=== PATIENT | female | born 1930 | race Caucasian/White ===

== ENCOUNTER 2017-08-05 19:51 | Inpatient (IN) | payer MEDICARE ==
[~2017-08-05] VITALS: Ht 157.5 cm; Wt 49.1 kg
[~2017-08-05 19:51] MED LIST: CEFD300C PO
--- NOTE | 2017-08-05 20:08 | ED.ADGEN ---
Past History Past Medical History: Dementia, Hypertension Adult General Chief Complaint Chief Complaint " They sent me to get checked out.... My only problem is that I kick up a fit now and again..." " I do need to call my mother so she knows where I am at... especially since my father recently ... You know he was a precision instrument and tool maker..." HPI HPI Patient is a 87 year old female resident of [facility], who presents with above hx and complaints by [facility] staff of mental status change. Pt. has been resident of [facility] since 07/31/16. Patient reportedly has been banging doors, staff unable to re-direct, angry with staff and visiting children. Seen crawling on floor several times for no apparent reason. Pt. has hx dementia, hypertension, osteoporosis, Alzheimer's, chronic pain, diverticulosis, and GI bleeding. Pt. currently is without complaints arrival to emergency department. Pt. reportedly has had no recent med changes. Pt. sent to admit to Dr. Perez [facility]. Review of Systems Review of Systems Patient has no complaints Constitutional: Denies fever or chills [] Eyes: Denies change in visual acuity, redness, or eye pain [] HENT: Denies nasal congestion or sore throat [] Respiratory: Denies cough or shortness of breath [] Cardiovascular: No additional information not addressed in HPI [] GI: Denies abdominal pain, nausea, vomiting, bloody stools or diarrhea [] : Denies dysuria or hematuria [] Musculoskeletal: Denies back pain or joint pain [] Integument: Denies rash or skin lesions [] Neurologic: Denies headache, focal weakness or sensory changes [] Endocrine: Denies polyuria or polydipsia [] All other systems were reviewed and found to be within normal limits, except as documented in this note. Family History Family History Not currently available Current Medications Current Medications Current Medications Medications (Trade) Dose Ordered Sig/Delores Start Time Stop Time Status Last Admin Dose Admin Cephalexin HCl (Keflex) 500 mg 1X ONCE 08/05/17 21:45 08/05/17 21:46 DC 08/05/17 21:57 500 MG Dextrose 500 ml @ 500 mls/hr 1X ONCE 08/05/17 23:00 08/05/17 23:59 DC 08/05/17 22:40 500 MLS/HR See Nursing for NH meds Allergies Allergies Allergies Coded Allergies Type Severity Reaction Last Updated Verified codeine Allergy Unknown Unknown 08/05/17 Yes lorazepam Allergy Unknown Unknown 08/05/17 Yes Physical Exam Physical Exam Constitutional: no acute distress, non-toxic appearance. [] HENT: Normocephalic, atraumatic, bilateral external ears normal, oropharynx moist, no oral exudates, nose normal. [] Eyes: PERRLA, EOMI, conjunctiva normal, no discharge. [] Neck: Normal range of motion, no tenderness, supple, no stridor. [] Cardiovascular:Bradycardia Heart rate regular rhythm, no murmur [] Lungs & Thorax: Bilateral breath sounds clear to auscultation at apex. Abdomen: Bowel sounds normal, soft, no tenderness, no masses, no pulsatile masses. [] Skin: Warm, dry, no erythema, no rash. Poor turgor. Back: No tenderness, no CVA tenderness. [] Extremities: No tenderness, no cyanosis, no clubbing, ROM intact, no edema. Arthritis. Neurologic: Alert , no gross motor or sensory function deficits[] Psychologic: Affect anxious, judgement obvious impairment, memory past events, could not recall events of even a few minutes, and insight limited.] Pt wandering out of room every time with no nursing staff to constantly re-direct her to stay in room. Current Patient Data Vital Signs Vital Signs Date Time Temp Pulse Resp B/P (MAP) Pulse Ox O2 Delivery O2 Flow Rate FiO2 08/05/17 23:00 97.4 62 18 134/58 (83) 98 08/05/17 20:04 Room Air Lab Results Laboratory Tests Test 08/05/17 20:22 08/05/17 20:54 08/05/17 21:00 08/05/17 22:18 White Blood Count 6.8 x10^3/uL (4.0-11.0) Red Blood Count 3.43 x10^6/uL (3.50-5.40) L Hemoglobin 10.7 g/dL (12.0-15.5) L Hematocrit 32.4 % (36.0-47.0) L Mean Corpuscular Volume 95 fL (79-100) Mean Corpuscular Hemoglobin 31 pg (25-35) Mean Corpuscular Hemoglobin Concent 33 g/dL (31-37) Red Cell Distribution Width 16.0 % (11.5-14.5) H Platelet Count 182 x10^3/uL (140-400) Neutrophils (%) (Auto) 60 % (31-73) Lymphocytes (%) (Auto) 24 % (24-48) Monocytes (%) (Auto) 11 % (0-9) H Eosinophils (%) (Auto) 4 % (0-3) H Basophils (%) (Auto) 1 % (0-3) Neutrophils # (Auto) 4.1 x10^3uL (1.8-7.7) Lymphocytes # (Auto) 1.7 x10^3/uL (1.0-4.8) Monocytes # (Auto) 0.8 x10^3/uL (0.0-1.1) Eosinophils # (Auto) 0.3 x10^3/uL (0.0-0.7) Basophils # (Auto) 0.1 x10^3/uL (0.0-0.2) Erythrocyte Sedimentation Rate 8 (0-25) Prothrombin Time 10.6 SEC (9.4-11.4) Prothrombin Time INR 1.0 (0.9-1.1) PTT 22 SEC (23-33) L Sodium Level 146 mmol/L (136-145) H Potassium Level 3.6 mmol/L (3.5-5.1) Chloride Level 108 mmol/L (98-107) H Carbon Dioxide Level 28 mmol/L (21-32) Anion Gap 10 (6-14) Blood Urea Nitrogen 23 mg/dL (7-20) H Creatinine 1.0 mg/dL (0.6-1.0) Estimated GFR (Cockcroft-Gault) 52.3 Glucose Level 110 mg/dL (70-99) H Calcium Level 8.7 mg/dL (8.5-10.1) Magnesium Level 2.2 mg/dL (1.8-2.4) Ammonia < 10 mcmol/L (11-34) L Creatine Kinase 198 U/L (26-192) H Creatine Kinase MB (Mass) 1.6 ng/mL (0.0-3.6) Creatine Kinase MB Relative Index 0.8 % (0-4) Troponin I Quantitative 0.023 ng/mL (0-0.055) BJ-Lgq-X-Type Natriuretic Peptide 480 pg/mL (0-449) H Urine Collection Type Unknown Urine Color Yellow Urine Clarity Clear Urine pH 6.0 Urine Specific [place] 1.015 Urine Protein Neg (NEG-TRACE) Urine Glucose (UA) Neg mg/dL (NEG) Urine Ketones (Stick) Neg mg/dL (NEG) Urine Blood Neg (NEG) Urine Nitrite Neg (NEG) Urine Bilirubin Neg (NEG) Urine Urobilinogen Dipstick 0.2 mg/dL (0.2 mg/dL) Urine Leukocyte Esterase Small (NEG) Urine RBC 0 /HPF (0-2) Urine WBC 1-4 /HPF (0-4) Urine Squamous Epithelial Cells Few /LPF Urine Bacteria 0 /HPF (0-FEW) Urine Opiates Screen Neg (NEG) Urine Methadone Screen Neg (NEG) Urine Barbiturates Neg (NEG) Urine Phencyclidine Screen Neg (NEG) Urine Amphetamine/Methamphetamine Neg (NEG) Urine Benzodiazepines Screen Neg (NEG) Urine Cocaine Screen Neg (NEG) Urine Cannabinoids Screen Neg (NEG) Urine Ethyl Alcohol Neg (NEG) Influenza Type A (Rapid) Negative (NEGATIVE) Influenza Type B (Rapid) Negative (NEGATIVE) EKG EKG Interpretation EKG shows a sinus rhythm at 59 bpm. No acute findings of STEMI with contralateral changes[] Radiology/Procedures Radiology/Procedures My interpretation of CT head shows no shift, mass, edema, bleed, or fracture. Does have findings of atrophy and white matter disease changes. My interpretation of chest x-ray shows no large cardio pulmonary changes, some degenerative joint changes.[] Course & Med Decision Making Course & Med Decision Making Pertinent Labs and Imaging studies reviewed. (See chart for details). Discussed presentation, testing and treatment plan with Dr. Raphael. Requested patient received D5 W. Patient to be admitted to Dr. Perez [facility]. [] Final Impression Final Impression 1. Mental status change 2. History of dementia 3. History of depression 4. History of arthritis 5. History of osteoporosis[] 6. Hx of HTN 7. Hx. of Chronic Pain 8. Anemia 9. Hypernatremia 10.Spenoid Sinusitis 11. Possible UTI 12. Elev. CK and BNP Problems: Dragon Disclaimer Dragon Disclaimer This electronic medical record was generated, in whole or in part, using a voice recognition dictation system. ELSA PACHECO MD Aug 05, 2017 20:08
--- NOTE | 2017-08-05 20:49 | RAD ---
EXAM: Head CT without contrast. HISTORY: Fall. Confusion. Weakness. TECHNIQUE: Computed tomographic images of the head were obtained without contrast. *One or more of the following individualized dose reduction techniques were utilized for this examination: 1. Automated exposure control. 2. Adjustment of the mA and/or kV according to patient size. 3. Use of iterative reconstruction technique. COMPARISON: None. FINDINGS: There is no acute or subacute extra-axial or intraparenchymal hemorrhage. There is no mass effect or midline shift. There is no hydrocephalus. There are areas of decreased attenuation within the cerebral white matter, nonspecific and likely related to chronic small vessel disease. There is cerebral atrophy. There is near complete opacification of the right aspect of the sphenoid sinus with sinus wall thickening likely due to chronic sinusitis. There may be a superimposed mucous retention cyst. There is no sinus wall expansion to suggest a mucocele. The orbits and mastoid air cells are unremarkable. IMPRESSION: 1. Scattered areas of hypodensity within the cerebral white matter, a nonspecific finding likely due to chronic small vessel disease. 2. Cerebral atrophy. 3. Right sphenoid sinus disease. Electronically signed by: Aisha Medrano MD (08/05/2017 8:46 PM) [facility]
[2017-08-05 21:07] LABS: BASO # 0.1 x10^3/uL (0.0-0.2); BASO % 1 % (0-3); EOS # 0.3 x10^3/uL (0.0-0.7); EOS % 4 % (0-3); HEMATOCRIT 32.4 % (36.0-47.0); HEMOGLOBIN 10.7 g/dL (12.0-15.5); LYMPH # 1.7 x10^3/uL (1.0-4.8); LYMPH % 24 % (24-48); MEAN CORPUSCULAR HEMOGLOBIN 31 pg (25-35); MEAN CORPUSCULAR HGB CONC 33 g/dL (31-37); MEAN CORPUSCULAR VOLUME 95 fL (79-100); MONO # 0.8 x10^3/uL (0.0-1.1); MONO % 11 % (0-9); NEUT # 4.1 x10^3uL (1.8-7.7); NEUT % 60 % (31-73); PLATELET COUNT 182 x10^3/uL (140-400); RED BLOOD COUNT 3.43 x10^6/uL (3.50-5.40); WHITE BLOOD COUNT 6.8 x10^3/uL (4.0-11.0)
[2017-08-05 21:27] LABS: CALCIUM 8.7 mg/dL (8.5-10.1); GFR 52.3; MAGNESIUM 2.2 mg/dL (1.8-2.4); POTASSIUM 3.6 mmol/L (3.5-5.1)
[2017-08-05] MEDS ORDERED: CEPHALEXIN 250 MG CAPSULE PO ONE (21:45)
[2017-08-05] MEDS: CEPHALEXIN 250 MG CAPSULE PO SCH (21:59)
[2017-08-05 22:41] LABS: AMPHETAMINE/METHAMPHETAMINE NEG (NEG); BARBITURATES NEG (NEG); BENZODIAZEPINES NEG (NEG); CANNABINOIDS NEG (NEG); COCAINE NEG (NEG); METHADONE NEG (NEG); OPIATES NEG (NEG); PHENCYCLIDINE NEG (NEG)
[2017-08-05 22:57] LABS: SEDIMENTATION RATE 8 (0-25)
[2017-08-05] MEDS ORDERED: IV DEXTROSE 5% 500 ML IV ONE (23:00)
[2017-08-05 23:06] LABS: INFLUENZA A PATIENT NEGATIVE (NEGATIVE); INFLUENZA B PATIENT NEGATIVE (NEGATIVE)
[2017-08-05 23:09] LABS: BILIRUBIN,URINE NEG (NEG); CLARITY,URINE CLEAR; COLOR,URINE YELLOW; GLUCOSE,URINE NEG (NEG)
[2017-08-05 23:10] LABS: BACTERIA,URINE 0 /HPF (0-FEW); NITRITE,URINE NEG (NEG); RBC,URINE 0 /HPF (0-2); SQUAMOUS EPITHELIAL CELL,UR FEW /LPF; UROBILINOGEN,URINE 0.2 mg/dL (0.2 mg/dL)
[2017-08-05] MEDS ORDERED: OLAN5TAB5 PO (23:20)
[2017-08-05] MEDS ORDERED: PHEN26CR RC (23:20)
[2017-08-05] MEDS ORDERED: ACET325T9 PO ×2 (23:20)
[2017-08-05] MEDS ORDERED: LISI1TAB3 PO (23:20)
[2017-08-05] MEDS ORDERED: CHOL400T14 PO (23:20)
[2017-08-05] MEDS ORDERED: OLAN2.5T3 PO (23:20)
[2017-08-05] MEDS ORDERED: KETO5DRO72 LEFTEYE (23:20)
[2017-08-05] MEDS ORDERED: FERR325T14 PO (23:20)
[2017-08-05] MEDS ORDERED: RIVA1PAT22 TD (23:20)
[2017-08-05] MEDS ORDERED: DOCU-109 PO (23:20)
[2017-08-05] MEDS ORDERED: CA C1TAB45 PO (23:20)
[2017-08-05] MEDS ORDERED: BUSP5TAB PO (23:20)
[2017-08-05] MEDS ORDERED: ONDA4TAB7 PO (23:20)
[2017-08-05] MEDS ORDERED: ALPR0.254 PO (23:20)
[2017-08-05] MEDS ORDERED: CITA20TA9 PO (23:20)
[2017-08-05] MEDS ORDERED: DONE10TA61 PO (23:20)
[2017-08-05] MEDS ORDERED: MEMA5TAB PO (23:20)
[2017-08-06 00:10] VITALS: BP 186/84
[2017-08-06 06:18] VITALS: BP 178/61
[2017-08-06 07:03] LABS: BASO # 0.1 x10^3/uL (0.0-0.2); BASO % 1 % (0-3); EOS # 0.3 x10^3/uL (0.0-0.7); EOS % 4 % (0-3); HEMATOCRIT 33.5 % (36.0-47.0); LYMPH # 1.5 x10^3/uL (1.0-4.8); LYMPH % 20 % (24-48); MEAN CORPUSCULAR HEMOGLOBIN 31 pg (25-35); MEAN CORPUSCULAR HGB CONC 33 g/dL (31-37); MEAN CORPUSCULAR VOLUME 94 fL (79-100); MONO # 0.7 x10^3/uL (0.0-1.1); MONO % 10 % (0-9); NEUT % 66 % (31-73); PLATELET COUNT 181 x10^3/uL (140-400); RED BLOOD COUNT 3.55 x10^6/uL (3.50-5.40); RED CELL DISTRIBUTION WIDTH 16.2 % (11.5-14.5); WHITE BLOOD COUNT 7.6 x10^3/uL (4.0-11.0)
[2017-08-06 07:08] LABS: CALCIUM 8.6 mg/dL (8.5-10.1); CREATININE 0.9 mg/dL (0.6-1.0); GFR 59.1; POTASSIUM 3.7 mmol/L (3.5-5.1)
--- NOTE | 2017-08-06 08:30 | EKG ---
[address] [address] Test Date: 2017-08-05 Test Time: 20:12:18 Pat Name: FANTA SIN Department: Room: [facility] 1 Gender: F Playroom Attendant: : [id number] Requested By: ELSA PACHECO Order Number: [id number] Reading MD: Tonny Bazan Measurements Intervals [place] Rate: 59 P: 180 CA: 130 QRS: -24 QRSD: 70 T: 139 QT: 442 QTc: 438 Interpretive Statements SINUS RHYTHM LEFTWARD AXIS T ABNORMALITY IN HIGH LATERAL LEADS ABNORMAL ECG RI6.01 No previous ECG available for comparison Electronically Signed On 08-07-2017 11:51:14 [employer] by Tonny Bazan
--- NOTE | 2017-08-06 08:56 | RAD ---
Portable AP view CXR: Clinical indications: Weakness. Confusion today. Falls. Comparison: None available. Findings: Focal peribronchial thickening is seen within the right upper lobe. No lung consolidation or pleural effusion or Steffany B lines or lung mass or pneumothorax is seen. The heart size, pulmonary vasculature, mediastinum and both sundar are unremarkable. An old healed fracture of the lateral aspect of the left second rib is seen. Impression: Focal peribronchial thickening within the right upper lobe consistent with bronchitis which may be acute or chronic. No consolidative pneumonia is seen otherwise.
[2017-08-06] MEDS: MEMANTINE 5 MG TABLET. PO SCH ×3 (10:22→21:00)
[2017-08-06] MEDS: CEPHALEXIN 250 MG CAPSULE PO SCH ×4 (10:23→21:00)
[2017-08-06] MEDS: DONEPEZIL HCL 10 MG TABLET PO SCH (10:23)
[2017-08-06] MEDS: busPIRone 5 MG TABLET. PO SCH ×3 (10:23→21:00)
[2017-08-06] MEDS: OLANZapine 2.5 MG TABLET PO SCH (10:23)
[2017-08-06] MEDS: FLUTICASONE 50MCG/NASAL SPRAY 16GM BOTTLE. NS SCH (10:23)
[2017-08-06] MEDS: CITALOPRAM 20 MG TABLET. PO SCH (10:23)
[2017-08-06] MEDS: LACTOBACILLUS RHAMNOSUS GG 1 CAPSULE. PO SCH ×3 (10:23→21:00)
[2017-08-06] MEDS: RIVASTIGMINE 4.6MG PATCH. TD SCH (10:23)
[2017-08-06 14:15] LABS: THYROID STIM HORMONE (TSH) 3.523 uIU/mL (0.358-3.740)
--- NOTE | 2017-08-06 15:34 | HP ---
ADMIT DATE: 08/05/2017 REASON FOR ADMISSION TO SENIOR BEHAVIORAL UNIT: This is an 87-year-old female who came from [facility] in [place] where she has been exit seeking, throwing herself on the floor, banging on the doors, not being able to be redirected, angry at her children, crawling on the floors, onset of symptoms 1 month, facility attempted to call her daughter, walk her around outside, son came and took her for a ride and she had p.r.n., Xanax and Zydis and Exelon patch was started . The date of admission to [facility] was a year ago, 07/31/2016. PAST MEDICAL HISTORY: Hypertension, osteoporosis, major depressive disorder, Alzheimer disease, chronic back pain, history of diverticulosis. She has been on antibiotics since Saturday. History of GI bleed 2 weeks ago with hospitalization. Functionality, she is continent, she walks, she feeds herself, eats a regular diet. REVIEW OF SYSTEMS: The patient unable to answer those questions. OBJECTIVE: VITAL SIGNS: Blood pressure is 178/61, pulse 71, respirations 20, pulse ox 100% on room air, temperature 99.2. Height 62 inches, weight 110 pounds. GENERAL: Pleasant elderly female, in no acute distress. At the present time, she is sitting in the day room, very quietly, cooperating, drinking water and not having any issues. HEENT: Hearing is normal. Eyes were clear. Nose patent. Throat clear. NECK: Supple, without adenopathy. Thyroid was not enlarged. There were no carotid bruits. LUNGS: Clear to auscultation. CARDIOVASCULAR: Regular rhythm and rate with a 3/6 systolic murmur. ABDOMEN: Soft, nontender. EXTREMITIES: Without edema. NEUROLOGIC: Cranial nerves appear to be intact. There are no gross tremors. LABORATORY DATA: Hemoglobin 11.0, hematocrit 33.5. Chemistry: Sodium is 147, chloride 110. BNP 480. Drug screen negative. Urinalysis negative. Influenza negative. Chest x-ray, possibly acute or chronic bronchitis and where she has been started on antibiotic I believe. ASSESSMENT: 1. Acute bronchitis. 2. Dementia with behavior disturbance. 3. Anxiety. 4. Fall risk. PLAN: Follow along with Dr. Perez and treat her medical conditions. CROW ELLINGTON DO DR: Loretta JOB#: [id number] / [id number]
[2017-08-06 16:42] VITALS: BP 138/50
[2017-08-06] MEDS: MIRTAZAPINE 7.5 MG TABLET. PO SCH ×2 (19:38→21:00)
--- NOTE | 2017-08-06 20:05 | PDOC ---
Exam Note: Allen Note: Please also refer to the separate dictated note~for this date of service dictated separately.~Patient seen individually. Discussed the patient with Nursing staff reviewed the chart.~Reviewed interim history and current functioning. Reviewed vital signs,~Labs/ Radiology~and current medications noted below. Continue current treatment with the changes noted in the dictated addendum note Assessment: Vital Signs: Vital Signs Date Time Temp Pulse Resp B/P (MAP) Pulse Ox O2 Delivery O2 Flow Rate FiO2 08/06/17 16:42 98.4 70 18 138/50 (79) 100 08/06/17 00:10 Room Air I&O Intake and Output 08/06/17 07:00 Intake Total 620 ml Balance 620 ml Intake Oral 120 ml IV Total 500 ml Labs: Laboratory Tests Test 08/05/17 20:22 08/05/17 20:54 08/05/17 21:00 08/05/17 22:18 White Blood Count 6.8 x10^3/uL (4.0-11.0) Red Blood Count 3.43 x10^6/uL (3.50-5.40) L Hemoglobin 10.7 g/dL (12.0-15.5) L Hematocrit 32.4 % (36.0-47.0) L Mean Corpuscular Volume 95 fL (79-100) Mean Corpuscular Hemoglobin 31 pg (25-35) Mean Corpuscular Hemoglobin Concent 33 g/dL (31-37) Red Cell Distribution Width 16.0 % (11.5-14.5) H Platelet Count 182 x10^3/uL (140-400) Neutrophils (%) (Auto) 60 % (31-73) Lymphocytes (%) (Auto) 24 % (24-48) Monocytes (%) (Auto) 11 % (0-9) H Eosinophils (%) (Auto) 4 % (0-3) H Basophils (%) (Auto) 1 % (0-3) Neutrophils # (Auto) 4.1 x10^3uL (1.8-7.7) Lymphocytes # (Auto) 1.7 x10^3/uL (1.0-4.8) Monocytes # (Auto) 0.8 x10^3/uL (0.0-1.1) Eosinophils # (Auto) 0.3 x10^3/uL (0.0-0.7) Basophils # (Auto) 0.1 x10^3/uL (0.0-0.2) Erythrocyte Sedimentation Rate 8 (0-25) Reticulocyte Count (auto) 1.7 % (0.5-2.5) Prothrombin Time 10.6 SEC (9.4-11.4) Prothrombin Time INR 1.0 (0.9-1.1) PTT 22 SEC (23-33) L Sodium Level 146 mmol/L (136-145) H Potassium Level 3.6 mmol/L (3.5-5.1) Chloride Level 108 mmol/L (98-107) H Carbon Dioxide Level 28 mmol/L (21-32) Anion Gap 10 (6-14) Blood Urea Nitrogen 23 mg/dL (7-20) H Creatinine 1.0 mg/dL (0.6-1.0) Estimated GFR (Cockcroft-Gault) 52.3 Glucose Level 110 mg/dL (70-99) H Calcium Level 8.7 mg/dL (8.5-10.1) Magnesium Level 2.2 mg/dL (1.8-2.4) Iron Level 53 ug/dL (50-170) Total Iron Binding Capacity 280 ug/dL (250-450) Iron Saturation 19 % (15-34) Ammonia < 10 mcmol/L (11-34) L Creatine Kinase 198 U/L (26-192) H Creatine Kinase MB (Mass) 1.6 ng/mL (0.0-3.6) Creatine Kinase MB Relative Index 0.8 % (0-4) Troponin I Quantitative 0.023 ng/mL (0-0.055) PB-Mhi-U-Type Natriuretic Peptide 480 pg/mL (0-449) H Triglycerides Level 212 mg/dL (0-150) H Cholesterol Level 218 mg/dL (0-200) H LDL Cholesterol, Calculated 116 mg/dL (0-100) H VLDL Cholesterol, Calculated 42 mg/dL (0-40) H Non-HDL Cholesterol Calculated 158 mg/dL (0-129) H HDL Cholesterol 60 mg/dL (40-60) Cholesterol/HDL Ratio 3.0 Vitamin B12 Level 605 pg/mL (247-911) 25-Hydroxy Vitamin D Total 30.7 ng/mL (30-100) Thyroid Stimulating Hormone (TSH) 3.523 uIU/mL (0.358-3.740) Urine Collection Type Unknown Urine Color Yellow Urine Clarity Clear Urine pH 6.0 Urine Specific [place] 1.015 Urine Protein Neg (NEG-TRACE) Urine Glucose (UA) Neg mg/dL (NEG) Urine Ketones (Stick) Neg mg/dL (NEG) Urine Blood Neg (NEG) Urine Nitrite Neg (NEG) Urine Bilirubin Neg (NEG) Urine Urobilinogen Dipstick 0.2 mg/dL (0.2 mg/dL) Urine Leukocyte Esterase Small (NEG) Urine RBC 0 /HPF (0-2) Urine WBC 1-4 /HPF (0-4) Urine Squamous Epithelial Cells Few /LPF Urine Bacteria 0 /HPF (0-FEW) Urine Opiates Screen Neg (NEG) Urine Methadone Screen Neg (NEG) Urine Barbiturates Neg (NEG) Urine Phencyclidine Screen Neg (NEG) Urine Amphetamine/Methamphetamine Neg (NEG) Urine Benzodiazepines Screen Neg (NEG) Urine Cocaine Screen Neg (NEG) Urine Cannabinoids Screen Neg (NEG) Urine Ethyl Alcohol Neg (NEG) Influenza Type A (Rapid) Negative (NEGATIVE) Influenza Type B (Rapid) Negative (NEGATIVE) Test 08/06/17 06:45 White Blood Count 7.6 x10^3/uL (4.0-11.0) Red Blood Count 3.55 x10^6/uL (3.50-5.40) Hemoglobin 11.0 g/dL (12.0-15.5) L Hematocrit 33.5 % (36.0-47.0) L Mean Corpuscular Volume 94 fL (79-100) Mean Corpuscular Hemoglobin 31 pg (25-35) Mean Corpuscular Hemoglobin Concent 33 g/dL (31-37) Red Cell Distribution Width 16.2 % (11.5-14.5) H Platelet Count 181 x10^3/uL (140-400) Neutrophils (%) (Auto) 66 % (31-73) Lymphocytes (%) (Auto) 20 % (24-48) L Monocytes (%) (Auto) 10 % (0-9) H Eosinophils (%) (Auto) 4 % (0-3) H Basophils (%) (Auto) 1 % (0-3) Neutrophils # (Auto) 5.0 x10^3uL (1.8-7.7) Lymphocytes # (Auto) 1.5 x10^3/uL (1.0-4.8) Monocytes # (Auto) 0.7 x10^3/uL (0.0-1.1) Eosinophils # (Auto) 0.3 x10^3/uL (0.0-0.7) Basophils # (Auto) 0.1 x10^3/uL (0.0-0.2) Sodium Level 147 mmol/L (136-145) H Potassium Level 3.7 mmol/L (3.5-5.1) Chloride Level 110 mmol/L (98-107) H Carbon Dioxide Level 27 mmol/L (21-32) Anion Gap 10 (6-14) Blood Urea Nitrogen 23 mg/dL (7-20) H Creatinine 0.9 mg/dL (0.6-1.0) Estimated GFR (Cockcroft-Gault) 59.1 Glucose Level 110 mg/dL (70-99) H Calcium Level 8.6 mg/dL (8.5-10.1) Current Medications: Meds: Current Medications Cephalexin HCl (Keflex) 500 mg 1X ONCE PO Last administered on 08/05/17at 21:57 ; Start 08/05/17 at 21:45; Stop 08/05/17 at 21:46; Status DC Fluticasone Propionate (Flonase) 2 spray DAILY NS Last administered on at 10:23; Start 08/06/17 at 09:00 Cephalexin HCl (Keflex) 500 mg TID PO Last administered on 08/06/17at 19:37; Start 08/06/17 at 09:00 Dextrose 500 ml @ 500 mls/hr 1X ONCE IV Last administered on 08/05/17at 22:40 ; Start 08/05/17 at 23:00; Stop 08/05/17 at 23:59; Status DC Lactobacillus Rhamnosus (Culturelle) 1 cap BID PO Last administered on at 19:37; Start 08/06/17 at 09:00 Alprazolam (Xanax) 0.25 mg PRN Q30MIN PRN PO ANXIETY / AGITATION; Start at 00:00 Buspirone HCl (Buspar) 7.5 mg BID PO Last administered on 08/06/17at 19:37; Start 08/06/17 at 09:00 Citalopram Hydrobromide (CeleXA) 20 mg DAILY PO Last administered on 08/06/17at 10:23; Start 08/06/17 at 09:00 Donepezil HCl (Aricept) 10 mg DAILY PO Last administered on 08/06/17at 10:23; Start 08/06/17 at 09:00 Memantine (Namenda) 5 mg BID PO Last administered on 08/06/17at 19:35; Start at 09:00 Olanzapine (ZyPREXA ZYDIS) 2.5 mg PRN Q12HR PRN PO PSYCHOSIS; Start 08/06/17 at 00:00 Olanzapine (ZyPREXA) 2.5 mg DAILY PO Last administered on 08/06/17 10:23; Start 08/06/17 at 09:00 Rivastigmine (Exelon) 1 patch DAILY TD Last administered on 08/06/17 10:23; Start 08/06/17 at 09:00 Mirtazapine (Remeron) 7.5 mg QHS PO Last administered on 08/06/17at 19:38; Start 08/06/17 at 21:00 Trazodone HCl (Desyrel) 25 mg PRN QHS PRN PO INSOMNIA, MAY REPEAT X1; Start at 18:45 Active Scripts Active Reported Zyprexa Zydis (Olanzapine) 5 Mg Tab.rapdis 2.5 Mg PO PRN Q12HR PRN Zyprexa (Olanzapine) 2.5 Mg Tablet 2.5 Mg PO DAILY Zofran (Ondansetron Hcl) 4 Mg Tablet 4 Mg PO PRN Q4HRS PRN Vitamin D-400 (Cholecalciferol (Vitamin D3)) 400 Unit Tablet 400 Unit PO DAILY Tylenol (Acetaminophen) 325 Mg Tablet 650 Mg PO BID Preparation H Cream (Phenyleph/Pramoxin/Glycr/W.pet) 26 Gm Cream..g. 1 Vicky RC PRN PRN Namenda (Memantine Hcl) 5 Mg Tablet 5 Mg PO BID Tylenol (Acetaminophen) 325 Mg Tablet 650 Mg PO PRN Q6HRS PRN Lisinopril-Hctz 10-12.5 Mg Tab (Lisinopril/Hydrochlorothiazide) 1 Each Tablet 1 Tab PO DAILY Ketorolac Tromethamine 5 Ml Drops 1 Drop LEFTEYE QID Ferrous Sulfate 325 Mg Tablet 325 Mg PO DAILY EXELON 4.6mg/24hr (Rivastigmine) 1 Each Patch.td24 1 Patch TD DAILY Aricept (Donepezil Hcl) 10 Mg Tablet 10 Mg PO DAILY Colace (Docusate Sodium) 100 Mg Capsule 100 Mg PO BID Celexa (Citalopram Hydrobromide) 20 Mg Tablet 20 Mg PO DAILY Cefdinir 300 Mg Capsule 300 Mg PO BID 7 Days Nadeem Mag Zinc + D3 Tablet (Ca Carb/Vit D3/Mag Ox/Zn Oxide) 1 Each Tablet 1 Tab PO BID Buspirone Hcl 5 Mg Tablet 7.5 Mg PO BID Alprazolam 0.25 Mg Tablet 0.25 Mg PO PRN Q30MIN PRN MDD 1mg I have reviewed the current psychotropics carefully including drug interactions. Risk benefit ratio favors no change other than as noted in my dictated progress note. 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
[2017-08-06 20:09] LABS: HEMOGLOBIN A1C 4.8 % (4.8-5.6); THYROXINE 5.6 ug/dL (4.5-12.0)
[2017-08-07 05:57] VITALS: BP 168/60
[2017-08-07] MEDS: DONEPEZIL HCL 10 MG TABLET PO SCH (09:20)
[2017-08-07] MEDS: RIVASTIGMINE 4.6MG PATCH. TD SCH (09:20)
[2017-08-07] MEDS: OLANZapine 2.5 MG TABLET PO SCH (09:20)
[2017-08-07] MEDS: LACTOBACILLUS RHAMNOSUS GG 1 CAPSULE. PO SCH ×2 (09:20→19:04)
[2017-08-07] MEDS: CEPHALEXIN 250 MG CAPSULE PO SCH ×3 (09:20→19:04)
[2017-08-07] MEDS: FLUTICASONE 50MCG/NASAL SPRAY 16GM BOTTLE. NS SCH (09:21)
[2017-08-07] MEDS: CITALOPRAM 20 MG TABLET. PO SCH (09:21)
[2017-08-07] MEDS: MEMANTINE 5 MG TABLET. PO SCH ×2 (09:21→19:05)
[2017-08-07] MEDS: busPIRone 5 MG TABLET. PO SCH ×2 (09:21→19:05)
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
[2017-08-07 16:49] VITALS: BP 129/54
[2017-08-07] MEDS: MIRTAZAPINE 7.5 MG TABLET. PO SCH (19:04)
--- NOTE | 2017-08-07 20:07 | PDOC ---
Exam Note: Allen Note: Please also refer to the separate dictated note~for this date of service dictated separately.~Patient seen individually. Discussed the patient with Nursing staff reviewed the chart.~Reviewed interim history and current functioning. Reviewed vital signs,~Labs/ Radiology~and current medications noted below. Continue current treatment with the changes noted in the dictated addendum note Assessment: Vital Signs: Vital Signs Date Time Temp Pulse Resp B/P (MAP) Pulse Ox O2 Delivery O2 Flow Rate FiO2 08/07/17 16:49 97.7 56 16 129/54 (79) 100 08/07/17 05:57 Room Air I&O Intake and Output 08/07/17 07:00 Intake Total 720 ml Balance 720 ml Intake Oral 720 ml # Bowel Movements 2 Current Medications: Meds: Current Medications Cephalexin HCl (Keflex) 500 mg 1X ONCE PO Last administered on 08/05/17at 21:57 ; Start 08/05/17 at 21:45; Stop 08/05/17 at 21:46; Status DC Fluticasone Propionate (Flonase) 2 spray DAILY NS Last administered on at 09:21; Start 08/06/17 at 09:00 Cephalexin HCl (Keflex) 500 mg TID PO Last administered on 08/07/17 19:04; Start 08/06/17 at 09:00 Dextrose 500 ml @ 500 mls/hr 1X ONCE IV Last administered on 08/05/17at 22:40 ; Start 08/05/17 at 23:00; Stop 08/05/17 at 23:59; Status DC Lactobacillus Rhamnosus (Culturelle) 1 cap BID PO Last administered on at 19:04; Start 08/06/17 at 09:00 Alprazolam (Xanax) 0.25 mg PRN Q30MIN PRN PO ANXIETY / AGITATION; Start at 00:00 Buspirone HCl (Buspar) 7.5 mg BID PO Last administered on 08/07/17at 19:05; Start 08/06/17 at 09:00 Citalopram Hydrobromide (CeleXA) 20 mg DAILY PO Last administered on 08/07/17at 09:21; Start 08/06/17 at 09:00 Donepezil HCl (Aricept) 10 mg DAILY PO Last administered on 08/07/17at 09:20; Start 08/06/17 at 09:00 Memantine (Namenda) 5 mg BID PO Last administered on 08/07/17at 19:05; Start at 09:00 Olanzapine (ZyPREXA ZYDIS) 2.5 mg PRN Q12HR PRN PO PSYCHOSIS; Start 08/06/17 at 00:00 Olanzapine (ZyPREXA) 2.5 mg DAILY PO Last administered on 08/07/17at 09:20; Start 08/06/17 at 09:00 Rivastigmine (Exelon) 1 patch DAILY TD Last administered on 08/07/17at 09:20; Start 08/06/17 at 09:00 Mirtazapine (Remeron) 7.5 mg QHS PO Last administered on 08/07/17at 19:04; Start 08/06/17 at 21:00 Trazodone HCl (Desyrel) 25 mg PRN QHS PRN PO INSOMNIA, MAY REPEAT X1; Start at 18:45 Active Scripts Active Reported Zyprexa Zydis (Olanzapine) 5 Mg Tab.rapdis 2.5 Mg PO PRN Q12HR PRN Zyprexa (Olanzapine) 2.5 Mg Tablet 2.5 Mg PO DAILY Zofran (Ondansetron Hcl) 4 Mg Tablet 4 Mg PO PRN Q4HRS PRN Vitamin D-400 (Cholecalciferol (Vitamin D3)) 400 Unit Tablet 400 Unit PO DAILY Tylenol (Acetaminophen) 325 Mg Tablet 650 Mg PO BID Preparation H Cream (Phenyleph/Pramoxin/Glycr/W.pet) 26 Gm Cream..g. 1 Vicky RC PRN PRN Namenda (Memantine Hcl) 5 Mg Tablet 5 Mg PO BID Tylenol (Acetaminophen) 325 Mg Tablet 650 Mg PO PRN Q6HRS PRN Lisinopril-Hctz 10-12.5 Mg Tab (Lisinopril/Hydrochlorothiazide) 1 Each Tablet 1 Tab PO DAILY Ketorolac Tromethamine 5 Ml Drops 1 Drop LEFTEYE QID Ferrous Sulfate 325 Mg Tablet 325 Mg PO DAILY EXELON 4.6mg/24hr (Rivastigmine) 1 Each Patch.td24 1 Patch TD DAILY Aricept (Donepezil Hcl) 10 Mg Tablet 10 Mg PO DAILY Colace (Docusate Sodium) 100 Mg Capsule 100 Mg PO BID Celexa (Citalopram Hydrobromide) 20 Mg Tablet 20 Mg PO DAILY Cefdinir 300 Mg Capsule 300 Mg PO BID 7 Days Nadeem Mag Zinc + D3 Tablet (Ca Carb/Vit D3/Mag Ox/Zn Oxide) 1 Each Tablet 1 Tab PO BID Buspirone Hcl 5 Mg Tablet 7.5 Mg PO BID Alprazolam 0.25 Mg Tablet 0.25 Mg PO PRN Q30MIN PRN MDD 1mg I have reviewed the current psychotropics carefully including drug interactions. Risk benefit ratio favors no change other than as noted in my dictated progress note. Diagnosis: Problems: (1) Dementia with behavioral disturbance (2) Anxiety disorder (3) Dementia in Alzheimer's disease with delusions (4) Dementia in Alzheimer's disease with depression (5) Dementia, vascular, with delusions (6) Dementia, vascular, with depression (7) Impulse control disorder LAUREN CASILLAS MD Aug 07, 2017 20:07
[2017-08-08 06:34] VITALS: BP 133/43
[2017-08-08] MEDS: DONEPEZIL HCL 10 MG TABLET PO SCH (08:46)
[2017-08-08] MEDS: MEMANTINE 5 MG TABLET. PO SCH (08:46)
[2017-08-08] MEDS: CITALOPRAM 20 MG TABLET. PO SCH (08:46)
[2017-08-08] MEDS: CEPHALEXIN 250 MG CAPSULE PO SCH ×2 (08:46→13:47)
[2017-08-08] MEDS: RIVASTIGMINE 4.6MG PATCH. TD SCH (08:46)
[2017-08-08] MEDS: OLANZapine 2.5 MG TABLET PO SCH (08:46)
[2017-08-08] MEDS: busPIRone 5 MG TABLET. PO SCH ×2 (08:46→20:41)
[2017-08-08] MEDS: LACTOBACILLUS RHAMNOSUS GG 1 CAPSULE. PO SCH ×2 (08:46→20:40)
[2017-08-08] MEDS: FLUTICASONE 50MCG/NASAL SPRAY 16GM BOTTLE. NS SCH (08:48)
[2017-08-08 16:32] VITALS: BP 170/67
[2017-08-08] MEDS ORDERED: FOSFOMYCIN TROMETHAMINE 3 GM PACKET PO ONE (17:00)
--- NOTE | 2017-08-08 20:00 | PDOC ---
Exam Note: Allen Note: Please also refer to the separate dictated note~for this date of service dictated separately.~Patient seen individually. Discussed the patient with Nursing staff reviewed the chart.~Reviewed interim history and current functioning. Reviewed vital signs,~Labs/ Radiology~and current medications noted below. Continue current treatment with the changes noted in the dictated addendum note Assessment: Vital Signs: Vital Signs Date Time Temp Pulse Resp B/P (MAP) Pulse Ox O2 Delivery O2 Flow Rate FiO2 08/08/17 16:32 98.1 78 18 170/67 (101) 99 Room Air I&O Intake and Output 08/08/17 07:00 Intake Total 240 ml Balance 240 ml Intake Oral 240 ml Current Medications: Meds: Current Medications Cephalexin HCl (Keflex) 500 mg 1X ONCE PO Last administered on 08/05/17at 21:57 ; Start 08/05/17 at 21:45; Stop 08/05/17 at 21:46; Status DC Fluticasone Propionate (Flonase) 2 spray DAILY NS Last administered on at 08:48; Start 08/06/17 at 09:00 Cephalexin HCl (Keflex) 500 mg TID PO Last administered on 08/08/17at 13:47; Start 08/06/17 at 09:00; Stop 08/08/17 at 16:11; Status DC Dextrose 500 ml @ 500 mls/hr 1X ONCE IV Last administered on 08/05/17at 22:40 ; Start 08/05/17 at 23:00; Stop 08/05/17 at 23:59; Status DC Lactobacillus Rhamnosus (Culturelle) 1 cap BID PO Last administered on at 08:46; Start 08/06/17 at 09:00 Alprazolam (Xanax) 0.25 mg PRN Q30MIN PRN PO ANXIETY / AGITATION; Start at 00:00 Buspirone HCl (Buspar) 7.5 mg BID PO Last administered on 08/08/17at 08:46; Start 08/06/17 at 09:00 Citalopram Hydrobromide (CeleXA) 20 mg DAILY PO Last administered on 08/08/17at 08:46; Start 08/06/17 at 09:00 Donepezil HCl (Aricept) 10 mg DAILY PO Last administered on 08/08/17at 08:46; Start 08/06/17 at 09:00; Stop 08/08/17 at 15:57; Status DC Memantine (Namenda) 5 mg BID PO Last administered on 08/08/17at 08:46; Start at 09:00; Stop 08/08/17 at 15:57; Status DC Olanzapine (ZyPREXA ZYDIS) 2.5 mg PRN Q12HR PRN PO PSYCHOSIS; Start 08/06/17 at 00:00 Olanzapine (ZyPREXA) 2.5 mg DAILY PO Last administered on 08/08/17at 08:46; Start 08/06/17 at 09:00 Rivastigmine (Exelon) 1 patch DAILY TD Last administered on 08/08/17at 08:46; Start 08/06/17 at 09:00 Mirtazapine (Remeron) 7.5 mg QHS PO Last administered on 08/07/17at 19:04; Start 08/06/17 at 21:00 Trazodone HCl (Desyrel) 25 mg PRN QHS PRN PO INSOMNIA, MAY REPEAT X1; Start at 18:45 Linezolid (Zyvox) 600 mg BID PO ; Start 08/08/17 at 21:00; Stop 08/08/17 at 21: 00; Status DC Fosfomycin Tromethamine (Monurol) 3 gm 1X ONCE PO Last administered on at 17:04; Start 08/08/17 at 17:00; Stop 08/08/17 at 17:01; Status DC Active Scripts Active Reported Zyprexa Zydis (Olanzapine) 5 Mg Tab.rapdis 2.5 Mg PO PRN Q12HR PRN Zyprexa (Olanzapine) 2.5 Mg Tablet 2.5 Mg PO DAILY Zofran (Ondansetron Hcl) 4 Mg Tablet 4 Mg PO PRN Q4HRS PRN Vitamin D-400 (Cholecalciferol (Vitamin D3)) 400 Unit Tablet 400 Unit PO DAILY Tylenol (Acetaminophen) 325 Mg Tablet 650 Mg PO BID Preparation H Cream (Phenyleph/Pramoxin/Glycr/W.pet) 26 Gm Cream..g. 1 Vicky RC PRN PRN Namenda (Memantine Hcl) 5 Mg Tablet 5 Mg PO BID Tylenol (Acetaminophen) 325 Mg Tablet 650 Mg PO PRN Q6HRS PRN Lisinopril-Hctz 10-12.5 Mg Tab (Lisinopril/Hydrochlorothiazide) 1 Each Tablet 1 Tab PO DAILY Ketorolac Tromethamine 5 Ml Drops 1 Drop LEFTEYE QID Ferrous Sulfate 325 Mg Tablet 325 Mg PO DAILY EXELON 4.6mg/24hr (Rivastigmine) 1 Each Patch.td24 1 Patch TD DAILY Aricept (Donepezil Hcl) 10 Mg Tablet 10 Mg PO DAILY Colace (Docusate Sodium) 100 Mg Capsule 100 Mg PO BID Celexa (Citalopram Hydrobromide) 20 Mg Tablet 20 Mg PO DAILY Cefdinir 300 Mg Capsule 300 Mg PO BID 7 Days Nadeem Mag Zinc + D3 Tablet (Ca Carb/Vit D3/Mag Ox/Zn Oxide) 1 Each Tablet 1 Tab PO BID Buspirone Hcl 5 Mg Tablet 7.5 Mg PO BID Alprazolam 0.25 Mg Tablet 0.25 Mg PO PRN Q30MIN PRN MDD 1mg I have reviewed the current psychotropics carefully including drug interactions. Risk benefit ratio favors no change other than as noted in my dictated progress note. Diagnosis: Problems: (1) Dementia with behavioral disturbance (2) Anxiety disorder (3) Dementia in Alzheimer's disease with delusions (4) Dementia in Alzheimer's disease with depression (5) Dementia, vascular, with delusions (6) Dementia, vascular, with depression (7) Impulse control disorder LAUREN CASILLAS MD Aug 08, 2017 20:00
[2017-08-08] MEDS: MIRTAZAPINE 7.5 MG TABLET. PO SCH (20:40)
[2017-08-08] MEDS ORDERED: LINEZOLID 600 MG TABLET PO SCH (21:00)
[2017-08-08] MEDS: traZODone 50 MG TABLET. PO PRN (22:39)
[2017-08-09 06:27] VITALS: BP 157/80
[2017-08-09] MEDS: LACTOBACILLUS RHAMNOSUS GG 1 CAPSULE. PO SCH ×2 (11:03→19:14)
[2017-08-09] MEDS: FLUTICASONE 50MCG/NASAL SPRAY 16GM BOTTLE. NS SCH (11:03)
[2017-08-09] MEDS: CITALOPRAM 20 MG TABLET. PO SCH (11:04)
[2017-08-09] MEDS: OLANZapine 2.5 MG TABLET PO SCH (11:04)
[2017-08-09] MEDS: RIVASTIGMINE 4.6MG PATCH. TD SCH (11:04)
[2017-08-09] MEDS: busPIRone 5 MG TABLET. PO SCH ×2 (11:04→19:14)
[2017-08-09] MEDS ORDERED: ACETAMINOPHEN 325 MG TABLET PO PRN (12:00)
[2017-08-09] MEDS ORDERED: ONDANSETRON ODT 4 MG TAB.RAPDIS PO PRN (12:15)
[2017-08-09] MEDS: FERROUS SULFATE 325 MG TABLET. PO SCH (12:29)
[2017-08-09] MEDS: LISINOPRIL 10 MG TABLET PO SCH (12:29)
[2017-08-09] MEDS: hydroCHLOROthiazide 12.5 MG CAPSULE PO SCH (12:30)
[2017-08-09] MEDS: CHOLECALCIFEROL (VITAMIN D3) 1,000 UNIT TABLET PO SCH (12:30)
[2017-08-09] MEDS: KETOROLAC TROMETHAMINE 0.5% OPHTH SOLUTION 3ML BOTTLE. OS SCH ×3 (13:48→21:00)
[2017-08-09 16:08] VITALS: BP 136/57
[2017-08-09] MEDS: CALCIUM CARB/VIT D3 500/200 TABLET PO SCH (17:27)
[2017-08-09] MEDS: MIRTAZAPINE 7.5 MG TABLET. PO SCH (19:13)
[2017-08-09] MEDS: traZODone 50 MG TABLET. PO PRN (19:14)
[2017-08-09] MEDS: ACETAMINOPHEN 325 MG TABLET PO SCH (19:16)
[2017-08-09] MEDS: DOCUSATE SODIUM 100 MG CAPSULE PO SCH (19:18)
--- NOTE | 2017-08-09 20:02 | PDOC ---
Exam Note: Allen Note: Please also refer to the separate dictated note~for this date of service dictated separately.~Patient seen individually. Discussed the patient with Nursing staff reviewed the chart.~Reviewed interim history and current functioning. Reviewed vital signs,~Labs/ Radiology~and current medications noted below. Continue current treatment with the changes noted in the dictated addendum note Assessment: Vital Signs: Vital Signs Date Time Temp Pulse Resp B/P (MAP) Pulse Ox O2 Delivery O2 Flow Rate FiO2 08/09/17 16:08 98.4 58 18 136/57 (83) 98 08/08/17 16:32 Room Air I&O Intake and Output 08/09/17 07:00 Intake Total 740 ml Balance 740 ml Intake Oral 740 ml # Bowel Movements 2 Current Medications: Meds: Current Medications Cephalexin HCl (Keflex) 500 mg 1X ONCE PO Last administered on 08/05/17at 21:57 ; Start 08/05/17 at 21:45; Stop 08/05/17 at 21:46; Status DC Fluticasone Propionate (Flonase) 2 spray DAILY NS Last administered on at 11:03; Start 08/06/17 at 09:00 Cephalexin HCl (Keflex) 500 mg TID PO Last administered on 08/08/17at 13:47; Start 08/06/17 at 09:00; Stop 08/08/17 at 16:11; Status DC Dextrose 500 ml @ 500 mls/hr 1X ONCE IV Last administered on 08/05/17at 22:40 ; Start 08/05/17 at 23:00; Stop 08/05/17 at 23:59; Status DC Lactobacillus Rhamnosus (Culturelle) 1 cap BID PO Last administered on at 19:14; Start 08/06/17 at 09:00 Alprazolam (Xanax) 0.25 mg PRN Q30MIN PRN PO ANXIETY / AGITATION; Start at 00:00 Buspirone HCl (Buspar) 7.5 mg BID PO Last administered on 08/09/17at 19:14; Start 08/06/17 at 09:00 Citalopram Hydrobromide (CeleXA) 20 mg DAILY PO Last administered on 08/09/17at 11:04; Start 08/06/17 at 09:00 Donepezil HCl (Aricept) 10 mg DAILY PO Last administered on 08/08/17at 08:46; Start 08/06/17 at 09:00; Stop 08/08/17 at 15:57; Status DC Memantine (Namenda) 5 mg BID PO Last administered on 08/08/17at 08:46; Start at 09:00; Stop 08/08/17 at 15:57; Status DC Olanzapine (ZyPREXA ZYDIS) 2.5 mg PRN Q12HR PRN PO PSYCHOSIS; Start 08/06/17 at 00:00 Olanzapine (ZyPREXA) 2.5 mg DAILY PO Last administered on 08/09/17at 11:04; Start 08/06/17 at 09:00 Rivastigmine (Exelon) 1 patch DAILY TD Last administered on 08/09/17 11:04; Start 08/06/17 at 09:00 Mirtazapine (Remeron) 7.5 mg QHS PO Last administered on 08/09/17at 19:13; Start 08/06/17 at 21:00 Trazodone HCl (Desyrel) 25 mg PRN QHS PRN PO INSOMNIA, MAY REPEAT X1 Last administered on 08/09/17at 19:14; Start 08/06/17 at 18:45 Linezolid (Zyvox) 600 mg BID PO ; Start 08/08/17 at 21:00; Stop 08/08/17 at 21: 00; Status DC Fosfomycin Tromethamine (Monurol) 3 gm 1X ONCE PO Last administered on at 17:04; Start 08/08/17 at 17:00; Stop 08/08/17 at 17:01; Status DC Acetaminophen (Tylenol) 650 mg BID PO Last administered on 08/09/17at 19:16; Start 08/09/17 at 21:00 Acetaminophen (Tylenol) 650 mg PRN Q6HRS PRN PO PAIN / TEMP; Start 08/09/17 at 12:00 Docusate Sodium (Colace) 100 mg BID PO Last administered on 08/09/17at 19:18; Start 08/09/17 at 21:00 Ferrous Sulfate (Feosol) 325 mg DAILY PO Last administered on 08/09/17at 12:29; Start 08/09/17 at 12:00 Non-Formulary Medication 1 tab BID PO ; Start 08/09/17 at 21:00; Stop 08/09/17 at 21:00; Status DC Vitamin D (Vitamin D3) 500 unit DAILY PO Last administered on 08/09/17at 12:30; Start 08/09/17 at 12:00 Ketorolac Tromethamine (Acular) 1 drop QID OS Last administered on 08/09/17at 17 :27; Start 08/09/17 at 13:00 Non-Formulary Medication 1 tab DAILY PO ; Start 08/10/17 at 09:00; Stop at 09:00; Status DC Ondansetron HCl (Zofran Odt) 4 mg PRN Q4HRS PRN PO NAUSEA/VOMITING; Start 08/09 at 12:15 Lisinopril (Prinivil) 10 mg DAILY PO Last administered on 08/09/17at 12:29; Start 08/09/17 at 12:00 Hydrochlorothiazide (Microzide) 12.5 mg DAILY PO Last administered on at 12:30; Start 08/09/17 at 12:00 Calcium/Vitamin D (Oscal D 500mg/ 200uts) 1 tab BIDWMEALS PO Last administered on 08/09/17at 17:27; Start 08/09/17 at 17:00 Multivitamins/ Calcium (Thera-M Plus) 1 tab DAILY PO ; Start 08/10/17 at 09:00 Active Scripts Active Reported Zyprexa Zydis (Olanzapine) 5 Mg Tab.rapdis 2.5 Mg PO PRN Q12HR PRN Zyprexa (Olanzapine) 2.5 Mg Tablet 2.5 Mg PO DAILY Zofran (Ondansetron Hcl) 4 Mg Tablet 4 Mg PO PRN Q4HRS PRN Vitamin D-400 (Cholecalciferol (Vitamin D3)) 400 Unit Tablet 400 Unit PO DAILY Tylenol (Acetaminophen) 325 Mg Tablet 650 Mg PO BID Preparation H Cream (Phenyleph/Pramoxin/Glycr/W.pet) 26 Gm Cream..g. 1 Vicky RC PRN PRN Namenda (Memantine Hcl) 5 Mg Tablet 5 Mg PO BID Tylenol (Acetaminophen) 325 Mg Tablet 650 Mg PO PRN Q6HRS PRN Lisinopril-Hctz 10-12.5 Mg Tab (Lisinopril/Hydrochlorothiazide) 1 Each Tablet 1 Tab PO DAILY Ketorolac Tromethamine 5 Ml Drops 1 Drop LEFTEYE QID Ferrous Sulfate 325 Mg Tablet 325 Mg PO DAILY EXELON 4.6mg/24hr (Rivastigmine) 1 Each Patch.td24 1 Patch TD DAILY Aricept (Donepezil Hcl) 10 Mg Tablet 10 Mg PO DAILY Colace (Docusate Sodium) 100 Mg Capsule 100 Mg PO BID Celexa (Citalopram Hydrobromide) 20 Mg Tablet 20 Mg PO DAILY Nadeem Mag Zinc + D3 Tablet (Ca Carb/Vit D3/Mag Ox/Zn Oxide) 1 Each Tablet 1 Tab PO BID Buspirone Hcl 5 Mg Tablet 7.5 Mg PO BID Alprazolam 0.25 Mg Tablet 0.25 Mg PO PRN Q30MIN PRN MDD 1mg I have reviewed the current psychotropics carefully including drug interactions. Risk benefit ratio favors no change other than as noted in my dictated progress note. Diagnosis: Problems: (1) Dementia with behavioral disturbance (2) Anxiety disorder (3) Dementia in Alzheimer's disease with delusions (4) Dementia in Alzheimer's disease with depression (5) Dementia, vascular, with delusions (6) Dementia, vascular, with depression (7) Impulse control disorder LAUREN CASILLAS MD Aug 09, 2017 20:02
[2017-08-09] MEDS ORDERED: MAG OX PO SCH (21:00)
[2017-08-09] MEDS ORDERED: ZN OXIDE PO SCH (21:00)
[2017-08-09] MEDS ORDERED: CA CARB PO SCH (21:00)
[2017-08-09] MEDS ORDERED: VIT D3 PO SCH (21:00)
--- NOTE | 2017-08-09 21:49 | PN ---
DATE: 08/07/2017 PSYCHIATRIC PROGRESS NOTE This is late entry of 08/07/2017 covers elements not covered in my initial note of 08/07/2017. HISTORY OF PRESENT ILLNESS: I met with the patient in the evening of 08/07/2017. The patient slept 9 hours previous evening, she had not slept at all the previous 2 nights. Often refuses medications, confused, but on 08/07/2017, she took her meds. REVIEW OF SYSTEMS: No CV, , pulmonary, eye, ENT system symptoms on review. Reliability poor. MENTAL STATUS EXAM: Oriented to herself. Insight, judgment, recent and remote memory, attention, concentration, fund of knowledge poor, consistent with her diagnosis mentioned in my initial note. IMPRESSION: Major neurocognitive disorder, Alzheimer, vascular with depression, delusion, behavioral disturbance. Rest unchanged. PLAN: Continue psychotropics mentioned in my initial note. Consider stopping Aricept and Exelon, probably has little benefit at this stage of her dementia. LAUREN CASILLAS MD DR: MIGUEL A/nahed JOB#: [id number] / [id number]
--- NOTE | 2017-08-10 01:45 | PN ---
DATE: 08/08/2017 This is a late entry, 08/08/2017, covers the elements not covered in my initial note, 08/08/2017. SUBJECTIVE: The patient was seen individually and staffed at treatment team meeting with the entire team morning of 08/08/2017, and her daughter, Lachelle attended the conference. The patient slept 6 hours previous evening. Reviewed her history. The patient remains confused. REVIEW OF SYSTEMS: No CV, , eye, ENT or pulmonary system symptoms on review. Reliability poor. MENTAL STATUS EXAM: Oriented to herself. Insight, judgment, recent and remote memory, attention, concentration, fund of knowledge poor, consistent with her diagnosis. IMPRESSION: Major neurocognitive disorder, Alzheimer, vascular with delusion, depression, behavioral disturbance. PLAN: Stop the Aricept and Namenda as it probably has little benefit at this stage of her dementia. Maintain rest of the psychotropics. Adjust as clinically indicated. LAUREN CASILLAS MD DR: MIGUEL A/nahed JOB#: [id number] / [id number]
[2017-08-10 06:47] VITALS: BP 126/51
[2017-08-10] MEDS: DOCUSATE SODIUM 100 MG CAPSULE PO SCH ×2 (08:11→20:58)
[2017-08-10] MEDS: CHOLECALCIFEROL (VITAMIN D3) 1,000 UNIT TABLET PO SCH (08:12)
[2017-08-10] MEDS: busPIRone 5 MG TABLET. PO SCH ×2 (08:12→20:58)
[2017-08-10] MEDS: ACETAMINOPHEN 325 MG TABLET PO SCH ×2 (08:12→20:58)
[2017-08-10] MEDS: hydroCHLOROthiazide 12.5 MG CAPSULE PO SCH (08:13)
[2017-08-10] MEDS: FERROUS SULFATE 325 MG TABLET. PO SCH (08:13)
[2017-08-10] MEDS: OLANZapine 2.5 MG TABLET PO SCH (08:13)
[2017-08-10] MEDS: LISINOPRIL 10 MG TABLET PO SCH (08:13)
[2017-08-10] MEDS: CITALOPRAM 20 MG TABLET. PO SCH (08:13)
[2017-08-10] MEDS: CALCIUM CARB/VIT D3 500/200 TABLET PO SCH ×2 (08:13→17:43)
[2017-08-10] MEDS: RIVASTIGMINE 4.6MG PATCH. TD SCH (08:13)
[2017-08-10] MEDS: LACTOBACILLUS RHAMNOSUS GG 1 CAPSULE. PO SCH ×2 (08:13→20:58)
[2017-08-10] MEDS: KETOROLAC TROMETHAMINE 0.5% OPHTH SOLUTION 3ML BOTTLE. OS SCH ×4 (08:16→21:00)
[2017-08-10] MEDS: MULTIVITAMIN with MINERAL TABLET. PO SCH (08:16)
[2017-08-10] MEDS: FLUTICASONE 50MCG/NASAL SPRAY 16GM BOTTLE. NS SCH (08:17)
[2017-08-10] MEDS ORDERED: NON FORMULARY ITEM (Lisinopril/Hydrochlorothiazide (Lisinopril-Hctz 10-12.5 Mg Tab) 1 TAB) PO SCH (09:00)
[2017-08-10 16:16] VITALS: BP 156/52
[2017-08-10] MEDS: MIRTAZAPINE 7.5 MG TABLET. PO SCH (20:57)
--- NOTE | 2017-08-10 22:05 | PDOC ---
Exam Note: Allen Note: Please also refer to the separate dictated note~for this date of service dictated separately.~Patient seen individually. Discussed the patient with Nursing staff reviewed the chart.~Reviewed interim history and current functioning. Reviewed vital signs,~Labs/ Radiology~and current medications noted below. Continue current treatment with the changes noted in the dictated addendum note Assessment: Vital Signs: Vital Signs Date Time Temp Pulse Resp B/P (MAP) Pulse Ox O2 Delivery O2 Flow Rate FiO2 08/10/17 16:16 97.6 54 16 156/52 (86) 98 08/08/17 16:32 Room Air I&O Intake and Output 08/10/17 07:00 Intake Total 600 ml Balance 600 ml Intake Oral 600 ml Current Medications: Meds: Current Medications Cephalexin HCl (Keflex) 500 mg 1X ONCE PO Last administered on 08/05/17 21:57 ; Start 08/05/17 at 21:45; Stop 08/05/17 at 21:46; Status DC Fluticasone Propionate (Flonase) 2 spray DAILY NS Last administered on at 08:17; Start 08/06/17 at 09:00 Cephalexin HCl (Keflex) 500 mg TID PO Last administered on 08/08/17at 13:47; Start 08/06/17 at 09:00; Stop 08/08/17 at 16:11; Status DC Dextrose 500 ml @ 500 mls/hr 1X ONCE IV Last administered on 08/05/17at 22:40 ; Start 08/05/17 at 23:00; Stop 08/05/17 at 23:59; Status DC Lactobacillus Rhamnosus (Culturelle) 1 cap BID PO Last administered on at 20:58; Start 08/06/17 at 09:00 Alprazolam (Xanax) 0.25 mg PRN Q30MIN PRN PO ANXIETY / AGITATION; Start at 00:00 Buspirone HCl (Buspar) 7.5 mg BID PO Last administered on 08/10/17at 20:58; Start 08/06/17 at 09:00 Citalopram Hydrobromide (CeleXA) 20 mg DAILY PO Last administered on 08/10/17 08:13; Start 08/06/17 at 09:00; Stop 08/10/17 at 19:33; Status DC Donepezil HCl (Aricept) 10 mg DAILY PO Last administered on 08/08/17at 08:46; Start 08/06/17 at 09:00; Stop 08/08/17 at 15:57; Status DC Memantine (Namenda) 5 mg BID PO Last administered on 08/08/17at 08:46; Start at 09:00; Stop 08/08/17 at 15:57; Status DC Olanzapine (ZyPREXA ZYDIS) 2.5 mg PRN Q12HR PRN PO PSYCHOSIS; Start 08/06/17 at 00:00 Olanzapine (ZyPREXA) 2.5 mg DAILY PO Last administered on 08/10/17at 08:13; Start 08/06/17 at 09:00 Rivastigmine (Exelon) 1 patch DAILY TD Last administered on 08/10/17at 08:13; Start 08/06/17 at 09:00 Mirtazapine (Remeron) 7.5 mg QHS PO Last administered on 08/10/17at 20:57; Start 08/06/17 at 21:00 Trazodone HCl (Desyrel) 25 mg PRN QHS PRN PO INSOMNIA, MAY REPEAT X1 Last administered on 08/09/17at 19:14; Start 08/06/17 at 18:45 Linezolid (Zyvox) 600 mg BID PO ; Start 08/08/17 at 21:00; Stop 08/08/17 at 21: 00; Status DC Fosfomycin Tromethamine (Monurol) 3 gm 1X ONCE PO Last administered on at 17:04; Start 08/08/17 at 17:00; Stop 08/08/17 at 17:01; Status DC Acetaminophen (Tylenol) 650 mg BID PO Last administered on 08/10/17at 20:58; Start 08/09/17 at 21:00 Acetaminophen (Tylenol) 650 mg PRN Q6HRS PRN PO PAIN / TEMP; Start 08/09/17 at 12:00 Docusate Sodium (Colace) 100 mg BID PO Last administered on 08/10/17at 20:58; Start 08/09/17 at 21:00 Ferrous Sulfate (Feosol) 325 mg DAILY PO Last administered on 08/10/17at 08:13; Start 08/09/17 at 12:00 Non-Formulary Medication 1 tab BID PO ; Start 08/09/17 at 21:00; Stop 08/09/17 at 21:00; Status DC Vitamin D (Vitamin D3) 500 unit DAILY PO Last administered on 08/10/17at 08:12; Start 08/09/17 at 12:00 Ketorolac Tromethamine (Acular) 1 drop QID OS Last administered on 08/10/17at 21 :00; Start 08/09/17 at 13:00 Non-Formulary Medication 1 tab DAILY PO ; Start 08/10/17 at 09:00; Stop at 09:00; Status DC Ondansetron HCl (Zofran Odt) 4 mg PRN Q4HRS PRN PO NAUSEA/VOMITING; Start 08/09 at 12:15 Lisinopril (Prinivil) 10 mg DAILY PO Last administered on 08/10/17at 08:13; Start 08/09/17 at 12:00 Hydrochlorothiazide (Microzide) 12.5 mg DAILY PO Last administered on at 08:13; Start 08/09/17 at 12:00 Calcium/Vitamin D (Oscal D 500mg/ 200uts) 1 tab BIDWMEALS PO Last administered on 08/10/17at 17:43; Start 08/09/17 at 17:00 Multivitamins/ Calcium (Thera-M Plus) 1 tab DAILY PO Last administered on at 08:16; Start 08/10/17 at 09:00 Sertraline HCl (Zoloft) 50 mg DAILY PO ; Start 08/11/17 at 09:00 Active Scripts Active Reported Zyprexa Zydis (Olanzapine) 5 Mg Tab.rapdis 2.5 Mg PO PRN Q12HR PRN Zyprexa (Olanzapine) 2.5 Mg Tablet 2.5 Mg PO DAILY Zofran (Ondansetron Hcl) 4 Mg Tablet 4 Mg PO PRN Q4HRS PRN Vitamin D-400 (Cholecalciferol (Vitamin D3)) 400 Unit Tablet 400 Unit PO DAILY Tylenol (Acetaminophen) 325 Mg Tablet 650 Mg PO BID Preparation H Cream (Phenyleph/Pramoxin/Glycr/W.pet) 26 Gm Cream..g. 1 Vicky RC PRN PRN Namenda (Memantine Hcl) 5 Mg Tablet 5 Mg PO BID Tylenol (Acetaminophen) 325 Mg Tablet 650 Mg PO PRN Q6HRS PRN Lisinopril-Hctz 10-12.5 Mg Tab (Lisinopril/Hydrochlorothiazide) 1 Each Tablet 1 Tab PO DAILY Ketorolac Tromethamine 5 Ml Drops 1 Drop LEFTEYE QID Ferrous Sulfate 325 Mg Tablet 325 Mg PO DAILY EXELON 4.6mg/24hr (Rivastigmine) 1 Each Patch.td24 1 Patch TD DAILY Aricept (Donepezil Hcl) 10 Mg Tablet 10 Mg PO DAILY Colace (Docusate Sodium) 100 Mg Capsule 100 Mg PO BID Celexa (Citalopram Hydrobromide) 20 Mg Tablet 20 Mg PO DAILY Nadeem Mag Zinc + D3 Tablet (Ca Carb/Vit D3/Mag Ox/Zn Oxide) 1 Each Tablet 1 Tab PO BID Buspirone Hcl 5 Mg Tablet 7.5 Mg PO BID Alprazolam 0.25 Mg Tablet 0.25 Mg PO PRN Q30MIN PRN MDD 1mg I have reviewed the current psychotropics carefully including drug interactions. Risk benefit ratio favors no change other than as noted in my dictated progress note. Diagnosis: Problems: (1) Dementia with behavioral disturbance (2) Anxiety disorder (3) Dementia in Alzheimer's disease with delusions (4) Dementia in Alzheimer's disease with depression (5) Dementia, vascular, with delusions (6) Dementia, vascular, with depression (7) Impulse control disorder LAUREN CASILLAS MD Aug 10, 2017 22:05
[2017-08-11 06:19] VITALS: BP 129/86
[2017-08-11] MEDS: RIVASTIGMINE 4.6MG PATCH. TD SCH (07:21)
[2017-08-11] MEDS: MULTIVITAMIN with MINERAL TABLET. PO SCH (07:21)
[2017-08-11] MEDS: CHOLECALCIFEROL (VITAMIN D3) 1,000 UNIT TABLET PO SCH (07:22)
[2017-08-11] MEDS: CALCIUM CARB/VIT D3 500/200 TABLET PO SCH ×2 (07:22→16:20)
[2017-08-11] MEDS: FERROUS SULFATE 325 MG TABLET. PO SCH (07:22)
[2017-08-11] MEDS: hydroCHLOROthiazide 12.5 MG CAPSULE PO SCH (07:22)
[2017-08-11] MEDS: LACTOBACILLUS RHAMNOSUS GG 1 CAPSULE. PO SCH ×2 (07:22→21:13)
[2017-08-11] MEDS: busPIRone 5 MG TABLET. PO SCH ×2 (07:23→21:13)
[2017-08-11] MEDS: LISINOPRIL 10 MG TABLET PO SCH (07:24)
[2017-08-11] MEDS: OLANZapine 2.5 MG TABLET PO SCH (07:24)
[2017-08-11] MEDS: ACETAMINOPHEN 325 MG TABLET PO SCH ×2 (07:24→21:12)
[2017-08-11] MEDS: DOCUSATE SODIUM 100 MG CAPSULE PO SCH ×2 (07:24→21:13)
[2017-08-11] MEDS: KETOROLAC TROMETHAMINE 0.5% OPHTH SOLUTION 3ML BOTTLE. OS SCH ×4 (07:26→21:13)
[2017-08-11] MEDS: FLUTICASONE 50MCG/NASAL SPRAY 16GM BOTTLE. NS SCH (07:27)
[2017-08-11] MEDS: SERTRALINE 50 MG TABLET. PO SCH (09:47)
--- NOTE | 2017-08-11 10:12 | PN ---
DATE: 08/09/2017 PSYCHIATRIC PROGRESS NOTE This late entry 08/09/2017 covers the elements not covered in my initial note 08/09/2017. SUBJECTIVE: The patient was somewhat delusional previous evening, was packing her belongings believing she was going home. Trazodone had to be repeated, then slept until noon, remains confused, not exit seeking on 08/09/2017. REVIEW OF SYSTEMS: No CV, , pulmonary, eye, ENT system symptoms on review. Reliability poor. MENTAL STATUS EXAM: Oriented to herself. Insight, judgment, recent and remote memory, attention, concentration, fund of knowledge poor, consistent with her diagnosis mentioned in my initial note. IMPRESSION: Major neurocognitive disorder, Alzheimer, vascular with depression, delusion, behavioral disturbance. Rest unchanged. PLAN: Continue psychotropics mentioned in my initial note. Adjust further as clinically indicated. MAN Jc CASILLAS MD DR: MIGUEL A/nahed JOB#: [id number] / [id number]
--- NOTE | 2017-08-11 10:12 | PN ---
DATE: 08/10/2017 This late entry 08/10/2017 covers elements not covered in my initial note 08/10/2017. Met with the patient evening of 08/10/2017. Overall, the patient has been pleasant, withdrawn, confused, spending much time in bed, slept 5 hours previous evening. REVIEW OF SYSTEMS: No CV, , pulmonary, eye, ENT system symptoms on review. Reliability poor. MENTAL STATUS EXAM: Oriented to herself. Insight, judgment, recent and remote memory, attention, concentration, fund of knowledge poor, consistent with her diagnosis mentioned in my initial note. IMPRESSION: Major neurocognitive disorder, Alzheimer, vascular with depression, delusion, behavioral disturbance. Rest unchanged. PLAN: Change Celexa to Zoloft 50 mg a day, should help better with her anxiety, irritability and tolerated better than Celexa. Continue rest unchanged. May need to increase BuSpar and increase Zoloft in due course. LAUREN CASILLAS MD DR: MIGUEL A/nahed JOB#: [id number] / [id number]
[2017-08-11] MEDS: ALPRAZolam 0.25 MG TABLET PO PRN (15:20)
[2017-08-11 16:33] VITALS: BP 117/58
--- NOTE | 2017-08-11 19:42 | PDOC ---
Exam Note: Allen Note: Please also refer to the separate dictated note~for this date of service dictated separately.~Patient seen individually. Discussed the patient with Nursing staff reviewed the chart.~Reviewed interim history and current functioning. Reviewed vital signs,~Labs/ Radiology~and current medications noted below. Continue current treatment with the changes noted in the dictated addendum note Assessment: Vital Signs: Vital Signs Date Time Temp Pulse Resp B/P (MAP) Pulse Ox O2 Delivery O2 Flow Rate FiO2 08/11/17 16:33 98.1 78 18 117/58 (77) 96 08/08/17 16:32 Room Air I&O Intake and Output 08/11/17 07:00 Intake Total 840 ml Balance 840 ml Intake Oral 840 ml # Voids 1 Current Medications: Meds: Current Medications Cephalexin HCl (Keflex) 500 mg 1X ONCE PO Last administered on 08/05/17 21:57 ; Start 08/05/17 at 21:45; Stop 08/05/17 at 21:46; Status DC Fluticasone Propionate (Flonase) 2 spray DAILY NS Last administered on at 07:27; Start 08/06/17 at 09:00 Cephalexin HCl (Keflex) 500 mg TID PO Last administered on 08/08/17 13:47; Start 08/06/17 at 09:00; Stop 08/08/17 at 16:11; Status DC Dextrose 500 ml @ 500 mls/hr 1X ONCE IV Last administered on 08/05/17at 22:40 ; Start 08/05/17 at 23:00; Stop 08/05/17 at 23:59; Status DC Lactobacillus Rhamnosus (Culturelle) 1 cap BID PO Last administered on 07:22; Start 08/06/17 at 09:00 Alprazolam (Xanax) 0.25 mg PRN Q30MIN PRN PO ANXIETY / AGITATION Last administered on 08/11/17 15:20; Start 08/06/17 at 00:00 Buspirone HCl (Buspar) 7.5 mg BID PO Last administered on 08/11/17 07:23; Start 08/06/17 at 09:00 Citalopram Hydrobromide (CeleXA) 20 mg DAILY PO Last administered on 08/10/17at 08:13; Start 08/06/17 at 09:00; Stop 08/10/17 at 19:33; Status DC Donepezil HCl (Aricept) 10 mg DAILY PO Last administered on 08/08/17at 08:46; Start 08/06/17 at 09:00; Stop 08/08/17 at 15:57; Status DC Memantine (Namenda) 5 mg BID PO Last administered on 08/08/17 08:46; Start at 09:00; Stop 08/08/17 at 15:57; Status DC Olanzapine (ZyPREXA ZYDIS) 2.5 mg PRN Q12HR PRN PO PSYCHOSIS; Start 08/06/17 at 00:00 Olanzapine (ZyPREXA) 2.5 mg DAILY PO Last administered on 08/11/17at 07:24; Start 08/06/17 at 09:00 Rivastigmine (Exelon) 1 patch DAILY TD Last administered on 08/11/17at 07:21; Start 08/06/17 at 09:00 Mirtazapine (Remeron) 7.5 mg QHS PO Last administered on 08/10/17at 20:57; Start 08/06/17 at 21:00 Trazodone HCl (Desyrel) 25 mg PRN QHS PRN PO INSOMNIA, MAY REPEAT X1 Last administered on 08/09/17at 19:14; Start 08/06/17 at 18:45 Linezolid (Zyvox) 600 mg BID PO ; Start 08/08/17 at 21:00; Stop 08/08/17 at 21: 00; Status DC Fosfomycin Tromethamine (Monurol) 3 gm 1X ONCE PO Last administered on at 17:04; Start 08/08/17 at 17:00; Stop 08/08/17 at 17:01; Status DC Acetaminophen (Tylenol) 650 mg BID PO Last administered on 08/11/17at 07:24; Start 08/09/17 at 21:00 Acetaminophen (Tylenol) 650 mg PRN Q6HRS PRN PO PAIN / TEMP; Start 08/09/17 at 12:00 Docusate Sodium (Colace) 100 mg BID PO Last administered on 08/11/17at 07:24; Start 08/09/17 at 21:00 Ferrous Sulfate (Feosol) 325 mg DAILY PO Last administered on 08/11/17at 07:22; Start 08/09/17 at 12:00 Non-Formulary Medication 1 tab BID PO ; Start 08/09/17 at 21:00; Stop 08/09/17 at 21:00; Status DC Vitamin D (Vitamin D3) 500 unit DAILY PO Last administered on 08/11/17at 07:22; Start 08/09/17 at 12:00 Ketorolac Tromethamine (Acular) 1 drop QID OS Last administered on 08/11/17at 16 :20; Start 08/09/17 at 13:00 Non-Formulary Medication 1 tab DAILY PO ; Start 08/10/17 at 09:00; Stop at 09:00; Status DC Ondansetron HCl (Zofran Odt) 4 mg PRN Q4HRS PRN PO NAUSEA/VOMITING; Start 08/09 at 12:15 Lisinopril (Prinivil) 10 mg DAILY PO Last administered on 08/11/17at 07:24; Start 08/09/17 at 12:00 Hydrochlorothiazide (Microzide) 12.5 mg DAILY PO Last administered on 07:22; Start 08/09/17 at 12:00 Calcium/Vitamin D (Oscal D 500mg/ 200uts) 1 tab BIDWMEALS PO Last administered on 08/11/17 16:20; Start 08/09/17 at 17:00 Multivitamins/ Calcium (Thera-M Plus) 1 tab DAILY PO Last administered on at 07:21; Start 08/10/17 at 09:00 Sertraline HCl (Zoloft) 50 mg DAILY PO Last administered on 08/11/17at 09:47; Start 08/11/17 at 09:00 Active Scripts Active Reported Zyprexa Zydis (Olanzapine) 5 Mg Tab.rapdis 2.5 Mg PO PRN Q12HR PRN Zyprexa (Olanzapine) 2.5 Mg Tablet 2.5 Mg PO DAILY Zofran (Ondansetron Hcl) 4 Mg Tablet 4 Mg PO PRN Q4HRS PRN Vitamin D-400 (Cholecalciferol (Vitamin D3)) 400 Unit Tablet 400 Unit PO DAILY Tylenol (Acetaminophen) 325 Mg Tablet 650 Mg PO BID Preparation H Cream (Phenyleph/Pramoxin/Glycr/W.pet) 26 Gm Cream..g. 1 Vicky RC PRN PRN Namenda (Memantine Hcl) 5 Mg Tablet 5 Mg PO BID Tylenol (Acetaminophen) 325 Mg Tablet 650 Mg PO PRN Q6HRS PRN Lisinopril-Hctz 10-12.5 Mg Tab (Lisinopril/Hydrochlorothiazide) 1 Each Tablet 1 Tab PO DAILY Ketorolac Tromethamine 5 Ml Drops 1 Drop LEFTEYE QID Ferrous Sulfate 325 Mg Tablet 325 Mg PO DAILY EXELON 4.6mg/24hr (Rivastigmine) 1 Each Patch.td24 1 Patch TD DAILY Aricept (Donepezil Hcl) 10 Mg Tablet 10 Mg PO DAILY Colace (Docusate Sodium) 100 Mg Capsule 100 Mg PO BID Celexa (Citalopram Hydrobromide) 20 Mg Tablet 20 Mg PO DAILY Nadeem Mag Zinc + D3 Tablet (Ca Carb/Vit D3/Mag Ox/Zn Oxide) 1 Each Tablet 1 Tab PO BID Buspirone Hcl 5 Mg Tablet 7.5 Mg PO BID Alprazolam 0.25 Mg Tablet 0.25 Mg PO PRN Q30MIN PRN MDD 1mg I have reviewed the current psychotropics carefully including drug interactions. Risk benefit ratio favors no change other than as noted in my dictated progress note. Diagnosis: Problems: (1) Dementia with behavioral disturbance (2) Anxiety disorder (3) Dementia in Alzheimer's disease with delusions (4) Dementia in Alzheimer's disease with depression (5) Dementia, vascular, with delusions (6) Dementia, vascular, with depression (7) Impulse control disorder LAUREN CASILLAS MD Aug 11, 2017 19:42
[2017-08-11] MEDS: MIRTAZAPINE 7.5 MG TABLET. PO SCH (21:12)
[2017-08-11] MEDS: traZODone 50 MG TABLET. PO PRN (21:15)
[2017-08-12 07:00] VITALS: BP 150/64
[2017-08-12 08:24] LABS: BASO # 0.1 x10^3/uL (0.0-0.2); BASO % 1 % (0-3); EOS # 0.2 x10^3/uL (0.0-0.7); EOS % 3 % (0-3); HEMATOCRIT 34.7 % (36.0-47.0); HEMOGLOBIN 11.5 g/dL (12.0-15.5); LYMPH # 1.5 x10^3/uL (1.0-4.8); LYMPH % 22 % (24-48); MEAN CORPUSCULAR HEMOGLOBIN 31 pg (25-35); MEAN CORPUSCULAR HGB CONC 33 g/dL (31-37); MEAN CORPUSCULAR VOLUME 94 fL (79-100); MONO # 0.7 x10^3/uL (0.0-1.1); MONO % 10 % (0-9); NEUT # 4.5 x10^3uL (1.8-7.7); NEUT % 64 % (31-73); PLATELET COUNT 212 x10^3/uL (140-400); RED CELL DISTRIBUTION WIDTH 15.3 % (11.5-14.5)
[2017-08-12 08:34] LABS: ALBUMIN 3.5 g/dL (3.4-5.0); CALCIUM 9.5 mg/dL (8.5-10.1); GFR 52.3; POTASSIUM 3.9 mmol/L (3.5-5.1); TOTAL BILIRUBIN 0.2 mg/dL (0.2-1.0); TOTAL PROTEIN 7.1 g/dL (6.4-8.2)
[2017-08-12] MEDS: LACTOBACILLUS RHAMNOSUS GG 1 CAPSULE. PO SCH ×2 (09:08→19:42)
[2017-08-12] MEDS: LISINOPRIL 10 MG TABLET PO SCH (09:08)
[2017-08-12] MEDS: ACETAMINOPHEN 325 MG TABLET PO SCH ×2 (09:09→19:42)
[2017-08-12] MEDS: hydroCHLOROthiazide 12.5 MG CAPSULE PO SCH (09:09)
[2017-08-12] MEDS: CALCIUM CARB/VIT D3 500/200 TABLET PO SCH ×2 (09:10→17:00)
[2017-08-12] MEDS: busPIRone 5 MG TABLET. PO SCH ×2 (09:10→19:41)
[2017-08-12] MEDS: FERROUS SULFATE 325 MG TABLET. PO SCH (09:10)
[2017-08-12] MEDS: DOCUSATE SODIUM 100 MG CAPSULE PO SCH ×2 (09:10→19:42)
[2017-08-12] MEDS: SERTRALINE 50 MG TABLET. PO SCH (09:10)
[2017-08-12] MEDS: MULTIVITAMIN with MINERAL TABLET. PO SCH (09:10)
[2017-08-12] MEDS: RIVASTIGMINE 4.6MG PATCH. TD SCH (09:11)
[2017-08-12] MEDS: CHOLECALCIFEROL (VITAMIN D3) 1,000 UNIT TABLET PO SCH (09:11)
[2017-08-12] MEDS: OLANZapine 2.5 MG TABLET PO SCH (09:11)
[2017-08-12] MEDS: FLUTICASONE 50MCG/NASAL SPRAY 16GM BOTTLE. NS SCH (09:13)
[2017-08-12] MEDS: KETOROLAC TROMETHAMINE 0.5% OPHTH SOLUTION 3ML BOTTLE. OS SCH ×4 (09:13→19:48)
[2017-08-12] MEDS: ALPRAZolam 0.25 MG TABLET PO PRN (13:42)
[2017-08-12 15:53] VITALS: BP 164/84
--- NOTE | 2017-08-12 19:02 | PDOC ---
Exam Note: Allen Note: Please also refer to the separate dictated note~for this date of service dictated separately.~Patient seen individually. Discussed the patient with Nursing staff reviewed the chart.~Reviewed interim history and current functioning. Reviewed vital signs,~Labs/ Radiology~and current medications noted below. Continue current treatment with the changes noted in the dictated addendum note Assessment: Vital Signs: Vital Signs Date Time Temp Pulse Resp B/P (MAP) Pulse Ox O2 Delivery O2 Flow Rate FiO2 08/12/17 15:53 98.9 70 16 164/84 (110) 97 08/08/17 16:32 Room Air I&O Intake and Output 08/12/17 07:00 Intake Total 480 ml Balance 480 ml Intake Oral 480 ml # Voids 1 Labs: Laboratory Tests Test 08/12/17 07:53 White Blood Count 7.0 x10^3/uL (4.0-11.0) Red Blood Count 3.70 x10^6/uL (3.50-5.40) Hemoglobin 11.5 g/dL (12.0-15.5) L Hematocrit 34.7 % (36.0-47.0) L Mean Corpuscular Volume 94 fL (79-100) Mean Corpuscular Hemoglobin 31 pg (25-35) Mean Corpuscular Hemoglobin Concent 33 g/dL (31-37) Red Cell Distribution Width 15.3 % (11.5-14.5) H Platelet Count 212 x10^3/uL (140-400) Neutrophils (%) (Auto) 64 % (31-73) Lymphocytes (%) (Auto) 22 % (24-48) L Monocytes (%) (Auto) 10 % (0-9) H Eosinophils (%) (Auto) 3 % (0-3) Basophils (%) (Auto) 1 % (0-3) Neutrophils # (Auto) 4.5 x10^3uL (1.8-7.7) Lymphocytes # (Auto) 1.5 x10^3/uL (1.0-4.8) Monocytes # (Auto) 0.7 x10^3/uL (0.0-1.1) Eosinophils # (Auto) 0.2 x10^3/uL (0.0-0.7) Basophils # (Auto) 0.1 x10^3/uL (0.0-0.2) Sodium Level 142 mmol/L (136-145) Potassium Level 3.9 mmol/L (3.5-5.1) Chloride Level 104 mmol/L (98-107) Carbon Dioxide Level 29 mmol/L (21-32) Anion Gap 9 (6-14) Blood Urea Nitrogen 20 mg/dL (7-20) Creatinine 1.0 mg/dL (0.6-1.0) Estimated GFR (Cockcroft-Gault) 52.3 BUN/Creatinine Ratio 20 (6-20) Glucose Level 111 mg/dL (70-99) H Calcium Level 9.5 mg/dL (8.5-10.1) Total Bilirubin 0.2 mg/dL (0.2-1.0) Aspartate Amino Transferase (AST) 22 U/L (15-37) Alanine Aminotransferase (ALT) 21 U/L (14-59) Alkaline Phosphatase 61 U/L (46-116) Total Protein 7.1 g/dL (6.4-8.2) Albumin 3.5 g/dL (3.4-5.0) Albumin/Globulin Ratio 1.0 (1.0-1.7) Current Medications: Meds: Current Medications Cephalexin HCl (Keflex) 500 mg 1X ONCE PO Last administered on 08/05/17at 21:57 ; Start 08/05/17 at 21:45; Stop 08/05/17 at 21:46; Status DC Fluticasone Propionate (Flonase) 2 spray DAILY NS Last administered on at 09:13; Start 08/06/17 at 09:00 Cephalexin HCl (Keflex) 500 mg TID PO Last administered on 08/08/17at 13:47; Start 08/06/17 at 09:00; Stop 08/08/17 at 16:11; Status DC Dextrose 500 ml @ 500 mls/hr 1X ONCE IV Last administered on 08/05/17at 22:40 ; Start 08/05/17 at 23:00; Stop 08/05/17 at 23:59; Status DC Lactobacillus Rhamnosus (Culturelle) 1 cap BID PO Last administered on at 09:08; Start 08/06/17 at 09:00 Alprazolam (Xanax) 0.25 mg PRN Q30MIN PRN PO ANXIETY / AGITATION Last administered on 08/12/17 13:42; Start 08/06/17 at 00:00 Buspirone HCl (Buspar) 7.5 mg BID PO Last administered on 08/12/17at 09:10; Start 08/06/17 at 09:00 Citalopram Hydrobromide (CeleXA) 20 mg DAILY PO Last administered on 08/10/17 08:13; Start 08/06/17 at 09:00; Stop 08/10/17 at 19:33; Status DC Donepezil HCl (Aricept) 10 mg DAILY PO Last administered on 08/08/17 08:46; Start 08/06/17 at 09:00; Stop 08/08/17 at 15:57; Status DC Memantine (Namenda) 5 mg BID PO Last administered on 08/08/17 08:46; Start at 09:00; Stop 08/08/17 at 15:57; Status DC Olanzapine (ZyPREXA ZYDIS) 2.5 mg PRN Q12HR PRN PO PSYCHOSIS Last administered on 08/11/17 21:16; Start 08/06/17 at 00:00 Olanzapine (ZyPREXA) 2.5 mg DAILY PO Last administered on 08/12/17 09:11; Start 08/06/17 at 09:00 Rivastigmine (Exelon) 1 patch DAILY TD Last administered on 08/12/17 09:11; Start 08/06/17 at 09:00 Mirtazapine (Remeron) 7.5 mg QHS PO Last administered on 08/11/17at 21:12; Start 08/06/17 at 21:00 Trazodone HCl (Desyrel) 25 mg PRN QHS PRN PO INSOMNIA, MAY REPEAT X1 Last administered on 08/11/17 21:15; Start 08/06/17 at 18:45 Linezolid (Zyvox) 600 mg BID PO ; Start 08/08/17 at 21:00; Stop 08/08/17 at 21: 00; Status DC Fosfomycin Tromethamine (Monurol) 3 gm 1X ONCE PO Last administered on at 17:04; Start 08/08/17 at 17:00; Stop 08/08/17 at 17:01; Status DC Acetaminophen (Tylenol) 650 mg BID PO Last administered on 08/12/17 09:09; Start 08/09/17 at 21:00 Acetaminophen (Tylenol) 650 mg PRN Q6HRS PRN PO PAIN / TEMP Last administered on 08/12/17 02:03; Start 08/09/17 at 12:00 Docusate Sodium (Colace) 100 mg BID PO Last administered on 08/12/17 09:10; Start 08/09/17 at 21:00 Ferrous Sulfate (Feosol) 325 mg DAILY PO Last administered on 08/12/17 09:10; Start 08/09/17 at 12:00 Non-Formulary Medication 1 tab BID PO ; Start 08/09/17 at 21:00; Stop 08/09/17 at 21:00; Status DC Vitamin D (Vitamin D3) 500 unit DAILY PO Last administered on 08/12/17 09:11; Start 08/09/17 at 12:00 Ketorolac Tromethamine (Acular) 1 drop QID OS Last administered on 08/12/17 12 :56; Start 08/09/17 at 13:00 Non-Formulary Medication 1 tab DAILY PO ; Start 08/10/17 at 09:00; Stop at 09:00; Status DC Ondansetron HCl (Zofran Odt) 4 mg PRN Q4HRS PRN PO NAUSEA/VOMITING Last administered on 08/12/17 17:25; Start 08/09/17 at 12:15 Lisinopril (Prinivil) 10 mg DAILY PO Last administered on 08/12/17 09:08; Start 08/09/17 at 12:00 Hydrochlorothiazide (Microzide) 12.5 mg DAILY PO Last administered on 09:09; Start 08/09/17 at 12:00 Calcium/Vitamin D (Oscal D 500mg/ 200uts) 1 tab BIDWMEALS PO Last administered on 08/12/17 09:10; Start 08/09/17 at 17:00 Multivitamins/ Calcium (Thera-M Plus) 1 tab DAILY PO Last administered on 09:10; Start 08/10/17 at 09:00 Sertraline HCl (Zoloft) 50 mg DAILY PO Last administered on 08/12/17at 09:10; Start 08/11/17 at 09:00 Active Scripts Active Reported Zyprexa Zydis (Olanzapine) 5 Mg Tab.rapdis 2.5 Mg PO PRN Q12HR PRN Zyprexa (Olanzapine) 2.5 Mg Tablet 2.5 Mg PO DAILY Zofran (Ondansetron Hcl) 4 Mg Tablet 4 Mg PO PRN Q4HRS PRN Vitamin D-400 (Cholecalciferol (Vitamin D3)) 400 Unit Tablet 400 Unit PO DAILY Tylenol (Acetaminophen) 325 Mg Tablet 650 Mg PO BID Preparation H Cream (Phenyleph/Pramoxin/Glycr/W.pet) 26 Gm Cream..g. 1 Vicky RC PRN PRN Namenda (Memantine Hcl) 5 Mg Tablet 5 Mg PO BID Tylenol (Acetaminophen) 325 Mg Tablet 650 Mg PO PRN Q6HRS PRN Lisinopril-Hctz 10-12.5 Mg Tab (Lisinopril/Hydrochlorothiazide) 1 Each Tablet 1 Tab PO DAILY Ketorolac Tromethamine 5 Ml Drops 1 Drop LEFTEYE QID Ferrous Sulfate 325 Mg Tablet 325 Mg PO DAILY EXELON 4.6mg/24hr (Rivastigmine) 1 Each Patch.td24 1 Patch TD DAILY Aricept (Donepezil Hcl) 10 Mg Tablet 10 Mg PO DAILY Colace (Docusate Sodium) 100 Mg Capsule 100 Mg PO BID Celexa (Citalopram Hydrobromide) 20 Mg Tablet 20 Mg PO DAILY Nadeem Mag Zinc + D3 Tablet (Ca Carb/Vit D3/Mag Ox/Zn Oxide) 1 Each Tablet 1 Tab PO BID Buspirone Hcl 5 Mg Tablet 7.5 Mg PO BID Alprazolam 0.25 Mg Tablet 0.25 Mg PO PRN Q30MIN PRN MDD 1mg I have reviewed the current psychotropics carefully including drug interactions. Risk benefit ratio favors no change other than as noted in my dictated progress note. Diagnosis: Problems: (1) Dementia with behavioral disturbance (2) Anxiety disorder (3) Dementia in Alzheimer's disease with delusions (4) Dementia in Alzheimer's disease with depression (5) Dementia, vascular, with delusions (6) Dementia, vascular, with depression (7) Impulse control disorder LAUREN CASILLAS MD Aug 12, 2017 19:02
[2017-08-12] MEDS: MIRTAZAPINE 15 MG TABLET PO SCH (19:48)
[2017-08-13 06:41] VITALS: BP 162/51
[2017-08-13] MEDS: CALCIUM CARB/VIT D3 500/200 TABLET PO SCH ×2 (08:00→17:00)
[2017-08-13] MEDS: CHOLECALCIFEROL (VITAMIN D3) 1,000 UNIT TABLET PO SCH (09:00)
[2017-08-13] MEDS: busPIRone 5 MG TABLET. PO SCH ×4 (09:00→20:55)
[2017-08-13] MEDS: DOCUSATE SODIUM 100 MG CAPSULE PO SCH ×2 (09:00→20:56)
[2017-08-13] MEDS: MULTIVITAMIN with MINERAL TABLET. PO SCH (09:00)
[2017-08-13] MEDS: ACETAMINOPHEN 325 MG TABLET PO SCH ×2 (09:00→20:56)
[2017-08-13] MEDS: FERROUS SULFATE 325 MG TABLET. PO SCH (09:00)
[2017-08-13] MEDS: LACTOBACILLUS RHAMNOSUS GG 1 CAPSULE. PO SCH ×2 (09:00→20:55)
[2017-08-13] MEDS: KETOROLAC TROMETHAMINE 0.5% OPHTH SOLUTION 3ML BOTTLE. OS SCH ×4 (09:00→21:00)
[2017-08-13] MEDS: hydroCHLOROthiazide 12.5 MG CAPSULE PO SCH (09:00)
[2017-08-13] MEDS: FLUTICASONE 50MCG/NASAL SPRAY 16GM BOTTLE. NS SCH (09:00)
[2017-08-13] MEDS: OLANZapine 2.5 MG TABLET PO SCH (09:00)
[2017-08-13] MEDS: LISINOPRIL 10 MG TABLET PO SCH (09:00)
[2017-08-13 10:54] LABS: BASO # 0.1 x10^3/uL (0.0-0.2); BASO % 1 % (0-3); EOS # 0.2 x10^3/uL (0.0-0.7); EOS % 3 % (0-3); HEMATOCRIT 37.5 % (36.0-47.0); HEMOGLOBIN 12.3 g/dL (12.0-15.5); LYMPH # 2.8 x10^3/uL (1.0-4.8); LYMPH % 29 % (24-48); MEAN CORPUSCULAR HEMOGLOBIN 31 pg (25-35); MEAN CORPUSCULAR HGB CONC 33 g/dL (31-37); MEAN CORPUSCULAR VOLUME 95 fL (79-100); MONO # 0.8 x10^3/uL (0.0-1.1); MONO % 8 % (0-9); NEUT % 60 % (31-73); PLATELET COUNT 205 x10^3/uL (140-400); RED BLOOD COUNT 3.94 x10^6/uL (3.50-5.40); RED CELL DISTRIBUTION WIDTH 15.1 % (11.5-14.5); WHITE BLOOD COUNT 9.9 x10^3/uL (4.0-11.0)
[2017-08-13 11:10] LABS: ALBUMIN 3.5 g/dL (3.4-5.0); ALBUMIN/GLOBULIN RATIO 0.9 (1.0-1.7); CALCIUM 9.3 mg/dL (8.5-10.1); GFR 52.3; POTASSIUM 5.1 mmol/L (3.5-5.1); TOTAL BILIRUBIN 0.3 mg/dL (0.2-1.0); TOTAL PROTEIN 7.2 g/dL (6.4-8.2)
--- NOTE | 2017-08-13 11:40 | PN ---
DATE: 08/11/2017 PSYCHIATRIC PROGRESS NOTE This late entry for 08/11/2017 covers elements not covered in my initial note of 08/11/2017. SUBJECTIVE: Met with the patient evening of 08/11/2017. The patient remains confused, has been pacing, exit-seeking, sat herself on the floor and threatening others that she would "knock her head off," per nursing report. She remains quite intermittently agitated, very confused. REVIEW OF SYSTEMS: No CV, , pulmonary, eye, ENT system symptoms on review. Reliability is poor. MENTAL STATUS EXAM: Oriented to herself. Insight, judgment, recent and remote memory, attention, concentration, fund of knowledge poor, consistent with her diagnoses. As I met with her, she was trying to walk to her room, unable to find her room, and I walked with her down to her room. She was able to recognize her name written on the wall outside the room and read it off as "Annetta." IMPRESSION: Major neurocognitive disorder, Alzheimer, vascular with depression, delusion, behavioral disturbance. Rest is unchanged. PLAN: Continue psychotropics mentioned in my initial note. Check labs on 08/12/2017. Celexa was changed to Zoloft. Adjust further as clinically indicated. LAUREN CASILLAS MD DR: MIGUEL A/nahed JOB#: [id number] / [id number]
[2017-08-13] MEDS: SERTRALINE 50 MG TABLET. PO SCH (12:08)
[2017-08-13 12:20] VITALS: BP 93/59
[2017-08-13] MEDS ORDERED: MAGNESIUM HYDROXIDE 2,400 MG/30 ML ORAL.SUSP. PO PRN (14:00)
[2017-08-13 16:43] VITALS: BP 128/74
--- NOTE | 2017-08-13 19:55 | PDOC ---
Exam Note: Allen Note: Please also refer to the separate dictated note~for this date of service dictated separately.~Patient seen individually. Discussed the patient with Nursing staff reviewed the chart.~Reviewed interim history and current functioning. Reviewed vital signs,~Labs/ Radiology~and current medications noted below. Continue current treatment with the changes noted in the dictated addendum note Assessment: Vital Signs: Vital Signs Date Time Temp Pulse Resp B/P (MAP) Pulse Ox O2 Delivery O2 Flow Rate FiO2 08/13/17 16:43 97.5 62 16 128/74 (92) 95 08/13/17 12:20 Room Air I&O Intake and Output 08/13/17 07:00 Intake Total 720 ml Balance 720 ml Intake Oral 720 ml # Voids 2 Labs: Laboratory Tests Test 08/13/17 10:47 White Blood Count 9.9 x10^3/uL (4.0-11.0) Red Blood Count 3.94 x10^6/uL (3.50-5.40) Hemoglobin 12.3 g/dL (12.0-15.5) Hematocrit 37.5 % (36.0-47.0) Mean Corpuscular Volume 95 fL (79-100) Mean Corpuscular Hemoglobin 31 pg (25-35) Mean Corpuscular Hemoglobin Concent 33 g/dL (31-37) Red Cell Distribution Width 15.1 % (11.5-14.5) H Platelet Count 205 x10^3/uL (140-400) Neutrophils (%) (Auto) 60 % (31-73) Lymphocytes (%) (Auto) 29 % (24-48) Monocytes (%) (Auto) 8 % (0-9) Eosinophils (%) (Auto) 3 % (0-3) Basophils (%) (Auto) 1 % (0-3) Neutrophils # (Auto) 6.0 x10^3uL (1.8-7.7) Lymphocytes # (Auto) 2.8 x10^3/uL (1.0-4.8) Monocytes # (Auto) 0.8 x10^3/uL (0.0-1.1) Eosinophils # (Auto) 0.2 x10^3/uL (0.0-0.7) Basophils # (Auto) 0.1 x10^3/uL (0.0-0.2) Sodium Level 148 mmol/L (136-145) H Potassium Level 5.1 mmol/L (3.5-5.1) Chloride Level 110 mmol/L (98-107) H Carbon Dioxide Level 31 mmol/L (21-32) Anion Gap 7 (6-14) Blood Urea Nitrogen 20 mg/dL (7-20) Creatinine 1.0 mg/dL (0.6-1.0) Estimated GFR (Cockcroft-Gault) 52.3 BUN/Creatinine Ratio 20 (6-20) Glucose Level 109 mg/dL (70-99) H Calcium Level 9.3 mg/dL (8.5-10.1) Total Bilirubin 0.3 mg/dL (0.2-1.0) Aspartate Amino Transferase (AST) 22 U/L (15-37) Alanine Aminotransferase (ALT) 20 U/L (14-59) Alkaline Phosphatase 62 U/L (46-116) Total Protein 7.2 g/dL (6.4-8.2) Albumin 3.5 g/dL (3.4-5.0) Albumin/Globulin Ratio 0.9 (1.0-1.7) L Current Medications: Meds: Current Medications Cephalexin HCl (Keflex) 500 mg 1X ONCE PO Last administered on 08/05/17at 21:57 ; Start 08/05/17 at 21:45; Stop 08/05/17 at 21:46; Status DC Fluticasone Propionate (Flonase) 2 spray DAILY NS Last administered on at 09:13; Start 08/06/17 at 09:00 Cephalexin HCl (Keflex) 500 mg TID PO Last administered on 08/08/17at 13:47; Start 08/06/17 at 09:00; Stop 08/08/17 at 16:11; Status DC Dextrose 500 ml @ 500 mls/hr 1X ONCE IV Last administered on 08/05/17at 22:40 ; Start 08/05/17 at 23:00; Stop 08/05/17 at 23:59; Status DC Lactobacillus Rhamnosus (Culturelle) 1 cap BID PO Last administered on at 19:42; Start 08/06/17 at 09:00 Alprazolam (Xanax) 0.25 mg PRN Q30MIN PRN PO ANXIETY / AGITATION Last administered on 08/12/17at 13:42; Start 08/06/17 at 00:00 Buspirone HCl (Buspar) 7.5 mg BID PO Last administered on 08/12/17at 09:10; Start 08/06/17 at 09:00; Stop 08/12/17 at 19:03; Status DC Citalopram Hydrobromide (CeleXA) 20 mg DAILY PO Last administered on 08/10/17at 08:13; Start 08/06/17 at 09:00; Stop 08/10/17 at 19:33; Status DC Donepezil HCl (Aricept) 10 mg DAILY PO Last administered on 08/08/17at 08:46; Start 08/06/17 at 09:00; Stop 08/08/17 at 15:57; Status DC Memantine (Namenda) 5 mg BID PO Last administered on 08/08/17at 08:46; Start at 09:00; Stop 08/08/17 at 15:57; Status DC Olanzapine (ZyPREXA ZYDIS) 2.5 mg PRN Q12HR PRN PO PSYCHOSIS Last administered on 08/13/17at 11:05; Start 08/06/17 at 00:00 Olanzapine (ZyPREXA) 2.5 mg DAILY PO Last administered on 08/12/17at 09:11; Start 08/06/17 at 09:00 Rivastigmine (Exelon) 1 patch DAILY TD Last administered on 08/12/17at 09:11; Start 08/06/17 at 09:00; Stop 08/12/17 at 19:05; Status DC Mirtazapine (Remeron) 7.5 mg QHS PO Last administered on 08/11/17at 21:12; Start 08/06/17 at 21:00; Stop 08/12/17 at 19:05; Status DC Trazodone HCl (Desyrel) 25 mg PRN QHS PRN PO INSOMNIA, MAY REPEAT X1 Last administered on 08/11/17at 21:15; Start 08/06/17 at 18:45 Linezolid (Zyvox) 600 mg BID PO ; Start 08/08/17 at 21:00; Stop 08/08/17 at 21: 00; Status DC Fosfomycin Tromethamine (Monurol) 3 gm 1X ONCE PO Last administered on 17:04; Start 08/08/17 at 17:00; Stop 08/08/17 at 17:01; Status DC Acetaminophen (Tylenol) 650 mg BID PO Last administered on 08/12/17 19:42; Start 08/09/17 at 21:00 Acetaminophen (Tylenol) 650 mg PRN Q6HRS PRN PO PAIN / TEMP Last administered on 08/12/17 02:03; Start 08/09/17 at 12:00 Docusate Sodium (Colace) 100 mg BID PO Last administered on 08/12/17 19:42; Start 08/09/17 at 21:00 Ferrous Sulfate (Feosol) 325 mg DAILY PO Last administered on 08/12/17 09:10; Start 08/09/17 at 12:00 Non-Formulary Medication 1 tab BID PO ; Start 08/09/17 at 21:00; Stop 08/09/17 at 21:00; Status DC Vitamin D (Vitamin D3) 500 unit DAILY PO Last administered on 08/12/17 09:11; Start 08/09/17 at 12:00 Ketorolac Tromethamine (Acular) 1 drop QID OS Last administered on 08/12/17 19 :48; Start 08/09/17 at 13:00 Non-Formulary Medication 1 tab DAILY PO ; Start 08/10/17 at 09:00; Stop at 09:00; Status DC Ondansetron HCl (Zofran Odt) 4 mg PRN Q4HRS PRN PO NAUSEA/VOMITING Last administered on 08/12/17 17:25; Start 08/09/17 at 12:15 Lisinopril (Prinivil) 10 mg DAILY PO Last administered on 08/12/17 09:08; Start 08/09/17 at 12:00 Hydrochlorothiazide (Microzide) 12.5 mg DAILY PO Last administered on 09:09; Start 08/09/17 at 12:00 Calcium/Vitamin D (Oscal D 500mg/ 200uts) 1 tab BIDWMEALS PO Last administered on 08/12/17 09:10; Start 08/09/17 at 17:00 Multivitamins/ Calcium (Thera-M Plus) 1 tab DAILY PO Last administered on at 09:10; Start 08/10/17 at 09:00 Sertraline HCl (Zoloft) 50 mg DAILY PO Last administered on 08/13/17at 12:08; Start 08/11/17 at 09:00 Buspirone HCl (Buspar) 5 mg QID PO Last administered on 08/13/17at 17:00; Start 08/12/17 at 21:00 Mirtazapine (Remeron) 15 mg QHS PO Last administered on 08/12/17at 19:48; Start 08/12/17 at 21:00 Magnesium Hydroxide (Milk Of Magnesia) 2,400 mg PRN DAILY PRN PO CONSTIPATION Last administered on 08/13/17at 17:00; Start 08/13/17 at 14:00 Active Scripts Active Reported Zyprexa Zydis (Olanzapine) 5 Mg Tab.rapdis 2.5 Mg PO PRN Q12HR PRN Zyprexa (Olanzapine) 2.5 Mg Tablet 2.5 Mg PO DAILY Zofran (Ondansetron Hcl) 4 Mg Tablet 4 Mg PO PRN Q4HRS PRN Vitamin D-400 (Cholecalciferol (Vitamin D3)) 400 Unit Tablet 400 Unit PO DAILY Tylenol (Acetaminophen) 325 Mg Tablet 650 Mg PO BID Preparation H Cream (Phenyleph/Pramoxin/Glycr/W.pet) 26 Gm Cream..g. 1 Vicky RC PRN PRN Namenda (Memantine Hcl) 5 Mg Tablet 5 Mg PO BID Tylenol (Acetaminophen) 325 Mg Tablet 650 Mg PO PRN Q6HRS PRN Lisinopril-Hctz 10-12.5 Mg Tab (Lisinopril/Hydrochlorothiazide) 1 Each Tablet 1 Tab PO DAILY Ketorolac Tromethamine 5 Ml Drops 1 Drop LEFTEYE QID Ferrous Sulfate 325 Mg Tablet 325 Mg PO DAILY EXELON 4.6mg/24hr (Rivastigmine) 1 Each Patch.td24 1 Patch TD DAILY Aricept (Donepezil Hcl) 10 Mg Tablet 10 Mg PO DAILY Colace (Docusate Sodium) 100 Mg Capsule 100 Mg PO BID Celexa (Citalopram Hydrobromide) 20 Mg Tablet 20 Mg PO DAILY Nadeem Mag Zinc + D3 Tablet (Ca Carb/Vit D3/Mag Ox/Zn Oxide) 1 Each Tablet 1 Tab PO BID Buspirone Hcl 5 Mg Tablet 7.5 Mg PO BID Alprazolam 0.25 Mg Tablet 0.25 Mg PO PRN Q30MIN PRN MDD 1mg I have reviewed the current psychotropics carefully including drug interactions. Risk benefit ratio favors no change other than as noted in my dictated progress note. Diagnosis: Problems: (1) Dementia with behavioral disturbance (2) Anxiety disorder (3) Dementia in Alzheimer's disease with delusions (4) Dementia in Alzheimer's disease with depression (5) Dementia, vascular, with delusions (6) Dementia, vascular, with depression (7) Impulse control disorder LAUREN CASILLAS MD Aug 13, 2017 19:55
[2017-08-13] MEDS: MIRTAZAPINE 15 MG TABLET PO SCH (20:56)
[2017-08-13] MEDS: traZODone 50 MG TABLET. PO PRN (21:11)
[2017-08-14 06:14] VITALS: BP 153/78
[2017-08-14] MEDS: ACETAMINOPHEN 325 MG TABLET PO SCH (08:32)
[2017-08-14] MEDS: hydroCHLOROthiazide 12.5 MG CAPSULE PO SCH (08:32)
[2017-08-14] MEDS: SERTRALINE 50 MG TABLET. PO SCH (08:33)
[2017-08-14] MEDS: LISINOPRIL 10 MG TABLET PO SCH (08:33)
[2017-08-14] MEDS: busPIRone 5 MG TABLET. PO SCH ×3 (08:33→16:52)
[2017-08-14] MEDS: CALCIUM CARB/VIT D3 500/200 TABLET PO SCH ×2 (08:34→16:52)
[2017-08-14] MEDS: OLANZapine 2.5 MG TABLET PO SCH (08:34)
[2017-08-14] MEDS: DOCUSATE SODIUM 100 MG CAPSULE PO SCH (08:34)
[2017-08-14] MEDS: MULTIVITAMIN with MINERAL TABLET. PO SCH (08:34)
[2017-08-14] MEDS: FERROUS SULFATE 325 MG TABLET. PO SCH (08:35)
[2017-08-14] MEDS: LACTOBACILLUS RHAMNOSUS GG 1 CAPSULE. PO SCH (08:35)
[2017-08-14] MEDS: CHOLECALCIFEROL (VITAMIN D3) 1,000 UNIT TABLET PO SCH (08:35)
[2017-08-14] MEDS: FLUTICASONE 50MCG/NASAL SPRAY 16GM BOTTLE. NS SCH ×2 (08:36→09:00)
[2017-08-14] MEDS: KETOROLAC TROMETHAMINE 0.5% OPHTH SOLUTION 3ML BOTTLE. OS SCH ×4 (08:36→16:52)
--- NOTE | 2017-08-14 11:25 | PN ---
DATE: 08/12/2017 This late entry 08/12/2017 covers elements not covered in my initial note 08/12/2017. Met with the patient in the evening of 08/12/2017. Reviewed information from the patient's daughter, Lachelle who shared that the patient seems to sundown around 2:30 p.m. and we have seen this. She is exit seeking and sets off the alarms at the nursing facility till about 11:30. Daughter would like medications adjusted to help with this. REVIEW OF SYSTEMS: No CV, , pulmonary, eye, ENT system symptoms on review. Reliability poor. She is walking bent forward. MENTAL STATUS EXAM: Oriented to herself. Insight, judgment, recent and remote memory, attention, concentration, fund of knowledge poor, consistent with her diagnosis. She is wandering restless, but compliant with her medications, somewhat delusional. IMPRESSION: Major neurocognitive disorder, Alzheimer, vascular with depression, delusion, behavioral disturbance. Rest unchanged. PLAN: Stop the Exelon patch. It probably has little benefit at this stage of her dementia. Continue Xanax p.r.n. Change BuSpar to 5 mg 4 times a day from current doses 7.5 b.i.d. Maintain Zoloft 50 mg a day. Increase Remeron to 15 mg at bedtime since she only slept 3 hours previous evening. Continue trazodone p.r.n., Zyprexa p.r.n. Consider increasing the Zoloft gradually or adding Depakote as a mood stabilizer. LAUREN CASILLAS MD DR: MIGUEL A/nahed JOB#: [id number] / [id number]
[2017-08-14 15:58] VITALS: BP 104/65
[2017-08-14] MEDS ORDERED: FLUT16SP21 NS (19:56)
[2017-08-14] MEDS ORDERED: LACT1CAP21 PO (19:57)
[2017-08-14] MEDS ORDERED: MAGN400O7 PO (19:58)
[2017-08-14] MEDS ORDERED: ONDANSETRON ODT 4 MG TAB.RAPDIS PO PRN (20:00)
[2017-08-14] MEDS ORDERED: MULT-503 PO (20:00)
--- NOTE | 2017-08-14 20:01 | PDOC ---
Exam Note: Allen Note: Please also refer to the separate dictated note~for this date of service dictated separately.~Patient seen individually. Discussed the patient with Nursing staff reviewed the chart.~Reviewed interim history and current functioning. Reviewed vital signs,~Labs/ Radiology~and current medications noted below. Continue current treatment with the changes noted in the dictated addendum note Assessment: Vital Signs: Vital Signs Date Time Temp Pulse Resp B/P (MAP) Pulse Ox O2 Delivery O2 Flow Rate FiO2 08/14/17 15:58 98.6 74 18 104/65 (78) 96 08/13/17 12:20 Room Air I&O Intake and Output 08/14/17 07:00 Intake Total 480 ml Balance 480 ml Intake Oral 480 ml # Voids 2 Current Medications: Meds: Current Medications Cephalexin HCl (Keflex) 500 mg 1X ONCE PO Last administered on 08/05/17at 21:57 ; Start 08/05/17 at 21:45; Stop 08/05/17 at 21:46; Status DC Fluticasone Propionate (Flonase) 2 spray DAILY NS Last administered on at 09:13; Start 08/06/17 at 09:00 Cephalexin HCl (Keflex) 500 mg TID PO Last administered on 08/08/17at 13:47; Start 08/06/17 at 09:00; Stop 08/08/17 at 16:11; Status DC Dextrose 500 ml @ 500 mls/hr 1X ONCE IV Last administered on 08/05/17at 22:40 ; Start 08/05/17 at 23:00; Stop 08/05/17 at 23:59; Status DC Lactobacillus Rhamnosus (Culturelle) 1 cap BID PO Last administered on at 08:35; Start 08/06/17 at 09:00 Alprazolam (Xanax) 0.25 mg PRN Q30MIN PRN PO ANXIETY / AGITATION Last administered on 08/12/17at 13:42; Start 08/06/17 at 00:00 Buspirone HCl (Buspar) 7.5 mg BID PO Last administered on 08/12/17at 09:10; Start 08/06/17 at 09:00; Stop 08/12/17 at 19:03; Status DC Citalopram Hydrobromide (CeleXA) 20 mg DAILY PO Last administered on 08/10/17 08:13; Start 08/06/17 at 09:00; Stop 08/10/17 at 19:33; Status DC Donepezil HCl (Aricept) 10 mg DAILY PO Last administered on 08/08/17at 08:46; Start 08/06/17 at 09:00; Stop 08/08/17 at 15:57; Status DC Memantine (Namenda) 5 mg BID PO Last administered on 08/08/17 08:46; Start at 09:00; Stop 08/08/17 at 15:57; Status DC Olanzapine (ZyPREXA ZYDIS) 2.5 mg PRN Q12HR PRN PO PSYCHOSIS Last administered on 08/13/17 11:05; Start 08/06/17 at 00:00 Olanzapine (ZyPREXA) 2.5 mg DAILY PO Last administered on 08/14/17at 08:34; Start 08/06/17 at 09:00 Rivastigmine (Exelon) 1 patch DAILY TD Last administered on 08/12/17 09:11; Start 08/06/17 at 09:00; Stop 08/12/17 at 19:05; Status DC Mirtazapine (Remeron) 7.5 mg QHS PO Last administered on 08/11/17 21:12; Start 08/06/17 at 21:00; Stop 08/12/17 at 19:05; Status DC Trazodone HCl (Desyrel) 25 mg PRN QHS PRN PO INSOMNIA, MAY REPEAT X1 Last administered on 08/13/17at 21:11; Start 08/06/17 at 18:45 Linezolid (Zyvox) 600 mg BID PO ; Start 08/08/17 at 21:00; Stop 08/08/17 at 21: 00; Status DC Fosfomycin Tromethamine (Monurol) 3 gm 1X ONCE PO Last administered on 17:04; Start 08/08/17 at 17:00; Stop 08/08/17 at 17:01; Status DC Acetaminophen (Tylenol) 650 mg BID PO Last administered on 08/14/17at 08:32; Start 08/09/17 at 21:00 Acetaminophen (Tylenol) 650 mg PRN Q6HRS PRN PO PAIN / TEMP Last administered on 08/12/17 02:03; Start 08/09/17 at 12:00 Docusate Sodium (Colace) 100 mg BID PO Last administered on 08/14/17 08:34; Start 08/09/17 at 21:00 Ferrous Sulfate (Feosol) 325 mg DAILY PO Last administered on 08/14/17 08:35; Start 08/09/17 at 12:00 Non-Formulary Medication 1 tab BID PO ; Start 08/09/17 at 21:00; Stop 08/09/17 at 21:00; Status DC Vitamin D (Vitamin D3) 500 unit DAILY PO Last administered on 08/14/17 08:35; Start 08/09/17 at 12:00 Ketorolac Tromethamine (Acular) 1 drop QID OS Last administered on 08/12/17 19 :48; Start 08/09/17 at 13:00 Non-Formulary Medication 1 tab DAILY PO ; Start 08/10/17 at 09:00; Stop at 09:00; Status DC Ondansetron HCl (Zofran Odt) 4 mg PRN Q4HRS PRN PO NAUSEA/VOMITING Last administered on 08/12/17 17:25; Start 08/09/17 at 12:15; Stop 08/14/17 at 19:57 ; Status DC Lisinopril (Prinivil) 10 mg DAILY PO Last administered on 08/14/17 08:33; Start 08/09/17 at 12:00 Hydrochlorothiazide (Microzide) 12.5 mg DAILY PO Last administered on 08:32; Start 08/09/17 at 12:00 Calcium/Vitamin D (Oscal D 500mg/ 200uts) 1 tab BIDWMEALS PO Last administered on 08/14/17 16:52; Start 08/09/17 at 17:00 Multivitamins/ Calcium (Thera-M Plus) 1 tab DAILY PO Last administered on 08:34; Start 08/10/17 at 09:00 Sertraline HCl (Zoloft) 50 mg DAILY PO Last administered on 08/14/17 08:33; Start 08/11/17 at 09:00; Stop 08/14/17 at 18:39; Status DC Buspirone HCl (Buspar) 5 mg QID PO Last administered on 08/14/17at 16:52; Start 08/12/17 at 21:00 Mirtazapine (Remeron) 15 mg QHS PO Last administered on 08/13/17at 20:56; Start 08/12/17 at 21:00 Magnesium Hydroxide (Milk Of Magnesia) 2,400 mg PRN DAILY PRN PO CONSTIPATION Last administered on 08/13/17at 17:00; Start 08/13/17 at 14:00 Sertraline HCl (Zoloft) 75 mg DAILY PO ; Start 08/15/17 at 09:00 Ondansetron HCl (Zofran Odt) 8 mg PRN Q8HRS PRN PO NAUSEA/VOMITING; Start 08/14 at 20:00 Active Scripts Active Reported Milk Of Magnesia (Magnesium Hydroxide) 400 Mg/5 Ml Oral.susp 2,400 Mg PO PRN DAILY PRN Culturelle (Lactobacillus Rhamnosus Gg) 1 Each Capsule 1 Cap PO BID Fluticasone Propionate Nasal [place] (Fluticasone Propionate) 16 Gm [place].susp 2 [place] NS DAILY Zyprexa Zydis (Olanzapine) 5 Mg Tab.rapdis 2.5 Mg PO PRN Q12HR PRN Zyprexa (Olanzapine) 2.5 Mg Tablet 2.5 Mg PO DAILY Zofran (Ondansetron Hcl) 4 Mg Tablet 4 Mg PO PRN Q4HRS PRN Vitamin D-400 (Cholecalciferol (Vitamin D3)) 400 Unit Tablet 400 Unit PO DAILY Tylenol (Acetaminophen) 325 Mg Tablet 650 Mg PO BID Preparation H Cream (Phenyleph/Pramoxin/Glycr/W.pet) 26 Gm Cream..g. 1 Vicky RC PRN PRN Namenda (Memantine Hcl) 5 Mg Tablet 5 Mg PO BID Tylenol (Acetaminophen) 325 Mg Tablet 650 Mg PO PRN Q6HRS PRN Lisinopril-Hctz 10-12.5 Mg Tab (Lisinopril/Hydrochlorothiazide) 1 Each Tablet 1 Tab PO DAILY Ketorolac Tromethamine 5 Ml Drops 1 Drop LEFTEYE QID Ferrous Sulfate 325 Mg Tablet 325 Mg PO DAILY EXELON 4.6mg/24hr (Rivastigmine) 1 Each Patch.td24 1 Patch TD DAILY Aricept (Donepezil Hcl) 10 Mg Tablet 10 Mg PO DAILY Colace (Docusate Sodium) 100 Mg Capsule 100 Mg PO BID Celexa (Citalopram Hydrobromide) 20 Mg Tablet 20 Mg PO DAILY Nadeem Mag Zinc + D3 Tablet (Ca Carb/Vit D3/Mag Ox/Zn Oxide) 1 Each Tablet 1 Tab PO BID Buspirone Hcl 5 Mg Tablet 7.5 Mg PO BID Alprazolam 0.25 Mg Tablet 0.25 Mg PO PRN Q30MIN PRN MDD 1mg I have reviewed the current psychotropics carefully including drug interactions. Risk benefit ratio favors no change other than as noted in my dictated progress note. Diagnosis: Problems: (1) Dementia with behavioral disturbance (2) Anxiety disorder (3) Dementia in Alzheimer's disease with delusions (4) Dementia in Alzheimer's disease with depression (5) Dementia, vascular, with delusions (6) Dementia, vascular, with depression (7) Impulse control disorder LAUREN CASILLAS MD Aug 14, 2017 20:01
[2017-08-14] MEDS ORDERED: HYDR12.553 PO (20:05)
[2017-08-14] MEDS ORDERED: LISI10TA2 PO (20:06)
[2017-08-14] MEDS ORDERED: IV NORMAL SALINE 500ML 500 ML IV ONE (20:30)
[2017-08-14 20:31] LABS: BASO # 0.1 x10^3/uL (0.0-0.2); BASO % 1 % (0-3); EOS # 0.1 x10^3/uL (0.0-0.7); EOS % 1 % (0-3); HEMATOCRIT 35.2 % (36.0-47.0); HEMOGLOBIN 11.5 g/dL (12.0-15.5); LYMPH % 10 % (24-48); MEAN CORPUSCULAR HEMOGLOBIN 31 pg (25-35); MEAN CORPUSCULAR HGB CONC 33 g/dL (31-37); MEAN CORPUSCULAR VOLUME 95 fL (79-100); MONO # 0.6 x10^3/uL (0.0-1.1); MONO % 6 % (0-9); NEUT # 8.1 x10^3uL (1.8-7.7); NEUT % 81 % (31-73); PLATELET COUNT 187 x10^3/uL (140-400); RED BLOOD COUNT 3.72 x10^6/uL (3.50-5.40); RED CELL DISTRIBUTION WIDTH 15.2 % (11.5-14.5); WHITE BLOOD COUNT 9.9 x10^3/uL (4.0-11.0)
[2017-08-14 20:45] LABS: ALBUMIN 3.5 g/dL (3.4-5.0); CALCIUM 9.2 mg/dL (8.5-10.1); CREATININE 1.4 mg/dL (0.6-1.0); GFR 35.5; TOTAL BILIRUBIN 0.2 mg/dL (0.2-1.0)
[2017-08-14] MEDS ORDERED: IV DEXTROSE 5% 1,000 ML IV SCH (20:45)
--- NOTE | 2017-08-15 07:48 | PN ---
DATE: 08/13/2017 PSYCHIATRIC PROGRESS NOTE This late entry 08/13/2017 covers elements not covered in my initial note 08/13/2017. SUBJECTIVE: I met with the patient evening of 08/13/2017. The patient was extremely aggressive morning of 08/13/2017, physically hitting staff, agitated. She slept in this morning, then was agitated, combative, running out of her room at times. Nursing staff wonder whether she has a URI coming up that could be worsening her irritability. REVIEW OF SYSTEMS: No CV, , pulmonary, eye, ENT system symptoms on review. Reliability poor. MENTAL STATUS EXAM: Oriented to herself. Insight, judgment, recent and remote memory, attention, concentration, fund of knowledge poor, consistent with her diagnosis mentioned in my initial note. IMPRESSION: Major neurocognitive disorder, Alzheimer, vascular with depression, delusion, behavioral disturbance. PLAN: Change BuSpar from 7.5 mg b.i.d. to 5 mg 4 times a day. Continue rest unchanged. MAN Jc CASILLAS MD DR: MIGUEL A/nahed JOB#: [id number] / [id number]
[2017-08-15] MEDS ORDERED: SERTRALINE 50 MG TABLET. PO SCH (09:00)
[2017-08-15] MEDS ORDERED: LINE600T PO (18:15)
[2017-08-15] MEDS ORDERED: RIVA1PAT22 TD (18:15)
[2017-08-15] MEDS ORDERED: ENOX30DI SQ (18:15)
--- NOTE | 2017-08-16 10:14 | PDOC ---
Exam Note: Allen Note: Please also refer to the separate dictated note~for this date of service dictated separately.~Patient seen individually. Discussed the patient with Nursing staff reviewed the chart.~Reviewed interim history and current functioning. Reviewed vital signs,~Labs/ Radiology~and current medications noted below. Continue current treatment with the changes noted in the dictated addendum note.This is a late entry for date of service Aug 14, 2017 Assessment: Vital Signs: Vital Signs Date Time Temp Pulse Resp B/P (MAP) Pulse Ox O2 Delivery O2 Flow Rate FiO2 08/14/17 15:58 98.6 74 18 104/65 (78) 96 08/13/17 12:20 Room Air Current Medications: Meds: Current Medications Cephalexin HCl (Keflex) 500 mg 1X ONCE PO Last administered on 08/05/17 21:57 ; Start 08/05/17 at 21:45; Stop 08/05/17 at 21:46; Status DC Fluticasone Propionate (Flonase) 2 spray DAILY NS Last administered on 09:13; Start 08/06/17 at 09:00; Stop 08/14/17 at 21:49; Status DC Cephalexin HCl (Keflex) 500 mg TID PO Last administered on 08/08/17at 13:47; Start 08/06/17 at 09:00; Stop 08/08/17 at 16:11; Status DC Dextrose 500 ml @ 500 mls/hr 1X ONCE IV Last administered on 08/05/17 22:40 ; Start 08/05/17 at 23:00; Stop 08/05/17 at 23:59; Status DC Lactobacillus Rhamnosus (Culturelle) 1 cap BID PO Last administered on at 08:35; Start 08/06/17 at 09:00; Stop 08/14/17 at 21:49; Status DC Alprazolam (Xanax) 0.25 mg PRN Q30MIN PRN PO ANXIETY / AGITATION Last administered on 08/12/17at 13:42; Start 08/06/17 at 00:00; Stop 08/14/17 at 21:49 ; Status DC Buspirone HCl (Buspar) 7.5 mg BID PO Last administered on 08/12/17at 09:10; Start 08/06/17 at 09:00; Stop 08/12/17 at 19:03; Status DC Citalopram Hydrobromide (CeleXA) 20 mg DAILY PO Last administered on 08/10/17at 08:13; Start 08/06/17 at 09:00; Stop 08/10/17 at 19:33; Status DC Donepezil HCl (Aricept) 10 mg DAILY PO Last administered on 08/08/17at 08:46; Start 08/06/17 at 09:00; Stop 08/08/17 at 15:57; Status DC Memantine (Namenda) 5 mg BID PO Last administered on 08/08/17at 08:46; Start at 09:00; Stop 08/08/17 at 15:57; Status DC Olanzapine (ZyPREXA ZYDIS) 2.5 mg PRN Q12HR PRN PO PSYCHOSIS Last administered on 08/13/17at 11:05; Start 08/06/17 at 00:00; Stop 08/14/17 at 21:49; Status DC Olanzapine (ZyPREXA) 2.5 mg DAILY PO Last administered on 08/14/17at 08:34; Start 08/06/17 at 09:00; Stop 08/14/17 at 21:49; Status DC Rivastigmine (Exelon) 1 patch DAILY TD Last administered on 08/12/17at 09:11; Start 08/06/17 at 09:00; Stop 08/12/17 at 19:05; Status DC Mirtazapine (Remeron) 7.5 mg QHS PO Last administered on 08/11/17at 21:12; Start 08/06/17 at 21:00; Stop 08/12/17 at 19:05; Status DC Trazodone HCl (Desyrel) 25 mg PRN QHS PRN PO INSOMNIA, MAY REPEAT X1 Last administered on 08/13/17at 21:11; Start 08/06/17 at 18:45; Stop 08/14/17 at 21:49 ; Status DC Linezolid (Zyvox) 600 mg BID PO ; Start 08/08/17 at 21:00; Stop 08/08/17 at 21: 00; Status DC Fosfomycin Tromethamine (Monurol) 3 gm 1X ONCE PO Last administered on at 17:04; Start 08/08/17 at 17:00; Stop 08/08/17 at 17:01; Status DC Acetaminophen (Tylenol) 650 mg BID PO Last administered on 08/14/17at 08:32; Start 08/09/17 at 21:00; Stop 08/14/17 at 21:49; Status DC Acetaminophen (Tylenol) 650 mg PRN Q6HRS PRN PO PAIN / TEMP Last administered on 08/12/17at 02:03; Start 08/09/17 at 12:00; Stop 08/14/17 at 21:49; Status DC Docusate Sodium (Colace) 100 mg BID PO Last administered on 08/14/17at 08:34; Start 08/09/17 at 21:00; Stop 08/14/17 at 21:49; Status DC Ferrous Sulfate (Feosol) 325 mg DAILY PO Last administered on 08/14/17at 08:35; Start 08/09/17 at 12:00; Stop 08/14/17 at 21:49; Status DC Non-Formulary Medication 1 tab BID PO ; Start 08/09/17 at 21:00; Stop 08/09/17 at 21:00; Status DC Vitamin D (Vitamin D3) 500 unit DAILY PO Last administered on 08/14/17at 08:35; Start 08/09/17 at 12:00; Stop 08/14/17 at 21:49; Status DC Ketorolac Tromethamine (Acular) 1 drop QID OS Last administered on 08/12/17at 19 :48; Start 08/09/17 at 13:00; Stop 08/14/17 at 21:49; Status DC Non-Formulary Medication 1 tab DAILY PO ; Start 08/10/17 at 09:00; Stop at 09:00; Status DC Ondansetron HCl (Zofran Odt) 4 mg PRN Q4HRS PRN PO NAUSEA/VOMITING Last administered on 08/12/17at 17:25; Start 08/09/17 at 12:15; Stop 08/14/17 at 19:57 ; Status DC Lisinopril (Prinivil) 10 mg DAILY PO Last administered on 08/14/17at 08:33; Start 08/09/17 at 12:00; Stop 08/14/17 at 21:49; Status DC Hydrochlorothiazide (Microzide) 12.5 mg DAILY PO Last administered on at 08:32; Start 08/09/17 at 12:00; Stop 08/14/17 at 21:49; Status DC Calcium/Vitamin D (Oscal D 500mg/ 200uts) 1 tab BIDWMEALS PO Last administered on 08/14/17at 16:52; Start 08/09/17 at 17:00; Stop 08/14/17 at 21:49; Status DC Multivitamins/ Calcium (Thera-M Plus) 1 tab DAILY PO Last administered on at 08:34; Start 08/10/17 at 09:00; Stop 08/14/17 at 21:49; Status DC Sertraline HCl (Zoloft) 50 mg DAILY PO Last administered on 08/14/17at 08:33; Start 08/11/17 at 09:00; Stop 08/14/17 at 18:39; Status DC Buspirone HCl (Buspar) 5 mg QID PO Last administered on 08/14/17at 16:52; Start 08/12/17 at 21:00; Stop 08/14/17 at 21:49; Status DC Mirtazapine (Remeron) 15 mg QHS PO Last administered on 08/13/17at 20:56; Start 08/12/17 at 21:00; Stop 08/14/17 at 21:49; Status DC Magnesium Hydroxide (Milk Of Magnesia) 2,400 mg PRN DAILY PRN PO CONSTIPATION Last administered on 08/13/17at 17:00; Start 08/13/17 at 14:00; Stop 08/14/17 at 21:49; Status DC Sertraline HCl (Zoloft) 75 mg DAILY PO ; Start 08/15/17 at 09:00; Stop 08/15/17 at 09:00; Status DC Ondansetron HCl (Zofran Odt) 8 mg PRN Q8HRS PRN PO NAUSEA/VOMITING; Start 08/14 at 20:00; Stop 08/14/17 at 21:49; Status DC Sodium Chloride 500 ml @ 0 mls/hr 1X ONCE IV ; Start 08/14/17 at 20:30; Stop at 20:35; Status DC Dextrose 1,000 ml @ 100 mls/hr Q10H IV ; Start 08/14/17 at 20:45; Stop at 21:49; Status DC Active Scripts Active Reported EXELON 4.6mg/24hr (Rivastigmine) 1 Each Patch.td24 1 Patch TD DAILY Zyvox (Linezolid) 600 Mg Tablet 600 Mg PO BID Lovenox (Enoxaparin Sodium) 30 Mg/0.3 Ml Disp.syrin 30 Mg SQ Q24H Thera-M (Multivits,Th W-Fe,Other Min) 1 Each Tablet 1 Tab PO DAILY Milk Of Magnesia (Magnesium Hydroxide) 400 Mg/5 Ml Oral.susp 2,400 Mg PO PRN DAILY PRN Culturelle (Lactobacillus Rhamnosus Gg) 1 Each Capsule 1 Cap PO BID Fluticasone Propionate Nasal [place] (Fluticasone Propionate) 16 Gm [place].susp 2 [place] NS DAILY Zofran (Ondansetron Hcl) 4 Mg Tablet 4 Mg PO PRN Q4HRS PRN Vitamin D-400 (Cholecalciferol (Vitamin D3)) 400 Unit Tablet 500 Unit PO DAILY Tylenol (Acetaminophen) 325 Mg Tablet 650 Mg PO BID Tylenol (Acetaminophen) 325 Mg Tablet 650 Mg PO PRN Q6HRS PRN Ketorolac Tromethamine 5 Ml Drops 1 Drop LEFTEYE QID Ferrous Sulfate 325 Mg Tablet 325 Mg PO DAILY Colace (Docusate Sodium) 100 Mg Capsule 100 Mg PO BID Nadeem Mag Zinc + D3 Tablet (Ca Carb/Vit D3/Mag Ox/Zn Oxide) 1 Each Tablet 1 Tab PO BID I have reviewed the current psychotropics carefully including drug interactions. Risk benefit ratio favors no change other than as noted in my dictated progress note. Diagnosis: Problems: (1) Impulse control disorder (2) Dementia, vascular, with depression (3) Dementia, vascular, with delusions (4) Dementia in Alzheimer's disease with depression (5) Dementia in Alzheimer's disease with delusions (6) Anxiety disorder (7) Dementia with behavioral disturbance LAUREN CASILLAS MD Aug 16, 2017 10:14
--- NOTE | 2017-08-16 12:34 | DS ---
DATE OF DISCHARGE: 08/14/2017 DISCHARGE SUMMARY/PSYCHIATRIC PROGRESS NOTE This late entry, date of service, 08/14/2017, covers elements not covered in my initial note of 08/14/2017. REASON FOR ADMISSION: Please refer to the admission history for details. Briefly, the patient is an 87-year-old female referred to us from [facility] in [place] by her primary care physician on account of worsening confusion, exit seeking behaviors, throwing herself on the floor, banging on the doors, difficult to redirect, angry at her children, crawling on the floor, psychotic. She had failed outpatient psychiatric interventions resulting in this referral. SIGNIFICANT FINDINGS AND CLINICAL COURSE: Following admission, the patient was seen daily individually by myself, followed medically per Dr. Raphael/Dr. Ramirez. She is quite paranoid, psychotic, very confused. Adjustments were made in her psychotropics. She seemed to be doing better on a combination of BuSpar 5 mg 4 times a day, Zoloft 50 mg a day, Zyprexa was adjusted to 2.5 mg daily and she was on Xanax and trazodone p.r.n., together with Remeron 15 mg at bedtime. However, around this stage of her hospitalization, she developed significant hypotension, sedation and was transferred to [address] [place] [address] Ramirez for medical stabilization. Her psychotropics were discontinued prior to her transfer to [address] [place] [address] with the option to restart them as needed when she is medically stable. Prior to discharge, I had met with her earlier in the evening. REVIEW OF SYSTEMS: No CV, , pulmonary, eye, ENT system symptoms on review. She walks with a hunch bent forward around 30 degrees at her waist. Reliability poor. MENTAL STATUS EXAM: Oriented to herself. Insight, judgment, recent and remote memory, attention, concentration, fund of knowledge poor, consistent with her diagnosis mentioned in my initial note. FINAL DIAGNOSES: Major neurocognitive disorder, Alzheimer's, vascular with depression, delusion, behavioral disturbance; anxiety disorder, unspecified; impulse control disorder, unspecified; hypotension Rest unchanged from admission. DISCHARGE MEDICATIONS: Please refer to the EMRAD. We would be happy to reconsider the patient to return to our unit if clinically indicated when she is medically stable on [address] [place] [address]. MAN Jc CASILLAS MD DR: MIGUEL A/nahed JOB#: [id number] / [id number]
--- NOTE | 2017-08-19 09:48 | EKG ---
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
== END 2017-08-14 20:30 | disposition short-term general hospital (02) | DRG 884 ==
LOC: ER 19:51 → GEROPSY 23:40 → 1 SOUTH 08-14 20:28
PROVIDERS: ADMIT Psychiatry & Neurology Psychiatry; ATTEND Family Medicine
DX: F01.51 Vascular dementia, unspecified severity, with behavioral disturbance (principal); E87.0 Hyperosmolality and hypernatremia; G30.9 Alzheimer's disease, unspecified; D64.9 Anemia, unspecified; F02.81 Dementia in other diseases classified elsewhere, unspecified severity, with behavioral disturbance; F41.9 Anxiety disorder, unspecified; F22 Delusional disorders; F63.9 Impulse disorder, unspecified; G89.29 Other chronic pain; K57.90 Diverticulosis of intestine, part unspecified, without perforation or abscess without bleeding; J20.9 Acute bronchitis, unspecified; F32.9 Major depressive disorder, single episode, unspecified; I10 Essential (primary) hypertension; M81.0 Age-related osteoporosis without current pathological fracture; Z66 Do not resuscitate; Z79.899 Other long term (current) drug therapy; Z88.5 Allergy status to narcotic agent; Z88.8 Allergy status to other drugs, medicaments and biological substances; M54.9 Dorsalgia, unspecified
CPT/HCPCS: 36415; 70450; 71045; 80048; 80053; 80061; 80307; 81001; 82140; 82306; 82553; 82607; 83036; 83540; 83550; 83605; 83735; 83880; 84436; 84443; 84480; 84484; 85025; 85045; 85610; 85651; 85730; 86593; 87086; 87186; 87804; 93005; G0238; Q0162; 99285-25; G0479

== ENCOUNTER 2017-08-14 20:45 | Inpatient (IN) | payer MEDICARE ==
[~2017-08-14] VITALS: Ht 154.9 cm; Wt 49.7 kg
[2017-08-14 20:30] VITALS: BP 150/62
--- NOTE | 2017-08-14 20:40 | NUR ---
Pt was admitted from [facility] to [facility] room 111 via wheelchair, accompanied by nursing staff. Pt transferred from wheelchair to bed x1 assist. Pt is A&O to self. Pt is pleasantly confused, forgetful & impulsive. Pt had episode on [facility] of N/V with orthostatic hypotension, r/o sepsis. Pt placed on Telemetry, SR to [place] noted on monitor. D5W IVF started per order. Health history & home medications per fpc paperwork & [facility] chart. Lovenox for VTE. PT/OT & CM consulted. Pt UTD on flu vaccine & refused pneumonia vaccine. PT DNR. Pt with frequent urge to urinate, will obtain new UA. +VRE of the urine recently, on PO Zyvox. Pt was given written information regarding hospital policies, unit procedures and contact persons. Valuables were checked and left at bedside. Dr. Perez consulted. Bed alarm placed on pt, along with personal alarm.
[~2017-08-14 20:45] MED LIST changes: +ACET325T9 PO; +ALPR0.254 PO; +BUSP5TAB PO; +CA C1TAB45 PO; +CHOL400T14 PO; +CITA20TA9 PO; +DOCU-109 PO; +DONE10TA61 PO; +FERR325T14 PO; +FLUT16SP21 NS; +HYDR12.553 PO; +KETO5DRO72 LEFTEYE; +LACT1CAP21 PO; +LISI10TA2 PO; +LISI1TAB3 PO; +MAGN400O7 PO; +MEMA5TAB PO; +MULT-503 PO; +OLAN2.5T3 PO; +OLAN5TAB5 PO; +ONDA4TAB7 PO; +PHEN26CR RC; +RIVA1PAT22 TD
[2017-08-14] MEDS ORDERED: ONDANSETRON ODT 4 MG TAB.RAPDIS PO PRN (22:15)
[2017-08-14] MEDS ORDERED: ACETAMINOPHEN 500 MG TABLET PO PRN (22:15)
[2017-08-14] MEDS ORDERED: ONDANSETRON PF 4 MG/2 ML VIAL. IV PRN (22:15)
[2017-08-14] MEDS ORDERED: MAGNESIUM HYDROXIDE 2,400 MG/30 ML ORAL.SUSP. PO PRN (22:30)
[2017-08-14] MEDS ORDERED: PHENYLEPHRINE SUPP.RECT. PR PRN (22:45)
[2017-08-14] MEDS: IV DEXTROSE 5% 1,000 ML IV SCH (22:46)
[2017-08-15 00:43] LABS: BACTERIA,URINE FEW /HPF (0-FEW); BILIRUBIN,URINE NEG (NEG); CLARITY,URINE CLEAR; COLOR,URINE YELLOW; GLUCOSE,URINE NEG (NEG); NITRITE,URINE NEG (NEG); RBC,URINE OCC /HPF (0-2); UROBILINOGEN,URINE 0.2 mg/dL (0.2 mg/dL)
[2017-08-15 00:44] LABS: SQUAMOUS EPITHELIAL CELL,UR FEW /LPF
[2017-08-15] MEDS: IV DEXTROSE 5% 1,000 ML IV SCH (04:57)
[2017-08-15 06:05] VITALS: BP 162/77
[2017-08-15 06:53] LABS: BASO # 0.1 x10^3/uL (0.0-0.2); BASO % 1 % (0-3); EOS # 0.2 x10^3/uL (0.0-0.7); EOS % 2 % (0-3); HEMATOCRIT 33.4 % (36.0-47.0); HEMOGLOBIN 11.2 g/dL (12.0-15.5); LYMPH # 1.9 x10^3/uL (1.0-4.8); LYMPH % 20 % (24-48); MEAN CORPUSCULAR HEMOGLOBIN 32 pg (25-35); MEAN CORPUSCULAR HGB CONC 34 g/dL (31-37); MEAN CORPUSCULAR VOLUME 94 fL (79-100); MONO # 0.7 x10^3/uL (0.0-1.1); MONO % 7 % (0-9); NEUT # 6.8 x10^3uL (1.8-7.7); NEUT % 70 % (31-73); PLATELET COUNT 179 x10^3/uL (140-400); RED BLOOD COUNT 3.57 x10^6/uL (3.50-5.40); RED CELL DISTRIBUTION WIDTH 14.9 % (11.5-14.5); WHITE BLOOD COUNT 9.8 x10^3/uL (4.0-11.0)
[2017-08-15 07:09] LABS: ALBUMIN 3.2 g/dL (3.4-5.0); ALBUMIN/GLOBULIN RATIO 0.9 (1.0-1.7); CALCIUM 8.4 mg/dL (8.5-10.1); CREATININE 1.1 mg/dL (0.6-1.0); GFR 46.9; POTASSIUM 3.1 mmol/L (3.5-5.1); TOTAL BILIRUBIN 0.4 mg/dL (0.2-1.0); TOTAL PROTEIN 6.6 g/dL (6.4-8.2)
[2017-08-15] MEDS ORDERED: CALCIUM CARB/VIT D3 500/200 TABLET PO SCH (08:00)
[2017-08-15] MEDS ORDERED: CHOLECALCIFEROL (VITAMIN D3) 1,000 UNIT TABLET PO SCH (09:00)
[2017-08-15] MEDS ORDERED: LINEZOLID 600 MG TABLET PO SCH (09:00)
[2017-08-15] MEDS ORDERED: FLUTICASONE 50MCG/NASAL SPRAY 16GM BOTTLE. NS SCH (09:00)
[2017-08-15] MEDS ORDERED: DOCUSATE SODIUM 100 MG CAPSULE PO SCH (09:00)
[2017-08-15] MEDS ORDERED: ACETAMINOPHEN 325 MG TABLET PO SCH (09:00)
[2017-08-15] MEDS ORDERED: FERROUS SULFATE 325 MG TABLET. PO SCH (09:00)
[2017-08-15] MEDS ORDERED: ENOXAPARIN 40 MG/0.4 ML DISP.SYRIN. SQ SCH (09:00)
[2017-08-15] MEDS ORDERED: MULTIVITAMIN with MINERAL TABLET. PO SCH (09:00)
[2017-08-15] MEDS ORDERED: RIVASTIGMINE 4.6MG PATCH. TD SCH (09:00)
--- NOTE | 2017-08-15 09:22 | NUR ---
IP: patient has dx of VRE in the urine, unable to effectively educate patient regarding this issue due to mental status.
[2017-08-15 10:01] VITALS: BP 143/56
[2017-08-15] MEDS ORDERED: POTASSIUM CHLORIDE 20 MEQ TABLET.ER. PO ONE (10:30)
[2017-08-15] MEDS: KETOROLAC TROMETHAMINE 0.5% OPHTH SOLUTION 3ML BOTTLE. OS SCH ×2 (10:52→12:59)
[2017-08-15] MEDS ORDERED: ENOXAPARIN 30 MG/0.3 ML DISP.SYRIN. SQ SCH (11:00)
[2017-08-15 14:57] LABS: CALCIUM 8.5 mg/dL (8.5-10.1); CREATININE 1.3 mg/dL (0.6-1.0); GFR 38.7; POTASSIUM 3.8 mmol/L (3.5-5.1)
[2017-08-15 15:07] VITALS: BP 111/54
--- NOTE | 2017-08-15 16:19 | NUR ---
Pt discharged to [facility]. Report called to [facility]. Copies of chart sent up with pt.
--- NOTE | 2017-08-15 17:20 | SSS ---
ADMIT DATE: 08/15/2017 HISTORY OF PRESENT ILLNESS: The patient was transferred from [facility] on the account of recurrent bouts of nausea, vomiting and hypotension. She was apparently on multiple antipsychotic medications as well as lisinopril and hydrochlorothiazide were discontinued and was started on IV fluid and was transferred to [address] [place] [address] for further evaluation and treatment. Her lab work showed that she is hypokalemic, mildly dehydrated. Therefore, they stated her hydrochlorothiazide and lisinopril were discontinued and was started on IV fluid in the form of D5 half normal intravenously and will obviously monitor her lab work as well as orthostatics and decide and the patient remained hemodynamically stable. Her lab work has improved. She apparently has had no further episode of nausea or vomiting and no postural hypotension and therefore, a decision was made to transfer her back to [facility] to continue for inpatient psychiatric stabilization. PAST MEDICAL HISTORY: Significant for hypertension, osteoporosis, chronic back pain, history of diverticulosis. She has a history of GI bleed for which she was admitted to the hospital. PSYCHIATRIC HISTORY: Psychiatric history is significant for Alzheimer's disease. She was at [facility] in [place], where she has been exit seeking, throwing herself on the floor, banging on the doors, not being able to be directed, angry at her children, crawling on the floors. The onset of symptoms about one month ago. Facility attempted to call her daughter, walk her around outside without much improvement and Xanax and Zydis were tried without much improvement and therefore she was admitted to [facility] for inpatient psychiatric stabilization. PAST SURGICAL HISTORY: Unremarkable. SOCIAL HISTORY: She is a resident at [facility] in [place]. She does not smoke, drink alcohol or use any recreational drugs. ALLERGIES: SHE IS ALLERGIC TO CODEINE AND ATIVAN. MEDICATIONS: She was transferred to [address] [place] [address] to continue on the following medications: Acetaminophen 650 mg once a day, to continue on her Tylenol 650 mg as needed, calcium with vitamin twice a day, cholecalciferol 500 units daily, Colace 100 mg twice a day, ferrous sulfate 325 mg once a day, Flonase 1 spray to each nostril twice a day, lactobacillus rhamnosus 1 twice a day. We will hold her hydrochlorothiazide and lisinopril. Continue with magnesium hydroxide, multivitamin and ondansetron. LABORATORY DATA: Her lab work on discharging her from [address] [place] [address] this afternoon showed a white cell count of 9800, hemoglobin 11, hematocrit 33, MCV 94 and platelet count of [id number]. Serum sodium was 137, potassium 3.8, chloride 101, bicarbonate 27, anion gap of 9, BUN 23, creatinine 1.3, estimated GFR was 38 mL per minute, glucose 112, and calcium was 8.5. FINAL DISCHARGE DIAGNOSES: Nausea and vomiting, orthostatic hypotension, hypokalemia, dehydration, and hypertension. DONNIE DE LA CRUZ MD DR: DERRICK/nahed JOB#: [id number] / [id number]
[2017-08-15] MEDS ORDERED: LINE600T PO (18:15)
[2017-08-15] MEDS ORDERED: ENOX30DI SQ (18:15)
[2017-08-15] MEDS ORDERED: RIVA1PAT22 TD (18:15)
[2017-08-15] MEDS ORDERED: LACTOBACILLUS RHAMNOSUS GG 1 CAPSULE. PO SCH (21:00)
== END 2017-08-15 16:24 | DRG 312 ==
LOC: 1 SOUTH 20:45
PROVIDERS: ADMIT Family Medicine; ATTEND Family Medicine
DX: I95.1 Orthostatic hypotension (principal); E86.0 Dehydration; G30.9 Alzheimer's disease, unspecified; F02.80 Dementia in other diseases classified elsewhere, unspecified severity, without behavioral disturbance, psychotic disturbance, mood disturbance, and anxiety; I10 Essential (primary) hypertension; E87.6 Hypokalemia; M81.0 Age-related osteoporosis without current pathological fracture; G89.29 Other chronic pain; M54.9 Dorsalgia, unspecified; K57.90 Diverticulosis of intestine, part unspecified, without perforation or abscess without bleeding; Z88.5 Allergy status to narcotic agent; Z88.8 Allergy status to other drugs, medicaments and biological substances; Z79.899 Other long term (current) drug therapy
CPT/HCPCS: 36415; 80048; 80053; 81001; 83735; 85025; 87086; 87641

== ENCOUNTER 2017-08-15 16:22 | Inpatient (IN) | payer MEDICARE ==
[~2017-08-15] VITALS: Ht 149.9 cm; Wt 48.3 kg
--- NOTE | 2017-08-15 16:20 | NUR ---
Admission Note with Justification for Admission to [facility] Patient admitted to [facility] for protective oversight for emergency stabilization of acute psychiatric crisis. Pt admitted from: [facility], where she was being treated for hypotension. Mode of arrival: ad audra accompanied by two staff members from [address] [place] [address]. Accompanied By: [facility] Staff Precipitating behaviors that initiated intake and admission: patient is from [facility] where she was exit seeking and throwing herself on the floor. She was also banging on the doors, looking for children and crawling on the floor. She had been sent to [address] [place] [address] for medical reasons last night. Her behaviors while there included confusion, yelling at the nurse and scratching the nurse. She was resistive but compliant with medications. Description of failure of out patient attempts at stabilization in previous setting list behavior and medication trials: Distraction, redirection and PRN medications were tried at [place]. Behaviors and assessment findings upon admission: Patient oriented to self only. Up ad audra without assistive devices. A brief head to toe physical was done, no areas of impaired skin noted. Patient was photographed and vital signs were obtained. Belongings inventoried and dinner tray was ordered. Patient was assigned same room as previously to avoid additional confusion. Patient escorted to day room. Plan: Admit for protective oversight for adjustment and stabilization of medications, behaviors and mood. Intense treatment regimen including groups, medication adjustments, therapy, consistent regimen for ADL's, self care, and sleep hygiene. Daily monitoring by Inpatient staff, Psychiatry, and Medical Physician.
[2017-08-15 17:08] VITALS: BP 116/50
[2017-08-15] MEDS ORDERED: METHYL SALICYLATE/MENTHOL TOPICAL OINTMENT 29GM TUBE. TP PRN (17:15)
[2017-08-15] MEDS ORDERED: MAG HYDROX/AL HYDROX/SIMETH 30 ML ORAL.SUSP PO PRN (17:15)
[2017-08-15] MEDS ORDERED: ACETAMINOPHEN 325 MG TABLET PO PRN ×2 (17:15→18:15)
[2017-08-15] MEDS ORDERED: MAGNESIUM HYDROXIDE 2,400 MG/30 ML ORAL.SUSP. PO PRN (17:15)
[2017-08-15] MEDS ORDERED: LINE600T PO (18:15)
[2017-08-15] MEDS ORDERED: RIVA1PAT22 TD (18:15)
[2017-08-15] MEDS ORDERED: ENOX30DI SQ (18:15)
[2017-08-15] MEDS: DOCUSATE SODIUM 100 MG CAPSULE PO SCH (19:33)
[2017-08-15] MEDS: LACTOBACILLUS RHAMNOSUS GG 1 CAPSULE. PO SCH (19:33)
[2017-08-15] MEDS: ACETAMINOPHEN 325 MG TABLET PO SCH (19:33)
[2017-08-15] MEDS ORDERED: ZN OXIDE PO SCH (21:00)
[2017-08-15] MEDS ORDERED: CA CARB PO SCH (21:00)
[2017-08-15] MEDS: KETOROLAC TROMETHAMINE 0.5% OPHTH SOLUTION 3ML BOTTLE. OS SCH (21:00)
[2017-08-15] MEDS ORDERED: VIT D3 PO SCH (21:00)
[2017-08-15] MEDS ORDERED: MAG OX PO SCH (21:00)
--- NOTE | 2017-08-16 02:28 | NUR ---
Behavior Intervention Response and Plan: BIRP Note: Behavior: Assumed Care of patient, patient located in Day Room at shift change. Patient exhibited the following behavior Disorganized, Wandering, Exit Seeking. Brief assessment on rounds of vital signs, medication needs, lab studies, and pain. Treatment plan problems Dementia W/ BD and Delusions and Fall Risk. Intervention: Patient assessed and the following interventions initiated safety checks 15 Minute Checks Cognitive Assessment , Medications , Oral Hydration. Response: After interactions and interventions patient responded in the following manner, Restless , Wandering ,Disorganized. Continue to assess behaviors and condition will continue to monitor throughout the shift as needed. Patient educated on ADL's, and hand hygiene. Plan: Continue to monitor Master Treatment Plan for patient's progress toward short term goals of Decreased Agitation, Decreased Anxiety, correction goals to return to previous living setting vs placement. Continue to assess patient for changes in above assessment. Monitor for medication needs, pain, and safety concerns. Hourly rounding performed to ensure safe environment.
[2017-08-16 06:43] VITALS: BP 148/90
[2017-08-16] MEDS: FLUTICASONE 50MCG/NASAL SPRAY 16GM BOTTLE. NS SCH (09:00)
--- NOTE | 2017-08-16 11:10 | HP ---
ADMIT DATE: 08/15/2017 This is a late entry for 08/15/2017 and covers elements not covered in my initial note of 08/15/2017. IDENTIFYING DATA: The patient is an 87-year-old female who was transferred from my unit to [address] [place] [address] Medical/Surgical floor evening of 08/14/[address] Ramirez on account of vomiting, hypotension, hypokalemia. She has been medically stabilized overnight. Continues to be confused, intermittently agitated, paranoid, disruptive and we were reconsulted to have her return back to our unit to stabilize her, which is what was being done prior to her transfer to [address] [place] [address] yesterday, i.e., on 08/14/2017. She was initially referred to us from [facility] on account of worsening confusion, agitation; prior to her transfer to [address] [place] [address], she was doing better behaviorally. CHIEF COMPLAINT: "I don't know." The patient responded after I asked her when she returned back to us. She is quite oblivious of this. HISTORY OF PRESENT ILLNESS: The patient has a history of dementia, Alzheimer's vascular type. She had been residing at [facility], admitted to us initially on 08/05/2017 on account of being exit seeking, throwing herself on the floor, banging on the doors, difficult to redirect, angry at the children, crawling on the floors. While on [address] [place] [address], post medical stabilization, she continues to be confused, agitated, psychotic, resulting in referral back to us. No symptoms of bipolar disorder. PAST PSYCHIATRIC HISTORY: As above. MEDICAL HISTORY: Vomiting stabilized, hypokalemia and hypotension stabilized, history of hypertension, osteoporosis, chronic back pain, diverticulosis, GI bleed. Accu-Cheks: None. DIET: Regular. CODE STATUS: DNR. ALLERGIES: CODEINE, ATIVAN. CURRENT PSYCHOTROPICS: EMRAD was reviewed. FAMILY HISTORY: Noncontributory. SOCIAL HISTORY: No alcohol, drug abuse, physical, sexual or elder abuse history is noted. Not known to be a perpetrator. MENTAL STATUS EXAMINATION: Oriented to herself. Insight, judgment, recent and remote memory, attention, concentration, fund of knowledge poor, consistent with her diagnoses. LABORATORY DATA: Major neurocognitive disorder, Alzheimer, vascular with delusion, depression, behavioral disturbance; anxiety disorder, unspecified; impulse control disorder, unspecified. Rest unchanged as noted above. PLAN: Readmit to geropsychiatry unit at [facility]. I will see the patient daily individually from a psychiatric standpoint, medical followup per Dr. Raphael/Dr. Ramirez. Observe the patient's baseline, then gradually restart her psychotropics as clinically indicated. LAUREN CASLILAS MD DR: MIGUEL A/nts JOB#: [id number] / [id number]
[2017-08-16] MEDS: DOCUSATE SODIUM 100 MG CAPSULE PO SCH ×2 (13:08→20:16)
[2017-08-16] MEDS: FERROUS SULFATE 325 MG TABLET. PO SCH (13:08)
[2017-08-16] MEDS: MULTIVITAMIN with MINERAL TABLET. PO SCH (13:08)
[2017-08-16] MEDS: LACTOBACILLUS RHAMNOSUS GG 1 CAPSULE. PO SCH ×2 (13:08→20:16)
[2017-08-16] MEDS: KETOROLAC TROMETHAMINE 0.5% OPHTH SOLUTION 3ML BOTTLE. OS SCH ×4 (13:08→20:17)
[2017-08-16] MEDS: ACETAMINOPHEN 325 MG TABLET PO SCH ×2 (13:09→20:17)
[2017-08-16] MEDS: CHOLECALCIFEROL (VITAMIN D3) 1,000 UNIT TABLET PO SCH (13:09)
--- NOTE | 2017-08-16 13:10 | NUR ---
Nursing Note: Pt was not awake for morning medications to be administered by nurse that was working the first portion of shift this day. Pt reluctantly got up to eat very little of her lunch and then returned to the wrong bed. Pt was led to the correct bed and is still sleeping at this time. Unable to administer pt's medications.
[2017-08-16 13:44] LABS: CALCIUM 8.5 mg/dL (8.5-10.1); CREATININE 0.9 mg/dL (0.6-1.0); GFR 59.1; POTASSIUM 4.4 mmol/L (3.5-5.1)
[2017-08-16 16:28] VITALS: BP 105/66
--- NOTE | 2017-08-16 22:28 | PDOC ---
Exam Note: Allen Note: Please also refer to the separate dictated note~for this date of service dictated separately.~Patient seen individually. Discussed the patient with Nursing staff reviewed the chart.~Reviewed interim history and current functioning. Reviewed vital signs,~Labs/ Radiology~and current medications noted below. Continue current treatment with the changes noted in the dictated addendum note Assessment: Vital Signs: Vital Signs Date Time Temp Pulse Resp B/P (MAP) Pulse Ox O2 Delivery O2 Flow Rate FiO2 08/16/17 16:28 98.4 105/66 (79) 98 Room Air 08/16/17 06:43 59 18 I&O Intake and Output 08/16/17 07:00 Intake Total 240 ml Balance 240 ml Intake Oral 240 ml Labs: Laboratory Tests Test 08/16/17 09:06 Sodium Level 141 mmol/L (136-145) Potassium Level 4.4 mmol/L (3.5-5.1) Chloride Level 108 mmol/L (98-107) H Carbon Dioxide Level 25 mmol/L (21-32) Anion Gap 8 (6-14) Blood Urea Nitrogen 19 mg/dL (7-20) Creatinine 0.9 mg/dL (0.6-1.0) Estimated GFR (Cockcroft-Gault) 59.1 Glucose Level 89 mg/dL (70-99) Calcium Level 8.5 mg/dL (8.5-10.1) Current Medications: Meds: Current Medications Acetaminophen (Tylenol) 650 mg PRN Q6HRS PRN PO PAIN / TEMP; Start 08/15/17 at 17:15; Status Cancel Multi-Ingredient Ointment (Analgesic [place]) 1 ronni PRN QID PRN TP MUSCLE PAIN; Start 08/15/17 at 17:15 Al Hydroxide/Mg Hydroxide (Mylanta Plus Xs) 15 ml PRN AFTMEALHC PRN PO DYSPEPSIA; Start 08/15/17 at 17:15 Magnesium Hydroxide (Milk Of Magnesia) 2,400 mg PRN QHS PRN PO CONSTIPATION; Start 08/15/17 at 17:15; Status Cancel Acetaminophen (Tylenol) 650 mg BID PO Last administered on 08/16/17at 20:17; Start 08/15/17 at 21:00 Acetaminophen (Tylenol) 650 mg PRN Q6HRS PRN PO PAIN / TEMP; Start 08/15/17 at 18:15 Docusate Sodium (Colace) 100 mg BID PO Last administered on 08/16/17at 20:16; Start 08/15/17 at 21:00 Ferrous Sulfate (Feosol) 325 mg DAILY PO ; Start 08/16/17 at 09:00 Fluticasone Propionate (Flonase) 2 spray DAILY NS ; Start 08/16/17 at 09:00 Magnesium Hydroxide (Milk Of Magnesia) 2,400 mg PRN DAILY PRN PO CONSTIPATION; Start 08/15/17 at 18:15 Non-Formulary Medication 1 tab BID PO ; Start 08/15/17 at 21:00; Status UNV Vitamin D (Vitamin D3) 500 unit DAILY PO ; Start 08/16/17 at 09:00 Ketorolac Tromethamine (Acular) 1 drop QID OS Last administered on 08/16/17at 20: 17; Start 08/15/17 at 21:00 Lactobacillus Rhamnosus (Culturelle) 1 cap BID PO Last administered on at 20:16; Start 08/15/17 at 21:00 Multivitamins/ Calcium (Thera-M Plus) 1 tab DAILY PO ; Start 08/16/17 at 09:00 Ondansetron HCl (Zofran Odt) 4 mg PRN Q4HRS PRN PO NAUSEA/VOMITING; Start at 18:45 Olanzapine (ZyPREXA ZYDIS) 2.5 mg PRN Q2HR PRN PO PSYCHOSIS Last administered on 08/16/17at 21:50; Start 08/16/17 at 18:30 Quetiapine Fumarate (SEROquel) 12.5 mg 0900,1300 PO ; Start 08/17/17 at 09:00 Active Scripts Active Reported EXELON 4.6mg/24hr (Rivastigmine) 1 Each Patch.td24 1 Patch TD DAILY Zyvox (Linezolid) 600 Mg Tablet 600 Mg PO BID Lovenox (Enoxaparin Sodium) 30 Mg/0.3 Ml Disp.syrin 30 Mg SQ Q24H Thera-M (Multivits,Th W-Fe,Other Min) 1 Each Tablet 1 Tab PO DAILY Milk Of Magnesia (Magnesium Hydroxide) 400 Mg/5 Ml Oral.susp 2,400 Mg PO PRN DAILY PRN Culturelle (Lactobacillus Rhamnosus Gg) 1 Each Capsule 1 Cap PO BID Fluticasone Propionate Nasal [place] (Fluticasone Propionate) 16 Gm [place].susp 2 [place] NS DAILY Zofran (Ondansetron Hcl) 4 Mg Tablet 4 Mg PO PRN Q4HRS PRN Vitamin D-400 (Cholecalciferol (Vitamin D3)) 400 Unit Tablet 500 Unit PO DAILY Tylenol (Acetaminophen) 325 Mg Tablet 650 Mg PO BID Tylenol (Acetaminophen) 325 Mg Tablet 650 Mg PO PRN Q6HRS PRN Ketorolac Tromethamine 5 Ml Drops 1 Drop LEFTEYE QID Ferrous Sulfate 325 Mg Tablet 325 Mg PO DAILY Colace (Docusate Sodium) 100 Mg Capsule 100 Mg PO BID Nadeem Mag Zinc + D3 Tablet (Ca Carb/Vit D3/Mag Ox/Zn Oxide) 1 Each Tablet 1 Tab PO BID I have reviewed the current psychotropics carefully including drug interactions. Risk benefit ratio favors no change other than as noted in my dictated progress note. Diagnosis: Problems: (1) Nausea and vomiting (2) Dehydration (3) Dementia with behavioral disturbance (4) Anxiety disorder (5) Dementia in Alzheimer's disease with delusions (6) Dementia in Alzheimer's disease with depression (7) Dementia, vascular, with delusions (8) Dementia, vascular, with depression (9) Impulse control disorder LAUREN CASILLAS MD Aug 16, 2017 22:28
--- NOTE | 2017-08-17 00:36 | CONS ---
DATE OF CONSULTATION: 08/16/2017 REASON FOR CONSULTATION: Medical management. HISTORY OF PRESENT ILLNESS: The patient is an 87-year-old female patient who was originally admitted to [facility] Unit on 08/14/2017 as a transfer from [facility] in [place] where she has been exit seeking, throwing herself on the floor, banging on the floor, not being able to be redirected, angry at her children, crawling on the floor, onset of symptoms about month ago and while she is here, she basically developed recurrent episode of nausea and vomiting and therefore she was also hypotensive and was transferred to [facility] where she was rehydrated aggressively and her potassium was resolved and she did well, has been up and about and a decision was made to admit her back to [facility] for inpatient psychiatric stabilization. PAST MEDICAL HISTORY: Significant for osteoporosis, hypertension, chronic back pain, diverticulosis and history of GI bleed. PAST SURGICAL HISTORY: Unremarkable. SOCIAL HISTORY: She is a resident at [facility] in [place]. She does not smoke, drink alcohol or use any recreational drugs. MEDICATIONS: She is currently on the following medications: Tylenol 650 mg every 6 hours, calcium carbonate with vitamin D one tablet twice a day, cholecalciferol, vitamin D3 500 units once a day, docusate sodium 100 mg once a day, ferrous sulfate 325 mg once a day, ketorolac, tromethamine 1 drop to the left eye 4 times a day, lactobacillus rhamnosus 1 capsule twice a day, linezolid 600 mg twice a day, magnesium hydroxide for milk of magnesia 30 mL p.o. daily for constipation, multivitamin with mineral 1 tablet once a day, ondansetron 4 mg every 4 hours and Exelon 4.6 mg transdermal patch once a day. I did discontinue her lisinopril as well as hydrochlorothiazide. PHYSICAL EXAMINATION: GENERAL: On examining her today, she looked well and was clearly in no apparent respiratory distress, slightly pale, somewhat cachectic, no jaundice, cyanosis, or thyromegaly. No jugular venous distension. No lower limb edema. VITAL SIGNS: Her heart rate was 59, blood pressure 148/90, temperature was 97, respiratory rate was 18 and oxygen saturation was 96%. HEAD, EYES, EARS, NOSE AND THROAT: Showed normocephalic, atraumatic. NECK: Supple. HEART: Showed normal first and second sounds. No gallop, rub or murmur. CHEST: Clear to auscultation. No crepitation or rhonchi. ABDOMEN: Distended, soft, nontender. NEUROLOGIC: She is awake, alert, responds at times appropriately. All cranial nerves intact. EXTREMITIES: She moves extremities without difficulty. She ambulates without assistance or assistive devices. LABORATORY DATA: Today showed serum sodium of 141, potassium 4.4, chloride 108, bicarbonate 25, anion gap of 8, BUN 19, creatinine 0.9. Estimated GFR was 59. Glucose was 89. Calcium was 8.5. ASSESSMENT AND PLAN: In summary, this is an 87-year-old female patient, who was admitted originally as a transfer from [facility] and 08/14/2017, she was transferred down to [facility] on account of vomiting, hypotension, hypokalemia. She was stabilized and although she continued to be confused, occasionally agitated, paranoid, disruptive, she was readmitted [facility] for inpatient psychiatric stabilization. She had lab works that are definitely much better. Her creatinine is down to 0.9. Her potassium is 4.4. PLAN: My plan is to monitor her labs closely. I have discontinued her lisinopril and her hydrochlorothiazide probably that aggravated her dehydration and hypotension and make any decision that is necessary according to the finding in her lab work and her symptoms. Thank you, Dr. Perez for allowing me to participate in the care of this patient. DONNIE DE LA CRUZ MD DR: DERRICK/nahed JOB#: [id number] / [id number]
--- NOTE | 2017-08-17 02:51 | NUR ---
Behavior Intervention Response and Plan: BIRP Note: Behavior: Assumed Care of patient, patient located in Patient Room at shift change. Patient exhibited the following behavior Calm, Sleeping, Withdrawn. Brief assessment on rounds of vital signs, medication needs, lab studies, and pain. Treatment plan problems Dementia with BD and Delusions, Fall Risk. Intervention: Patient assessed and the following interventions initiated safety checks 15 Minute Checks Cognitive Assessment , Head to toe Assessment , Medications. Response: After interactions and interventions patient responded in the following manner, Delusions , Sarcastic ,Combative. Continue to assess behaviors and condition will continue to monitor throughout the shift as needed. Patient educated on ADL's, and hand hygiene. Plan: Continue to monitor Master Treatment Plan for patient's progress toward short term goals of Decreased Aggression, No harm To self/ others, [facility] goals to return to previous living setting vs placement. Continue to assess patient for changes in above assessment. Monitor for medication needs, pain, and safety concerns. Hourly rounding performed to ensure safe environment.
--- NOTE | 2017-08-17 04:51 | NUR ---
Nursing Note: Pt awoke last evening at 2114, HS Medications administered in Ice Cream without difficulty, Pt noted with c/o feeling tired and assisted back to bed. At 2139 Pt ambulating in the polo very angry and hostile demanding to go home, Nurse attempted to speak with pt Pt became very combative, attempting to hit and scratch nurse again demanding to go home. Pt placed in Locked polo for prevention of injury to others with pt's aggressive behaviors. Pt continued escalate with aggression and hostile behavior, PRN Zydis administered hidden in Ice cream at 2149. Pt then ambulated into the quiet room and laid down on the mattress, Nurse and tech in to assist pt to bed, Pt began hitting scratching and attempting to bite, Fingernails filed. Pt remains awake in day room with intermittent episodes of aggression noted.
[2017-08-17] MEDS: DOCUSATE SODIUM 100 MG CAPSULE PO SCH ×2 (07:54→19:24)
[2017-08-17] MEDS: CHOLECALCIFEROL (VITAMIN D3) 1,000 UNIT TABLET PO SCH (07:54)
[2017-08-17] MEDS: MULTIVITAMIN with MINERAL TABLET. PO SCH (07:54)
[2017-08-17] MEDS: ACETAMINOPHEN 325 MG TABLET PO SCH ×2 (07:54→19:24)
[2017-08-17] MEDS: FERROUS SULFATE 325 MG TABLET. PO SCH (07:54)
[2017-08-17] MEDS: LACTOBACILLUS RHAMNOSUS GG 1 CAPSULE. PO SCH ×2 (07:57→19:24)
[2017-08-17] MEDS: FLUTICASONE 50MCG/NASAL SPRAY 16GM BOTTLE. NS SCH (08:00)
[2017-08-17] MEDS: KETOROLAC TROMETHAMINE 0.5% OPHTH SOLUTION 3ML BOTTLE. OS SCH ×4 (08:00→19:25)
[2017-08-17] MEDS: QUEtiapine 25 MG TABLET. PO SCH ×2 (08:00→12:32)
[2017-08-17 08:48] LABS: HEMATOCRIT 31.4 % (36.0-47.0); HEMOGLOBIN 10.5 g/dL (12.0-15.5); RED BLOOD COUNT 3.36 x10^6/uL (3.50-5.40); RED CELL DISTRIBUTION WIDTH 14.8 % (11.5-14.5); WHITE BLOOD COUNT 7.3 x10^3/uL (4.0-11.0)
[2017-08-17 08:52] LABS: ALBUMIN/GLOBULIN RATIO 0.9 (1.0-1.7); CALCIUM 8.6 mg/dL (8.5-10.1); CREATININE 0.9 mg/dL (0.6-1.0); GFR 59.1; POTASSIUM 3.7 mmol/L (3.5-5.1); TOTAL BILIRUBIN 0.2 mg/dL (0.2-1.0); TOTAL PROTEIN 6.2 g/dL (6.4-8.2)
--- NOTE | 2017-08-17 12:33 | NUR ---
Patients 1300 medications held. Patient refused to take 0900 medications until 1130.
--- NOTE | 2017-08-17 15:11 | NUR ---
Behavior Intervention Response and Plan: BIRP Note: Behavior: Assumed Care of patient, patient located in Hallway at shift change. Patient exhibited the following behavior Exit Seeking, Wandering, Restless. Brief assessment on rounds of vital signs, medication needs, lab studies, and pain. Treatment plan problems . Intervention: Patient assessed and the following interventions initiated safety checks 15 Minute Checks Cognitive Assessment , Head to toe Assessment , Medications. Response: After interactions and interventions patient responded in the following manner, Able to Focus on Task , Compliant ,Cooperative. Continue to assess behaviors and condition will continue to monitor throughout the shift as needed. Patient educated on ADL's, and hand hygiene. 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 Continue to assess patient for changes in above assessment. Monitor for medication needs, pain, and safety concerns. Hourly rounding performed to ensure safe environment.
[2017-08-17 16:48] VITALS: BP 130/77
--- NOTE | 2017-08-17 18:47 | NUR ---
Patient is agitated at dinner, refusing medications, reproached patient 10 minutes later and administered PRN zydis.
[2017-08-17] MEDS: POTASSIUM CHLORIDE 20 MEQ TABLET.ER. PO SCH (19:25)
--- NOTE | 2017-08-17 21:14 | PDOC ---
Exam Note: Allen Note: Please also refer to the separate dictated note~for this date of service dictated separately.~Patient seen individually. Discussed the patient with Nursing staff reviewed the chart.~Reviewed interim history and current functioning. Reviewed vital signs,~Labs/ Radiology~and current medications noted below. Continue current treatment with the changes noted in the dictated addendum note Assessment: Vital Signs: Vital Signs Date Time Temp Pulse Resp B/P (MAP) Pulse Ox O2 Delivery O2 Flow Rate FiO2 08/17/17 16:48 97.5 67 16 130/77 (94) 98 Room Air I&O Intake and Output 08/17/17 07:00 Intake Total 240 ml Balance 240 ml Intake Oral 240 ml # Bowel Movements 1 Labs: Laboratory Tests Test 08/17/17 07:34 White Blood Count 7.3 x10^3/uL (4.0-11.0) Red Blood Count 3.36 x10^6/uL (3.50-5.40) L Hemoglobin 10.5 g/dL (12.0-15.5) L Hematocrit 31.4 % (36.0-47.0) L Mean Corpuscular Volume 94 fL (79-100) Mean Corpuscular Hemoglobin 31 pg (25-35) Mean Corpuscular Hemoglobin Concent 34 g/dL (31-37) Red Cell Distribution Width 14.8 % (11.5-14.5) H Platelet Count 178 x10^3/uL (140-400) Sodium Level 142 mmol/L (136-145) Potassium Level 3.7 mmol/L (3.5-5.1) Chloride Level 108 mmol/L (98-107) H Carbon Dioxide Level 25 mmol/L (21-32) Anion Gap 9 (6-14) Blood Urea Nitrogen 19 mg/dL (7-20) Creatinine 0.9 mg/dL (0.6-1.0) Estimated GFR (Cockcroft-Gault) 59.1 BUN/Creatinine Ratio 21 (6-20) H Glucose Level 97 mg/dL (70-99) Calcium Level 8.6 mg/dL (8.5-10.1) Total Bilirubin 0.2 mg/dL (0.2-1.0) Aspartate Amino Transferase (AST) 21 U/L (15-37) Alanine Aminotransferase (ALT) 18 U/L (14-59) Alkaline Phosphatase 55 U/L (46-116) Total Protein 6.2 g/dL (6.4-8.2) L Albumin 3.0 g/dL (3.4-5.0) L Albumin/Globulin Ratio 0.9 (1.0-1.7) L Thyroid Stimulating Hormone (TSH) 3.183 uIU/mL (0.358-3.740) Current Medications: Meds: Current Medications Acetaminophen (Tylenol) 650 mg PRN Q6HRS PRN PO PAIN / TEMP; Start 08/15/17 at 17:15; Status Cancel Multi-Ingredient Ointment (Analgesic [place]) 1 ronni PRN QID PRN TP MUSCLE PAIN; Start 08/15/17 at 17:15 Al Hydroxide/Mg Hydroxide (Mylanta Plus Xs) 15 ml PRN AFTMEALHC PRN PO DYSPEPSIA; Start 08/15/17 at 17:15 Magnesium Hydroxide (Milk Of Magnesia) 2,400 mg PRN QHS PRN PO CONSTIPATION; Start 08/15/17 at 17:15; Status Cancel Acetaminophen (Tylenol) 650 mg BID PO Last administered on 08/17/17at 19:24; Start 08/15/17 at 21:00 Acetaminophen (Tylenol) 650 mg PRN Q6HRS PRN PO PAIN / TEMP; Start 08/15/17 at 18:15 Docusate Sodium (Colace) 100 mg BID PO Last administered on 08/17/17at 19:24; Start 08/15/17 at 21:00 Ferrous Sulfate (Feosol) 325 mg DAILY PO Last administered on 08/17/17at 07:54; Start 08/16/17 at 09:00 Fluticasone Propionate (Flonase) 2 spray DAILY NS Last administered on at 08:00; Start 08/16/17 at 09:00 Magnesium Hydroxide (Milk Of Magnesia) 2,400 mg PRN DAILY PRN PO CONSTIPATION; Start 08/15/17 at 18:15 Non-Formulary Medication 1 tab BID PO ; Start 08/15/17 at 21:00; Status UNV Vitamin D (Vitamin D3) 500 unit DAILY PO Last administered on 08/17/17at 07:54; Start 08/16/17 at 09:00 Ketorolac Tromethamine (Acular) 1 drop QID OS Last administered on 08/17/17 19: 25; Start 08/15/17 at 21:00 Lactobacillus Rhamnosus (Culturelle) 1 cap BID PO Last administered on 19:24; Start 08/15/17 at 21:00 Multivitamins/ Calcium (Thera-M Plus) 1 tab DAILY PO Last administered on 07:54; Start 08/16/17 at 09:00 Ondansetron HCl (Zofran Odt) 4 mg PRN Q4HRS PRN PO NAUSEA/VOMITING; Start at 18:45 Olanzapine (ZyPREXA ZYDIS) 2.5 mg PRN Q2HR PRN PO PSYCHOSIS Last administered on 08/17/17 17:35; Start 08/16/17 at 18:30 Quetiapine Fumarate (SEROquel) 12.5 mg 0900,1300 PO Last administered on 08:00; Start 08/17/17 at 09:00 Potassium Chloride (Klor-Con) 20 meq BID PO Last administered on 08/17/17 19:25 ; Start 08/17/17 at 21:00 Active Scripts Active Reported EXELON 4.6mg/24hr (Rivastigmine) 1 Each Patch.td24 1 Patch TD DAILY Zyvox (Linezolid) 600 Mg Tablet 600 Mg PO BID Lovenox (Enoxaparin Sodium) 30 Mg/0.3 Ml Disp.syrin 30 Mg SQ Q24H Thera-M (Multivits, W-Fe,Other Min) 1 Each Tablet 1 Tab PO DAILY Milk Of Magnesia (Magnesium Hydroxide) 400 Mg/5 Ml Oral.susp 2,400 Mg PO PRN DAILY PRN Culturelle (Lactobacillus Rhamnosus Gg) 1 Each Capsule 1 Cap PO BID Fluticasone Propionate Nasal [place] (Fluticasone Propionate) 16 Gm [place].susp 2 [place] NS DAILY Zofran (Ondansetron Hcl) 4 Mg Tablet 4 Mg PO PRN Q4HRS PRN Vitamin D-400 (Cholecalciferol (Vitamin D3)) 400 Unit Tablet 500 Unit PO DAILY Tylenol (Acetaminophen) 325 Mg Tablet 650 Mg PO BID Tylenol (Acetaminophen) 325 Mg Tablet 650 Mg PO PRN Q6HRS PRN Ketorolac Tromethamine 5 Ml Drops 1 Drop LEFTEYE QID Ferrous Sulfate 325 Mg Tablet 325 Mg PO DAILY Colace (Docusate Sodium) 100 Mg Capsule 100 Mg PO BID Nadeem Mag Zinc + D3 Tablet (Ca Carb/Vit D3/Mag Ox/Zn Oxide) 1 Each Tablet 1 Tab PO BID I have reviewed the current psychotropics carefully including drug interactions. Risk benefit ratio favors no change other than as noted in my dictated progress note. Diagnosis: Problems: (1) Dehydration (2) Nausea and vomiting (3) Dementia with behavioral disturbance (4) Anxiety disorder (5) Dementia in Alzheimer's disease with delusions (6) Dementia in Alzheimer's disease with depression (7) Dementia, vascular, with delusions (8) Dementia, vascular, with depression (9) Impulse control disorder LAUREN CASILLAS MD Aug 17, 2017 21:14
[2017-08-17] MEDS: MIRTAZAPINE 7.5 MG TABLET. PO SCH ×2 (23:00→23:52)
--- NOTE | 2017-08-17 23:08 | NUR ---
Behavior Intervention Response and Plan: BIRP Note: Behavior: Assumed Care of patient, patient located in Day Room at shift change. Patient exhibited the following behavior Calm, Able to Focus on Task, Disorganized. Brief assessment on rounds of vital signs, medication needs, lab studies, and pain. Treatment plan problems .1&2 Intervention: Patient assessed and the following interventions initiated safety checks 15 Minute Checks Cognitive Assessment , Head to toe Assessment , Medications. Response: After interactions and interventions patient responded in the following manner, Appropriate , Compliant ,Cooperative. Continue to assess behaviors and condition will continue to monitor throughout the shift as needed. Patient educated on ADL's, and hand hygiene. 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 Continue to assess patient for changes in above assessment. Monitor for medication needs, pain, and safety concerns. Hourly rounding performed to ensure safe environment.
[2017-08-18] MEDS: QUEtiapine 25 MG TABLET. PO SCH ×4 (05:52→17:44)
[2017-08-18 06:32] VITALS: BP 140/67
[2017-08-18] MEDS: CHOLECALCIFEROL (VITAMIN D3) 1,000 UNIT TABLET PO SCH (07:17)
[2017-08-18] MEDS: MULTIVITAMIN with MINERAL TABLET. PO SCH (07:17)
[2017-08-18] MEDS: ACETAMINOPHEN 325 MG TABLET PO SCH ×2 (07:17→20:19)
[2017-08-18] MEDS: LACTOBACILLUS RHAMNOSUS GG 1 CAPSULE. PO SCH ×2 (07:17→20:18)
[2017-08-18] MEDS: FERROUS SULFATE 325 MG TABLET. PO SCH (07:17)
[2017-08-18] MEDS: POTASSIUM CHLORIDE 20 MEQ TABLET.ER. PO SCH ×2 (07:18→20:18)
[2017-08-18] MEDS: DOCUSATE SODIUM 100 MG CAPSULE PO SCH ×2 (07:18→20:18)
[2017-08-18] MEDS: FLUTICASONE 50MCG/NASAL SPRAY 16GM BOTTLE. NS SCH (07:21)
[2017-08-18] MEDS: KETOROLAC TROMETHAMINE 0.5% OPHTH SOLUTION 3ML BOTTLE. OS SCH ×4 (07:21→20:20)
--- NOTE | 2017-08-18 10:36 | NUR ---
Behavior Intervention Response and Plan: BIRP Note: Behavior: Assumed Care of patient, patient located in Dining Room at shift change. Patient exhibited the following behavior Restless, Disorganized, Able to Focus on Task. Brief assessment on rounds of vital signs, medication needs, lab studies, and pain. Treatment plan problems . Intervention: Patient assessed and the following interventions initiated safety checks 15 Minute Checks Head to toe Assessment , Cognitive Assessment , Medications. Response: After interactions and interventions patient responded in the following manner, Delusions , Cooperative ,Compliant. Continue to assess behaviors and condition will continue to monitor throughout the shift as needed. Patient educated on ADL's, and hand hygiene. Plan: Continue to monitor Master Treatment Plan for patient's progress toward short term goals of Improved Mood, Medication Compliance, [place] goals to return to previous living setting vs placement. Continue to assess patient for changes in above assessment. Monitor for medication needs, pain, and safety concerns. Hourly rounding performed to ensure safe environment.
--- NOTE | 2017-08-18 12:05 | NUR ---
Patient is pacing, and wandering, patient is dificult to redirect. Patient is irritable with staff. Administered PRN zydis.
[2017-08-18 16:18] VITALS: BP 149/62
--- NOTE | 2017-08-18 19:13 | PN ---
DATE: 08/16/2017 This is a late entry 08/16/2017, covers the elements not covered in my initial note, 08/16/2017. SUBJECTIVE: I met with the patient in the evening of 08/16/2017. The patient slept 1-3/4 hours previous evening, slept all day, but in the evening, she was agitated, aggressive, banging on the doors, throwing her shoe at the glass partition outside the nursing station as a side behind the nursing station. REVIEW OF SYSTEMS: No CV, , pulmonary, eye, ENT system symptoms on review. Reliability poor. MENTAL STATUS EXAM: Oriented to herself. Insight, judgment, recent and remote memory, attention, concentration, fund of knowledge poor, consistent with her diagnosis as mentioned in my initial note. IMPRESSION: Major neurocognitive disorder, Alzheimer, vascular with depression, delusion, behavioral disturbance. PLAN: Start Zyprexa 2.5 mg q.2 hours as needed psychosis, agitation, max 10 mg 24 hours; start Seroquel 12.5 mg 9 before noon, 1 after noon. Continue rest unchanged. MAN Jc CASILLAS MD DR: MIGUEL A/nahed JOB#: [id number] / [id number]
--- NOTE | 2017-08-18 19:20 | PN ---
DATE: 08/17/2017 PSYCHIATRIC PROGRESS NOTE This is a late entry for 08/17/2017, covers elements not covered in my initial note of 08/17/2017. SUBJECTIVE: I met with the patient the evening of 08/17/2017. The patient did not sleep at all previous evening, slept in at 5:00 a.m., irritable, labile, and anxious. REVIEW OF SYSTEMS: No CV, , pulmonary, eye, ENT system symptoms on review. Reliability poor. MENTAL STATUS EXAM: Oriented to herself. Insight, judgment, recent and remote memory, attention, concentration, fund of knowledge poor, consistent with her diagnosis mentioned in my initial note. PLAN: Increase Seroquel from 12.5 mg twice a day to 12.5 mg 4 times a day. Start Remeron 7.5 mg p.o. at bedtime to help with insomnia and ____. Rest unchanged from initial note. MAN Jc CASILLAS MD DR: MIGUEL A/nahed JOB#: [id number] / [id number]
[2017-08-18] MEDS: MIRTAZAPINE 7.5 MG TABLET. PO SCH (20:18)
--- NOTE | 2017-08-18 20:18 | PDOC ---
Exam Note: Allen Note: Please also refer to the separate dictated note~for this date of service dictated separately.~Patient seen individually. Discussed the patient with Nursing staff reviewed the chart.~Reviewed interim history and current functioning. Reviewed vital signs,~Labs/ Radiology~and current medications noted below. Continue current treatment with the changes noted in the dictated addendum note Assessment: Vital Signs: Vital Signs Date Time Temp Pulse Resp B/P (MAP) Pulse Ox O2 Delivery O2 Flow Rate FiO2 08/18/17 16:18 97.2 74 18 149/62 (91) 94 08/17/17 16:48 Room Air I&O Intake and Output 08/18/17 07:00 Intake Total 0 ml Balance 0 ml Intake Oral 0 ml Current Medications: Meds: Current Medications Acetaminophen (Tylenol) 650 mg PRN Q6HRS PRN PO PAIN / TEMP; Start 08/15/17 at 17:15; Status Cancel Multi-Ingredient Ointment (Analgesic [place]) 1 ronni PRN QID PRN TP MUSCLE PAIN; Start 08/15/17 at 17:15 Al Hydroxide/Mg Hydroxide (Mylanta Plus Xs) 15 ml PRN AFTMEALHC PRN PO DYSPEPSIA; Start 08/15/17 at 17:15 Magnesium Hydroxide (Milk Of Magnesia) 2,400 mg PRN QHS PRN PO CONSTIPATION; Start 08/15/17 at 17:15; Status Cancel Acetaminophen (Tylenol) 650 mg BID PO Last administered on 08/18/17at 07:17; Start 08/15/17 at 21:00 Acetaminophen (Tylenol) 650 mg PRN Q6HRS PRN PO PAIN / TEMP; Start 08/15/17 at 18:15 Docusate Sodium (Colace) 100 mg BID PO Last administered on 08/18/17at 07:18; Start 08/15/17 at 21:00 Ferrous Sulfate (Feosol) 325 mg DAILY PO Last administered on 08/18/17at 07:17; Start 08/16/17 at 09:00 Fluticasone Propionate (Flonase) 2 spray DAILY NS Last administered on at 07:21; Start 08/16/17 at 09:00 Magnesium Hydroxide (Milk Of Magnesia) 2,400 mg PRN DAILY PRN PO CONSTIPATION; Start 08/15/17 at 18:15 Non-Formulary Medication 1 tab BID PO ; Start 08/15/17 at 21:00; Status UNV Vitamin D (Vitamin D3) 500 unit DAILY PO Last administered on 08/18/17 07:17; Start 08/16/17 at 09:00 Ketorolac Tromethamine (Acular) 1 drop QID OS Last administered on 08/18/17 17: 43; Start 08/15/17 at 21:00 Lactobacillus Rhamnosus (Culturelle) 1 cap BID PO Last administered on 07:17; Start 08/15/17 at 21:00 Multivitamins/ Calcium (Thera-M Plus) 1 tab DAILY PO Last administered on 07:17; Start 08/16/17 at 09:00 Ondansetron HCl (Zofran Odt) 4 mg PRN Q4HRS PRN PO NAUSEA/VOMITING; Start at 18:45 Olanzapine (ZyPREXA ZYDIS) 2.5 mg PRN Q2HR PRN PO PSYCHOSIS Last administered on 08/18/17at 12:05; Start 08/16/17 at 18:30 Quetiapine Fumarate (SEROquel) 12.5 mg 0900,1300 PO Last administered on at 08:00; Start 08/17/17 at 09:00; Stop 08/17/17 at 22:38; Status DC Potassium Chloride (Klor-Con) 20 meq BID PO Last administered on 08/18/17 07:18 ; Start 08/17/17 at 21:00 Quetiapine Fumarate (SEROquel) 12.5 mg 0700,1100,1400,1700 PO Last administered on 08/18/17 17:44; Start 08/18/17 at 07:00 Mirtazapine (Remeron) 7.5 mg QHS PO Last administered on 08/17/17at 23:52; Start 08/17/17 at 23:00 Active Scripts Active Reported EXELON 4.6mg/24hr (Rivastigmine) 1 Each Patch.td24 1 Patch TD DAILY Zyvox (Linezolid) 600 Mg Tablet 600 Mg PO BID Lovenox (Enoxaparin Sodium) 30 Mg/0.3 Ml Disp.syrin 30 Mg SQ Q24H Thera-M (Multivits,Th W-Fe,Other Min) 1 Each Tablet 1 Tab PO DAILY Milk Of Magnesia (Magnesium Hydroxide) 400 Mg/5 Ml Oral.susp 2,400 Mg PO PRN DAILY PRN Culturelle (Lactobacillus Rhamnosus Gg) 1 Each Capsule 1 Cap PO BID Fluticasone Propionate Nasal [place] (Fluticasone Propionate) 16 Gm [place].susp 2 [place] NS DAILY Zofran (Ondansetron Hcl) 4 Mg Tablet 4 Mg PO PRN Q4HRS PRN Vitamin D-400 (Cholecalciferol (Vitamin D3)) 400 Unit Tablet 500 Unit PO DAILY Tylenol (Acetaminophen) 325 Mg Tablet 650 Mg PO BID Tylenol (Acetaminophen) 325 Mg Tablet 650 Mg PO PRN Q6HRS PRN Ketorolac Tromethamine 5 Ml Drops 1 Drop LEFTEYE QID Ferrous Sulfate 325 Mg Tablet 325 Mg PO DAILY Colace (Docusate Sodium) 100 Mg Capsule 100 Mg PO BID Nadeem Mag Zinc + D3 Tablet (Ca Carb/Vit D3/Mag Ox/Zn Oxide) 1 Each Tablet 1 Tab PO BID I have reviewed the current psychotropics carefully including drug interactions. Risk benefit ratio favors no change other than as noted in my dictated progress note. Diagnosis: Problems: (1) Dehydration (2) Nausea and vomiting (3) Dementia with behavioral disturbance (4) Anxiety disorder (5) Dementia in Alzheimer's disease with delusions (6) Dementia in Alzheimer's disease with depression (7) Dementia, vascular, with delusions (8) Dementia, vascular, with depression (9) Impulse control disorder LAUREN CASILLAS MD Aug 18, 2017 20:18
--- NOTE | 2017-08-18 23:00 | NUR ---
Behavior Intervention Response and Plan: BIRP Note: Behavior: Assumed Care of patient, patient located in Day Room at shift change. Patient exhibited the following behavior Wandering, Restless, Disorganized. Brief assessment on rounds of vital signs, medication needs, lab studies, and pain. Treatment plan prblems: 1 and 2 Intervention: Patient assessed and the following interventions initiated safety checks 15 Minute Checks Cognitive Assessment , Head to toe Assessment , Medications. Response: After interactions and interventions patient responded in the following manner, Wandering , Calm ,Compliant. Continue to assess behaviors and condition will continue to monitor throughout the shift as needed. Patient educated on ADL's, and hand hygiene. 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 Continue to assess patient for changes in above assessment. Monitor for medication needs, pain, and safety concerns. Hourly rounding performed to ensure safe environment.
--- NOTE | 2017-08-19 02:55 | NUR ---
Patient got up at 0130, is sitting in day room floor scooting around. Calm but restless. Will continue to monitor.
--- NOTE | 2017-08-19 04:46 | NUR ---
patient found in peers room sitting in corner in the dark. Attempted to direct patient to her own room, she began kicking, hitting and scratching staff. Patient assisted to her room, agitated behaviors escalating. Given HERMINIA ventura per order for agitation and will continue to monitor. Addendum: 08/19/17 at 0643 by JAMAR GARCIA RN zydis effective, patient less agitated, able to fall asleep.
[2017-08-19 06:32] VITALS: BP 182/71
[2017-08-19] MEDS: QUEtiapine 25 MG TABLET. PO SCH ×4 (06:40→16:59)
[2017-08-19] MEDS: FERROUS SULFATE 325 MG TABLET. PO SCH (09:33)
[2017-08-19] MEDS: ACETAMINOPHEN 325 MG TABLET PO SCH ×3 (09:33→20:14)
[2017-08-19] MEDS: MULTIVITAMIN with MINERAL TABLET. PO SCH (09:34)
[2017-08-19] MEDS: KETOROLAC TROMETHAMINE 0.5% OPHTH SOLUTION 3ML BOTTLE. OS SCH ×4 (09:34→20:07)
[2017-08-19] MEDS: DOCUSATE SODIUM 100 MG CAPSULE PO SCH ×3 (09:34→20:14)
[2017-08-19] MEDS: LACTOBACILLUS RHAMNOSUS GG 1 CAPSULE. PO SCH ×2 (09:34→20:05)
[2017-08-19] MEDS: POTASSIUM CHLORIDE 20 MEQ TABLET.ER. PO SCH ×2 (09:34→20:05)
[2017-08-19] MEDS: FLUTICASONE 50MCG/NASAL SPRAY 16GM BOTTLE. NS SCH (09:35)
[2017-08-19] MEDS: CHOLECALCIFEROL (VITAMIN D3) 1,000 UNIT TABLET PO SCH (09:37)
--- NOTE | 2017-08-19 15:00 | NUR ---
Behavior Intervention Response and Plan: BIRP Note: Behavior: Assumed Care of patient, patient located in Patient Room at shift change. Patient exhibited the following behavior Drowsy, Disorganized, Compliant. Brief assessment on rounds of vital signs, medication needs, lab studies, and pain. Treatment plan problems dementia w/ bd and fall risk. Intervention: Patient assessed and the following interventions initiated safety checks 15 Minute Checks Head to toe Assessment , Cognitive Assessment , Medications. Response: After interactions and interventions patient responded in the following manner, Restless , Exit Seeking ,Disorganized. Continue to assess behaviors and condition will continue to monitor throughout the shift as needed. Patient educated on ADL's, and hand hygiene. 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 Continue to assess patient for changes in above assessment. Monitor for medication needs, pain, and safety concerns. Hourly rounding performed to ensure safe environment.
--- NOTE | 2017-08-19 15:25 | NUR ---
Nursing Note: Agitation Pt became agitated when staff attempted to get her vitals. Pt began yelling and threatening staff. Pt escorted to hallway. Pt continued to yell, "I just want to get out of this place. My children put me here." PRN given.
[2017-08-19 17:20] VITALS: BP 118/60
[2017-08-19] MEDS: traZODone 50 MG TABLET. PO SCH (20:08)
[2017-08-19] MEDS: MIRTAZAPINE 15 MG TABLET PO SCH (20:08)
--- NOTE | 2017-08-19 20:08 | PDOC ---
Exam Note: Allen Note: Please also refer to the separate dictated note~for this date of service dictated separately.~Patient seen individually. Discussed the patient with Nursing staff reviewed the chart.~Reviewed interim history and current functioning. Reviewed vital signs,~Labs/ Radiology~and current medications noted below. Continue current treatment with the changes noted in the dictated addendum note Assessment: Vital Signs: Vital Signs Date Time Temp Pulse Resp B/P (MAP) Pulse Ox O2 Delivery O2 Flow Rate FiO2 08/19/17 17:20 97.7 100 20 118/60 (79) Room Air 08/18/17 16:18 94 I&O Intake and Output 08/19/17 07:00 Intake Total 360 ml Balance 360 ml Intake Oral 360 ml Current Medications: Meds: Current Medications Acetaminophen (Tylenol) 650 mg PRN Q6HRS PRN PO PAIN / TEMP; Start 08/15/17 at 17:15; Status Cancel Multi-Ingredient Ointment (Analgesic [place]) 1 ronni PRN QID PRN TP MUSCLE PAIN; Start 08/15/17 at 17:15 Al Hydroxide/Mg Hydroxide (Mylanta Plus Xs) 15 ml PRN AFTMEALHC PRN PO DYSPEPSIA; Start 08/15/17 at 17:15 Magnesium Hydroxide (Milk Of Magnesia) 2,400 mg PRN QHS PRN PO CONSTIPATION; Start 08/15/17 at 17:15; Status Cancel Acetaminophen (Tylenol) 650 mg BID PO Last administered on 08/19/17at 09:33; Start 08/15/17 at 21:00 Acetaminophen (Tylenol) 650 mg PRN Q6HRS PRN PO PAIN / TEMP; Start 08/15/17 at 18:15 Docusate Sodium (Colace) 100 mg BID PO Last administered on 08/19/17at 09:34; Start 08/15/17 at 21:00 Ferrous Sulfate (Feosol) 325 mg DAILY PO Last administered on 08/19/17at 09:33; Start 08/16/17 at 09:00 Fluticasone Propionate (Flonase) 2 spray DAILY NS Last administered on at 09:35; Start 08/16/17 at 09:00 Magnesium Hydroxide (Milk Of Magnesia) 2,400 mg PRN DAILY PRN PO CONSTIPATION; Start 08/15/17 at 18:15 Non-Formulary Medication 1 tab BID PO ; Start 08/15/17 at 21:00; Status UNV Vitamin D (Vitamin D3) 500 unit DAILY PO Last administered on 08/19/17 09:37; Start 08/16/17 at 09:00 Ketorolac Tromethamine (Acular) 1 drop QID OS Last administered on 08/19/17 14: 14; Start 08/15/17 at 21:00 Lactobacillus Rhamnosus (Culturelle) 1 cap BID PO Last administered on 09:34; Start 08/15/17 at 21:00 Multivitamins/ Calcium (Thera-M Plus) 1 tab DAILY PO Last administered on 09:34; Start 08/16/17 at 09:00 Ondansetron HCl (Zofran Odt) 4 mg PRN Q4HRS PRN PO NAUSEA/VOMITING; Start at 18:45 Olanzapine (ZyPREXA ZYDIS) 2.5 mg PRN Q2HR PRN PO PSYCHOSIS Last administered on 08/19/17 15:25; Start 08/16/17 at 18:30 Quetiapine Fumarate (SEROquel) 12.5 mg 0900,1300 PO Last administered on at 08:00; Start 08/17/17 at 09:00; Stop 08/17/17 at 22:38; Status DC Potassium Chloride (Klor-Con) 20 meq BID PO Last administered on 08/19/17 09:34 ; Start 08/17/17 at 21:00 Quetiapine Fumarate (SEROquel) 12.5 mg 0700,1100,1400,1700 PO Last administered on 08/19/17at 16:59; Start 08/18/17 at 07:00 Mirtazapine (Remeron) 7.5 mg QHS PO Last administered on 08/18/17 20:18; Start 08/17/17 at 23:00; Stop 08/19/17 at 18:10; Status DC Mirtazapine (Remeron) 15 mg QHS PO ; Start 08/19/17 at 21:00 Trazodone HCl (Desyrel) 50 mg QHS PO ; Start 08/19/17 at 21:00 Trazodone HCl (Desyrel) 50 mg PRN QHS PRN PO insomnia; Start 08/19/17 at 18:15 Active Scripts Active Reported EXELON 4.6mg/24hr (Rivastigmine) 1 Each Patch.td24 1 Patch TD DAILY Zyvox (Linezolid) 600 Mg Tablet 600 Mg PO BID Lovenox (Enoxaparin Sodium) 30 Mg/0.3 Ml Disp.syrin 30 Mg SQ Q24H Thera-M (Multivits, W-Fe,Other Min) 1 Each Tablet 1 Tab PO DAILY Milk Of Magnesia (Magnesium Hydroxide) 400 Mg/5 Ml Oral.susp 2,400 Mg PO PRN DAILY PRN Culturelle (Lactobacillus Rhamnosus Gg) 1 Each Capsule 1 Cap PO BID Fluticasone Propionate Nasal [place] (Fluticasone Propionate) 16 Gm [place].susp 2 [place] NS DAILY Zofran (Ondansetron Hcl) 4 Mg Tablet 4 Mg PO PRN Q4HRS PRN Vitamin D-400 (Cholecalciferol (Vitamin D3)) 400 Unit Tablet 500 Unit PO DAILY Tylenol (Acetaminophen) 325 Mg Tablet 650 Mg PO BID Tylenol (Acetaminophen) 325 Mg Tablet 650 Mg PO PRN Q6HRS PRN Ketorolac Tromethamine 5 Ml Drops 1 Drop LEFTEYE QID Ferrous Sulfate 325 Mg Tablet 325 Mg PO DAILY Colace (Docusate Sodium) 100 Mg Capsule 100 Mg PO BID Nadeem Mag Zinc + D3 Tablet (Ca Carb/Vit D3/Mag Ox/Zn Oxide) 1 Each Tablet 1 Tab PO BID I have reviewed the current psychotropics carefully including drug interactions. Risk benefit ratio favors no change other than as noted in my dictated progress note. Diagnosis: Problems: (1) Dehydration (2) Nausea and vomiting (3) Dementia with behavioral disturbance (4) Anxiety disorder (5) Dementia in Alzheimer's disease with delusions (6) Dementia in Alzheimer's disease with depression (7) Dementia, vascular, with delusions (8) Dementia, vascular, with depression (9) Impulse control disorder LAUREN CASILLAS MD Aug 19, 2017 20:08
--- NOTE | 2017-08-19 22:07 | NUR ---
Behavior Intervention Response and Plan: BIRP Note: Behavior: Assumed Care of patient, patient located in Patient Room at shift change. Patient exhibited the following behavior Drowsy, Delusions, Irritable. Brief assessment on rounds of vital signs, medication needs, lab studies, and pain. Treatment plan problems . Intervention: Patient assessed and the following interventions initiated safety checks 15 Minute Checks Head to toe Assessment , Cognitive Assessment , Medications. Response: After interactions and interventions patient responded in the following manner, Non Compliant with Meds , Agitated ,Delusions. Continue to assess behaviors and condition will continue to monitor throughout the shift as needed. Patient educated on ADL's, and hand hygiene. 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 Continue to assess patient for changes in above assessment. Monitor for medication needs, pain, and safety concerns. Hourly rounding performed to ensure safe environment.
[2017-08-19] MEDS: traZODone 50 MG TABLET. PO PRN (22:58)
--- NOTE | 2017-08-19 22:58 | NUR ---
Patient is up pacing in the day room. Patient is refusing to go to her room to be put in bed. Administered PRN Trazodone
[2017-08-20] MEDS: traZODone 50 MG TABLET. PO PRN (01:31)
--- NOTE | 2017-08-20 01:31 | NUR ---
Patient is still awake in day room. Administered PRN trazodone
[2017-08-20 06:18] VITALS: BP 115/41
--- NOTE | 2017-08-20 07:20 | PN ---
DATE: 08/18/2017 PSYCHIATRIC PROGRESS NOTE This is a late entry for 08/18/2017, covers elements not covered in my initial note of 08/18/2017. SUBJECTIVE: I met with the patient the evening of 08/18/2017. The patient slept 5 hours previous evening, confused, pleasant, looking for her , compliant with medications. Oral intake is poor. REVIEW OF SYSTEMS: No CV, , pulmonary, eye, ENT system symptoms on review. Reliability poor. MENTAL STATUS EXAM: Oriented to herself. Insight, judgment, recent and remote memory, attention, concentration, fund of knowledge poor, consistent with her diagnosis mentioned in my initial note. IMPRESSION: Major neurocognitive disorder, Alzheimer, vascular with depression, delusion, behavioral disturbance. Rest unchanged. PLAN: Continue current psychotropics. Remeron has been added. Seroquel changed to 4 times a day, may need to add Megace if appetite remains poor. LAUREN CASILLAS MD DR: MIGUEL A/nahed JOB#: [id number] / [id number]
[2017-08-20] MEDS: LACTOBACILLUS RHAMNOSUS GG 1 CAPSULE. PO SCH ×2 (08:49→22:52)
[2017-08-20] MEDS: ACETAMINOPHEN 325 MG TABLET PO SCH ×2 (08:49→22:52)
[2017-08-20] MEDS: QUEtiapine 25 MG TABLET. PO SCH ×4 (08:50→17:26)
[2017-08-20] MEDS: DOCUSATE SODIUM 100 MG CAPSULE PO SCH ×2 (08:51→22:53)
[2017-08-20] MEDS: POTASSIUM CHLORIDE 20 MEQ TABLET.ER. PO SCH ×2 (08:51→22:51)
[2017-08-20] MEDS: CHOLECALCIFEROL (VITAMIN D3) 1,000 UNIT TABLET PO SCH (08:51)
[2017-08-20] MEDS: FERROUS SULFATE 325 MG TABLET. PO SCH (08:51)
[2017-08-20] MEDS: KETOROLAC TROMETHAMINE 0.5% OPHTH SOLUTION 3ML BOTTLE. OS SCH ×5 (08:51→22:53)
[2017-08-20] MEDS: MULTIVITAMIN with MINERAL TABLET. PO SCH (08:51)
[2017-08-20] MEDS: FLUTICASONE 50MCG/NASAL SPRAY 16GM BOTTLE. NS SCH (08:51)
--- NOTE | 2017-08-20 10:20 | NUR ---
Nursing Note: Pt still sleeping. Pt given repeat dose of trazodone at 0130. Attempted to wake pt for breakfast, held pt's tray for when she wakes.
--- NOTE | 2017-08-20 15:00 | NUR ---
Behavior Intervention Response and Plan: BIRP Note: Behavior: Assumed Care of patient, patient located in Patient Room at shift change. Patient exhibited the following behavior Sleeping, Disorganized, Compliant. Brief assessment on rounds of vital signs, medication needs, lab studies, and pain. Treatment plan problems dementia w/ bd and fall risk. Intervention: Patient assessed and the following interventions initiated safety checks 15 Minute Checks Cognitive Assessment , Head to toe Assessment , Medications. Response: After interactions and interventions patient responded in the following manner, Sleeping , Calm ,Compliant. Continue to assess behaviors and condition will continue to monitor throughout the shift as needed. Patient educated on ADL's, and hand hygiene. 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 Continue to assess patient for changes in above assessment. Monitor for medication needs, pain, and safety concerns. Hourly rounding performed to ensure safe environment.
--- NOTE | 2017-08-20 15:39 | NUR ---
Pt facility came to see pt, SW provided information no other questions at this time.
[2017-08-20 16:00] VITALS: BP 124/57
--- NOTE | 2017-08-20 17:39 | NUR ---
Nursing Note: Pt compliant w/ oral medications at dinner time; however she refused eye drops.
--- NOTE | 2017-08-20 20:02 | PDOC ---
Exam Note: Allen Note: Please also refer to the separate dictated note~for this date of service dictated separately.~Patient seen individually. Discussed the patient with Nursing staff reviewed the chart.~Reviewed interim history and current functioning. Reviewed vital signs,~Labs/ Radiology~and current medications noted below. Continue current treatment with the changes noted in the dictated addendum note Assessment: Vital Signs: Vital Signs Date Time Temp Pulse Resp B/P (MAP) Pulse Ox O2 Delivery O2 Flow Rate FiO2 08/20/17 16:00 98.0 65 20 124/57 (79) 98 08/19/17 17:20 Room Air I&O Intake and Output 08/20/17 07:00 Intake Total 660 ml Balance 660 ml Intake Oral 660 ml Current Medications: Meds: Current Medications Acetaminophen (Tylenol) 650 mg PRN Q6HRS PRN PO PAIN / TEMP; Start 08/15/17 at 17:15; Status Cancel Multi-Ingredient Ointment (Analgesic [place]) 1 ronni PRN QID PRN TP MUSCLE PAIN; Start 08/15/17 at 17:15 Al Hydroxide/Mg Hydroxide (Mylanta Plus Xs) 15 ml PRN AFTMEALHC PRN PO DYSPEPSIA; Start 08/15/17 at 17:15 Magnesium Hydroxide (Milk Of Magnesia) 2,400 mg PRN QHS PRN PO CONSTIPATION; Start 08/15/17 at 17:15; Status Cancel Acetaminophen (Tylenol) 650 mg BID PO Last administered on 08/20/17at 08:49; Start 08/15/17 at 21:00 Acetaminophen (Tylenol) 650 mg PRN Q6HRS PRN PO PAIN / TEMP; Start 08/15/17 at 18:15 Docusate Sodium (Colace) 100 mg BID PO Last administered on 08/20/17at 08:51; Start 08/15/17 at 21:00 Ferrous Sulfate (Feosol) 325 mg DAILY PO Last administered on 08/20/17at 08:51; Start 08/16/17 at 09:00 Fluticasone Propionate (Flonase) 2 spray DAILY NS Last administered on at 08:51; Start 08/16/17 at 09:00 Magnesium Hydroxide (Milk Of Magnesia) 2,400 mg PRN DAILY PRN PO CONSTIPATION; Start 08/15/17 at 18:15 Non-Formulary Medication 1 tab BID PO ; Start 08/15/17 at 21:00; Status UNV Vitamin D (Vitamin D3) 500 unit DAILY PO Last administered on 08/20/17 08:51; Start 08/16/17 at 09:00 Ketorolac Tromethamine (Acular) 1 drop QID OS Last administered on 08/20/17 08: 51; Start 08/15/17 at 21:00 Lactobacillus Rhamnosus (Culturelle) 1 cap BID PO Last administered on 08:49; Start 08/15/17 at 21:00 Multivitamins/ Calcium (Thera-M Plus) 1 tab DAILY PO Last administered on 08:51; Start 08/16/17 at 09:00 Ondansetron HCl (Zofran Odt) 4 mg PRN Q4HRS PRN PO NAUSEA/VOMITING; Start at 18:45 Olanzapine (ZyPREXA ZYDIS) 2.5 mg PRN Q2HR PRN PO PSYCHOSIS Last administered on 08/19/17 15:25; Start 08/16/17 at 18:30 Quetiapine Fumarate (SEROquel) 12.5 mg 0900,1300 PO Last administered on 08:00; Start 08/17/17 at 09:00; Stop 08/17/17 at 22:38; Status DC Potassium Chloride (Klor-Con) 20 meq BID PO Last administered on 08/20/17 08:51 ; Start 08/17/17 at 21:00 Quetiapine Fumarate (SEROquel) 12.5 mg 0700,1100,1400,1700 PO Last administered on 08/20/17 17:26; Start 08/18/17 at 07:00 Mirtazapine (Remeron) 7.5 mg QHS PO Last administered on 08/18/17 20:18; Start 08/17/17 at 23:00; Stop 08/19/17 at 18:10; Status DC Mirtazapine (Remeron) 15 mg QHS PO Last administered on 08/19/17 20:08; Start 08/19/17 at 21:00 Trazodone HCl (Desyrel) 50 mg QHS PO Last administered on 3/5/18at 20:08; Start 08/19/17 at 21:00 Trazodone HCl (Desyrel) 50 mg PRN QHS PRN PO insomnia Last administered on at 01:31; Start 08/19/17 at 18:15 Active Scripts Active Reported EXELON 4.6mg/24hr (Rivastigmine) 1 Each Patch.td24 1 Patch TD DAILY Zyvox (Linezolid) 600 Mg Tablet 600 Mg PO BID Lovenox (Enoxaparin Sodium) 30 Mg/0.3 Ml Disp.syrin 30 Mg SQ Q24H Thera-M (Multivits,Th W-Fe,Other Min) 1 Each Tablet 1 Tab PO DAILY Milk Of Magnesia (Magnesium Hydroxide) 400 Mg/5 Ml Oral.susp 2,400 Mg PO PRN DAILY PRN Culturelle (Lactobacillus Rhamnosus Gg) 1 Each Capsule 1 Cap PO BID Fluticasone Propionate Nasal [place] (Fluticasone Propionate) 16 Gm [place].susp 2 [place] NS DAILY Zofran (Ondansetron Hcl) 4 Mg Tablet 4 Mg PO PRN Q4HRS PRN Vitamin D-400 (Cholecalciferol (Vitamin D3)) 400 Unit Tablet 500 Unit PO DAILY Tylenol (Acetaminophen) 325 Mg Tablet 650 Mg PO BID Tylenol (Acetaminophen) 325 Mg Tablet 650 Mg PO PRN Q6HRS PRN Ketorolac Tromethamine 5 Ml Drops 1 Drop LEFTEYE QID Ferrous Sulfate 325 Mg Tablet 325 Mg PO DAILY Colace (Docusate Sodium) 100 Mg Capsule 100 Mg PO BID Nadeem Mag Zinc + D3 Tablet (Ca Carb/Vit D3/Mag Ox/Zn Oxide) 1 Each Tablet 1 Tab PO BID I have reviewed the current psychotropics carefully including drug interactions. Risk benefit ratio favors no change other than as noted in my dictated progress note. Diagnosis: Problems: (1) Dementia with behavioral disturbance (2) Anxiety disorder (3) Dementia in Alzheimer's disease with delusions (4) Dementia in Alzheimer's disease with depression (5) Dementia, vascular, with delusions (6) Dementia, vascular, with depression (7) Impulse control disorder LAUREN CASILLAS MD Aug 20, 2017 20:01
--- NOTE | 2017-08-20 21:42 | PN ---
DATE: 08/19/2017 PSYCHIATRIC PROGRESS NOTE This late entry 08/19/2017 covers elements not covered in my initial note 08/19/2017. SUBJECTIVE: I met with the patient evening of 08/19/2017. The patient slept just 3 hours previous evening, extremely labile, confused, at previous night she was crawling on the floor, rocking, took her meds whole in the morning, then her daughter visited at lunch and then after her daughter left she was extremely anxious, labile, aggressive, swinging at staff at 15:25. She received Zyprexa with some relief. REVIEW OF SYSTEMS: No CV, , pulmonary, eye, ENT system symptoms on review. Reliability poor. MENTAL STATUS EXAM: Oriented to herself. Insight, judgment, recent and remote memory, attention, concentration, fund of knowledge poor, consistent with her diagnosis mentioned in my initial note. PLAN: Start trazodone 50 mg at bedtime p.r.n., october repeat x 1. Increase Remeron to 15 mg at bedtime for insomnia. Rest unchanged per initial note. MAN Jc CASILLAS MD DR: MIGUEL A/nahed JOB#: [id number] / [id number]
[2017-08-20] MEDS: MIRTAZAPINE 15 MG TABLET PO SCH (22:52)
[2017-08-20] MEDS: traZODone 50 MG TABLET. PO SCH (22:52)
--- NOTE | 2017-08-20 23:15 | NUR ---
Behavior Intervention Response and Plan: BIRP Note: Behavior: Assumed Care of patient, patient located in Day Room at shift change. Patient exhibited the following behavior Wandering, Restless, Disorganized. Brief assessment on rounds of vital signs, medication needs, lab studies, and pain. Treatment plan prblems: 1 and 2 Intervention: Patient assessed and the following interventions initiated safety checks 15 Minute Checks Cognitive Assessment , Head to toe Assessment , Medications. Response: After interactions and interventions patient responded in the following manner, Wandering , Calm ,Compliant. Continue to assess behaviors and condition will continue to monitor throughout the shift as needed. Patient educated on ADL's, and hand hygiene. Plan: Continue to monitor Master Treatment Plan for patient's progress toward short term goals of Decreased Agitation, Medication Compliance, salvage determiner goals to return to previous living setting vs placement. Continue to assess patient for changes in above assessment. Monitor for medication needs, pain, and safety concerns. Hourly rounding performed to ensure safe environment.
[2017-08-21 06:35] VITALS: BP 140/84
[2017-08-21] MEDS: QUEtiapine 25 MG TABLET. PO SCH ×4 (07:10→17:03)
[2017-08-21] MEDS: KETOROLAC TROMETHAMINE 0.5% OPHTH SOLUTION 3ML BOTTLE. OS SCH ×5 (07:46→20:16)
[2017-08-21] MEDS: LACTOBACILLUS RHAMNOSUS GG 1 CAPSULE. PO SCH ×3 (07:46→20:15)
[2017-08-21] MEDS: CHOLECALCIFEROL (VITAMIN D3) 1,000 UNIT TABLET PO SCH (07:47)
[2017-08-21] MEDS: DOCUSATE SODIUM 100 MG CAPSULE PO SCH ×3 (07:47→20:16)
[2017-08-21] MEDS: ACETAMINOPHEN 325 MG TABLET PO SCH ×3 (07:48→20:14)
[2017-08-21] MEDS: FLUTICASONE 50MCG/NASAL SPRAY 16GM BOTTLE. NS SCH (07:48)
[2017-08-21] MEDS: MULTIVITAMIN with MINERAL TABLET. PO SCH ×2 (07:48→08:02)
[2017-08-21] MEDS: FERROUS SULFATE 325 MG TABLET. PO SCH ×2 (07:48→08:01)
[2017-08-21] MEDS: POTASSIUM CHLORIDE 20 MEQ TABLET.ER. PO SCH ×3 (07:50→20:15)
--- NOTE | 2017-08-21 08:02 | NUR ---
Pt refused am medications, stating "I don't take those."
--- NOTE | 2017-08-21 09:42 | NUR ---
Behavior Intervention Response and Plan: BIRP Note: Behavior: Assumed Care of patient, patient located in Dining Room at shift change. Patient exhibited the following behavior Disorganized, Irritable, Non Compliant with Meds. Brief assessment on rounds of vital signs, medication needs, lab studies, and pain. Treatment plan problems 1-2. Intervention: Patient assessed and the following interventions initiated safety checks 15 Minute Checks Cognitive Assessment , Cognitive Assessment , Head to toe Assessment. Response: After interactions and interventions patient responded in the following manner, Disorganized , Disorganized ,Non Compliant with Meds. Continue to assess behaviors and condition will continue to monitor throughout the shift as needed. Patient educated on ADL's, and hand hygiene. 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 Continue to assess patient for changes in above assessment. Monitor for medication needs, pain, and safety concerns. Hourly rounding performed to ensure safe environment.
--- NOTE | 2017-08-21 11:07 | NUR ---
A peer on the unit gave SWS two right foot shoes which belonged to the Pt. SWS found Pt. in the hallway wearing both left foot shoes. Pt. traded out one of the left foot shoes for a right foot one. SWS locked other pair of shoes in the Pt.'s closet in her room.
--- NOTE | 2017-08-21 15:00 | NUR ---
WEEKLY THERAPEUTIC RECREATION NOTE Date of Admission: 08/05/2017 Date of AT Assessment: 08/08/2017 Goal aimed: to increase socialization and leisure awareness Initial goal: Pt. will participate in at least three groups per week. Weekly progress towards goal: did not meet Group participation level: zero to minimal Behaviors observed: sleeps often, not around group very much, agitated/ wandering unit at times, little interest in groups or socialization Plan: no changes to goal
[2017-08-21 16:27] VITALS: BP 144/80
--- NOTE | 2017-08-21 20:06 | PDOC ---
Exam Note: Allen Note: Please also refer to the separate dictated note~for this date of service dictated separately.~Patient seen individually. Discussed the patient with Nursing staff reviewed the chart.~Reviewed interim history and current functioning. Reviewed vital signs,~Labs/ Radiology~and current medications noted below. Continue current treatment with the changes noted in the dictated addendum note Assessment: Vital Signs: Vital Signs Date Time Temp Pulse Resp B/P (MAP) Pulse Ox O2 Delivery O2 Flow Rate FiO2 08/21/17 16:27 98.6 71 18 144/80 (101) 98 08/19/17 17:20 Room Air I&O Intake and Output 08/21/17 07:00 Intake Total 1020 ml Balance 1020 ml Intake Oral 1020 ml # Voids 2 Current Medications: Meds: Current Medications Acetaminophen (Tylenol) 650 mg PRN Q6HRS PRN PO PAIN / TEMP; Start 08/15/17 at 17:15; Status Cancel Multi-Ingredient Ointment (Analgesic [place]) 1 ronni PRN QID PRN TP MUSCLE PAIN; Start 08/15/17 at 17:15 Al Hydroxide/Mg Hydroxide (Mylanta Plus Xs) 15 ml PRN AFTMEALHC PRN PO DYSPEPSIA; Start 08/15/17 at 17:15 Magnesium Hydroxide (Milk Of Magnesia) 2,400 mg PRN QHS PRN PO CONSTIPATION; Start 08/15/17 at 17:15; Status Cancel Acetaminophen (Tylenol) 650 mg BID PO Last administered on 08/20/17at 22:52; Start 08/15/17 at 21:00 Acetaminophen (Tylenol) 650 mg PRN Q6HRS PRN PO PAIN / TEMP; Start 08/15/17 at 18:15 Docusate Sodium (Colace) 100 mg BID PO Last administered on 08/20/17at 22:53; Start 08/15/17 at 21:00 Ferrous Sulfate (Feosol) 325 mg DAILY PO Last administered on 08/20/17at 08:51; Start 08/16/17 at 09:00 Fluticasone Propionate (Flonase) 2 spray DAILY NS Last administered on at 08:51; Start 08/16/17 at 09:00 Magnesium Hydroxide (Milk Of Magnesia) 2,400 mg PRN DAILY PRN PO CONSTIPATION; Start 08/15/17 at 18:15 Non-Formulary Medication 1 tab BID PO ; Start 08/15/17 at 21:00; Status UNV Vitamin D (Vitamin D3) 500 unit DAILY PO Last administered on 08/21/17 07:47; Start 08/16/17 at 09:00 Ketorolac Tromethamine (Acular) 1 drop QID OS Last administered on 08/21/17 17: 00; Start 08/15/17 at 21:00 Lactobacillus Rhamnosus (Culturelle) 1 cap BID PO Last administered on 22:52; Start 08/15/17 at 21:00 Multivitamins/ Calcium (Thera-M Plus) 1 tab DAILY PO Last administered on 08:51; Start 08/16/17 at 09:00 Ondansetron HCl (Zofran Odt) 4 mg PRN Q4HRS PRN PO NAUSEA/VOMITING; Start at 18:45 Olanzapine (ZyPREXA ZYDIS) 2.5 mg PRN Q2HR PRN PO PSYCHOSIS Last administered on 08/19/17 15:25; Start 08/16/17 at 18:30 Quetiapine Fumarate (SEROquel) 12.5 mg 0900,1300 PO Last administered on 08:00; Start 08/17/17 at 09:00; Stop 08/17/17 at 22:38; Status DC Potassium Chloride (Klor-Con) 20 meq BID PO Last administered on 08/20/17 22:51 ; Start 08/17/17 at 21:00 Quetiapine Fumarate (SEROquel) 12.5 mg 0700,1100,1400,1700 PO Last administered on 08/21/17 17:03; Start 08/18/17 at 07:00 Mirtazapine (Remeron) 7.5 mg QHS PO Last administered on 08/18/17 20:18; Start 08/17/17 at 23:00; Stop 08/19/17 at 18:10; Status DC Mirtazapine (Remeron) 15 mg QHS PO Last administered on 08/20/17 22:52; Start 08/19/17 at 21:00 Trazodone HCl (Desyrel) 50 mg QHS PO Last administered on 08/20/17at 22:52; Start 08/19/17 at 21:00 Trazodone HCl (Desyrel) 50 mg PRN QHS PRN PO insomnia Last administered on at 01:31; Start 08/19/17 at 18:15 Active Scripts Active Reported EXELON 4.6mg/24hr (Rivastigmine) 1 Each Patch.td24 1 Patch TD DAILY Zyvox (Linezolid) 600 Mg Tablet 600 Mg PO BID Lovenox (Enoxaparin Sodium) 30 Mg/0.3 Ml Disp.syrin 30 Mg SQ Q24H Thera-M (Multivits,Th W-Fe,Other Min) 1 Each Tablet 1 Tab PO DAILY Milk Of Magnesia (Magnesium Hydroxide) 400 Mg/5 Ml Oral.susp 2,400 Mg PO PRN DAILY PRN Culturelle (Lactobacillus Rhamnosus Gg) 1 Each Capsule 1 Cap PO BID Fluticasone Propionate Nasal [place] (Fluticasone Propionate) 16 Gm [place].susp 2 [place] NS DAILY Zofran (Ondansetron Hcl) 4 Mg Tablet 4 Mg PO PRN Q4HRS PRN Vitamin D-400 (Cholecalciferol (Vitamin D3)) 400 Unit Tablet 500 Unit PO DAILY Tylenol (Acetaminophen) 325 Mg Tablet 650 Mg PO BID Tylenol (Acetaminophen) 325 Mg Tablet 650 Mg PO PRN Q6HRS PRN Ketorolac Tromethamine 5 Ml Drops 1 Drop LEFTEYE QID Ferrous Sulfate 325 Mg Tablet 325 Mg PO DAILY Colace (Docusate Sodium) 100 Mg Capsule 100 Mg PO BID Nadeem Mag Zinc + D3 Tablet (Ca Carb/Vit D3/Mag Ox/Zn Oxide) 1 Each Tablet 1 Tab PO BID I have reviewed the current psychotropics carefully including drug interactions. Risk benefit ratio favors no change other than as noted in my dictated progress note. Diagnosis: Problems: (1) Dementia with behavioral disturbance (2) Anxiety disorder (3) Dementia in Alzheimer's disease with delusions (4) Dementia in Alzheimer's disease with depression (5) Dementia, vascular, with delusions (6) Dementia, vascular, with depression (7) Impulse control disorder LAUREN CASILLAS MD Aug 21, 2017 20:06
[2017-08-21] MEDS: traZODone 50 MG TABLET. PO SCH (20:15)
[2017-08-21] MEDS: MIRTAZAPINE 15 MG TABLET PO SCH (20:15)
--- NOTE | 2017-08-21 21:00 | NUR ---
Behavior Intervention Response and Plan: BIRP Note: Behavior: Assumed Care of patient, patient located in Patient Room at shift change. Patient exhibited the following behavior Interactive, Disorganized, Restless. Brief assessment on rounds of vital signs, medication needs, lab studies, and pain. Treatment plan problems . Intervention: Patient assessed and the following interventions initiated safety checks 15 Minute Checks Cognitive Assessment , Head to toe Assessment , Medications. Response: After interactions and interventions patient responded in the following manner, Cooperative , Interactive ,Drowsy. Continue to assess behaviors and condition will continue to monitor throughout the shift as needed. Patient educated on ADL's, and hand hygiene. 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 Continue to assess patient for changes in above assessment. Monitor for medication needs, pain, and safety concerns. Hourly rounding performed to ensure safe environment.
--- NOTE | 2017-08-21 22:05 | PN ---
DATE: 08/20/2017 PSYCHIATRIC PROGRESS NOTE This is a late entry for 08/20/2017 covers the elements not covered in my initial note of 08/20/2017. SUBJECTIVE: I met with the patient evening of 08/20/2017. The patient slept 4 hours previous evening and received repeat trazodone to help with this, despite this slept rather poorly as above. Resistive to medications, anxious at times, taking them whole. She is delusional, confused, exit seeking, but not crawling on the floor. She slept through 7 a.m. ____ Slept through 1400, Seroquel got her ____. We will have to gradually increase this as tolerated. REVIEW OF SYSTEMS: No CV, , pulmonary, eye, ENT system symptoms on review. Reliability poor. MENTAL STATUS EXAM: Oriented to herself. Insight, judgment, recent and remote memory, attention, concentration, fund of knowledge poor, consistent with her diagnosis mentioned in my initial note. IMPRESSION: Major neurocognitive disorder, Alzheimer, vascular with delusion, depression, behavioral disturbance. Rest unchanged. PLAN: Continue psychotropics mentioned in my initial note. Adjust gradually, increase Seroquel as tolerated. LAUREN CASILLAS MD DR: MIGUEL A/nahed JOB#: [id number] / [id number]
[2017-08-21] MEDS: traZODone 50 MG TABLET. PO PRN (23:37)
[2017-08-22] MEDS: MAGNESIUM HYDROXIDE 2,400 MG/30 ML ORAL.SUSP. PO PRN ×2 (01:28→18:28)
[2017-08-22] MEDS: ONDANSETRON ODT 4 MG TAB.RAPDIS PO PRN (01:49)
[2017-08-22] MEDS: QUEtiapine 25 MG TABLET. PO SCH ×4 (05:53→17:44)
[2017-08-22 06:23] VITALS: BP 103/64
[2017-08-22] MEDS: DOCUSATE SODIUM 100 MG CAPSULE PO SCH ×2 (08:59→19:29)
[2017-08-22] MEDS: MULTIVITAMIN with MINERAL TABLET. PO SCH (08:59)
[2017-08-22] MEDS: POTASSIUM CHLORIDE 20 MEQ TABLET.ER. PO SCH ×2 (08:59→19:30)
[2017-08-22] MEDS: LACTOBACILLUS RHAMNOSUS GG 1 CAPSULE. PO SCH ×2 (09:00→19:29)
[2017-08-22] MEDS: CHOLECALCIFEROL (VITAMIN D3) 1,000 UNIT TABLET PO SCH (09:00)
[2017-08-22] MEDS: ACETAMINOPHEN 325 MG TABLET PO SCH ×2 (09:00→19:30)
[2017-08-22] MEDS: FERROUS SULFATE 325 MG TABLET. PO SCH (09:00)
[2017-08-22] MEDS: KETOROLAC TROMETHAMINE 0.5% OPHTH SOLUTION 3ML BOTTLE. OS SCH ×4 (09:00→19:29)
[2017-08-22] MEDS: FLUTICASONE 50MCG/NASAL SPRAY 16GM BOTTLE. NS SCH (09:00)
--- NOTE | 2017-08-22 10:14 | NUR ---
Behavior Intervention Response and Plan: BIRP Note: Behavior: Assumed Care of patient, patient located in Patient Room at shift change. Patient exhibited the following behavior Disorganized, Wandering, Drowsy. Brief assessment on rounds of vital signs, medication needs, lab studies, and pain. Treatment plan problems 1-2. Intervention: Patient assessed and the following interventions initiated safety checks 15 Minute Checks Cognitive Assessment , Head to toe Assessment , Medications. Response: After interactions and interventions patient responded in the following manner, Disorganized , Wandering ,Drowsy. Continue to assess behaviors and condition will continue to monitor throughout the shift as needed. Patient educated on ADL's, and hand hygiene. 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 Continue to assess patient for changes in above assessment. Monitor for medication needs, pain, and safety concerns. Hourly rounding performed to ensure safe environment.
--- NOTE | 2017-08-22 11:04 | NUR ---
Dr. Raphael notified of pt's hypoactive bowel sounds and complaints of abdominal pain. KUB ordered.
[2017-08-22 16:25] VITALS: BP 111/70
--- NOTE | 2017-08-22 16:54 | RAD ---
KUB History: Constipation. Findings: There is a moderate amount of fecal retention within the colon and rectosigmoid region. No obstructive bowel pattern is seen. Mild dextroscoliosis is seen. IMPRESSION: Moderate fecal retention.
[2017-08-22] MEDS: traZODone 50 MG TABLET. PO SCH (19:29)
[2017-08-22] MEDS: MIRTAZAPINE 15 MG TABLET PO SCH (19:30)
--- NOTE | 2017-08-22 20:11 | PDOC ---
Exam Note: Allen Note: Please also refer to the separate dictated note~for this date of service dictated separately.~Patient seen individually. Discussed the patient with Nursing staff reviewed the chart.~Reviewed interim history and current functioning. Reviewed vital signs,~Labs/ Radiology~and current medications noted below. Continue current treatment with the changes noted in the dictated addendum note Assessment: Vital Signs: Vital Signs Date Time Temp Pulse Resp B/P (MAP) Pulse Ox O2 Delivery O2 Flow Rate FiO2 08/22/17 16:25 97.3 88 18 111/70 (84) 96 08/19/17 17:20 Room Air I&O Intake and Output 08/22/17 07:00 Intake Total 600 ml Balance 600 ml Intake Oral 600 ml # Voids 2 # Bowel Movements 1 Current Medications: Meds: Current Medications Acetaminophen (Tylenol) 650 mg PRN Q6HRS PRN PO PAIN / TEMP; Start 08/15/17 at 17:15; Status Cancel Multi-Ingredient Ointment (Analgesic [place]) 1 ronni PRN QID PRN TP MUSCLE PAIN; Start 08/15/17 at 17:15 Al Hydroxide/Mg Hydroxide (Mylanta Plus Xs) 15 ml PRN AFTMEALHC PRN PO DYSPEPSIA; Start 08/15/17 at 17:15 Magnesium Hydroxide (Milk Of Magnesia) 2,400 mg PRN QHS PRN PO CONSTIPATION; Start 08/15/17 at 17:15; Status Cancel Acetaminophen (Tylenol) 650 mg BID PO Last administered on 08/22/17at 19:30; Start 08/15/17 at 21:00 Acetaminophen (Tylenol) 650 mg PRN Q6HRS PRN PO PAIN / TEMP; Start 08/15/17 at 18:15 Docusate Sodium (Colace) 100 mg BID PO Last administered on 08/22/17at 19:29; Start 08/15/17 at 21:00 Ferrous Sulfate (Feosol) 325 mg DAILY PO Last administered on 08/22/17at 09:00; Start 08/16/17 at 09:00 Fluticasone Propionate (Flonase) 2 spray DAILY NS Last administered on at 08:51; Start 08/16/17 at 09:00 Magnesium Hydroxide (Milk Of Magnesia) 2,400 mg PRN DAILY PRN PO CONSTIPATION Last administered on 08/22/17 18:28; Start 08/15/17 at 18:15 Non-Formulary Medication 1 tab BID PO ; Start 08/15/17 at 21:00; Status UNV Vitamin D (Vitamin D3) 500 unit DAILY PO Last administered on 08/22/17 09:00; Start 08/16/17 at 09:00 Ketorolac Tromethamine (Acular) 1 drop QID OS Last administered on 08/22/17 19: 29; Start 08/15/17 at 21:00 Lactobacillus Rhamnosus (Culturelle) 1 cap BID PO Last administered on 19:29; Start 08/15/17 at 21:00 Multivitamins/ Calcium (Thera-M Plus) 1 tab DAILY PO Last administered on 08:59; Start 08/16/17 at 09:00 Ondansetron HCl (Zofran Odt) 4 mg PRN Q4HRS PRN PO NAUSEA/VOMITING Last administered on 08/22/17 01:49; Start 08/15/17 at 18:45 Olanzapine (ZyPREXA ZYDIS) 2.5 mg PRN Q2HR PRN PO PSYCHOSIS Last administered on 08/19/17 15:25; Start 08/16/17 at 18:30 Quetiapine Fumarate (SEROquel) 12.5 mg 0900,1300 PO Last administered on 08:00; Start 08/17/17 at 09:00; Stop 08/17/17 at 22:38; Status DC Potassium Chloride (Klor-Con) 20 meq BID PO Last administered on 08/22/17 19:30 ; Start 08/17/17 at 21:00 Quetiapine Fumarate (SEROquel) 12.5 mg 0700,1100,1400,1700 PO Last administered on 08/22/17 17:44; Start 08/18/17 at 07:00 Mirtazapine (Remeron) 7.5 mg QHS PO Last administered on 08/18/17 20:18; Start 08/17/17 at 23:00; Stop 08/19/17 at 18:10; Status DC Mirtazapine (Remeron) 15 mg QHS PO Last administered on 3/8/18at 19:30; Start 08/19/17 at 21:00 Trazodone HCl (Desyrel) 50 mg QHS PO Last administered on 08/22/17at 19:29; Start 08/19/17 at 21:00 Trazodone HCl (Desyrel) 50 mg PRN QHS PRN PO insomnia Last administered on at 23:37; Start 08/19/17 at 18:15 Active Scripts Active Reported EXELON 4.6mg/24hr (Rivastigmine) 1 Each Patch.td24 1 Patch TD DAILY Zyvox (Linezolid) 600 Mg Tablet 600 Mg PO BID Lovenox (Enoxaparin Sodium) 30 Mg/0.3 Ml Disp.syrin 30 Mg SQ Q24H Thera-M (Multivits, W-,Other Min) 1 Each Tablet 1 Tab PO DAILY Milk Of Magnesia (Magnesium Hydroxide) 400 Mg/5 Ml Oral.susp 2,400 Mg PO PRN DAILY PRN Culturelle (Lactobacillus Rhamnosus Gg) 1 Each Capsule 1 Cap PO BID Fluticasone Propionate Nasal [place] (Fluticasone Propionate) 16 Gm [place].susp 2 [place] NS DAILY Zofran (Ondansetron Hcl) 4 Mg Tablet 4 Mg PO PRN Q4HRS PRN Vitamin D-400 (Cholecalciferol (Vitamin D3)) 400 Unit Tablet 500 Unit PO DAILY Tylenol (Acetaminophen) 325 Mg Tablet 650 Mg PO BID Tylenol (Acetaminophen) 325 Mg Tablet 650 Mg PO PRN Q6HRS PRN Ketorolac Tromethamine 5 Ml Drops 1 Drop LEFTEYE QID Ferrous Sulfate 325 Mg Tablet 325 Mg PO DAILY Colace (Docusate Sodium) 100 Mg Capsule 100 Mg PO BID Nadeem Mag Zinc + D3 Tablet (Ca Carb/Vit D3/Mag Ox/Zn Oxide) 1 Each Tablet 1 Tab PO BID I have reviewed the current psychotropics carefully including drug interactions. Risk benefit ratio favors no change other than as noted in my dictated progress note. Diagnosis: Problems: (1) Dementia with behavioral disturbance (2) Anxiety disorder (3) Dementia in Alzheimer's disease with delusions (4) Dementia in Alzheimer's disease with depression (5) Dementia, vascular, with delusions (6) Dementia, vascular, with depression (7) Impulse control disorder LAUREN CASILLAS MD Aug 22, 2017 20:11
--- NOTE | 2017-08-22 23:16 | NUR ---
Behavior Intervention Response and Plan: BIRP Note: Behavior: Assumed Care of patient, patient located in Day Room at shift change. Patient exhibited the following behavior Calm, Wandering, Restless. Brief assessment on rounds of vital signs, medication needs, lab studies, and pain. Treatment plan problems .1&2 Intervention: Patient assessed and the following interventions initiated safety checks 15 Minute Checks Cognitive Assessment , Cognitive Assessment , Head to toe Assessment. Response: After interactions and interventions patient responded in the following manner, Able to Focus on Task , Compliant ,Cooperative. Continue to assess behaviors and condition will continue to monitor throughout the shift as needed. Patient educated on ADL's, and hand hygiene. 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 Continue to assess patient for changes in above assessment. Monitor for medication needs, pain, and safety concerns. Hourly rounding performed to ensure safe environment.
[2017-08-23] MEDS: QUEtiapine 25 MG TABLET. PO SCH ×3 (06:23→17:00)
[2017-08-23 06:26] VITALS: BP 152/56
[2017-08-23] MEDS ORDERED: MAGNESIUM CITRATE 296 ML SOLUTION. PO PRN (07:45)
[2017-08-23] MEDS: MULTIVITAMIN with MINERAL TABLET. PO SCH (07:58)
[2017-08-23] MEDS: POTASSIUM CHLORIDE 20 MEQ TABLET.ER. PO SCH ×3 (07:58→21:00)
[2017-08-23] MEDS: DOCUSATE SODIUM 100 MG CAPSULE PO SCH ×3 (07:58→21:00)
[2017-08-23] MEDS: CHOLECALCIFEROL (VITAMIN D3) 1,000 UNIT TABLET PO SCH (07:59)
[2017-08-23] MEDS: FERROUS SULFATE 325 MG TABLET. PO SCH (07:59)
[2017-08-23] MEDS: ACETAMINOPHEN 325 MG TABLET PO SCH ×3 (07:59→21:00)
[2017-08-23] MEDS: LACTOBACILLUS RHAMNOSUS GG 1 CAPSULE. PO SCH ×3 (07:59→21:00)
[2017-08-23] MEDS: FLUTICASONE 50MCG/NASAL SPRAY 16GM BOTTLE. NS SCH (08:02)
[2017-08-23] MEDS: KETOROLAC TROMETHAMINE 0.5% OPHTH SOLUTION 3ML BOTTLE. OS SCH ×4 (08:02→19:31)
[2017-08-23] MEDS: ONDANSETRON ODT 4 MG TAB.RAPDIS PO PRN (09:18)
--- NOTE | 2017-08-23 09:56 | NUR ---
Behavior Intervention Response and Plan: BIRP Note: Behavior: Assumed Care of patient, patient located in Dining Room at shift change. Patient exhibited the following behavior Disorganized, Compliant, Drowsy. Brief assessment on rounds of vital signs, medication needs, lab studies, and pain. Treatment plan problems . Intervention: Patient assessed and the following interventions initiated safety checks 15 Minute Checks Cognitive Assessment , Head to toe Assessment , Medications. Response: After interactions and interventions patient responded in the following manner, Disorganized , Compliant ,Withdrawn. Continue to assess behaviors and condition will continue to monitor throughout the shift as needed. Patient educated on ADL's, and hand hygiene. 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 Continue to assess patient for changes in above assessment. Monitor for medication needs, pain, and safety concerns. Hourly rounding performed to ensure safe environment.
[2017-08-23 16:41] VITALS: BP 115/64
--- NOTE | 2017-08-23 17:48 | NUR ---
pt up for breakfast. stated she felt sick after meals. pt laid down. attempted to give mag citrate for constipation. pt spit out. laid down after breakfast. did not get up for lunch. when attempted to get up for supper pt became combative with staff. refused meds. pt told staff to leave her alone.
[2017-08-23] MEDS: traZODone 50 MG TABLET. PO SCH ×2 (19:32→21:00)
[2017-08-23] MEDS: MIRTAZAPINE 15 MG TABLET PO SCH ×2 (19:32→21:00)
--- NOTE | 2017-08-23 20:07 | PDOC ---
Exam Note: Allen Note: Please also refer to the separate dictated note~for this date of service dictated separately.~Patient seen individually. Discussed the patient with Nursing staff reviewed the chart.~Reviewed interim history and current functioning. Reviewed vital signs,~Labs/ Radiology~and current medications noted below. Continue current treatment with the changes noted in the dictated addendum note Assessment: Vital Signs: Vital Signs Date Time Temp Pulse Resp B/P (MAP) Pulse Ox O2 Delivery O2 Flow Rate FiO2 08/23/17 16:41 98.2 64 19 115/64 (81) 97 08/19/17 17:20 Room Air I&O Intake and Output 08/23/17 07:00 Intake Total 840 ml Balance 840 ml Intake Oral 840 ml # Voids 2 Current Medications: Meds: Current Medications Acetaminophen (Tylenol) 650 mg PRN Q6HRS PRN PO PAIN / TEMP; Start 08/15/17 at 17:15; Status Cancel Multi-Ingredient Ointment (Analgesic [place]) 1 ronni PRN QID PRN TP MUSCLE PAIN; Start 08/15/17 at 17:15 Al Hydroxide/Mg Hydroxide (Mylanta Plus Xs) 15 ml PRN AFTMEALHC PRN PO DYSPEPSIA; Start 08/15/17 at 17:15 Magnesium Hydroxide (Milk Of Magnesia) 2,400 mg PRN QHS PRN PO CONSTIPATION; Start 08/15/17 at 17:15; Status Cancel Acetaminophen (Tylenol) 650 mg BID PO Last administered on 08/23/17at 19:32; Start 08/15/17 at 21:00 Acetaminophen (Tylenol) 650 mg PRN Q6HRS PRN PO PAIN / TEMP; Start 08/15/17 at 18:15 Docusate Sodium (Colace) 100 mg BID PO Last administered on 08/23/17 19:31; Start 08/15/17 at 21:00 Ferrous Sulfate (Feosol) 325 mg DAILY PO Last administered on 08/23/17 07:59; Start 08/16/17 at 09:00 Fluticasone Propionate (Flonase) 2 spray DAILY NS Last administered on 08:02; Start 08/16/17 at 09:00 Magnesium Hydroxide (Milk Of Magnesia) 2,400 mg PRN DAILY PRN PO CONSTIPATION Last administered on 08/22/17 18:28; Start 08/15/17 at 18:15 Non-Formulary Medication 1 tab BID PO ; Start 08/15/17 at 21:00; Status UNV Vitamin D (Vitamin D3) 500 unit DAILY PO Last administered on 08/23/17 07:59; Start 08/16/17 at 09:00 Ketorolac Tromethamine (Acular) 1 drop QID OS Last administered on 08/23/17 19: 31; Start 08/15/17 at 21:00 Lactobacillus Rhamnosus (Culturelle) 1 cap BID PO Last administered on 19:31; Start 08/15/17 at 21:00 Multivitamins/ Calcium (Thera-M Plus) 1 tab DAILY PO Last administered on 07:58; Start 08/16/17 at 09:00 Ondansetron HCl (Zofran Odt) 4 mg PRN Q4HRS PRN PO NAUSEA/VOMITING Last administered on 08/22/17 01:49; Start 08/15/17 at 18:45 Olanzapine (ZyPREXA ZYDIS) 2.5 mg PRN Q2HR PRN PO PSYCHOSIS Last administered on 08/19/17 15:25; Start 08/16/17 at 18:30 Quetiapine Fumarate (SEROquel) 12.5 mg 0900,1300 PO Last administered on 08:00; Start 08/17/17 at 09:00; Stop 08/17/17 at 22:38; Status DC Potassium Chloride (Klor-Con) 20 meq BID PO Last administered on 08/23/17 19:32 ; Start 08/17/17 at 21:00 Quetiapine Fumarate (SEROquel) 12.5 mg 0700,1100,1400,1700 PO Last administered on 08/23/17 13:03; Start 08/18/17 at 07:00 Mirtazapine (Remeron) 7.5 mg QHS PO Last administered on 08/18/17 20:18; Start 08/17/17 at 23:00; Stop 08/19/17 at 18:10; Status DC Mirtazapine (Remeron) 15 mg QHS PO Last administered on 3/9/18at 19:32; Start 08/19/17 at 21:00 Trazodone HCl (Desyrel) 50 mg QHS PO Last administered on 08/23/17at 19:32; Start 08/19/17 at 21:00 Trazodone HCl (Desyrel) 50 mg PRN QHS PRN PO insomnia Last administered on at 23:37; Start 08/19/17 at 18:15 Magnesium Citrate (Citroma) 148 ml PRN 1X PRN PO CONSTIPATION; Start 08/23/17 at 07:45 Active Scripts Active Reported EXELON 4.6mg/24hr (Rivastigmine) 1 Each Patch.td24 1 Patch TD DAILY Zyvox (Linezolid) 600 Mg Tablet 600 Mg PO BID Lovenox (Enoxaparin Sodium) 30 Mg/0.3 Ml Disp.syrin 30 Mg SQ Q24H Thera-M (Multivits,Th W-Fe,Other Min) 1 Each Tablet 1 Tab PO DAILY Milk Of Magnesia (Magnesium Hydroxide) 400 Mg/5 Ml Oral.susp 2,400 Mg PO PRN DAILY PRN Culturelle (Lactobacillus Rhamnosus Gg) 1 Each Capsule 1 Cap PO BID Fluticasone Propionate Nasal [place] (Fluticasone Propionate) 16 Gm [place].susp 2 [place] NS DAILY Zofran (Ondansetron Hcl) 4 Mg Tablet 4 Mg PO PRN Q4HRS PRN Vitamin D-400 (Cholecalciferol (Vitamin D3)) 400 Unit Tablet 500 Unit PO DAILY Tylenol (Acetaminophen) 325 Mg Tablet 650 Mg PO BID Tylenol (Acetaminophen) 325 Mg Tablet 650 Mg PO PRN Q6HRS PRN Ketorolac Tromethamine 5 Ml Drops 1 Drop LEFTEYE QID Ferrous Sulfate 325 Mg Tablet 325 Mg PO DAILY Colace (Docusate Sodium) 100 Mg Capsule 100 Mg PO BID Nadeem Mag Zinc + D3 Tablet (Ca Carb/Vit D3/Mag Ox/Zn Oxide) 1 Each Tablet 1 Tab PO BID I have reviewed the current psychotropics carefully including drug interactions. Risk benefit ratio favors no change other than as noted in my dictated progress note. Diagnosis: Problems: (1) Dementia with behavioral disturbance (2) Anxiety disorder (3) Dementia in Alzheimer's disease with delusions (4) Dementia in Alzheimer's disease with depression (5) Dementia, vascular, with delusions (6) Dementia, vascular, with depression (7) Impulse control disorder LAUREN CASILLAS MD Aug 23, 2017 20:07
[2017-08-23 21:01] LABS: BASO # 0.1 x10^3/uL (0.0-0.2); BASO % 1 % (0-3); EOS # 0.2 x10^3/uL (0.0-0.7); EOS % 2 % (0-3); HEMATOCRIT 34.6 % (36.0-47.0); HEMOGLOBIN 11.4 g/dL (12.0-15.5); LYMPH # 1.7 x10^3/uL (1.0-4.8); LYMPH % 18 % (24-48); MEAN CORPUSCULAR HEMOGLOBIN 31 pg (25-35); MEAN CORPUSCULAR HGB CONC 33 g/dL (31-37); MEAN CORPUSCULAR VOLUME 93 fL (79-100); MONO # 0.8 x10^3/uL (0.0-1.1); MONO % 8 % (0-9); NEUT # 6.5 x10^3uL (1.8-7.7); NEUT % 70 % (31-73); PLATELET COUNT 273 x10^3/uL (140-400); RED BLOOD COUNT 3.72 x10^6/uL (3.50-5.40); RED CELL DISTRIBUTION WIDTH 14.6 % (11.5-14.5); WHITE BLOOD COUNT 9.3 x10^3/uL (4.0-11.0)
[2017-08-23 21:25] LABS: ALBUMIN 3.2 g/dL (3.4-5.0); ALBUMIN/GLOBULIN RATIO 0.9 (1.0-1.7); CALCIUM 8.8 mg/dL (8.5-10.1); GFR 52.3; POTASSIUM 4.5 mmol/L (3.5-5.1); TOTAL BILIRUBIN 0.2 mg/dL (0.2-1.0); TOTAL PROTEIN 6.8 g/dL (6.4-8.2)
--- NOTE | 2017-08-23 21:29 | PN ---
DATE: 08/21/2017 PSYCHIATRIC PROGRESS NOTE This late entry 08/21/2017 covers elements not covered in my initial note 08/21/2017. SUBJECTIVE: I met with the patient evening of 08/21/2017. The patient is noncompliant with medications, these have to be hidden in her food, slept 7 hours. REVIEW OF SYSTEMS: No CV, , pulmonary, eye, ENT system symptoms on review. Reliability poor. MENTAL STATUS EXAM: Oriented to herself. Insight, judgment, recent and remote memory, attention, concentration, fund of knowledge poor, consistent with her diagnosis mentioned in my initial note. PLAN: Continue current psychotropics mentioned in my initial note. Adjust as clinically indicated. LAUREN CASILLAS MD DR: MIGUEL A/nahed JOB#: [id number] / [id number]
--- NOTE | 2017-08-23 22:24 | NUR ---
Behavior Intervention Response and Plan: BIRP Note: Behavior: Assumed Care of patient, patient located in Patient Room at shift change. Patient exhibited the following behavior Sleeping, Calm, Non Compliant with Meds. Brief assessment on rounds of vital signs, medication needs, lab studies, and pain. Treatment plan problems .1&2 Intervention: Patient assessed and the following interventions initiated safety checks 15 Minute Checks Cognitive Assessment , Head to toe Assessment , Medications. Response: After interactions and interventions patient responded in the following manner, Defensive , Non Compliant ,Resistive. Continue to assess behaviors and condition will continue to monitor throughout the shift as needed. Patient educated on ADL's, and hand hygiene. 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 Continue to assess patient for changes in above assessment. Monitor for medication needs, pain, and safety concerns. Hourly rounding performed to ensure safe environment.
--- NOTE | 2017-08-23 23:43 | PN ---
DATE: 08/22/2017 PSYCHIATRIC PROGRESS NOTE This is a late entry for 08/22/2017, covers elements not covered in my initial note of 08/22/2017. SUBJECTIVE: The patient was staffed at a treatment team meeting with the entire team the morning of 08/22/2017, seen individually the evening of 08/22/2017. Appetite is 50%, sleeping 2-4 hours. She had some GI pain and vomiting. KUB has been done to rule out constipation. REVIEW OF SYSTEMS: No CV, , pulmonary, eye, ENT system symptoms on review. Reliability poor. MENTAL STATUS EXAM: Oriented to herself. Insight, judgment, recent and remote memory, attention, concentration, fund of knowledge poor, consistent with her diagnosis mentioned in my initial note. PLAN: Check KUB. Continue rest psychotropics mentioned in my initial note. MAN Jc CASILLAS MD DR: MIGUEL A/nahed JOB#: [id number] / [id number]
[2017-08-24] MEDS: QUEtiapine 25 MG TABLET. PO SCH ×4 (05:57→18:07)
[2017-08-24 07:23] VITALS: BP 154/60
[2017-08-24] MEDS: ACETAMINOPHEN 325 MG TABLET PO SCH ×2 (08:18→19:12)
[2017-08-24] MEDS: POTASSIUM CHLORIDE 20 MEQ TABLET.ER. PO SCH ×2 (08:18→19:11)
[2017-08-24] MEDS: MULTIVITAMIN with MINERAL TABLET. PO SCH (08:19)
[2017-08-24] MEDS: FERROUS SULFATE 325 MG TABLET. PO SCH (08:19)
[2017-08-24] MEDS: LACTOBACILLUS RHAMNOSUS GG 1 CAPSULE. PO SCH ×2 (08:19→19:11)
[2017-08-24] MEDS: DOCUSATE SODIUM 100 MG CAPSULE PO SCH ×2 (08:19→19:11)
[2017-08-24] MEDS: CHOLECALCIFEROL (VITAMIN D3) 1,000 UNIT TABLET PO SCH (08:19)
[2017-08-24] MEDS: KETOROLAC TROMETHAMINE 0.5% OPHTH SOLUTION 3ML BOTTLE. OS SCH ×2 (08:20→13:00)
[2017-08-24] MEDS: FLUTICASONE 50MCG/NASAL SPRAY 16GM BOTTLE. NS SCH (08:20)
--- NOTE | 2017-08-24 10:54 | NUR ---
Behavior Intervention Response and Plan: BIRP Note: Behavior: Assumed Care of patient, patient located in Dining Room at shift change. Patient exhibited the following behavior Disorganized, Compliant, Drowsy. Brief assessment on rounds of vital signs, medication needs, lab studies, and pain. Treatment plan problems . Intervention: Patient assessed and the following interventions initiated safety checks 15 Minute Checks Cognitive Assessment , Head to toe Assessment , Medications. Response: After interactions and interventions patient responded in the following manner, Disorganized , Compliant ,Withdrawn. Continue to assess behaviors and condition will continue to monitor throughout the shift as needed. Patient educated on ADL's, and hand hygiene. 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 Continue to assess patient for changes in above assessment. Monitor for medication needs, pain, and safety concerns. Hourly rounding performed to ensure safe environment.
[2017-08-24 16:34] VITALS: BP 125/62
--- NOTE | 2017-08-24 17:02 | NUR ---
pt up adl in halls. irritable in afternoon and refused meds. did take morning meds. has been up most of day. appetite poor.
[2017-08-24] MEDS: traZODone 50 MG TABLET. PO SCH (19:11)
[2017-08-24] MEDS: MIRTAZAPINE 15 MG TABLET PO SCH (19:12)
--- NOTE | 2017-08-24 21:00 | NUR ---
Behavior Intervention Response and Plan: BIRP Note: Behavior: Assumed Care of patient, patient located in Hallway at shift change. Patient exhibited the following behavior Wandering, Calm, Interactive. Brief assessment on rounds of vital signs, medication needs, lab studies, and pain. Treatment plan problems .1&2 Intervention: Patient assessed and the following interventions initiated safety checks 15 Minute Checks Cognitive Assessment , Head to toe Assessment , Medications. Response: After interactions and interventions patient responded in the following manner, Able to Focus on Task , Compliant ,Cooperative. Continue to assess behaviors and condition will continue to monitor throughout the shift as needed. Patient educated on ADL's, and hand hygiene. 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 Continue to assess patient for changes in above assessment. Monitor for medication needs, pain, and safety concerns. Hourly rounding performed to ensure safe environment.
--- NOTE | 2017-08-24 21:35 | PDOC ---
Exam Note: Allen Note: Please also refer to the separate dictated note~for this date of service dictated separately.~Patient seen individually. Discussed the patient with Nursing staff reviewed the chart.~Reviewed interim history and current functioning. Reviewed vital signs,~Labs/ Radiology~and current medications noted below. Continue current treatment with the changes noted in the dictated addendum note Assessment: Vital Signs: Vital Signs Date Time Temp Pulse Resp B/P (MAP) Pulse Ox O2 Delivery O2 Flow Rate FiO2 08/24/17 16:34 97.2 84 20 125/62 (83) 98 Room Air I&O Intake and Output 08/24/17 07:00 Intake Total 840 ml Balance 840 ml Intake Oral 840 ml # Voids 2 Current Medications: Meds: Current Medications Acetaminophen (Tylenol) 650 mg PRN Q6HRS PRN PO PAIN / TEMP; Start 08/15/17 at 17:15; Status Cancel Multi-Ingredient Ointment (Analgesic [place]) 1 ronni PRN QID PRN TP MUSCLE PAIN; Start 08/15/17 at 17:15 Al Hydroxide/Mg Hydroxide (Mylanta Plus Xs) 15 ml PRN AFTMEALHC PRN PO DYSPEPSIA; Start 08/15/17 at 17:15 Magnesium Hydroxide (Milk Of Magnesia) 2,400 mg PRN QHS PRN PO CONSTIPATION; Start 08/15/17 at 17:15; Status Cancel Acetaminophen (Tylenol) 650 mg BID PO Last administered on 08/24/17at 19:12; Start 08/15/17 at 21:00 Acetaminophen (Tylenol) 650 mg PRN Q6HRS PRN PO PAIN / TEMP; Start 08/15/17 at 18:15 Docusate Sodium (Colace) 100 mg BID PO Last administered on 08/24/17at 19:11; Start 08/15/17 at 21:00 Ferrous Sulfate (Feosol) 325 mg DAILY PO Last administered on 08/24/17at 08:19; Start 08/16/17 at 09:00 Fluticasone Propionate (Flonase) 2 spray DAILY NS Last administered on at 08:20; Start 08/16/17 at 09:00; Stop 08/24/17 at 16:52; Status DC Magnesium Hydroxide (Milk Of Magnesia) 2,400 mg PRN DAILY PRN PO CONSTIPATION Last administered on 08/22/17 18:28; Start 08/15/17 at 18:15 Non-Formulary Medication 1 tab BID PO ; Start 08/15/17 at 21:00; Status UNV Vitamin D (Vitamin D3) 500 unit DAILY PO Last administered on 08/24/17 08:19; Start 08/16/17 at 09:00 Ketorolac Tromethamine (Acular) 1 drop QID OS Last administered on 08/24/17 08 :20; Start 08/15/17 at 21:00; Stop 08/24/17 at 16:52; Status DC Lactobacillus Rhamnosus (Culturelle) 1 cap BID PO Last administered on 19:11; Start 08/15/17 at 21:00 Multivitamins/ Calcium (Thera-M Plus) 1 tab DAILY PO Last administered on 08:19; Start 08/16/17 at 09:00 Ondansetron HCl (Zofran Odt) 4 mg PRN Q4HRS PRN PO NAUSEA/VOMITING Last administered on 08/22/17 01:49; Start 08/15/17 at 18:45 Olanzapine (ZyPREXA ZYDIS) 2.5 mg PRN Q2HR PRN PO PSYCHOSIS Last administered on 08/24/17 10:10; Start 08/16/17 at 18:30 Quetiapine Fumarate (SEROquel) 12.5 mg 0900,1300 PO Last administered on 08:00; Start 08/17/17 at 09:00; Stop 08/17/17 at 22:38; Status DC Potassium Chloride (Klor-Con) 20 meq BID PO Last administered on 08/24/17 19: 11; Start 08/17/17 at 21:00 Quetiapine Fumarate (SEROquel) 12.5 mg 0700,1100,1400,1700 PO Last administered on 08/24/17 18:07; Start 08/18/17 at 07:00 Mirtazapine (Remeron) 7.5 mg QHS PO Last administered on 08/18/17 20:18; Start 08/17/17 at 23:00; Stop 08/19/17 at 18:10; Status DC Mirtazapine (Remeron) 15 mg QHS PO Last administered on 08/24/17at 19:12; Start 08/19/17 at 21:00 Trazodone HCl (Desyrel) 50 mg QHS PO Last administered on 08/24/17at 19:11; Start 08/19/17 at 21:00 Trazodone HCl (Desyrel) 50 mg PRN QHS PRN PO insomnia Last administered on at 23:37; Start 08/19/17 at 18:15 Magnesium Citrate (Citroma) 148 ml PRN 1X PRN PO CONSTIPATION; Start 08/23/17 at 07:45 Fluticasone Propionate (Flonase) 2 spray PRN DAILY NS ; Start 08/25/17 at 09:00 Active Scripts Active Reported EXELON 4.6mg/24hr (Rivastigmine) 1 Each Patch.td24 1 Patch TD DAILY Zyvox (Linezolid) 600 Mg Tablet 600 Mg PO BID Lovenox (Enoxaparin Sodium) 30 Mg/0.3 Ml Disp.syrin 30 Mg SQ Q24H Thera-M (Multivits,Th W-Fe,Other Min) 1 Each Tablet 1 Tab PO DAILY Milk Of Magnesia (Magnesium Hydroxide) 400 Mg/5 Ml Oral.susp 2,400 Mg PO PRN DAILY PRN Culturelle (Lactobacillus Rhamnosus Gg) 1 Each Capsule 1 Cap PO BID Fluticasone Propionate Nasal [place] (Fluticasone Propionate) 16 Gm [place].susp 2 [place] NS DAILY Zofran (Ondansetron Hcl) 4 Mg Tablet 4 Mg PO PRN Q4HRS PRN Vitamin D-400 (Cholecalciferol (Vitamin D3)) 400 Unit Tablet 500 Unit PO DAILY Tylenol (Acetaminophen) 325 Mg Tablet 650 Mg PO BID Tylenol (Acetaminophen) 325 Mg Tablet 650 Mg PO PRN Q6HRS PRN Ketorolac Tromethamine 5 Ml Drops 1 Drop LEFTEYE QID Ferrous Sulfate 325 Mg Tablet 325 Mg PO DAILY Colace (Docusate Sodium) 100 Mg Capsule 100 Mg PO BID Nadeem Mag Zinc + D3 Tablet (Ca Carb/Vit D3/Mag Ox/Zn Oxide) 1 Each Tablet 1 Tab PO BID I have reviewed the current psychotropics carefully including drug interactions. Risk benefit ratio favors no change other than as noted in my dictated progress note. Diagnosis: Problems: (1) Dementia with behavioral disturbance (2) Anxiety disorder (3) Dementia in Alzheimer's disease with delusions (4) Dementia in Alzheimer's disease with depression (5) Dementia, vascular, with delusions (6) Dementia, vascular, with depression (7) Impulse control disorder LAUREN CASILLAS MD Aug 24, 2017 21:35
[2017-08-24] MEDS: traZODone 50 MG TABLET. PO PRN (23:53)
[2017-08-25] MEDS: QUEtiapine 25 MG TABLET. PO SCH ×4 (05:35→17:00)
[2017-08-25 06:33] VITALS: BP 119/76
[2017-08-25] MEDS: FERROUS SULFATE 325 MG TABLET. PO SCH (07:44)
[2017-08-25] MEDS: POTASSIUM CHLORIDE 20 MEQ TABLET.ER. PO SCH ×2 (07:44→20:55)
[2017-08-25] MEDS: LACTOBACILLUS RHAMNOSUS GG 1 CAPSULE. PO SCH ×2 (07:44→20:55)
[2017-08-25] MEDS: MULTIVITAMIN with MINERAL TABLET. PO SCH (07:45)
[2017-08-25] MEDS: ACETAMINOPHEN 325 MG TABLET PO SCH ×2 (07:45→20:55)
[2017-08-25] MEDS: CHOLECALCIFEROL (VITAMIN D3) 1,000 UNIT TABLET PO SCH (07:45)
[2017-08-25] MEDS: DOCUSATE SODIUM 100 MG CAPSULE PO SCH ×2 (07:45→20:55)
[2017-08-25] MEDS: MAGNESIUM HYDROXIDE 2,400 MG/30 ML ORAL.SUSP. PO PRN (09:00)
[2017-08-25] MEDS ORDERED: FLUTICASONE 50MCG/NASAL SPRAY 16GM BOTTLE. NS SCH (09:00)
--- NOTE | 2017-08-25 10:19 | NUR ---
pt noted to have no BM x 4days, attempted to give mag citrate the day before but pt spit out. gave MOM in chocolate boost this am. will continue to monitor.
--- NOTE | 2017-08-25 10:35 | NUR ---
Behavior Intervention Response and Plan: BIRP Note: Behavior: Assumed Care of patient, patient located in Dining Room at shift change. Patient exhibited the following behavior Disorganized, Compliant, Drowsy. Brief assessment on rounds of vital signs, medication needs, lab studies, and pain. Treatment plan problems . Intervention: Patient assessed and the following interventions initiated safety checks 15 Minute Checks Cognitive Assessment , Head to toe Assessment , Medications. Response: After interactions and interventions patient responded in the following manner, Disorganized , Compliant ,Withdrawn. Continue to assess behaviors and condition will continue to monitor throughout the shift as needed. Patient educated on ADL's, and hand hygiene. 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 Continue to assess patient for changes in above assessment. Monitor for medication needs, pain, and safety concerns. Hourly rounding performed to ensure safe environment.
[2017-08-25] MEDS: hydrOXYzine HCL 10 MG TABLET PO PRN (13:18)
--- NOTE | 2017-08-25 14:26 | PN ---
DATE: 08/23/2017 PSYCHIATRIC PROGRESS NOTE This late entry date of service 08/23/2017 covers elements not covered in my initial note of 08/23/2017. SUBJECTIVE: Met with the patient in the evening of 08/23/2017. The patient has poor oral intake, did eat breakfast. KUB was done for chronic constipation showed moderate stool, spit out her magnesium citrate, intermittently aggressive ____. REVIEW OF SYSTEMS: No CV, , pulmonary, eye, ENT system symptoms on review. Reliability is poor. MENTAL STATUS EXAM: Oriented to herself. Insight, judgment, recent and remote memory, attention, concentration, fund of knowledge poor, consistent with her diagnoses. Walks somewhat bent forward. LABORATORY DATA: Reviewed. IMPRESSION: Unchanged from initial note. PLAN: Continue current psychotropics. MAN Jc CASILLAS MD DR: MIGUEL A/nahed JOB#: [id number] / [id number]
[2017-08-25 16:30] VITALS: BP 122/74
--- NOTE | 2017-08-25 17:06 | NUR ---
pt up adl in halls. visiting with peers. has been in pleasant spirits. out to meals. appetite fair. PRN atarax given prior to usual afternoon irritable episodes. remains in pleasant spirits.
--- NOTE | 2017-08-25 19:40 | PN ---
DATE: 08/24/2017 PSYCHIATRIC PROGRESS NOTE This late entry 08/24/2017 covers elements not covered in the initial note of 08/24/2017. SUBJECTIVE: Met with the patient in the evening of 08/24/2017. She has been anxious, restless, somewhat labile, banging on the glass window of the nursing station, crawling on the floor at other times, confused, walks bent forward at her waist. REVIEW OF SYSTEMS: No CV, , pulmonary, eye, ENT system symptoms on review. Paranoid as I met with her. MENTAL STATUS EXAM: Oriented to herself. Insight, judgment, recent and remote memory, attention, concentration, fund of knowledge poor, consistent with her diagnoses mentioned in my initial note. PLAN: Continue current psychotropics, may need to increase Seroquel further in the next day or two. MAN Jc CASILLAS MD DR: MIGUEL A/nahed JOB#: [id number] / [id number]
[2017-08-25] MEDS: traZODone 50 MG TABLET. PO SCH (20:55)
[2017-08-25] MEDS: MIRTAZAPINE 15 MG TABLET PO SCH (20:55)
--- NOTE | 2017-08-25 21:16 | PDOC ---
Exam Note: Allen Note: Please also refer to the separate dictated note~for this date of service dictated separately.~Patient seen individually. Discussed the patient with Nursing staff reviewed the chart.~Reviewed interim history and current functioning. Reviewed vital signs,~Labs/ Radiology~and current medications noted below. Continue current treatment with the changes noted in the dictated addendum note Assessment: Vital Signs: Vital Signs Date Time Temp Pulse Resp B/P (MAP) Pulse Ox O2 Delivery O2 Flow Rate FiO2 08/25/17 16:30 97.7 83 18 122/74 (90) 98 08/24/17 16:34 Room Air I&O Intake and Output 08/25/17 07:00 Intake Total 540 ml Balance 540 ml Intake Oral 540 ml # Voids 2 Current Medications: Meds: Current Medications Acetaminophen (Tylenol) 650 mg PRN Q6HRS PRN PO PAIN / TEMP; Start 08/15/17 at 17:15; Status Cancel Multi-Ingredient Ointment (Analgesic [place]) 1 ronni PRN QID PRN TP MUSCLE PAIN; Start 08/15/17 at 17:15 Al Hydroxide/Mg Hydroxide (Mylanta Plus Xs) 15 ml PRN AFTMEALHC PRN PO DYSPEPSIA; Start 08/15/17 at 17:15 Magnesium Hydroxide (Milk Of Magnesia) 2,400 mg PRN QHS PRN PO CONSTIPATION; Start 08/15/17 at 17:15; Status Cancel Acetaminophen (Tylenol) 650 mg BID PO Last administered on 08/25/17at 20:55; Start 08/15/17 at 21:00 Acetaminophen (Tylenol) 650 mg PRN Q6HRS PRN PO PAIN / TEMP; Start 08/15/17 at 18:15 Docusate Sodium (Colace) 100 mg BID PO Last administered on 08/25/17at 20:55; Start 08/15/17 at 21:00 Ferrous Sulfate (Feosol) 325 mg DAILY PO Last administered on 08/25/17at 07:44; Start 08/16/17 at 09:00 Fluticasone Propionate (Flonase) 2 spray DAILY NS Last administered on at 08:20; Start 08/16/17 at 09:00; Stop 08/24/17 at 16:52; Status DC Magnesium Hydroxide (Milk Of Magnesia) 2,400 mg PRN DAILY PRN PO CONSTIPATION Last administered on 08/25/17 09:00; Start 08/15/17 at 18:15 Non-Formulary Medication 1 tab BID PO ; Start 08/15/17 at 21:00; Status UNV Vitamin D (Vitamin D3) 500 unit DAILY PO Last administered on 08/25/17 07:45; Start 08/16/17 at 09:00 Ketorolac Tromethamine (Acular) 1 drop QID OS Last administered on 08/24/17 08 :20; Start 08/15/17 at 21:00; Stop 08/24/17 at 16:52; Status DC Lactobacillus Rhamnosus (Culturelle) 1 cap BID PO Last administered on 20:55; Start 08/15/17 at 21:00 Multivitamins/ Calcium (Thera-M Plus) 1 tab DAILY PO Last administered on 07:45; Start 08/16/17 at 09:00 Ondansetron HCl (Zofran Odt) 4 mg PRN Q4HRS PRN PO NAUSEA/VOMITING Last administered on 08/22/17at 01:49; Start 08/15/17 at 18:45 Olanzapine (ZyPREXA ZYDIS) 2.5 mg PRN Q2HR PRN PO PSYCHOSIS Last administered on 08/24/17 10:10; Start 08/16/17 at 18:30 Quetiapine Fumarate (SEROquel) 12.5 mg 0900,1300 PO Last administered on 08:00; Start 08/17/17 at 09:00; Stop 08/17/17 at 22:38; Status DC Potassium Chloride (Klor-Con) 20 meq BID PO Last administered on 08/25/17at 20: 55; Start 08/17/17 at 21:00 Quetiapine Fumarate (SEROquel) 12.5 mg 0700,1100,1400,1700 PO Last administered on 08/25/17at 17:00; Start 08/18/17 at 07:00 Mirtazapine (Remeron) 7.5 mg QHS PO Last administered on 08/18/17 20:18; Start 08/17/17 at 23:00; Stop 08/19/17 at 18:10; Status DC Mirtazapine (Remeron) 15 mg QHS PO Last administered on 08/25/17at 20:55; Start 08/19/17 at 21:00 Trazodone HCl (Desyrel) 50 mg QHS PO Last administered on 08/25/17at 20:55; Start 08/19/17 at 21:00 Trazodone HCl (Desyrel) 50 mg PRN QHS PRN PO insomnia Last administered on at 23:37; Start 08/19/17 at 18:15 Magnesium Citrate (Citroma) 148 ml PRN 1X PRN PO CONSTIPATION; Start 08/23/17 at 07:45 Fluticasone Propionate (Flonase) 2 spray PRN DAILY NS ; Start 08/25/17 at 09:00 Hydroxyzine HCl (Atarax) 10 mg PRN Q2HR PRN PO AGITATION Last administered on at 13:18; Start 08/25/17 at 10:45 Active Scripts Active Reported EXELON 4.6mg/24hr (Rivastigmine) 1 Each Patch.td24 1 Patch TD DAILY Zyvox (Linezolid) 600 Mg Tablet 600 Mg PO BID Lovenox (Enoxaparin Sodium) 30 Mg/0.3 Ml Disp.syrin 30 Mg SQ Q24H Thera-M (Multivits, W-,Other Min) 1 Each Tablet 1 Tab PO DAILY Milk Of Magnesia (Magnesium Hydroxide) 400 Mg/5 Ml Oral.susp 2,400 Mg PO PRN DAILY PRN Culturelle (Lactobacillus Rhamnosus Gg) 1 Each Capsule 1 Cap PO BID Fluticasone Propionate Nasal [place] (Fluticasone Propionate) 16 Gm [place].susp 2 [place] NS DAILY Zofran (Ondansetron Hcl) 4 Mg Tablet 4 Mg PO PRN Q4HRS PRN Vitamin D-400 (Cholecalciferol (Vitamin D3)) 400 Unit Tablet 500 Unit PO DAILY Tylenol (Acetaminophen) 325 Mg Tablet 650 Mg PO BID Tylenol (Acetaminophen) 325 Mg Tablet 650 Mg PO PRN Q6HRS PRN Ketorolac Tromethamine 5 Ml Drops 1 Drop LEFTEYE QID Ferrous Sulfate 325 Mg Tablet 325 Mg PO DAILY Colace (Docusate Sodium) 100 Mg Capsule 100 Mg PO BID Nadeem Mag Zinc + D3 Tablet (Ca Carb/Vit D3/Mag Ox/Zn Oxide) 1 Each Tablet 1 Tab PO BID I have reviewed the current psychotropics carefully including drug interactions. Risk benefit ratio favors no change other than as noted in my dictated progress note. 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
[2017-08-26] MEDS: traZODone 50 MG TABLET. PO PRN ×2 (00:15→02:13)
--- NOTE | 2017-08-26 00:20 | NUR ---
Behavior Intervention Response and Plan: BIRP Note: Behavior: Assumed Care of patient, patient located in Day Room at shift change. Patient exhibited the following behavior Wandering, Restless, Disorganized. Brief assessment on rounds of vital signs, medication needs, lab studies, and pain. Treatment plan problems :1-2 Intervention: Patient assessed and the following interventions initiated safety checks 15 Minute Checks Cognitive Assessment , Head to toe Assessment , Medications. Response: After interactions and interventions patient responded in the following manner, Disorganized , Restless ,Restless. Continue to assess behaviors and condition will continue to monitor throughout the shift as needed. Patient educated on ADL's, and hand hygiene. 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 Continue to assess patient for changes in above assessment. Monitor for medication needs, pain, and safety concerns. Hourly rounding performed to ensure safe environment.
[2017-08-26 06:10] VITALS: BP 150/75
[2017-08-26] MEDS: CHOLECALCIFEROL (VITAMIN D3) 1,000 UNIT TABLET PO SCH ×2 (08:12→09:00)
[2017-08-26] MEDS: QUEtiapine 25 MG TABLET. PO SCH ×5 (08:12→17:25)
[2017-08-26] MEDS: LACTOBACILLUS RHAMNOSUS GG 1 CAPSULE. PO SCH ×3 (08:12→21:06)
[2017-08-26] MEDS: DOCUSATE SODIUM 100 MG CAPSULE PO SCH ×3 (08:13→21:06)
[2017-08-26] MEDS: POTASSIUM CHLORIDE 20 MEQ TABLET.ER. PO SCH ×3 (08:13→21:06)
[2017-08-26] MEDS: MULTIVITAMIN with MINERAL TABLET. PO SCH ×2 (08:13→09:00)
[2017-08-26] MEDS: FERROUS SULFATE 325 MG TABLET. PO SCH ×2 (08:13→09:00)
[2017-08-26] MEDS: ACETAMINOPHEN 325 MG TABLET PO SCH ×3 (08:14→21:07)
--- NOTE | 2017-08-26 09:52 | NUR ---
Nursing Note: Attempted to admin pt's morning medication at breakfast. Pt extremely tired. Only able to admin. Seroquel 12.5 mg which was due at 0700. Night nurse reported that pt took medications well last night; however, pt would not remain in bed and finally fell asleep in day room. She accumulated 5.5 hours of sleep, but most likely it was not quality sleep. Will attempt to admin the remainder of pt's med with morning snack.
--- NOTE | 2017-08-26 12:29 | NUR ---
Nursing Note: Pt still very tired at lunch time. Unable to wake pt to eat lunch and therefore unable to admin noon dose of Seroquel 12.5 mg. Will continue to monitor pt.
--- NOTE | 2017-08-26 15:05 | NUR ---
Nursing Note: Attempted to admin pt's 1400 dose of Seroquel. Again pt much too sleepy and refused to wake up to take the medication. Will notify doctor during his rounds.
[2017-08-26 16:12] VITALS: BP 142/86
--- NOTE | 2017-08-26 17:52 | NUR ---
Behavior Intervention Response and Plan: BIRP Note: Behavior: Assumed Care of patient, patient located in Dining Room at shift change. Patient exhibited the following behavior Drowsy, Resistive, Disorganized. Brief assessment on rounds of vital signs, medication needs, lab studies, and pain. Treatment plan problems dementia w/ bd and fall risk. Intervention: Patient assessed and the following interventions initiated safety checks 15 Minute Checks Medications , Head to toe Assessment , Cognitive Assessment. Response: After interactions and interventions patient responded in the following manner, Sleeping , Drowsy ,Disorganized. Continue to assess behaviors and condition will continue to monitor throughout the shift as needed. Patient educated on ADL's, and hand hygiene. 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 Continue to assess patient for changes in above assessment. Monitor for medication needs, pain, and safety concerns. Hourly rounding performed to ensure safe environment.
--- NOTE | 2017-08-26 20:39 | PDOC ---
Exam Note: Allen Note: Please also refer to the separate dictated note~for this date of service dictated separately.~Patient seen individually. Discussed the patient with Nursing staff reviewed the chart.~Reviewed interim history and current functioning. Reviewed vital signs,~Labs/ Radiology~and current medications noted below. Continue current treatment with the changes noted in the dictated addendum note Assessment: Vital Signs: Vital Signs Date Time Temp Pulse Resp B/P (MAP) Pulse Ox O2 Delivery O2 Flow Rate FiO2 08/26/17 16:12 97.6 61 20 142/86 (104) 98 08/24/17 16:34 Room Air I&O Intake and Output 08/26/17 07:00 Intake Total 720 ml Balance 720 ml Intake Oral 720 ml # Voids 1 Current Medications: Meds: Current Medications Acetaminophen (Tylenol) 650 mg PRN Q6HRS PRN PO PAIN / TEMP; Start 08/15/17 at 17:15; Status Cancel Multi-Ingredient Ointment (Analgesic [place]) 1 ronni PRN QID PRN TP MUSCLE PAIN; Start 08/15/17 at 17:15 Al Hydroxide/Mg Hydroxide (Mylanta Plus Xs) 15 ml PRN AFTMEALHC PRN PO DYSPEPSIA; Start 08/15/17 at 17:15 Magnesium Hydroxide (Milk Of Magnesia) 2,400 mg PRN QHS PRN PO CONSTIPATION; Start 08/15/17 at 17:15; Status Cancel Acetaminophen (Tylenol) 650 mg BID PO Last administered on 08/25/17at 20:55; Start 08/15/17 at 21:00 Acetaminophen (Tylenol) 650 mg PRN Q6HRS PRN PO PAIN / TEMP; Start 08/15/17 at 18:15 Docusate Sodium (Colace) 100 mg BID PO Last administered on 08/25/17at 20:55; Start 08/15/17 at 21:00 Ferrous Sulfate (Feosol) 325 mg DAILY PO Last administered on 08/25/17at 07:44; Start 08/16/17 at 09:00 Fluticasone Propionate (Flonase) 2 spray DAILY NS Last administered on at 08:20; Start 08/16/17 at 09:00; Stop 08/24/17 at 16:52; Status DC Magnesium Hydroxide (Milk Of Magnesia) 2,400 mg PRN DAILY PRN PO CONSTIPATION Last administered on 08/25/17 09:00; Start 08/15/17 at 18:15 Non-Formulary Medication 1 tab BID PO ; Start 08/15/17 at 21:00; Status UNV Vitamin D (Vitamin D3) 500 unit DAILY PO Last administered on 08/25/17 07:45; Start 08/16/17 at 09:00 Ketorolac Tromethamine (Acular) 1 drop QID OS Last administered on 08/24/17 08 :20; Start 08/15/17 at 21:00; Stop 08/24/17 at 16:52; Status DC Lactobacillus Rhamnosus (Culturelle) 1 cap BID PO Last administered on 20:55; Start 08/15/17 at 21:00 Multivitamins/ Calcium (Thera-M Plus) 1 tab DAILY PO Last administered on 07:45; Start 08/16/17 at 09:00 Ondansetron HCl (Zofran Odt) 4 mg PRN Q4HRS PRN PO NAUSEA/VOMITING Last administered on 08/22/17at 01:49; Start 08/15/17 at 18:45 Olanzapine (ZyPREXA ZYDIS) 2.5 mg PRN Q2HR PRN PO PSYCHOSIS Last administered on 08/24/17 10:10; Start 08/16/17 at 18:30 Quetiapine Fumarate (SEROquel) 12.5 mg 0900,1300 PO Last administered on 08:00; Start 08/17/17 at 09:00; Stop 08/17/17 at 22:38; Status DC Potassium Chloride (Klor-Con) 20 meq BID PO Last administered on 08/25/17at 20: 55; Start 08/17/17 at 21:00 Quetiapine Fumarate (SEROquel) 12.5 mg 0700,1100,1400,1700 PO Last administered on 08/26/17 17:25; Start 08/18/17 at 07:00 Mirtazapine (Remeron) 7.5 mg QHS PO Last administered on 08/18/17 20:18; Start 08/17/17 at 23:00; Stop 08/19/17 at 18:10; Status DC Mirtazapine (Remeron) 15 mg QHS PO Last administered on 08/25/17at 20:55; Start 08/19/17 at 21:00 Trazodone HCl (Desyrel) 50 mg QHS PO Last administered on 08/25/17at 20:55; Start 08/19/17 at 21:00 Trazodone HCl (Desyrel) 50 mg PRN QHS PRN PO insomnia Last administered on at 23:37; Start 08/19/17 at 18:15 Magnesium Citrate (Citroma) 148 ml PRN 1X PRN PO CONSTIPATION; Start 08/23/17 at 07:45 Fluticasone Propionate (Flonase) 2 spray PRN DAILY NS ; Start 08/25/17 at 09:00 Hydroxyzine HCl (Atarax) 10 mg PRN Q2HR PRN PO AGITATION Last administered on at 13:18; Start 08/25/17 at 10:45 Active Scripts Active Reported EXELON 4.6mg/24hr (Rivastigmine) 1 Each Patch.td24 1 Patch TD DAILY Zyvox (Linezolid) 600 Mg Tablet 600 Mg PO BID Lovenox (Enoxaparin Sodium) 30 Mg/0.3 Ml Disp.syrin 30 Mg SQ Q24H Thera-M (Multivits, W-,Other Min) 1 Each Tablet 1 Tab PO DAILY Milk Of Magnesia (Magnesium Hydroxide) 400 Mg/5 Ml Oral.susp 2,400 Mg PO PRN DAILY PRN Culturelle (Lactobacillus Rhamnosus Gg) 1 Each Capsule 1 Cap PO BID Fluticasone Propionate Nasal [place] (Fluticasone Propionate) 16 Gm [place].susp 2 [place] NS DAILY Zofran (Ondansetron Hcl) 4 Mg Tablet 4 Mg PO PRN Q4HRS PRN Vitamin D-400 (Cholecalciferol (Vitamin D3)) 400 Unit Tablet 500 Unit PO DAILY Tylenol (Acetaminophen) 325 Mg Tablet 650 Mg PO BID Tylenol (Acetaminophen) 325 Mg Tablet 650 Mg PO PRN Q6HRS PRN Ketorolac Tromethamine 5 Ml Drops 1 Drop LEFTEYE QID Ferrous Sulfate 325 Mg Tablet 325 Mg PO DAILY Colace (Docusate Sodium) 100 Mg Capsule 100 Mg PO BID Nadeem Mag Zinc + D3 Tablet (Ca Carb/Vit D3/Mag Ox/Zn Oxide) 1 Each Tablet 1 Tab PO BID I have reviewed the current psychotropics carefully including drug interactions. Risk benefit ratio favors no change other than as noted in my dictated progress note. 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
[2017-08-26] MEDS: MIRTAZAPINE 15 MG TABLET PO SCH (21:06)
[2017-08-26] MEDS: traZODone 50 MG TABLET. PO SCH (21:07)
--- NOTE | 2017-08-26 22:07 | PN ---
DATE: 08/25/2017 This is a late entry for 08/25/2017 covers elements not covered in my initial note of 08/25/2017. SUBJECTIVE: I met with the patient in the evening of 08/25/2017. The patient had a BM on 08/25/2017, had a better day, anxious. We will start Atarax 10 mg q. 2 hours p.r.n. anxiety, max 70 mg in 24 hours. Nursing staff had paged me earlier on 08/25/2017 due to her anxiety and we initiated this. REVIEW OF SYSTEMS: No CV, , pulmonary, eye, ENT system symptoms on review. Reliability poor. MENTAL STATUS EXAM: Oriented to herself. Insight, judgment, recent and remote memory, attention, concentration, fund of knowledge poor, consistent with her diagnosis mentioned in my initial note. PLAN: Continue current psychotropics. Adjust further as clinically indicated. MAN Jc CASILLAS MD DR: MIGUEL A/nahed JOB#: [id number] / [id number]
--- NOTE | 2017-08-27 00:19 | NUR ---
Behavior Intervention Response and Plan: BIRP Note: Behavior: Assumed Care of patient, patient located in Day Room at shift change. Patient exhibited the following behavior Restless, Disorganized, Irritable. Brief assessment on rounds of vital signs, medication needs, lab studies, and pain. Treatment plan problems Dementia with BD and Delusions, Fall Risk. Intervention: Patient assessed and the following interventions initiated safety checks 15 Minute Checks Cognitive Assessment , Medications , Oral Hydration. Response: After interactions and interventions patient responded in the following manner, Disorganized , Agitated ,Resistive. Continue to assess behaviors and condition will continue to monitor throughout the shift as needed. Patient educated on ADL's, and hand hygiene. Plan: Continue to monitor Master Treatment Plan for patient's progress toward short term goals of Decreased Agitation, Decreased Anxiety, group home goals to return to previous living setting vs placement. Continue to assess patient for changes in above assessment. Monitor for medication needs, pain, and safety concerns. Hourly rounding performed to ensure safe environment.
[2017-08-27] MEDS: QUEtiapine 25 MG TABLET. PO SCH ×8 (06:03→16:55)
[2017-08-27 06:10] VITALS: BP 156/79
[2017-08-27] MEDS: POTASSIUM CHLORIDE 20 MEQ TABLET.ER. PO SCH ×3 (09:00→19:46)
[2017-08-27] MEDS: MULTIVITAMIN with MINERAL TABLET. PO SCH ×2 (09:00→09:12)
[2017-08-27] MEDS: LACTOBACILLUS RHAMNOSUS GG 1 CAPSULE. PO SCH ×3 (09:00→19:45)
[2017-08-27] MEDS: DOCUSATE SODIUM 100 MG CAPSULE PO SCH ×3 (09:00→19:46)
[2017-08-27] MEDS: ACETAMINOPHEN 325 MG TABLET PO SCH ×3 (09:00→19:46)
[2017-08-27] MEDS: CHOLECALCIFEROL (VITAMIN D3) 1,000 UNIT TABLET PO SCH ×2 (09:00→09:13)
[2017-08-27] MEDS: FERROUS SULFATE 325 MG TABLET. PO SCH ×2 (09:00→09:12)
--- NOTE | 2017-08-27 09:30 | NUR ---
Attempted to administer AM medication. Pt laying in bed without opening eyes pt states "I just want to sleep! Can't you see that!" This RN informed pt that she had medication that she needed to take but pt refused. This RN attempted to assess pt but pt refused and hit pt stating "just leave me alone!" Will attempt to administer AM medications at lunch. Will continue to monitor.
--- NOTE | 2017-08-27 10:00 | NUR ---
TONY spoke with pt facility yesterday, SW provided update. SW faxed update this am.
--- NOTE | 2017-08-27 13:02 | NUR ---
Pt stayed in bed until lunch, when pt resistively walked to lunch stating "I don't want to eat anything, I just want to sleep!" When a staff member brought pts lunch tray pt stated "You better not set that down or it will just end up on the floor!" Multiple attempts were made to offer pt lunch but pt refused each time. Pt eventually feel asleep in the chair. Pt refused to take her medication so her 0700 and 1100 doses of Seroquel have been held. Will continue to monitor. Addendum: 08/27/17 at 1736 by JAQUI TOBAR RN Multiple attempts made to administer pts 1400 dose of Seroquel pt sleeping in bed and refused. Without opening eyes pt stated "I don't take any medication." Pt later wandering in the hallway and attempts made to administer medication. Pt stated "I'm leaving, I need to get out of here right now." "Who are you? Why do you think I need to take that medication?" This RN informed pt of the importance of taking her medication and pt walked off saying "I advanced you!" Pt later refused vital signs became very agitated and aggressive. Pt then went into the day room outside and attempted to climb the fence to get out. [facility], door checking and yelling "Unlock these doors! I need to get out of here." Pt was later seen hitting the door with a chair. Attempted to administer PRN medication but pt had laid herself down on the ground and pretended to fall asleep. Pt eventually feel asleep on the ground. PRN Zyprexa and Seroquel successfully administered in water after pt woke up. Pt pleasantly walked down to dinner with this RN. Will continue to monitor.
--- NOTE | 2017-08-27 15:22 | NUR ---
Behavior Intervention Response and Plan: BIRP Note: Behavior: Assumed Care of patient, patient located in Patient Room at shift change. Patient exhibited the following behavior Sleeping, Withdrawn, Irritable. Brief assessment on rounds of vital signs, medication needs, lab studies, and pain. Treatment plan problems 1-2. Intervention: Patient assessed and the following interventions initiated safety checks 15 Minute Checks Cognitive Assessment , Head to toe Assessment , Medications. Response: After interactions and interventions patient responded in the following manner, Irritable , Resistive ,Non Compliant with Meds. Continue to assess behaviors and condition will continue to monitor throughout the shift as needed. Patient educated on ADL's, and hand hygiene. 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 Continue to assess patient for changes in above assessment. Monitor for medication needs, pain, and safety concerns. Hourly rounding performed to ensure safe environment.
[2017-08-27] MEDS: traZODone 50 MG TABLET. PO SCH (19:46)
[2017-08-27] MEDS: MIRTAZAPINE 15 MG TABLET PO SCH (19:46)
--- NOTE | 2017-08-27 21:07 | NUR ---
Behavior Intervention Response and Plan: BIRP Note: Behavior: Assumed Care of patient, patient located in Patient Room at shift change. Patient exhibited the following behavior Drowsy, Agitated, Calm. Brief assessment on rounds of vital signs, medication needs, lab studies, and pain. Treatment plan problems Dementia with BD and Delusions, Fall Risk. Intervention: Patient assessed and the following interventions initiated safety checks 15 Minute Checks Cognitive Assessment , Medications , Nutrition. Response: After interactions and interventions patient responded in the following manner, Drowsy , Sleeping ,Compliant. Continue to assess behaviors and condition will continue to monitor throughout the shift as needed. Patient educated on ADL's, and hand hygiene. 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 Continue to assess patient for changes in above assessment. Monitor for medication needs, pain, and safety concerns. Hourly rounding performed to ensure safe environment.
--- NOTE | 2017-08-27 22:31 | PDOC ---
Exam Note: Allen Note: Please also refer to the separate dictated note~for this date of service dictated separately.~Patient seen individually. Discussed the patient with Nursing staff reviewed the chart.~Reviewed interim history and current functioning. Reviewed vital signs,~Labs/ Radiology~and current medications noted below. Continue current treatment with the changes noted in the dictated addendum note Assessment: Vital Signs: Vital Signs Date Time Temp Pulse Resp B/P (MAP) Pulse Ox O2 Delivery O2 Flow Rate FiO2 08/27/17 06:10 97.0 67 18 156/79 (104) 97 08/24/17 16:34 Room Air I&O Intake and Output 08/27/17 07:00 Intake Total 240 ml Balance 240 ml Intake Oral 240 ml # Voids 1 Current Medications: Meds: Current Medications Acetaminophen (Tylenol) 650 mg PRN Q6HRS PRN PO PAIN / TEMP; Start 08/15/17 at 17:15; Status Cancel Multi-Ingredient Ointment (Analgesic [place]) 1 ronni PRN QID PRN TP MUSCLE PAIN; Start 08/15/17 at 17:15 Al Hydroxide/Mg Hydroxide (Mylanta Plus Xs) 15 ml PRN AFTMEALHC PRN PO DYSPEPSIA; Start 08/15/17 at 17:15 Magnesium Hydroxide (Milk Of Magnesia) 2,400 mg PRN QHS PRN PO CONSTIPATION; Start 08/15/17 at 17:15; Status Cancel Acetaminophen (Tylenol) 650 mg BID PO Last administered on 08/27/17at 19:46; Start 08/15/17 at 21:00 Acetaminophen (Tylenol) 650 mg PRN Q6HRS PRN PO PAIN / TEMP; Start 08/15/17 at 18:15 Docusate Sodium (Colace) 100 mg BID PO Last administered on 08/27/17at 19:46; Start 08/15/17 at 21:00 Ferrous Sulfate (Feosol) 325 mg DAILY PO Last administered on 08/25/17at 07:44; Start 08/16/17 at 09:00 Fluticasone Propionate (Flonase) 2 spray DAILY NS Last administered on at 08:20; Start 08/16/17 at 09:00; Stop 08/24/17 at 16:52; Status DC Magnesium Hydroxide (Milk Of Magnesia) 2,400 mg PRN DAILY PRN PO CONSTIPATION Last administered on 08/25/17 09:00; Start 08/15/17 at 18:15 Non-Formulary Medication 1 tab BID PO ; Start 08/15/17 at 21:00; Status UNV Vitamin D (Vitamin D3) 500 unit DAILY PO Last administered on 08/25/17 07:45; Start 08/16/17 at 09:00 Ketorolac Tromethamine (Acular) 1 drop QID OS Last administered on 08/24/17 08 :20; Start 08/15/17 at 21:00; Stop 08/24/17 at 16:52; Status DC Lactobacillus Rhamnosus (Culturelle) 1 cap BID PO Last administered on 19:45; Start 08/15/17 at 21:00 Multivitamins/ Calcium (Thera-M Plus) 1 tab DAILY PO Last administered on 07:45; Start 08/16/17 at 09:00 Ondansetron HCl (Zofran Odt) 4 mg PRN Q4HRS PRN PO NAUSEA/VOMITING Last administered on 08/22/17 01:49; Start 08/15/17 at 18:45 Olanzapine (ZyPREXA ZYDIS) 2.5 mg PRN Q2HR PRN PO PSYCHOSIS Last administered on 08/24/17 10:10; Start 08/16/17 at 18:30 Quetiapine Fumarate (SEROquel) 12.5 mg 0900,1300 PO Last administered on 08:00; Start 08/17/17 at 09:00; Stop 08/17/17 at 22:38; Status DC Potassium Chloride (Klor-Con) 20 meq BID PO Last administered on 08/27/17 19: 46; Start 08/17/17 at 21:00 Quetiapine Fumarate (SEROquel) 12.5 mg 0700,1100,1400,1700 PO Last administered on 08/27/17 16:55; Start 08/18/17 at 07:00 Mirtazapine (Remeron) 7.5 mg QHS PO Last administered on 08/18/17 20:18; Start 08/17/17 at 23:00; Stop 08/19/17 at 18:10; Status DC Mirtazapine (Remeron) 15 mg QHS PO Last administered on 08/27/17at 19:46; Start 08/19/17 at 21:00 Trazodone HCl (Desyrel) 50 mg QHS PO Last administered on 08/27/17at 19:46; Start 08/19/17 at 21:00 Trazodone HCl (Desyrel) 50 mg PRN QHS PRN PO insomnia Last administered on at 23:37; Start 08/19/17 at 18:15 Magnesium Citrate (Citroma) 148 ml PRN 1X PRN PO CONSTIPATION; Start 08/23/17 at 07:45 Fluticasone Propionate (Flonase) 2 spray PRN DAILY NS ; Start 08/25/17 at 09:00 Hydroxyzine HCl (Atarax) 10 mg PRN Q2HR PRN PO AGITATION Last administered on at 13:18; Start 08/25/17 at 10:45 Divalproex Sodium (Depakote Sprinkles) 125 mg BID@0900,1700 PO ; Start 08/28/17 at 09:00 Active Scripts Active Reported EXELON 4.6mg/24hr (Rivastigmine) 1 Each Patch.td24 1 Patch TD DAILY Zyvox (Linezolid) 600 Mg Tablet 600 Mg PO BID Lovenox (Enoxaparin Sodium) 30 Mg/0.3 Ml Disp.syrin 30 Mg SQ Q24H Thera-M (Multivits,Th W-Fe,Other Min) 1 Each Tablet 1 Tab PO DAILY Milk Of Magnesia (Magnesium Hydroxide) 400 Mg/5 Ml Oral.susp 2,400 Mg PO PRN DAILY PRN Culturelle (Lactobacillus Rhamnosus Gg) 1 Each Capsule 1 Cap PO BID Fluticasone Propionate Nasal [place] (Fluticasone Propionate) [address] [place].susp [address] [place] NS DAILY Zofran (Ondansetron Hcl) 4 Mg Tablet 4 Mg PO PRN Q4HRS PRN Vitamin D-400 (Cholecalciferol (Vitamin D3)) 400 Unit Tablet 500 Unit PO DAILY Tylenol (Acetaminophen) 325 Mg Tablet 650 Mg PO BID Tylenol (Acetaminophen) 325 Mg Tablet 650 Mg PO PRN Q6HRS PRN Ketorolac Tromethamine 5 Ml Drops 1 Drop LEFTEYE QID Ferrous Sulfate 325 Mg Tablet 325 Mg PO DAILY Colace (Docusate Sodium) 100 Mg Capsule 100 Mg PO BID Nadeem Mag Zinc + D3 Tablet (Ca Carb/Vit D3/Mag Ox/Zn Oxide) 1 Each Tablet 1 Tab PO BID I have reviewed the current psychotropics carefully including drug interactions. Risk benefit ratio favors no change other than as noted in my dictated progress note. Diagnosis: Problems: (1) Dementia with behavioral disturbance (2) Anxiety disorder (3) Dementia in Alzheimer's disease with delusions (4) Dementia in Alzheimer's disease with depression (5) Dementia, vascular, with delusions (6) Dementia, vascular, with depression (7) Impulse control disorder LAUREN CASILLAS MD Aug 27, 2017 22:31
--- NOTE | 2017-08-27 22:52 | PN ---
DATE: 08/26/2017 PSYCHIATRIC PROGRESS NOTE This is a late entry for 08/26/2017, covers elements not covered in my initial note of 08/26/2017. SUBJECTIVE: I met with the patient in the evening of 08/26/2017. The patient slept 7-1/2 hours previous evening, takes her medications whole up at night at times. Slept in the day room for part of the night and then in the quiet rooms, slept early in the morning. Refused her 1100 and 1400 hours medications. Urinated at 1:00 p.m. in the other patient's bed, oblivious of what she was doing. REVIEW OF SYSTEMS: No CV, , pulmonary, eye, ENT system symptoms on review. Reliability poor. MENTAL STATUS EXAM: Oriented to herself. Insight, judgment, recent and remote memory, attention, concentration, fund of knowledge poor, consistent with her diagnosis mentioned in my initial note. PLAN: Continue current psychotropics as mentioned in my initial note. Adjust as indicated. LAUREN CASILLAS MD DR: MIGUEL A/nahed JOB#: [id number] / [id number]
[2017-08-28 06:13] VITALS: BP 154/82
[2017-08-28] MEDS: QUEtiapine 25 MG TABLET. PO SCH ×5 (07:00→17:04)
[2017-08-28] MEDS: LACTOBACILLUS RHAMNOSUS GG 1 CAPSULE. PO SCH ×3 (08:50→20:47)
[2017-08-28] MEDS: ACETAMINOPHEN 325 MG TABLET PO SCH ×3 (08:50→20:47)
[2017-08-28] MEDS: FERROUS SULFATE 325 MG TABLET. PO SCH (08:52)
[2017-08-28] MEDS: POTASSIUM CHLORIDE 20 MEQ TABLET.ER. PO SCH ×3 (08:52→20:47)
[2017-08-28] MEDS: MULTIVITAMIN with MINERAL TABLET. PO SCH (08:52)
[2017-08-28] MEDS: CHOLECALCIFEROL (VITAMIN D3) 1,000 UNIT TABLET PO SCH (08:52)
[2017-08-28] MEDS: DOCUSATE SODIUM 100 MG CAPSULE PO SCH ×3 (08:52→20:47)
[2017-08-28] MEDS: DIVALPROEX 125 MG CAP.SPRINK PO SCH ×2 (08:55→17:08)
--- NOTE | 2017-08-28 09:45 | NUR ---
Pt was sleeping in the dinning room during breakfast and refused to eat anything. Pt then walked down to the day room where pt laid on the couch and went to sleep. Pt refused to take any medication stating "I'm to tired I just want to sleep!" 0700 dose of Seroquel held will attempt to administer 1100 dose with lunch. Will continue to monitor. Addendum: 08/28/17 at 1246 by JAQUI TOBAR RN Pt was resting in bed and woke up for lunch. Pt walked to the lunch room cooperatively and ate lunch. Pts AM dose of Depakote and Seroquel successfully administer with lunch. Will continue to monitor.
--- NOTE | 2017-08-28 14:00 | NUR ---
Pt wandering in the hallways, increasing agitation, exit seeking. Pt was aggressive with staff members trying to punch them. Pt very difficult to redirect. PRN Zyprexa administered with 1400 dose of Seroquel. Will continue to monitor.
--- NOTE | 2017-08-28 15:00 | NUR ---
WEEKLY THERAPEUTIC RECREATION NOTE Date of Admission: 08/05/2017 Date of AT Assessment: 08/08/2017 Goal aimed: to increase socialization and leisure awareness Initial goal: Pt. will participate in at least three groups per week. Weekly progress towards goal: did not meet Group participation level: minimal to zero Behaviors observed: more agitated this week, focused on leaving, time spent in secured hallway- banging on doors Plan: no changes to goal
--- NOTE | 2017-08-28 16:08 | NUR ---
Behavior Intervention Response and Plan: BIRP Note: Behavior: Assumed Care of patient, patient located in Dining Room at shift change. Patient exhibited the following behavior Irritable, Disorganized, Resistive. Brief assessment on rounds of vital signs, medication needs, lab studies, and pain. Treatment plan problems 1-2. Intervention: Patient assessed and the following interventions initiated safety checks 15 Minute Checks Cognitive Assessment , Head to toe Assessment , Medications. Response: After interactions and interventions patient responded in the following manner, Wandering , Exit Seeking ,Agitated. Continue to assess behaviors and condition will continue to monitor throughout the shift as needed. Patient educated on ADL's, and hand hygiene. Plan: Continue to monitor Master Treatment Plan for patient's progress toward short term goals of Decreased Agitation, Decreased Aggression, prison goals to return to previous living setting vs placement. Continue to assess patient for changes in above assessment. Monitor for medication needs, pain, and safety concerns. Hourly rounding performed to ensure safe environment.
[2017-08-28 16:37] VITALS: BP 115/67
[2017-08-28] MEDS: traZODone 50 MG TABLET. PO SCH ×2 (19:57→20:36)
[2017-08-28] MEDS: MIRTAZAPINE 15 MG TABLET PO SCH ×2 (19:58→20:36)
--- NOTE | 2017-08-28 20:54 | PDOC ---
Exam Note: Allen Note: Please also refer to the separate dictated note~for this date of service dictated separately.~Patient seen individually. Discussed the patient with Nursing staff reviewed the chart.~Reviewed interim history and current functioning. Reviewed vital signs,~Labs/ Radiology~and current medications noted below. Continue current treatment with the changes noted in the dictated addendum note Assessment: Vital Signs: Vital Signs Date Time Temp Pulse Resp B/P (MAP) Pulse Ox O2 Delivery O2 Flow Rate FiO2 08/28/17 16:37 97.6 104 18 115/67 (83) 95 08/24/17 16:34 Room Air I&O Intake and Output 08/28/17 07:00 Intake Total 360 ml Balance 360 ml Intake Oral 360 ml # Voids 1 Current Medications: Meds: Current Medications Acetaminophen (Tylenol) 650 mg PRN Q6HRS PRN PO PAIN / TEMP; Start 08/15/17 at 17:15; Status Cancel Multi-Ingredient Ointment (Analgesic [place]) 1 ronni PRN QID PRN TP MUSCLE PAIN; Start 08/15/17 at 17:15 Al Hydroxide/Mg Hydroxide (Mylanta Plus Xs) 15 ml PRN AFTMEALHC PRN PO DYSPEPSIA; Start 08/15/17 at 17:15 Magnesium Hydroxide (Milk Of Magnesia) 2,400 mg PRN QHS PRN PO CONSTIPATION; Start 08/15/17 at 17:15; Status Cancel Acetaminophen (Tylenol) 650 mg BID PO Last administered on 08/28/17at 08:50; Start 08/15/17 at 21:00 Acetaminophen (Tylenol) 650 mg PRN Q6HRS PRN PO PAIN / TEMP; Start 08/15/17 at 18:15 Docusate Sodium (Colace) 100 mg BID PO Last administered on 08/28/17at 08:52; Start 08/15/17 at 21:00 Ferrous Sulfate (Feosol) 325 mg DAILY PO Last administered on 08/28/17at 08:52; Start 08/16/17 at 09:00 Fluticasone Propionate (Flonase) 2 spray DAILY NS Last administered on at 08:20; Start 08/16/17 at 09:00; Stop 08/24/17 at 16:52; Status DC Magnesium Hydroxide (Milk Of Magnesia) 2,400 mg PRN DAILY PRN PO CONSTIPATION Last administered on 08/25/17 09:00; Start 08/15/17 at 18:15 Non-Formulary Medication 1 tab BID PO ; Start 08/15/17 at 21:00; Status UNV Vitamin D (Vitamin D3) 500 unit DAILY PO Last administered on 08/28/17 08:52; Start 08/16/17 at 09:00 Ketorolac Tromethamine (Acular) 1 drop QID OS Last administered on 08/24/17 08 :20; Start 08/15/17 at 21:00; Stop 08/24/17 at 16:52; Status DC Lactobacillus Rhamnosus (Culturelle) 1 cap BID PO Last administered on 08:50; Start 08/15/17 at 21:00 Multivitamins/ Calcium (Thera-M Plus) 1 tab DAILY PO Last administered on 08:52; Start 08/16/17 at 09:00 Ondansetron HCl (Zofran Odt) 4 mg PRN Q4HRS PRN PO NAUSEA/VOMITING Last administered on 08/22/17at 01:49; Start 08/15/17 at 18:45 Olanzapine (ZyPREXA ZYDIS) 2.5 mg PRN Q2HR PRN PO PSYCHOSIS Last administered on 08/28/17 13:52; Start 08/16/17 at 18:30 Quetiapine Fumarate (SEROquel) 12.5 mg 0900,1300 PO Last administered on 08:00; Start 08/17/17 at 09:00; Stop 08/17/17 at 22:38; Status DC Potassium Chloride (Klor-Con) 20 meq BID PO Last administered on 08/28/17 08: 52; Start 08/17/17 at 21:00 Quetiapine Fumarate (SEROquel) 12.5 mg 0700,1100,1400,1700 PO Last administered on 08/28/17 17:04; Start 08/18/17 at 07:00 Mirtazapine (Remeron) 7.5 mg QHS PO Last administered on 08/18/17 20:18; Start 08/17/17 at 23:00; Stop 08/19/17 at 18:10; Status DC Mirtazapine (Remeron) 15 mg QHS PO Last administered on 08/28/17at 20:36; Start 08/19/17 at 21:00 Trazodone HCl (Desyrel) 50 mg QHS PO Last administered on 08/28/17at 20:36; Start 08/19/17 at 21:00 Trazodone HCl (Desyrel) 50 mg PRN QHS PRN PO insomnia Last administered on at 23:37; Start 08/19/17 at 18:15 Magnesium Citrate (Citroma) 148 ml PRN 1X PRN PO CONSTIPATION; Start 08/23/17 at 07:45 Fluticasone Propionate (Flonase) 2 spray PRN DAILY NS ; Start 08/25/17 at 09:00 Hydroxyzine HCl (Atarax) 10 mg PRN Q2HR PRN PO AGITATION Last administered on at 13:18; Start 08/25/17 at 10:45 Divalproex Sodium (Depakote Sprinkles) 125 mg BID@0900,1700 PO Last administered on 08/28/17at 17:08; Start 08/28/17 at 09:00 Active Scripts Active Reported EXELON 4.6mg/24hr (Rivastigmine) 1 Each Patch.td24 1 Patch TD DAILY Zyvox (Linezolid) 600 Mg Tablet 600 Mg PO BID Lovenox (Enoxaparin Sodium) 30 Mg/0.3 Ml Disp.syrin 30 Mg SQ Q24H Thera-M (Multivits,Th W-Fe,Other Min) 1 Each Tablet 1 Tab PO DAILY Milk Of Magnesia (Magnesium Hydroxide) 400 Mg/5 Ml Oral.susp 2,400 Mg PO PRN DAILY PRN Culturelle (Lactobacillus Rhamnosus Gg) 1 Each Capsule 1 Cap PO BID Fluticasone Propionate Nasal [place] (Fluticasone Propionate) 16 Gm [place].susp 2 [place] NS DAILY Zofran (Ondansetron Hcl) 4 Mg Tablet 4 Mg PO PRN Q4HRS PRN Vitamin D-400 (Cholecalciferol (Vitamin D3)) 400 Unit Tablet 500 Unit PO DAILY Tylenol (Acetaminophen) 325 Mg Tablet 650 Mg PO BID Tylenol (Acetaminophen) 325 Mg Tablet 650 Mg PO PRN Q6HRS PRN Ketorolac Tromethamine 5 Ml Drops 1 Drop LEFTEYE QID Ferrous Sulfate 325 Mg Tablet 325 Mg PO DAILY Colace (Docusate Sodium) 100 Mg Capsule 100 Mg PO BID Nadeem Mag Zinc + D3 Tablet (Ca Carb/Vit D3/Mag Ox/Zn Oxide) 1 Each Tablet 1 Tab PO BID I have reviewed the current psychotropics carefully including drug interactions. Risk benefit ratio favors no change other than as noted in my dictated progress note. Diagnosis: Problems: (1) Dehydration (2) Nausea and vomiting (3) Dementia with behavioral disturbance (4) Anxiety disorder (5) Dementia in Alzheimer's disease with delusions (6) Dementia in Alzheimer's disease with depression (7) Dementia, vascular, with delusions (8) Dementia, vascular, with depression (9) Impulse control disorder LAUREN CASILLAS MD Aug 28, 2017 20:54
--- NOTE | 2017-08-28 21:44 | NUR ---
Behavior Intervention Response and Plan: BIRP Note: Behavior: Assumed Care of patient, patient located in Patient Room at shift change. Patient exhibited the following behavior Disorganized, Resistive, Non Compliant with Meds. Brief assessment on rounds of vital signs, medication needs, lab studies, and pain. Treatment plan problems Dementia with BD and Delusions, Fall Risk. Intervention: Patient assessed and the following interventions initiated safety checks 15 Minute Checks Cognitive Assessment , Medications , Nutrition. Response: After interactions and interventions patient responded in the following manner, Calm , Compliant ,Agitated. Continue to assess behaviors and condition will continue to monitor throughout the shift as needed. Patient educated on ADL's, and hand hygiene. Plan: Continue to monitor Master Treatment Plan for patient's progress toward short term goals of Decreased Agitation, Decreased Anxiety, intermediate goals to return to previous living setting vs placement. Continue to assess patient for changes in above assessment. Monitor for medication needs, pain, and safety concerns. Hourly rounding performed to ensure safe environment.
[2017-08-29 06:27] VITALS: BP 142/57
[2017-08-29] MEDS: LACTOBACILLUS RHAMNOSUS GG 1 CAPSULE. PO SCH ×2 (08:01→20:07)
[2017-08-29] MEDS: POTASSIUM CHLORIDE 20 MEQ TABLET.ER. PO SCH ×3 (08:02→20:07)
[2017-08-29] MEDS: MULTIVITAMIN with MINERAL TABLET. PO SCH (08:02)
[2017-08-29] MEDS: ACETAMINOPHEN 325 MG TABLET PO SCH ×2 (08:03→20:08)
[2017-08-29] MEDS: DIVALPROEX 125 MG CAP.SPRINK PO SCH ×2 (08:03→16:56)
[2017-08-29] MEDS: FERROUS SULFATE 325 MG TABLET. PO SCH (08:03)
[2017-08-29] MEDS: CHOLECALCIFEROL (VITAMIN D3) 1,000 UNIT TABLET PO SCH (08:03)
[2017-08-29] MEDS: DOCUSATE SODIUM 100 MG CAPSULE PO SCH ×2 (08:03→20:07)
[2017-08-29] MEDS: QUEtiapine 25 MG TABLET. PO SCH ×3 (09:03→16:55)
[2017-08-29 16:35] VITALS: BP 132/86
--- NOTE | 2017-08-29 17:27 | NUR ---
Behavior Intervention Response and Plan: BIRP Note: Behavior: Assumed Care of patient, patient located in Day Room at shift change. Patient exhibited the following behavior Withdrawn, Drowsy, Non Compliant with Meds. Brief assessment on rounds of vital signs, medication needs, lab studies, and pain. Treatment plan problems 1-2. Intervention: Patient assessed and the following interventions initiated safety checks 15 Minute Checks Cognitive Assessment , Head to toe Assessment , Medications. Response: After interactions and interventions patient responded in the following manner, Drowsy , Disorganized ,Withdrawn. Continue to assess behaviors and condition will continue to monitor throughout the shift as needed. Patient educated on ADL's, and hand hygiene. Plan: Continue to monitor Master Treatment Plan for patient's progress toward short term goals of Decreased Agitation, Improved Mood, long term care administrator goals to return to previous living setting vs placement. Continue to assess patient for changes in above assessment. Monitor for medication needs, pain, and safety concerns. Hourly rounding performed to ensure safe environment.
--- NOTE | 2017-08-29 17:50 | NUR ---
Pt withdrawn to room most of the morning. Very drowsy, ate breakfast, was pleasant, cooperative with assessment. Went back to sleep after breakfast. Pt refused getting up for lunch and would not take her 1100 dose of Seroquel. Pt ate dinner in the dinning room, was pleasant and medication was successfully administer in pts dinner. Will continue to monitor.
[2017-08-29] MEDS: traZODone 50 MG TABLET. PO SCH (20:07)
[2017-08-29] MEDS: MIRTAZAPINE 15 MG TABLET PO SCH (20:07)
--- NOTE | 2017-08-29 20:39 | PDOC ---
Exam Note: Allen Note: Please also refer to the separate dictated note~for this date of service dictated separately.~Patient seen individually. Discussed the patient with Nursing staff reviewed the chart.~Reviewed interim history and current functioning. Reviewed vital signs,~Labs/ Radiology~and current medications noted below. Continue current treatment with the changes noted in the dictated addendum note Assessment: Vital Signs: Vital Signs Date Time Temp Pulse Resp B/P (MAP) Pulse Ox O2 Delivery O2 Flow Rate FiO2 08/29/17 16:35 97.8 80 18 132/86 (101) 96 Room Air I&O Intake and Output 08/29/17 07:00 Intake Total 960 ml Balance 960 ml Intake Oral 960 ml Current Medications: Meds: Current Medications Acetaminophen (Tylenol) 650 mg PRN Q6HRS PRN PO PAIN / TEMP; Start 08/15/17 at 17:15; Status Cancel Multi-Ingredient Ointment (Analgesic [place]) 1 ronni PRN QID PRN TP MUSCLE PAIN; Start 08/15/17 at 17:15 Al Hydroxide/Mg Hydroxide (Mylanta Plus Xs) 15 ml PRN AFTMEALHC PRN PO DYSPEPSIA; Start 08/15/17 at 17:15 Magnesium Hydroxide (Milk Of Magnesia) 2,400 mg PRN QHS PRN PO CONSTIPATION; Start 08/15/17 at 17:15; Status Cancel Acetaminophen (Tylenol) 650 mg BID PO Last administered on 08/29/17at 20:08; Start 08/15/17 at 21:00 Acetaminophen (Tylenol) 650 mg PRN Q6HRS PRN PO PAIN / TEMP; Start 08/15/17 at 18:15 Docusate Sodium (Colace) 100 mg BID PO Last administered on 08/29/17at 20:07; Start 08/15/17 at 21:00 Ferrous Sulfate (Feosol) 325 mg DAILY PO Last administered on 08/29/17at 08:03; Start 08/16/17 at 09:00 Fluticasone Propionate (Flonase) 2 spray DAILY NS Last administered on at 08:20; Start 08/16/17 at 09:00; Stop 08/24/17 at 16:52; Status DC Magnesium Hydroxide (Milk Of Magnesia) 2,400 mg PRN DAILY PRN PO CONSTIPATION Last administered on 08/25/17 09:00; Start 08/15/17 at 18:15 Non-Formulary Medication 1 tab BID PO ; Start 08/15/17 at 21:00; Status UNV Vitamin D (Vitamin D3) 500 unit DAILY PO Last administered on 08/29/17at 08:03; Start 08/16/17 at 09:00 Ketorolac Tromethamine (Acular) 1 drop QID OS Last administered on 08/24/17 08 :20; Start 08/15/17 at 21:00; Stop 08/24/17 at 16:52; Status DC Lactobacillus Rhamnosus (Culturelle) 1 cap BID PO Last administered on 20:07; Start 08/15/17 at 21:00 Multivitamins/ Calcium (Thera-M Plus) 1 tab DAILY PO Last administered on 08:02; Start 08/16/17 at 09:00 Ondansetron HCl (Zofran Odt) 4 mg PRN Q4HRS PRN PO NAUSEA/VOMITING Last administered on 08/22/17at 01:49; Start 08/15/17 at 18:45 Olanzapine (ZyPREXA ZYDIS) 2.5 mg PRN Q2HR PRN PO PSYCHOSIS Last administered on 08/28/17at 13:52; Start 08/16/17 at 18:30 Quetiapine Fumarate (SEROquel) 12.5 mg 0900,1300 PO Last administered on at 08:00; Start 08/17/17 at 09:00; Stop 08/17/17 at 22:38; Status DC Potassium Chloride (Klor-Con) 20 meq BID PO Last administered on 08/29/17at 20: 07; Start 08/17/17 at 21:00 Quetiapine Fumarate (SEROquel) 12.5 mg 0700,1100,1400,1700 PO Last administered on 08/29/17at 11:09; Start 08/18/17 at 07:00; Stop 08/29/17 at 11:34 ; Status DC Mirtazapine (Remeron) 7.5 mg QHS PO Last administered on 08/18/17 20:18; Start 08/17/17 at 23:00; Stop 08/19/17 at 18:10; Status DC Mirtazapine (Remeron) 15 mg QHS PO Last administered on 08/29/17at 20:07; Start 08/19/17 at 21:00 Trazodone HCl (Desyrel) 50 mg QHS PO Last administered on 08/29/17at 20:07; Start 08/19/17 at 21:00 Trazodone HCl (Desyrel) 50 mg PRN QHS PRN PO insomnia Last administered on at 23:37; Start 08/19/17 at 18:15 Magnesium Citrate (Citroma) 148 ml PRN 1X PRN PO CONSTIPATION; Start 08/23/17 at 07:45 Fluticasone Propionate (Flonase) 2 spray PRN DAILY NS ; Start 08/25/17 at 09:00 Hydroxyzine HCl (Atarax) 10 mg PRN Q2HR PRN PO AGITATION Last administered on at 13:18; Start 08/25/17 at 10:45 Divalproex Sodium (Depakote Sprinkles) 125 mg BID@0900,1700 PO Last administered on 08/29/17at 16:56; Start 08/28/17 at 09:00 Quetiapine Fumarate (SEROquel) 25 mg BID@0700,1700 PO Last administered on 08/29at 16:55; Start 08/29/17 at 17:00 Active Scripts Active Reported EXELON 4.6mg/24hr (Rivastigmine) 1 Each Patch.td24 1 Patch TD DAILY Zyvox (Linezolid) 600 Mg Tablet 600 Mg PO BID Lovenox (Enoxaparin Sodium) 30 Mg/0.3 Ml Disp.syrin 30 Mg SQ Q24H Thera-M (Multivits,Th W-Fe,Other Min) 1 Each Tablet 1 Tab PO DAILY Milk Of Magnesia (Magnesium Hydroxide) 400 Mg/5 Ml Oral.susp 2,400 Mg PO PRN DAILY PRN Culturelle (Lactobacillus Rhamnosus Gg) 1 Each Capsule 1 Cap PO BID Fluticasone Propionate Nasal [place] (Fluticasone Propionate) 16 Gm [place].susp 2 [place] NS DAILY Zofran (Ondansetron Hcl) 4 Mg Tablet 4 Mg PO PRN Q4HRS PRN Vitamin D-400 (Cholecalciferol (Vitamin D3)) 400 Unit Tablet 500 Unit PO DAILY Tylenol (Acetaminophen) 325 Mg Tablet 650 Mg PO BID Tylenol (Acetaminophen) 325 Mg Tablet 650 Mg PO PRN Q6HRS PRN Ketorolac Tromethamine 5 Ml Drops 1 Drop LEFTEYE QID Ferrous Sulfate 325 Mg Tablet 325 Mg PO DAILY Colace (Docusate Sodium) 100 Mg Capsule 100 Mg PO BID Nadeem Mag Zinc + D3 Tablet (Ca Carb/Vit D3/Mag Ox/Zn Oxide) 1 Each Tablet 1 Tab PO BID I have reviewed the current psychotropics carefully including drug interactions. Risk benefit ratio favors no change other than as noted in my dictated progress note. Diagnosis: Problems: (1) Dementia with behavioral disturbance (2) Anxiety disorder (3) Dementia in Alzheimer's disease with delusions (4) Dementia in Alzheimer's disease with depression (5) Dementia, vascular, with delusions (6) Dementia, vascular, with depression (7) Impulse control disorder LAUREN CASILLAS MD Aug 29, 2017 20:39
--- NOTE | 2017-08-30 00:24 | PN ---
DATE: 08/27/2017 This late entry 08/27/2017 covers elements not covered in my initial note 08/27/2017. Met with the patient in the evening of 08/27/2017. The patient slept 6-3/4 hours previous evening. Per nursing report, she has had a "bad day. She was somewhat sedated in the morning, resistive and agitated to her medications later in the morning and then had to be placed in the separate hallway and she was banging the chairs on the wall, put herself on the floor, very resistive to psychotropics and extremely labile in her mood, psychotic, confused. REVIEW OF SYSTEMS: No CV, , pulmonary, eye, ENT system symptoms on review. Reliability poor. MENTAL STATUS EXAM: Oriented to herself. Insight, judgment, recent and remote memory, attention, concentration, fund of knowledge poor, consistent with her diagnosis mentioned in my initial note. IMPRESSION: Unchanged from initial note. PLAN: Start Depakote Sprinkles 125 mg twice a day. Check CBC, CMP, valproic acid level in 3 days, psychotropics unchanged from initial note. MAN Jc CASILLAS MD DR: MIGUEL A/nahed JOB#: [id number] / [id number]
--- NOTE | 2017-08-30 03:59 | NUR ---
Behavior Intervention Response and Plan: BIRP Note: Behavior: Assumed Care of patient, patient located in Patient Room at shift change. Patient exhibited the following behavior Calm, Compliant, Cooperative. Brief assessment on rounds of vital signs, medication needs, lab studies, and pain. Treatment plan problems Dementia with BD and Fall Risk. Intervention: Patient assessed and the following interventions initiated safety checks 15 Minute Checks Cognitive Assessment , Head to toe Assessment , Medications. Response: After interactions and interventions patient responded in the following manner, Calm , Disorganized ,Compliant. Continue to assess behaviors and condition will continue to monitor throughout the shift as needed. Patient educated on ADL's, and hand hygiene. Plan: Continue to monitor Master Treatment Plan for patient's progress toward short term goals of Decreased Aggression, No harm To self/ others, senior living goals to return to previous living setting vs placement. Continue to assess patient for changes in above assessment. Monitor for medication needs, pain, and safety concerns. Hourly rounding performed to ensure safe environment.
[2017-08-30] MEDS: QUEtiapine 25 MG TABLET. PO SCH ×2 (06:02→17:53)
[2017-08-30 06:12] VITALS: BP 159/65
[2017-08-30] MEDS: DIVALPROEX 125 MG CAP.SPRINK PO SCH ×2 (07:27→17:53)
[2017-08-30] MEDS: DOCUSATE SODIUM 100 MG CAPSULE PO SCH ×2 (07:27→19:42)
[2017-08-30] MEDS: ACETAMINOPHEN 325 MG TABLET PO SCH ×2 (07:28→19:42)
[2017-08-30] MEDS: CHOLECALCIFEROL (VITAMIN D3) 1,000 UNIT TABLET PO SCH (07:28)
[2017-08-30] MEDS: MULTIVITAMIN with MINERAL TABLET. PO SCH (07:28)
[2017-08-30] MEDS: POTASSIUM CHLORIDE 20 MEQ TABLET.ER. PO SCH ×2 (07:28→19:42)
[2017-08-30] MEDS: LACTOBACILLUS RHAMNOSUS GG 1 CAPSULE. PO SCH ×2 (07:28→19:42)
[2017-08-30] MEDS: FERROUS SULFATE 325 MG TABLET. PO SCH (07:28)
--- NOTE | 2017-08-30 11:07 | NUR ---
Behavior Intervention Response and Plan: BIRP Note: Behavior: Assumed Care of patient, patient located in Patient Room at shift change. Patient exhibited the following behavior Disorganized, Compliant, Sleeping. Brief assessment on rounds of vital signs, medication needs, lab studies, and pain. Treatment plan problems . Intervention: Patient assessed and the following interventions initiated safety checks 15 Minute Checks Cognitive Assessment , Head to toe Assessment , Medications. Response: After interactions and interventions patient responded in the following manner, Compliant , Calm ,Compliant. Continue to assess behaviors and condition will continue to monitor throughout the shift as needed. Patient educated on ADL's, and hand hygiene. 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 Continue to assess patient for changes in above assessment. Monitor for medication needs, pain, and safety concerns. Hourly rounding performed to ensure safe environment.
--- NOTE | 2017-08-30 14:52 | NUR ---
pt refused am meal but did get up for lunch. wandering. compliant with meds and cares.
[2017-08-30 16:17] VITALS: BP 135/80
[2017-08-30] MEDS: MIRTAZAPINE 15 MG TABLET PO SCH (19:42)
[2017-08-30] MEDS: traZODone 50 MG TABLET. PO SCH (19:43)
--- NOTE | 2017-08-30 20:45 | PDOC ---
Exam Note: Allen Note: Please also refer to the separate dictated note~for this date of service dictated separately.~Patient seen individually. Discussed the patient with Nursing staff reviewed the chart.~Reviewed interim history and current functioning. Reviewed vital signs,~Labs/ Radiology~and current medications noted below. Continue current treatment with the changes noted in the dictated addendum note Assessment: Vital Signs: Vital Signs Date Time Temp Pulse Resp B/P (MAP) Pulse Ox O2 Delivery O2 Flow Rate FiO2 08/30/17 16:17 98.5 80 16 135/80 (98) 96 08/29/17 16:35 Room Air I&O Intake and Output 08/30/17 07:00 Intake Total 560 ml Balance 560 ml Intake Oral 560 ml Current Medications: Meds: Current Medications Acetaminophen (Tylenol) 650 mg PRN Q6HRS PRN PO PAIN / TEMP; Start 08/15/17 at 17:15; Status Cancel Multi-Ingredient Ointment (Analgesic [place]) 1 ronni PRN QID PRN TP MUSCLE PAIN; Start 08/15/17 at 17:15 Al Hydroxide/Mg Hydroxide (Mylanta Plus Xs) 15 ml PRN AFTMEALHC PRN PO DYSPEPSIA; Start 08/15/17 at 17:15 Magnesium Hydroxide (Milk Of Magnesia) 2,400 mg PRN QHS PRN PO CONSTIPATION; Start 08/15/17 at 17:15; Status Cancel Acetaminophen (Tylenol) 650 mg BID PO Last administered on 08/30/17at 19:42; Start 08/15/17 at 21:00 Acetaminophen (Tylenol) 650 mg PRN Q6HRS PRN PO PAIN / TEMP; Start 08/15/17 at 18:15 Docusate Sodium (Colace) 100 mg BID PO Last administered on 08/30/17at 19:42; Start 08/15/17 at 21:00 Ferrous Sulfate (Feosol) 325 mg DAILY PO Last administered on 08/30/17at 07:28; Start 08/16/17 at 09:00 Fluticasone Propionate (Flonase) 2 spray DAILY NS Last administered on at 08:20; Start 08/16/17 at 09:00; Stop 08/24/17 at 16:52; Status DC Magnesium Hydroxide (Milk Of Magnesia) 2,400 mg PRN DAILY PRN PO CONSTIPATION Last administered on 08/25/17 09:00; Start 08/15/17 at 18:15 Non-Formulary Medication 1 tab BID PO ; Start 08/15/17 at 21:00; Status UNV Vitamin D (Vitamin D3) 500 unit DAILY PO Last administered on 08/30/17 07:28; Start 08/16/17 at 09:00 Ketorolac Tromethamine (Acular) 1 drop QID OS Last administered on 08/24/17 08 :20; Start 08/15/17 at 21:00; Stop 08/24/17 at 16:52; Status DC Lactobacillus Rhamnosus (Culturelle) 1 cap BID PO Last administered on 19:42; Start 08/15/17 at 21:00 Multivitamins/ Calcium (Thera-M Plus) 1 tab DAILY PO Last administered on 07:28; Start 08/16/17 at 09:00 Ondansetron HCl (Zofran Odt) 4 mg PRN Q4HRS PRN PO NAUSEA/VOMITING Last administered on 08/22/17 01:49; Start 08/15/17 at 18:45 Olanzapine (ZyPREXA ZYDIS) 2.5 mg PRN Q2HR PRN PO PSYCHOSIS Last administered on 08/28/17 13:52; Start 08/16/17 at 18:30 Quetiapine Fumarate (SEROquel) 12.5 mg 0900,1300 PO Last administered on 08:00; Start 08/17/17 at 09:00; Stop 08/17/17 at 22:38; Status DC Potassium Chloride (Klor-Con) 20 meq BID PO Last administered on 08/30/17 19: 42; Start 08/17/17 at 21:00 Quetiapine Fumarate (SEROquel) 12.5 mg 0700,1100,1400,1700 PO Last administered on 08/29/17 11:09; Start 08/18/17 at 07:00; Stop 08/29/17 at 11:34 ; Status DC Mirtazapine (Remeron) 7.5 mg QHS PO Last administered on 08/18/17 20:18; Start 08/17/17 at 23:00; Stop 08/19/17 at 18:10; Status DC Mirtazapine (Remeron) 15 mg QHS PO Last administered on 08/30/17 19:42; Start 08/19/17 at 21:00 Trazodone HCl (Desyrel) 50 mg QHS PO Last administered on 08/30/17at 19:43; Start 08/19/17 at 21:00 Trazodone HCl (Desyrel) 50 mg PRN QHS PRN PO insomnia Last administered on at 23:37; Start 08/19/17 at 18:15 Magnesium Citrate (Citroma) 148 ml PRN 1X PRN PO CONSTIPATION; Start 08/23/17 at 07:45 Fluticasone Propionate (Flonase) 2 spray PRN DAILY NS ; Start 08/25/17 at 09:00 Hydroxyzine HCl (Atarax) 10 mg PRN Q2HR PRN PO AGITATION Last administered on at 13:18; Start 08/25/17 at 10:45 Divalproex Sodium (Depakote Sprinkles) 125 mg BID@0900,1700 PO Last administered on 08/30/17at 17:53; Start 08/28/17 at 09:00 Quetiapine Fumarate (SEROquel) 25 mg BID@0700,1700 PO Last administered on 08/30at 17:53; Start 08/29/17 at 17:00 Active Scripts Active Reported EXELON 4.6mg/24hr (Rivastigmine) 1 Each Patch.td24 1 Patch TD DAILY Zyvox (Linezolid) 600 Mg Tablet 600 Mg PO BID Lovenox (Enoxaparin Sodium) 30 Mg/0.3 Ml Disp.syrin 30 Mg SQ Q24H Thera-M (Multivits,Th W-Fe,Other Min) 1 Each Tablet 1 Tab PO DAILY Milk Of Magnesia (Magnesium Hydroxide) 400 Mg/5 Ml Oral.susp 2,400 Mg PO PRN DAILY PRN Culturelle (Lactobacillus Rhamnosus Gg) 1 Each Capsule 1 Cap PO BID Fluticasone Propionate Nasal [place] (Fluticasone Propionate) 16 Gm [place].susp 2 [place] NS DAILY Zofran (Ondansetron Hcl) 4 Mg Tablet 4 Mg PO PRN Q4HRS PRN Vitamin D-400 (Cholecalciferol (Vitamin D3)) 400 Unit Tablet 500 Unit PO DAILY Tylenol (Acetaminophen) 325 Mg Tablet 650 Mg PO BID Tylenol (Acetaminophen) 325 Mg Tablet 650 Mg PO PRN Q6HRS PRN Ketorolac Tromethamine 5 Ml Drops 1 Drop LEFTEYE QID Ferrous Sulfate 325 Mg Tablet 325 Mg PO DAILY Colace (Docusate Sodium) 100 Mg Capsule 100 Mg PO BID Nadeem Mag Zinc + D3 Tablet (Ca Carb/Vit D3/Mag Ox/Zn Oxide) 1 Each Tablet 1 Tab PO BID I have reviewed the current psychotropics carefully including drug interactions. Risk benefit ratio favors no change other than as noted in my dictated progress note. Diagnosis: Problems: (1) Dementia with behavioral disturbance (2) Anxiety disorder (3) Dementia in Alzheimer's disease with delusions (4) Dementia in Alzheimer's disease with depression (5) Dementia, vascular, with delusions (6) Dementia, vascular, with depression (7) Impulse control disorder LAUREN CASILLAS MD Aug 30, 2017 20:45
--- NOTE | 2017-08-31 01:00 | NUR ---
Behavior Intervention Response and Plan: BIRP Note: Behavior: Assumed Care of patient, patient located in Patient Room at shift change. Patient exhibited the following behavior Calm, Compliant, Cooperative. Brief assessment on rounds of vital signs, medication needs, lab studies, and pain. Treatment plan problems Dementia with BD and Fall Risk. Intervention: Patient assessed and the following interventions initiated safety checks 15 Minute Checks Cognitive Assessment , Head to toe Assessment , Medications. Response: After interactions and interventions patient responded in the following manner, Calm , Disorganized ,Compliant. Continue to assess behaviors and condition will continue to monitor throughout the shift as needed. Patient educated on ADL's, and hand hygiene. Plan: Continue to monitor Master Treatment Plan for patient's progress toward short term goals of Decreased Aggression, No harm To self/ others, longterm goals to return to previous living setting vs placement. Continue to assess patient for changes in above assessment. Monitor for medication needs, pain, and safety concerns. Hourly rounding performed to ensure safe environment.
--- NOTE | 2017-08-31 04:11 | PN ---
DATE: 08/28/2017 This is a late entry, 08/28/2017, covers the elements not covered in my initial note, 08/28/2017. SUBJECTIVE: I met with the patient in the evening of 08/28/2017. The patient remains confused, slept 8-1/4 hours previous evening, takes her meds and ice cream. She either sleeping sedated in bed or if awake, she is agitated, received Zyprexa Zydis. REVIEW OF SYSTEMS: No CV, , pulmonary, eye, ENT system symptoms on review. Reliability poor. MENTAL STATUS EXAM: Oriented to herself. Insight, judgment, recent and remote memory, attention, concentration, fund of knowledge poor, consistent with her diagnosis as mentioned in my initial note. PLAN: Continue psychotropics as mentioned in my initial note. Adjust as clinically indicated. MAN Jc CASILLAS MD DR: MIGUEL A/nahed JOB#: [id number] / [id number]
[2017-08-31 06:21] VITALS: BP 157/59
[2017-08-31] MEDS: QUEtiapine 25 MG TABLET. PO SCH ×2 (06:23→17:00)
[2017-08-31 07:56] LABS: BASO # 0.1 x10^3/uL (0.0-0.2); BASO % 1 % (0-3); EOS # 0.3 x10^3/uL (0.0-0.7); EOS % 4 % (0-3); HEMATOCRIT 37.4 % (36.0-47.0); HEMOGLOBIN 12.3 g/dL (12.0-15.5); LYMPH # 1.9 x10^3/uL (1.0-4.8); LYMPH % 31 % (24-48); MEAN CORPUSCULAR HEMOGLOBIN 30 pg (25-35); MEAN CORPUSCULAR HGB CONC 33 g/dL (31-37); MEAN CORPUSCULAR VOLUME 93 fL (79-100); MONO # 0.6 x10^3/uL (0.0-1.1); MONO % 10 % (0-9); NEUT # 3.2 x10^3uL (1.8-7.7); NEUT % 53 % (31-73); PLATELET COUNT 203 x10^3/uL (140-400); RED BLOOD COUNT 4.05 x10^6/uL (3.50-5.40); RED CELL DISTRIBUTION WIDTH 14.1 % (11.5-14.5)
[2017-08-31] MEDS: POTASSIUM CHLORIDE 20 MEQ TABLET.ER. PO SCH ×3 (07:57→20:19)
[2017-08-31] MEDS: ACETAMINOPHEN 325 MG TABLET PO SCH ×3 (07:57→20:20)
[2017-08-31] MEDS: CHOLECALCIFEROL (VITAMIN D3) 1,000 UNIT TABLET PO SCH ×2 (07:57→09:00)
[2017-08-31] MEDS: FERROUS SULFATE 325 MG TABLET. PO SCH ×2 (07:57→09:00)
[2017-08-31] MEDS: DOCUSATE SODIUM 100 MG CAPSULE PO SCH ×3 (07:57→20:19)
[2017-08-31] MEDS: DIVALPROEX 125 MG CAP.SPRINK PO SCH ×3 (07:57→17:00)
[2017-08-31] MEDS: LACTOBACILLUS RHAMNOSUS GG 1 CAPSULE. PO SCH ×3 (07:57→20:20)
[2017-08-31] MEDS: MULTIVITAMIN with MINERAL TABLET. PO SCH ×2 (07:58→09:00)
[2017-08-31 08:03] LABS: ALBUMIN 3.1 g/dL (3.4-5.0); ALBUMIN/GLOBULIN RATIO 0.9 (1.0-1.7); CALCIUM 8.7 mg/dL (8.5-10.1); CREATININE 0.9 mg/dL (0.6-1.0); GFR 59.1; POTASSIUM 4.2 mmol/L (3.5-5.1); TOTAL BILIRUBIN 0.2 mg/dL (0.2-1.0); TOTAL PROTEIN 6.7 g/dL (6.4-8.2)
[2017-08-31 08:42] LABS: VAL ACID 15 mcg/mL (50-100)
--- NOTE | 2017-08-31 09:53 | NUR ---
Behavior Intervention Response and Plan: BIRP Note: Behavior: Assumed Care of patient, patient located in Patient Room at shift change. Patient exhibited the following behavior Disorganized, Compliant, Sleeping. Brief assessment on rounds of vital signs, medication needs, lab studies, and pain. Treatment plan problems . Intervention: Patient assessed and the following interventions initiated safety checks 15 Minute Checks Cognitive Assessment , Head to toe Assessment , Medications. Response: After interactions and interventions patient responded in the following manner, Compliant , Calm ,Compliant. Continue to assess behaviors and condition will continue to monitor throughout the shift as needed. Patient educated on ADL's, and hand hygiene. 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 Continue to assess patient for changes in above assessment. Monitor for medication needs, pain, and safety concerns. Hourly rounding performed to ensure safe environment.
[2017-08-31 16:15] VITALS: BP 101/65
--- NOTE | 2017-08-31 16:45 | NUR ---
pt refused to get up for breakfast. staff got pt up for lunch but pt would not wake up to eat. returned to bed. up this afternoon wandering.
--- NOTE | 2017-08-31 17:43 | NUR ---
attempted to give pt meds that she didn't take this am. crushed in pudding. pt laid back down in bed after not eating any supper. spit out meds.
[2017-08-31] MEDS: MIRTAZAPINE 15 MG TABLET PO SCH (20:19)
[2017-08-31] MEDS: traZODone 50 MG TABLET. PO SCH (20:19)
--- NOTE | 2017-08-31 22:58 | PDOC ---
Exam Note: Allen Note: Please also refer to the separate dictated note~for this date of service dictated separately.~Patient seen individually. Discussed the patient with Nursing staff reviewed the chart.~Reviewed interim history and current functioning. Reviewed vital signs,~Labs/ Radiology~and current medications noted below. Continue current treatment with the changes noted in the dictated addendum note Assessment: Vital Signs: Vital Signs Date Time Temp Pulse Resp B/P (MAP) Pulse Ox O2 Delivery O2 Flow Rate FiO2 08/31/17 16:15 97.2 67 18 101/65 (77) 100 08/29/17 16:35 Room Air I&O Intake and Output 08/31/17 07:00 Intake Total 240 ml Balance 240 ml Intake Oral 240 ml Labs: Laboratory Tests Test 08/31/17 07:30 White Blood Count 6.0 x10^3/uL (4.0-11.0) Red Blood Count 4.05 x10^6/uL (3.50-5.40) Hemoglobin 12.3 g/dL (12.0-15.5) Hematocrit 37.4 % (36.0-47.0) Mean Corpuscular Volume 93 fL (79-100) Mean Corpuscular Hemoglobin 30 pg (25-35) Mean Corpuscular Hemoglobin Concent 33 g/dL (31-37) Red Cell Distribution Width 14.1 % (11.5-14.5) Platelet Count 203 x10^3/uL (140-400) Neutrophils (%) (Auto) 53 % (31-73) Lymphocytes (%) (Auto) 31 % (24-48) Monocytes (%) (Auto) 10 % (0-9) H Eosinophils (%) (Auto) 4 % (0-3) H Basophils (%) (Auto) 1 % (0-3) Neutrophils # (Auto) 3.2 x10^3uL (1.8-7.7) Lymphocytes # (Auto) 1.9 x10^3/uL (1.0-4.8) Monocytes # (Auto) 0.6 x10^3/uL (0.0-1.1) Eosinophils # (Auto) 0.3 x10^3/uL (0.0-0.7) Basophils # (Auto) 0.1 x10^3/uL (0.0-0.2) Sodium Level 143 mmol/L (136-145) Potassium Level 4.2 mmol/L (3.5-5.1) Chloride Level 109 mmol/L (98-107) H Carbon Dioxide Level 26 mmol/L (21-32) Anion Gap 8 (6-14) Blood Urea Nitrogen 19 mg/dL (7-20) Creatinine 0.9 mg/dL (0.6-1.0) Estimated GFR (Cockcroft-Gault) 59.1 BUN/Creatinine Ratio 21 (6-20) H Glucose Level 105 mg/dL (70-99) H Calcium Level 8.7 mg/dL (8.5-10.1) Total Bilirubin 0.2 mg/dL (0.2-1.0) Aspartate Amino Transferase (AST) 14 U/L (15-37) L Alanine Aminotransferase (ALT) 15 U/L (14-59) Alkaline Phosphatase 63 U/L (46-116) Total Protein 6.7 g/dL (6.4-8.2) Albumin 3.1 g/dL (3.4-5.0) L Albumin/Globulin Ratio 0.9 (1.0-1.7) L Valproic Acid Level 15 mcg/mL (50-100) L Valproic Acid Last Dose Date 08/31/17 Valproic Acid Last Dose Time 1700 Current Medications: Meds: Current Medications Acetaminophen (Tylenol) 650 mg PRN Q6HRS PRN PO PAIN / TEMP; Start 08/15/17 at 17:15; Status Cancel Multi-Ingredient Ointment (Analgesic [place]) 1 ronni PRN QID PRN TP MUSCLE PAIN; Start 08/15/17 at 17:15 Al Hydroxide/Mg Hydroxide (Mylanta Plus Xs) 15 ml PRN AFTMEALHC PRN PO DYSPEPSIA; Start 08/15/17 at 17:15 Magnesium Hydroxide (Milk Of Magnesia) 2,400 mg PRN QHS PRN PO CONSTIPATION; Start 08/15/17 at 17:15; Status Cancel Acetaminophen (Tylenol) 650 mg BID PO Last administered on 08/31/17at 20:20; Start 08/15/17 at 21:00 Acetaminophen (Tylenol) 650 mg PRN Q6HRS PRN PO PAIN / TEMP; Start 08/15/17 at 18:15 Docusate Sodium (Colace) 100 mg BID PO Last administered on 08/31/17 20:19; Start 08/15/17 at 21:00 Ferrous Sulfate (Feosol) 325 mg DAILY PO Last administered on 08/30/17 07:28; Start 08/16/17 at 09:00 Fluticasone Propionate (Flonase) 2 spray DAILY NS Last administered on 08:20; Start 08/16/17 at 09:00; Stop 08/24/17 at 16:52; Status DC Magnesium Hydroxide (Milk Of Magnesia) 2,400 mg PRN DAILY PRN PO CONSTIPATION Last administered on 08/25/17 09:00; Start 08/15/17 at 18:15 Non-Formulary Medication 1 tab BID PO ; Start 08/15/17 at 21:00; Status UNV Vitamin D (Vitamin D3) 500 unit DAILY PO Last administered on 08/30/17 07:28; Start 08/16/17 at 09:00 Ketorolac Tromethamine (Acular) 1 drop QID OS Last administered on 08/24/17 08 :20; Start 08/15/17 at 21:00; Stop 08/24/17 at 16:52; Status DC Lactobacillus Rhamnosus (Culturelle) 1 cap BID PO Last administered on 20:20; Start 08/15/17 at 21:00 Multivitamins/ Calcium (Thera-M Plus) 1 tab DAILY PO Last administered on 07:28; Start 08/16/17 at 09:00 Ondansetron HCl (Zofran Odt) 4 mg PRN Q4HRS PRN PO NAUSEA/VOMITING Last administered on 08/22/17at 01:49; Start 08/15/17 at 18:45 Olanzapine (ZyPREXA ZYDIS) 2.5 mg PRN Q2HR PRN PO PSYCHOSIS Last administered on 08/28/17 13:52; Start 08/16/17 at 18:30 Quetiapine Fumarate (SEROquel) 12.5 mg 0900,1300 PO Last administered on at 08:00; Start 08/17/17 at 09:00; Stop 08/17/17 at 22:38; Status DC Potassium Chloride (Klor-Con) 20 meq BID PO Last administered on 08/31/17 20: 19; Start 08/17/17 at 21:00 Quetiapine Fumarate (SEROquel) 12.5 mg 0700,1100,1400,1700 PO Last administered on 08/29/17at 11:09; Start 08/18/17 at 07:00; Stop 08/29/17 at 11:34 ; Status DC Mirtazapine (Remeron) 7.5 mg QHS PO Last administered on 08/18/17at 20:18; Start 08/17/17 at 23:00; Stop 08/19/17 at 18:10; Status DC Mirtazapine (Remeron) 15 mg QHS PO Last administered on 08/31/17 20:19; Start 08/19/17 at 21:00 Trazodone HCl (Desyrel) 50 mg QHS PO Last administered on 08/31/17at 20:19; Start 08/19/17 at 21:00 Trazodone HCl (Desyrel) 50 mg PRN QHS PRN PO insomnia Last administered on at 23:37; Start 08/19/17 at 18:15 Magnesium Citrate (Citroma) 148 ml PRN 1X PRN PO CONSTIPATION; Start 08/23/17 at 07:45 Fluticasone Propionate (Flonase) 2 spray PRN DAILY NS ; Start 08/25/17 at 09:00 Hydroxyzine HCl (Atarax) 10 mg PRN Q2HR PRN PO AGITATION Last administered on at 13:18; Start 08/25/17 at 10:45 Divalproex Sodium (Depakote Sprinkles) 125 mg BID@0900,1700 PO Last administered on 08/30/17at 17:53; Start 08/28/17 at 09:00 Quetiapine Fumarate (SEROquel) 25 mg BID@0700,1700 PO Last administered on 08/31at 06:23; Start 08/29/17 at 17:00 Melatonin 3 mg PRN QHS PRN PO INSOMNIA; Start 08/31/17 at 16:30 Active Scripts Active Reported EXELON 4.6mg/24hr (Rivastigmine) 1 Each Patch.td24 1 Patch TD DAILY Zyvox (Linezolid) 600 Mg Tablet 600 Mg PO BID Lovenox (Enoxaparin Sodium) 30 Mg/0.3 Ml Disp.syrin 30 Mg SQ Q24H Thera-M (Multivits,Th W-Fe,Other Min) 1 Each Tablet 1 Tab PO DAILY Milk Of Magnesia (Magnesium Hydroxide) 400 Mg/5 Ml Oral.susp 2,400 Mg PO PRN DAILY PRN Culturelle (Lactobacillus Rhamnosus Gg) 1 Each Capsule 1 Cap PO BID Fluticasone Propionate Nasal [place] (Fluticasone Propionate) 16 Gm [place].susp 2 [place] NS DAILY Zofran (Ondansetron Hcl) 4 Mg Tablet 4 Mg PO PRN Q4HRS PRN Vitamin D-400 (Cholecalciferol (Vitamin D3)) 400 Unit Tablet 500 Unit PO DAILY Tylenol (Acetaminophen) 325 Mg Tablet 650 Mg PO BID Tylenol (Acetaminophen) 325 Mg Tablet 650 Mg PO PRN Q6HRS PRN Ketorolac Tromethamine 5 Ml Drops 1 Drop LEFTEYE QID Ferrous Sulfate 325 Mg Tablet 325 Mg PO DAILY Colace (Docusate Sodium) 100 Mg Capsule 100 Mg PO BID Nadeem Mag Zinc + D3 Tablet (Ca Carb/Vit D3/Mag Ox/Zn Oxide) 1 Each Tablet 1 Tab PO BID I have reviewed the current psychotropics carefully including drug interactions. Risk benefit ratio favors no change other than as noted in my dictated progress note. Diagnosis: Problems: (1) Dehydration (2) Nausea and vomiting (3) Dementia with behavioral disturbance (4) Anxiety disorder (5) Dementia in Alzheimer's disease with delusions (6) Dementia in Alzheimer's disease with depression (7) Dementia, vascular, with delusions (8) Dementia, vascular, with depression (9) Impulse control disorder LAUREN CASILLAS MD Aug 31, 2017 22:58
--- NOTE | 2017-09-01 01:07 | PN ---
DATE: 08/29/2017 This is a late entry for 08/29/2017 and covers the elements not covered in my initial note of 08/29/2017. SUBJECTIVE: The patient was staffed at a treatment team meeting in the morning, seen individually in the evening, slept 6 hours, agitated previous night, took her med syringed , noncompliant with medications, meds had to be hidden for breakfast. REVIEW OF SYSTEMS: No CV, , pulmonary, eye, ENT system symptoms on review. Reliability poor. MENTAL STATUS EXAM: Oriented to herself. Insight, judgment, recent and remote memory, attention, concentration, fund of knowledge poor, consistent with her diagnosis mentioned in my initial note. PLAN: Increase the 0700 and 1700 Seroquel from 12.5 mg to 25 mg and leave the rest unchanged, adjust further as clinically indicated. MAN Jc CASILLAS MD DR: MIGUEL A/nahed JOB#: [id number] / [id number]
--- NOTE | 2017-09-01 02:17 | NUR ---
Behavior Intervention Response and Plan: BIRP Note: Behavior: Assumed Care of patient, patient located in Patient Room at shift change. Patient exhibited the following behavior Calm, Compliant, Cooperative. Brief assessment on rounds of vital signs, medication needs, lab studies, and pain. Treatment plan problems Dementia with BD and Fall Risk. Intervention: Patient assessed and the following interventions initiated safety checks 15 Minute Checks Cognitive Assessment , Head to toe Assessment , Medications. Response: After interactions and interventions patient responded in the following manner, Calm , Disorganized ,Compliant. Continue to assess behaviors and condition will continue to monitor throughout the shift as needed. Patient educated on ADL's, and hand hygiene. Plan: Continue to monitor Master Treatment Plan for patient's progress toward short term goals of Decreased Aggression, No harm To self/ others, fci goals to return to previous living setting vs placement. Continue to assess patient for changes in above assessment. Monitor for medication needs, pain, and safety concerns. Hourly rounding performed to ensure safe environment.
[2017-09-01] MEDS: QUEtiapine 25 MG TABLET. PO SCH ×2 (05:57→16:26)
--- NOTE | 2017-09-01 07:57 | PN ---
DATE: 08/30/2017 This late entry, 08/30/2017, covers elements not covered in my initial note of 08/30/2017. SUBJECTIVE: I met with the patient the evening of 08/30/2017. The patient ate no breakfast, had some lunch, was eating some supper. LABORATORY DATA: Valproic acid level to be checked tomorrow morning of 08/31/2017. REVIEW OF SYSTEMS: No CV, , pulmonary, eye, ENT system symptoms on review. Reliability poor. MENTAL STATUS EXAM: Oriented to herself. Insight, judgment, recent and remote memory, attention, concentration, fund of knowledge poor, consistent with her diagnosis mentioned in my initial note. PLAN: Continue current psychotropics. Adjust as indicated. LAUREN CASILLAS MD DR: MIGUEL A/nahed JOB#: [id number] / [id number]
[2017-09-01] MEDS: ACETAMINOPHEN 325 MG TABLET PO SCH ×2 (08:15→19:46)
[2017-09-01] MEDS: POTASSIUM CHLORIDE 20 MEQ TABLET.ER. PO SCH ×2 (08:15→19:46)
[2017-09-01] MEDS: CHOLECALCIFEROL (VITAMIN D3) 1,000 UNIT TABLET PO SCH (08:15)
[2017-09-01] MEDS: LACTOBACILLUS RHAMNOSUS GG 1 CAPSULE. PO SCH ×2 (08:15→19:46)
[2017-09-01] MEDS: DOCUSATE SODIUM 100 MG CAPSULE PO SCH ×2 (08:15→19:45)
[2017-09-01] MEDS: MULTIVITAMIN with MINERAL TABLET. PO SCH (08:16)
[2017-09-01] MEDS: DIVALPROEX 125 MG CAP.SPRINK PO SCH ×2 (08:16→16:26)
[2017-09-01] MEDS: FERROUS SULFATE 325 MG TABLET. PO SCH (08:16)
--- NOTE | 2017-09-01 10:38 | NUR ---
Behavior Intervention Response and Plan: BIRP Note: Behavior: Assumed Care of patient, patient located in Patient Room at shift change. Patient exhibited the following behavior Disorganized, Compliant, Sleeping. Brief assessment on rounds of vital signs, medication needs, lab studies, and pain. Treatment plan problems . Intervention: Patient assessed and the following interventions initiated safety checks 15 Minute Checks Cognitive Assessment , Head to toe Assessment , Medications. Response: After interactions and interventions patient responded in the following manner, Compliant , Calm ,Compliant. Continue to assess behaviors and condition will continue to monitor throughout the shift as needed. Patient educated on ADL's, and hand hygiene. Plan: Continue to monitor Master Treatment Plan for patient's progress toward short term goals of Decreased Agitation, Decreased Aggression, watermaster goals to return to previous living setting vs placement. Continue to assess patient for changes in above assessment. Monitor for medication needs, pain, and safety concerns. Hourly rounding performed to ensure safe environment.
--- NOTE | 2017-09-01 16:12 | NUR ---
pt refused to get up for breakfast. came out to lunch. took only two of pills. irritable. wandering and laying down intermittently. did take marjan pills.
[2017-09-01 16:14] VITALS: BP 147/83
[2017-09-01] MEDS: MIRTAZAPINE 15 MG TABLET PO SCH (19:46)
[2017-09-01] MEDS: traZODone 50 MG TABLET. PO SCH (19:46)
--- NOTE | 2017-09-01 20:56 | PDOC ---
Exam Note: Allen Note: Please also refer to the separate dictated note~for this date of service dictated separately.~Patient seen individually. Discussed the patient with Nursing staff reviewed the chart.~Reviewed interim history and current functioning. Reviewed vital signs,~Labs/ Radiology~and current medications noted below. Continue current treatment with the changes noted in the dictated addendum note Assessment: Vital Signs: Vital Signs Date Time Temp Pulse Resp B/P (MAP) Pulse Ox O2 Delivery O2 Flow Rate FiO2 09/01/17 16:14 98.7 93 20 147/83 (104) 95 08/29/17 16:35 Room Air I&O Intake and Output 09/01/17 07:00 Intake Total 120 ml Balance 120 ml Intake Oral 120 ml Current Medications: Meds: Current Medications Acetaminophen (Tylenol) 650 mg PRN Q6HRS PRN PO PAIN / TEMP; Start 08/15/17 at 17:15; Status Cancel Multi-Ingredient Ointment (Analgesic Robbins) 1 ronni PRN QID PRN TP MUSCLE PAIN; Start 08/15/17 at 17:15 Al Hydroxide/Mg Hydroxide (Mylanta Plus Xs) 15 ml PRN AFTMEALHC PRN PO DYSPEPSIA; Start 08/15/17 at 17:15 Magnesium Hydroxide (Milk Of Magnesia) 2,400 mg PRN QHS PRN PO CONSTIPATION; Start 08/15/17 at 17:15; Status Cancel Acetaminophen (Tylenol) 650 mg BID PO Last administered on 09/01/17at 19:46; Start 08/15/17 at 21:00 Acetaminophen (Tylenol) 650 mg PRN Q6HRS PRN PO PAIN / TEMP; Start 08/15/17 at 18:15 Docusate Sodium (Colace) 100 mg BID PO Last administered on 09/01/17at 19:45; Start 08/15/17 at 21:00 Ferrous Sulfate (Feosol) 325 mg DAILY PO Last administered on 09/01/17at 08:16; Start 08/16/17 at 09:00 Fluticasone Propionate (Flonase) 2 spray DAILY NS Last administered on at 08:20; Start 08/16/17 at 09:00; Stop 08/24/17 at 16:52; Status DC Magnesium Hydroxide (Milk Of Magnesia) 2,400 mg PRN DAILY PRN PO CONSTIPATION Last administered on 08/25/17 09:00; Start 08/15/17 at 18:15 Non-Formulary Medication 1 tab BID PO ; Start 08/15/17 at 21:00; Status UNV Vitamin D (Vitamin D3) 500 unit DAILY PO Last administered on 09/01/17 08:15; Start 08/16/17 at 09:00 Ketorolac Tromethamine (Acular) 1 drop QID OS Last administered on 08/24/17 08 :20; Start 08/15/17 at 21:00; Stop 08/24/17 at 16:52; Status DC Lactobacillus Rhamnosus (Culturelle) 1 cap BID PO Last administered on 19:46; Start 08/15/17 at 21:00 Multivitamins/ Calcium (Thera-M Plus) 1 tab DAILY PO Last administered on 08:16; Start 08/16/17 at 09:00 Ondansetron HCl (Zofran Odt) 4 mg PRN Q4HRS PRN PO NAUSEA/VOMITING Last administered on 08/22/17 01:49; Start 08/15/17 at 18:45 Olanzapine (ZyPREXA ZYDIS) 2.5 mg PRN Q2HR PRN PO PSYCHOSIS Last administered on 08/28/17 13:52; Start 08/16/17 at 18:30 Quetiapine Fumarate (SEROquel) 12.5 mg 0900,1300 PO Last administered on 08:00; Start 08/17/17 at 09:00; Stop 08/17/17 at 22:38; Status DC Potassium Chloride (Klor-Con) 20 meq BID PO Last administered on 09/01/17 19: 46; Start 08/17/17 at 21:00 Quetiapine Fumarate (SEROquel) 12.5 mg 0700,1100,1400,1700 PO Last administered on 08/29/17 11:09; Start 08/18/17 at 07:00; Stop 08/29/17 at 11:34 ; Status DC Mirtazapine (Remeron) 7.5 mg QHS PO Last administered on 08/18/17 20:18; Start 08/17/17 at 23:00; Stop 08/19/17 at 18:10; Status DC Mirtazapine (Remeron) 15 mg QHS PO Last administered on 09/01/17at 19:46; Start 08/19/17 at 21:00 Trazodone HCl (Desyrel) 50 mg QHS PO Last administered on 09/01/17at 19:46; Start 08/19/17 at 21:00 Trazodone HCl (Desyrel) 50 mg PRN QHS PRN PO insomnia Last administered on at 23:37; Start 08/19/17 at 18:15 Magnesium Citrate (Citroma) 148 ml PRN 1X PRN PO CONSTIPATION; Start 08/23/17 at 07:45 Fluticasone Propionate (Flonase) 2 spray PRN DAILY NS ; Start 08/25/17 at 09:00 Hydroxyzine HCl (Atarax) 10 mg PRN Q2HR PRN PO AGITATION Last administered on at 13:18; Start 08/25/17 at 10:45 Divalproex Sodium (Depakote Sprinkles) 125 mg BID@0900,1700 PO Last administered on 09/01/17 16:26; Start 08/28/17 at 09:00 Quetiapine Fumarate (SEROquel) 25 mg BID@0700,1700 PO Last administered on 09/01 16:26; Start 08/29/17 at 17:00 Melatonin 3 mg PRN QHS PRN PO INSOMNIA; Start 08/31/17 at 16:30 Active Scripts Active Reported EXELON 4.6mg/24hr (Rivastigmine) 1 Each Patch.td24 1 Patch TD DAILY Zyvox (Linezolid) 600 Mg Tablet 600 Mg PO BID Lovenox (Enoxaparin Sodium) 30 Mg/0.3 Ml Disp.syrin 30 Mg SQ Q24H Thera-M (Multivits, W-Fe,Other Min) 1 Each Tablet 1 Tab PO DAILY Milk Of Magnesia (Magnesium Hydroxide) 400 Mg/5 Ml Oral.susp 2,400 Mg PO PRN DAILY PRN Culturelle (Lactobacillus Rhamnosus Gg) 1 Each Capsule 1 Cap PO BID Fluticasone Propionate Nasal [place] (Fluticasone Propionate) 16 Gm [place].susp 2 [place] NS DAILY Zofran (Ondansetron Hcl) 4 Mg Tablet 4 Mg PO PRN Q4HRS PRN Vitamin D-400 (Cholecalciferol (Vitamin D3)) 400 Unit Tablet 500 Unit PO DAILY Tylenol (Acetaminophen) 325 Mg Tablet 650 Mg PO BID Tylenol (Acetaminophen) 325 Mg Tablet 650 Mg PO PRN Q6HRS PRN Ketorolac Tromethamine 5 Ml Drops 1 Drop LEFTEYE QID Ferrous Sulfate 325 Mg Tablet 325 Mg PO DAILY Colace (Docusate Sodium) 100 Mg Capsule 100 Mg PO BID Nadeem Mag Zinc + D3 Tablet (Ca Carb/Vit D3/Mag Ox/Zn Oxide) 1 Each Tablet 1 Tab PO BID I have reviewed the current psychotropics carefully including drug interactions. Risk benefit ratio favors no change other than as noted in my dictated progress note. 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
--- NOTE | 2017-09-01 22:09 | PN ---
DATE: 08/31/2017 This is a late entry, 08/31/2017, covers the elements not covered in my initial note, 08/31/2017. SUBJECTIVE: I met with the patient in the evening of 08/31/2017. The patient slept 4-1/2 hours the previous evening, ate no breakfast, slept in the chair, later in the day. Valproic acid level is 15. REVIEW OF SYSTEMS: No CV, , pulmonary, eye, ENT system symptoms on review. MENTAL STATUS EXAM: Oriented to herself. Insight, judgment, recent and remote memory, attention, concentration, fund of knowledge poor, consistent with her diagnosis as mentioned in my initial note. PLAN: Start melatonin 3 mg at bedtime for insomnia. Continue rest unchanged. MAN Jc CASILLAS MD DR: MIGUEL A/nahed JOB#: [id number] / [id number]
[2017-09-01] MEDS: traZODone 50 MG TABLET. PO PRN (22:21)
[2017-09-01] MEDS: MELATONIN 3 MG TABLET PO PRN (22:21)
--- NOTE | 2017-09-01 23:02 | NUR ---
Behavior Intervention Response and Plan: BIRP Note: Behavior: Assumed Care of patient, patient located in Patient Room at shift change. Patient exhibited the following behavior Irritable, agitated, Delusions. Brief assessment on rounds of vital signs, medication needs, lab studies, and pain. Treatment plan problems Dementia with BD and Delusions, Fall Risk. Intervention: Patient assessed and the following interventions initiated safety checks 15 Minute Checks Cognitive Assessment , Head to toe Assessment , Medications. Response: After interactions and interventions patient responded in the following manner, Delusions , Sarcastic ,Compliant. Continue to assess behaviors and condition will continue to monitor throughout the shift as needed. Patient educated on ADL's, and hand hygiene. 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 Continue to assess patient for changes in above assessment. Monitor for medication needs, pain, and safety concerns. Hourly rounding performed to ensure safe environment.
[2017-09-02 06:31] VITALS: BP 105/76
[2017-09-02] MEDS: QUEtiapine 25 MG TABLET. PO SCH ×2 (06:35→16:43)
[2017-09-02] MEDS: DIVALPROEX 125 MG CAP.SPRINK PO SCH ×2 (08:01→16:43)
[2017-09-02] MEDS: MAGNESIUM HYDROXIDE 2,400 MG/30 ML ORAL.SUSP. PO PRN (09:05)
[2017-09-02] MEDS: POTASSIUM CHLORIDE 20 MEQ TABLET.ER. PO SCH ×2 (09:05→19:42)
[2017-09-02] MEDS: FERROUS SULFATE 325 MG TABLET. PO SCH (09:06)
[2017-09-02] MEDS: LACTOBACILLUS RHAMNOSUS GG 1 CAPSULE. PO SCH ×2 (09:06→19:42)
[2017-09-02] MEDS: CHOLECALCIFEROL (VITAMIN D3) 1,000 UNIT TABLET PO SCH (09:06)
[2017-09-02] MEDS: DOCUSATE SODIUM 100 MG CAPSULE PO SCH ×2 (09:06→19:41)
[2017-09-02] MEDS: MULTIVITAMIN with MINERAL TABLET. PO SCH (09:06)
[2017-09-02] MEDS: ACETAMINOPHEN 325 MG TABLET PO SCH ×2 (09:06→19:41)
--- NOTE | 2017-09-02 13:10 | NUR ---
Behavior Intervention Response and Plan: BIRP Note: Behavior: Assumed Care of patient, patient located in Day Room at shift change. Patient exhibited the following behavior Calm, Resistive, Drowsy. Brief assessment on rounds of vital signs, medication needs, lab studies, and pain. Treatment plan problems . Intervention: Patient assessed and the following interventions initiated safety checks 15 Minute Checks Cognitive Assessment , Head to toe Assessment , Medications. Response: After interactions and interventions patient responded in the following manner, Disorganized , Compliant ,Non Compliant. Continue to assess behaviors and condition will continue to monitor throughout the shift as needed. Patient educated on ADL's, and hand hygiene. 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 Continue to assess patient for changes in above assessment. Monitor for medication needs, pain, and safety concerns. Hourly rounding performed to ensure safe environment.
[2017-09-02 15:25] VITALS: BP 99/69
--- NOTE | 2017-09-02 17:51 | NUR ---
MOM administered to patient with her morning medications for constipation, she has not had a documented bowel movement since 08/25. PRN effective, patient had large bowel movement.
[2017-09-02] MEDS: MIRTAZAPINE 15 MG TABLET PO SCH (19:41)
[2017-09-02] MEDS: traZODone 50 MG TABLET. PO SCH (19:42)
--- NOTE | 2017-09-02 20:48 | PN ---
DATE: 09/01/2017 PSYCHIATRIC PROGRESS NOTE This is a late entry for 09/01/2017, covers elements not covered in my initial note of 09/01/2017. SUBJECTIVE: I met with the patient the evening of 09/01/2017. The patient slept till mid morning only, got 2 pills down in the morning, took the rest in ice cream at lunchtime. Compliant with p.m. medications, irritable at times, confused. REVIEW OF SYSTEMS: No CV, , pulmonary, eye, ENT system symptoms on review. Reliability poor. MENTAL STATUS EXAM: Oriented to herself. Insight, judgment, recent and remote memory, attention, concentration, fund of knowledge poor, consistent with her diagnosis mentioned in my initial note. PLAN: Continue current psychotropics. Adjust further as clinically indicated. MAN Jc CASILLAS MD DR: MIGUEL A/nahed JOB#: [id number] / [id number]
--- NOTE | 2017-09-02 21:05 | PDOC ---
Exam Note: Allen Note: Please also refer to the separate dictated note~for this date of service dictated separately.~Patient seen individually. Discussed the patient with Nursing staff reviewed the chart.~Reviewed interim history and current functioning. Reviewed vital signs,~Labs/ Radiology~and current medications noted below. Continue current treatment with the changes noted in the dictated addendum note Assessment: Vital Signs: Vital Signs Date Time Temp Pulse Resp B/P (MAP) Pulse Ox O2 Delivery O2 Flow Rate FiO2 09/02/17 15:25 98.8 91 18 99/69 (79) 97 Room Air I&O Intake and Output 09/02/17 07:00 Intake Total 840 ml Balance 840 ml Intake Oral 840 ml Current Medications: Meds: Current Medications Acetaminophen (Tylenol) 650 mg PRN Q6HRS PRN PO PAIN / TEMP; Start 08/15/17 at 17:15; Status Cancel Multi-Ingredient Ointment (Analgesic Thompson) 1 ronni PRN QID PRN TP MUSCLE PAIN; Start 08/15/17 at 17:15 Al Hydroxide/Mg Hydroxide (Mylanta Plus Xs) 15 ml PRN AFTMEALHC PRN PO DYSPEPSIA; Start 08/15/17 at 17:15 Magnesium Hydroxide (Milk Of Magnesia) 2,400 mg PRN QHS PRN PO CONSTIPATION; Start 08/15/17 at 17:15; Status Cancel Acetaminophen (Tylenol) 650 mg BID PO Last administered on 09/02/17at 19:41; Start 08/15/17 at 21:00 Acetaminophen (Tylenol) 650 mg PRN Q6HRS PRN PO PAIN / TEMP; Start 08/15/17 at 18:15 Docusate Sodium (Colace) 100 mg BID PO Last administered on 09/02/17at 19:41; Start 08/15/17 at 21:00 Ferrous Sulfate (Feosol) 325 mg DAILY PO Last administered on 09/02/17at 09:06; Start 08/16/17 at 09:00 Fluticasone Propionate (Flonase) 2 spray DAILY NS Last administered on at 08:20; Start 08/16/17 at 09:00; Stop 08/24/17 at 16:52; Status DC Magnesium Hydroxide (Milk Of Magnesia) 2,400 mg PRN DAILY PRN PO CONSTIPATION Last administered on 09/02/17 09:05; Start 08/15/17 at 18:15 Non-Formulary Medication 1 tab BID PO ; Start 08/15/17 at 21:00; Status UNV Vitamin D (Vitamin D3) 500 unit DAILY PO Last administered on 09/02/17at 09:06; Start 08/16/17 at 09:00 Ketorolac Tromethamine (Acular) 1 drop QID OS Last administered on 08/24/17 08 :20; Start 08/15/17 at 21:00; Stop 08/24/17 at 16:52; Status DC Lactobacillus Rhamnosus (Culturelle) 1 cap BID PO Last administered on at 19:42; Start 08/15/17 at 21:00 Multivitamins/ Calcium (Thera-M Plus) 1 tab DAILY PO Last administered on 09:06; Start 08/16/17 at 09:00 Ondansetron HCl (Zofran Odt) 4 mg PRN Q4HRS PRN PO NAUSEA/VOMITING Last administered on 08/22/17at 01:49; Start 08/15/17 at 18:45 Olanzapine (ZyPREXA ZYDIS) 2.5 mg PRN Q2HR PRN PO PSYCHOSIS Last administered on 08/28/17at 13:52; Start 08/16/17 at 18:30 Quetiapine Fumarate (SEROquel) 12.5 mg 0900,1300 PO Last administered on 08:00; Start 08/17/17 at 09:00; Stop 08/17/17 at 22:38; Status DC Potassium Chloride (Klor-Con) 20 meq BID PO Last administered on 09/02/17at 19: 42; Start 08/17/17 at 21:00 Quetiapine Fumarate (SEROquel) 12.5 mg 0700,1100,1400,1700 PO Last administered on 08/29/17at 11:09; Start 08/18/17 at 07:00; Stop 08/29/17 at 11:34 ; Status DC Mirtazapine (Remeron) 7.5 mg QHS PO Last administered on 08/18/17 20:18; Start 08/17/17 at 23:00; Stop 08/19/17 at 18:10; Status DC Mirtazapine (Remeron) 15 mg QHS PO Last administered on 09/02/17at 19:41; Start 08/19/17 at 21:00 Trazodone HCl (Desyrel) 50 mg QHS PO Last administered on 09/02/17at 19:42; Start 08/19/17 at 21:00 Trazodone HCl (Desyrel) 50 mg PRN QHS PRN PO insomnia Last administered on 09/01at 22:21; Start 08/19/17 at 18:15 Magnesium Citrate (Citroma) 148 ml PRN 1X PRN PO CONSTIPATION; Start 08/23/17 at 07:45 Fluticasone Propionate (Flonase) 2 spray PRN DAILY NS ; Start 08/25/17 at 09:00 Hydroxyzine HCl (Atarax) 10 mg PRN Q2HR PRN PO AGITATION Last administered on at 13:18; Start 08/25/17 at 10:45 Divalproex Sodium (Depakote Sprinkles) 125 mg BID@0900,1700 PO Last administered on 09/02/17at 16:43; Start 08/28/17 at 09:00 Quetiapine Fumarate (SEROquel) 25 mg BID@0700,1700 PO Last administered on 09/02at 16:43; Start 08/29/17 at 17:00 Melatonin 3 mg PRN QHS PRN PO INSOMNIA Last administered on 09/01/17at 22:21; Start 08/31/17 at 16:30 Megestrol Acetate (Megace) 200 mg TIDAC PO ; Start 09/03/17 at 07:30 Active Scripts Active Reported EXELON 4.6mg/24hr (Rivastigmine) 1 Each Patch.td24 1 Patch TD DAILY Zyvox (Linezolid) 600 Mg Tablet 600 Mg PO BID Lovenox (Enoxaparin Sodium) 30 Mg/0.3 Ml Disp.syrin 30 Mg SQ Q24H Thera-M (Multivits, W-Fe,Other Min) 1 Each Tablet 1 Tab PO DAILY Milk Of Magnesia (Magnesium Hydroxide) 400 Mg/5 Ml Oral.susp 2,400 Mg PO PRN DAILY PRN Culturelle (Lactobacillus Rhamnosus Gg) 1 Each Capsule 1 Cap PO BID Fluticasone Propionate Nasal [place] (Fluticasone Propionate) 16 Gm [place].susp 2 [place] NS DAILY Zofran (Ondansetron Hcl) 4 Mg Tablet 4 Mg PO PRN Q4HRS PRN Vitamin D-400 (Cholecalciferol (Vitamin D3)) 400 Unit Tablet 500 Unit PO DAILY Tylenol (Acetaminophen) 325 Mg Tablet 650 Mg PO BID Tylenol (Acetaminophen) 325 Mg Tablet 650 Mg PO PRN Q6HRS PRN Ketorolac Tromethamine 5 Ml Drops 1 Drop LEFTEYE QID Ferrous Sulfate 325 Mg Tablet 325 Mg PO DAILY Colace (Docusate Sodium) 100 Mg Capsule 100 Mg PO BID Nadeem Mag Zinc + D3 Tablet (Ca Carb/Vit D3/Mag Ox/Zn Oxide) 1 Each Tablet 1 Tab PO BID I have reviewed the current psychotropics carefully including drug interactions. Risk benefit ratio favors no change other than as noted in my dictated progress note. Diagnosis: Problems: (1) Dementia with behavioral disturbance (2) Anxiety disorder (3) Dementia in Alzheimer's disease with delusions (4) Dementia in Alzheimer's disease with depression (5) Dementia, vascular, with delusions (6) Dementia, vascular, with depression (7) Impulse control disorder LAUREN CASILLAS MD Sep 02, 2017 21:05
--- NOTE | 2017-09-03 00:36 | NUR ---
Behavior Intervention Response and Plan: BIRP Note: Behavior: Assumed Care of patient, patient located in Patient Room at shift change. Patient exhibited the following behavior Irritable, agitated, Delusions. Brief assessment on rounds of vital signs, medication needs, lab studies, and pain. Treatment plan problems Dementia with BD and Delusions, Fall Risk. Intervention: Patient assessed and the following interventions initiated safety checks 15 Minute Checks Cognitive Assessment , Head to toe Assessment , Medications. Response: After interactions and interventions patient responded in the following manner, Delusions , Sarcastic ,Compliant. Continue to assess behaviors and condition will continue to monitor throughout the shift as needed. Patient educated on ADL's, and hand hygiene. 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 Continue to assess patient for changes in above assessment. Monitor for medication needs, pain, and safety concerns. Hourly rounding performed to ensure safe environment.
[2017-09-03] MEDS: QUEtiapine 25 MG TABLET. PO SCH ×2 (05:44→17:03)
[2017-09-03 06:14] VITALS: BP 126/53
[2017-09-03] MEDS: MEGESTROL 400 MG/10 ML ORAL.SUSP. PO SCH ×5 (07:30→17:03)
[2017-09-03 07:59] LABS: BASO # 0.1 x10^3/uL (0.0-0.2); BASO % 1 % (0-3); EOS # 0.3 x10^3/uL (0.0-0.7); EOS % 5 % (0-3); HEMATOCRIT 38.5 % (36.0-47.0); HEMOGLOBIN 12.7 g/dL (12.0-15.5); LYMPH # 2.1 x10^3/uL (1.0-4.8); LYMPH % 36 % (24-48); MEAN CORPUSCULAR HEMOGLOBIN 31 pg (25-35); MEAN CORPUSCULAR HGB CONC 33 g/dL (31-37); MEAN CORPUSCULAR VOLUME 93 fL (79-100); MONO # 0.5 x10^3/uL (0.0-1.1); MONO % 9 % (0-9); NEUT # 2.7 x10^3uL (1.8-7.7); NEUT % 48 % (31-73); PLATELET COUNT 181 x10^3/uL (140-400); RED BLOOD COUNT 4.13 x10^6/uL (3.50-5.40); RED CELL DISTRIBUTION WIDTH 14.3 % (11.5-14.5); WHITE BLOOD COUNT 5.6 x10^3/uL (4.0-11.0)
[2017-09-03 08:08] LABS: ALBUMIN 3.1 g/dL (3.4-5.0); ALBUMIN/GLOBULIN RATIO 0.9 (1.0-1.7); ALK PHOS 60 U/L (46-116); ALT (SGPT) 15 U/L (14-59); ANION GAP 10 (6-14); AST (SGOT) 14 U/L (15-37); BLOOD UREA NITROGEN 18 mg/dL (7-20); BUN/CREATININE RATIO 23 (6-20); CALCIUM 9.1 mg/dL (8.5-10.1); CARBON DIOXIDE 25 mmol/L (21-32); CHLORIDE 108 mmol/L (98-107); CREATININE 0.8 mg/dL (0.6-1.0); GFR 67.7; GLUCOSE 90 mg/dL (70-99); MAGNESIUM 2.1 mg/dL (1.8-2.4); POTASSIUM 3.9 mmol/L (3.5-5.1); SODIUM 143 mmol/L (136-145); TOTAL BILIRUBIN 0.2 mg/dL (0.2-1.0); TOTAL PROTEIN 6.6 g/dL (6.4-8.2)
[2017-09-03 08:19] LABS: VAL ACID 8 mcg/mL (50-100)
[2017-09-03] MEDS: DOCUSATE SODIUM 100 MG CAPSULE PO SCH ×3 (08:41→21:00)
[2017-09-03] MEDS: DIVALPROEX 125 MG CAP.SPRINK PO SCH ×2 (08:41→17:03)
[2017-09-03] MEDS: POTASSIUM CHLORIDE 20 MEQ TABLET.ER. PO SCH ×3 (08:42→21:00)
[2017-09-03] MEDS: FERROUS SULFATE 325 MG TABLET. PO SCH (08:42)
[2017-09-03] MEDS: MULTIVITAMIN with MINERAL TABLET. PO SCH (08:42)
[2017-09-03] MEDS: CHOLECALCIFEROL (VITAMIN D3) 1,000 UNIT TABLET PO SCH (08:42)
[2017-09-03] MEDS: LACTOBACILLUS RHAMNOSUS GG 1 CAPSULE. PO SCH ×3 (08:43→21:00)
[2017-09-03] MEDS: ACETAMINOPHEN 325 MG TABLET PO SCH ×3 (08:43→21:00)
[2017-09-03 09:11] LABS: PLT ESTIMATE ADEQUATE (ADEQUATE)
--- NOTE | 2017-09-03 09:56 | NUR ---
TONY spoke with pt daughter Lachelle she will be leaving tomorrow morning and will not have access to her cell phone. She has provided her brother's information which she stated are both on the power of atty paperwork. Lasha Askew [phone] and Rolo Askew [phone].
--- NOTE | 2017-09-03 15:21 | NUR ---
Behavior Intervention Response and Plan: BIRP Note: Behavior: Assumed Care of patient, patient located in Day Room at shift change. Patient exhibited the following behavior Calm, Drowsy, Cooperative. Brief assessment on rounds of vital signs, medication needs, lab studies, and pain. Treatment plan problems 1-2. Intervention: Patient assessed and the following interventions initiated safety checks 15 Minute Checks Cognitive Assessment , Head to toe Assessment , Medications. Response: After interactions and interventions patient responded in the following manner, Wandering , Drowsy ,Cooperative. Continue to assess behaviors and condition will continue to monitor throughout the shift as needed. Patient educated on ADL's, and hand hygiene. Plan: Continue to monitor Master Treatment Plan for patient's progress toward short term goals of Decreased Agitation, Decreased Aggression, fdc goals to return to previous living setting vs placement. Continue to assess patient for changes in above assessment. Monitor for medication needs, pain, and safety concerns. Hourly rounding performed to ensure safe environment.
[2017-09-03 15:59] VITALS: BP 126/68
--- NOTE | 2017-09-03 18:26 | PN ---
DATE: 09/02/2017 PSYCHIATRIC PROGRESS NOTE This is a late entry for 09/02/2017, covers elements not covered in my initial note of 09/02/2017. SUBJECTIVE: I met with the patient in the evening of 09/02/2017. The patient remains confused, withdrawn. Appetite is very poor, slept 4-1/4 hours, restless at times, less agitated, but quite withdrawn. REVIEW OF SYSTEMS: No CV, , pulmonary, eye, ENT system symptoms on review. Reliability poor. MENTAL STATUS EXAM: Oriented to herself. Insight, judgment, recent and remote memory, attention, concentration, fund of knowledge poor, consistent with her diagnosis mentioned in my initial note. PLAN: Check CBC, CMP, valproic acid level in the morning. Start Megace 200 mg p.o. t.i.d. a.c., to stimulate appetite if approved by Dr. Godoy. Continue rest unchanged per initial note. LAUREN CASILLAS MD DR: MIGUEL A/nahed JOB#: [id number] / [id number]
[2017-09-03] MEDS: MIRTAZAPINE 15 MG TABLET PO SCH ×2 (19:37→21:00)
[2017-09-03] MEDS: traZODone 50 MG TABLET. PO SCH ×2 (19:38→21:00)
--- NOTE | 2017-09-03 20:53 | PDOC ---
Exam Note: Allen Note: Please also refer to the separate dictated note~for this date of service dictated separately.~Patient seen individually. Discussed the patient with Nursing staff reviewed the chart.~Reviewed interim history and current functioning. Reviewed vital signs,~Labs/ Radiology~and current medications noted below. Continue current treatment with the changes noted in the dictated addendum note Assessment: Vital Signs: Vital Signs Date Time Temp Pulse Resp B/P (MAP) Pulse Ox O2 Delivery O2 Flow Rate FiO2 09/03/17 15:59 98.1 76 18 126/68 (87) 96 09/02/17 15:25 Room Air I&O Intake and Output 09/03/17 07:00 Intake Total 1200 ml Balance 1200 ml Intake Oral 1200 ml # Bowel Movements 1 Labs: Laboratory Tests Test 09/03/17 07:33 White Blood Count 5.6 x10^3/uL (4.0-11.0) Red Blood Count 4.13 x10^6/uL (3.50-5.40) Hemoglobin 12.7 g/dL (12.0-15.5) Hematocrit 38.5 % (36.0-47.0) Mean Corpuscular Volume 93 fL (79-100) Mean Corpuscular Hemoglobin 31 pg (25-35) Mean Corpuscular Hemoglobin Concent 33 g/dL (31-37) Red Cell Distribution Width 14.3 % (11.5-14.5) Platelet Count 181 x10^3/uL (140-400) Neutrophils (%) (Auto) 48 % (31-73) Lymphocytes (%) (Auto) 36 % (24-48) Monocytes (%) (Auto) 9 % (0-9) Eosinophils (%) (Auto) 5 % (0-3) H Basophils (%) (Auto) 1 % (0-3) Neutrophils # (Auto) 2.7 x10^3uL (1.8-7.7) Lymphocytes # (Auto) 2.1 x10^3/uL (1.0-4.8) Monocytes # (Auto) 0.5 x10^3/uL (0.0-1.1) Eosinophils # (Auto) 0.3 x10^3/uL (0.0-0.7) Basophils # (Auto) 0.1 x10^3/uL (0.0-0.2) Platelet Estimate Adequate (ADEQUATE) Sodium Level 143 mmol/L (136-145) Potassium Level 3.9 mmol/L (3.5-5.1) Chloride Level 108 mmol/L (98-107) H Carbon Dioxide Level 25 mmol/L (21-32) Anion Gap 10 (6-14) Blood Urea Nitrogen 18 mg/dL (7-20) Creatinine 0.8 mg/dL (0.6-1.0) Estimated GFR (Cockcroft-Gault) 67.7 BUN/Creatinine Ratio 23 (6-20) H Glucose Level 90 mg/dL (70-99) Calcium Level 9.1 mg/dL (8.5-10.1) Magnesium Level 2.1 mg/dL (1.8-2.4) Total Bilirubin 0.2 mg/dL (0.2-1.0) Aspartate Amino Transferase (AST) 14 U/L (15-37) L Alanine Aminotransferase (ALT) 15 U/L (14-59) Alkaline Phosphatase 60 U/L (46-116) Total Protein 6.6 g/dL (6.4-8.2) Albumin 3.1 g/dL (3.4-5.0) L Albumin/Globulin Ratio 0.9 (1.0-1.7) L Valproic Acid Level 8 mcg/mL (50-100) L Valproic Acid Last Dose Date 09/02/2017 Valproic Acid Last Dose Time 1700 Current Medications: Meds: Current Medications Acetaminophen (Tylenol) 650 mg PRN Q6HRS PRN PO PAIN / TEMP; Start 08/15/17 at 17:15; Status Cancel Multi-Ingredient Ointment (Analgesic [place]) 1 ronni PRN QID PRN TP MUSCLE PAIN; Start 08/15/17 at 17:15 Al Hydroxide/Mg Hydroxide (Mylanta Plus Xs) 15 ml PRN AFTMEALHC PRN PO DYSPEPSIA; Start 08/15/17 at 17:15 Magnesium Hydroxide (Milk Of Magnesia) 2,400 mg PRN QHS PRN PO CONSTIPATION; Start 08/15/17 at 17:15; Status Cancel Acetaminophen (Tylenol) 650 mg BID PO Last administered on 09/03/17at 19:37; Start 08/15/17 at 21:00 Acetaminophen (Tylenol) 650 mg PRN Q6HRS PRN PO PAIN / TEMP; Start 08/15/17 at 18:15 Docusate Sodium (Colace) 100 mg BID PO Last administered on 09/03/17 19:38; Start 08/15/17 at 21:00 Ferrous Sulfate (Feosol) 325 mg DAILY PO Last administered on 09/03/17 08:42; Start 08/16/17 at 09:00 Fluticasone Propionate (Flonase) 2 spray DAILY NS Last administered on 08:20; Start 08/16/17 at 09:00; Stop 08/24/17 at 16:52; Status DC Magnesium Hydroxide (Milk Of Magnesia) 2,400 mg PRN DAILY PRN PO CONSTIPATION Last administered on 09/02/17 09:05; Start 08/15/17 at 18:15 Non-Formulary Medication 1 tab BID PO ; Start 08/15/17 at 21:00; Status UNV Vitamin D (Vitamin D3) 500 unit DAILY PO Last administered on 09/03/17 08:42; Start 08/16/17 at 09:00 Ketorolac Tromethamine (Acular) 1 drop QID OS Last administered on 08/24/17 08 :20; Start 08/15/17 at 21:00; Stop 08/24/17 at 16:52; Status DC Lactobacillus Rhamnosus (Culturelle) 1 cap BID PO Last administered on 19:37; Start 08/15/17 at 21:00 Multivitamins/ Calcium (Thera-M Plus) 1 tab DAILY PO Last administered on at 08:42; Start 08/16/17 at 09:00 Ondansetron HCl (Zofran Odt) 4 mg PRN Q4HRS PRN PO NAUSEA/VOMITING Last administered on 08/22/17 01:49; Start 08/15/17 at 18:45 Olanzapine (ZyPREXA ZYDIS) 2.5 mg PRN Q2HR PRN PO PSYCHOSIS Last administered on 08/28/17at 13:52; Start 08/16/17 at 18:30 Quetiapine Fumarate (SEROquel) 12.5 mg 0900,1300 PO Last administered on at 08:00; Start 08/17/17 at 09:00; Stop 08/17/17 at 22:38; Status DC Potassium Chloride (Klor-Con) 20 meq BID PO Last administered on 09/03/17 19: 38; Start 08/17/17 at 21:00 Quetiapine Fumarate (SEROquel) 12.5 mg 0700,1100,1400,1700 PO Last administered on 08/29/17 11:09; Start 08/18/17 at 07:00; Stop 08/29/17 at 11:34 ; Status DC Mirtazapine (Remeron) 7.5 mg QHS PO Last administered on 08/18/17 20:18; Start 08/17/17 at 23:00; Stop 08/19/17 at 18:10; Status DC Mirtazapine (Remeron) 15 mg QHS PO Last administered on 09/03/17at 19:37; Start 08/19/17 at 21:00 Trazodone HCl (Desyrel) 50 mg QHS PO Last administered on 09/03/17at 19:38; Start 08/19/17 at 21:00 Trazodone HCl (Desyrel) 50 mg PRN QHS PRN PO insomnia Last administered on 09/01 22:21; Start 08/19/17 at 18:15 Magnesium Citrate (Citroma) 148 ml PRN 1X PRN PO CONSTIPATION; Start 08/23/17 at 07:45 Fluticasone Propionate (Flonase) 2 spray PRN DAILY NS ; Start 08/25/17 at 09:00 Hydroxyzine HCl (Atarax) 10 mg PRN Q2HR PRN PO AGITATION Last administered on at 13:18; Start 08/25/17 at 10:45 Divalproex Sodium (Depakote Sprinkles) 125 mg BID@0900,1700 PO Last administered on 09/03/17 17:03; Start 08/28/17 at 09:00; Stop 09/03/17 at 17:53 ; Status DC Quetiapine Fumarate (SEROquel) 25 mg BID@0700,1700 PO Last administered on 09/03 17:03; Start 08/29/17 at 17:00 Melatonin 3 mg PRN QHS PRN PO INSOMNIA Last administered on 3/18/18at 22:21; Start 08/31/17 at 16:30 Megestrol Acetate (Megace) 200 mg TIDAC PO Last administered on 09/03/17at 17:03 ; Start 09/03/17 at 07:30 Divalproex Sodium (Depakote Sprinkles) 125 mg DAILY@1700 PO ; Start 09/04/17 at 17:00 Divalproex Sodium (Depakote Sprinkles) 250 mg DAILY PO ; Start 09/04/17 at 09:00 Active Scripts Active Reported EXELON 4.6mg/24hr (Rivastigmine) 1 Each Patch.td24 1 Patch TD DAILY Zyvox (Linezolid) 600 Mg Tablet 600 Mg PO BID Lovenox (Enoxaparin Sodium) 30 Mg/0.3 Ml Disp.syrin 30 Mg SQ Q24H Thera-M (Multivits, W-Fe,Other Min) 1 Each Tablet 1 Tab PO DAILY Milk Of Magnesia (Magnesium Hydroxide) 400 Mg/5 Ml Oral.susp 2,400 Mg PO PRN DAILY PRN Culturelle (Lactobacillus Rhamnosus Gg) 1 Each Capsule 1 Cap PO BID Fluticasone Propionate Nasal [place] (Fluticasone Propionate) 16 Gm [place].susp 2 [place] NS DAILY Zofran (Ondansetron Hcl) 4 Mg Tablet 4 Mg PO PRN Q4HRS PRN Vitamin D-400 (Cholecalciferol (Vitamin D3)) 400 Unit Tablet 500 Unit PO DAILY Tylenol (Acetaminophen) 325 Mg Tablet 650 Mg PO BID Tylenol (Acetaminophen) 325 Mg Tablet 650 Mg PO PRN Q6HRS PRN Ketorolac Tromethamine 5 Ml Drops 1 Drop LEFTEYE QID Ferrous Sulfate 325 Mg Tablet 325 Mg PO DAILY Colace (Docusate Sodium) 100 Mg Capsule 100 Mg PO BID Nadeem Mag Zinc + D3 Tablet (Ca Carb/Vit D3/Mag Ox/Zn Oxide) 1 Each Tablet 1 Tab PO BID I have reviewed the current psychotropics carefully including drug interactions. Risk benefit ratio favors no change other than as noted in my dictated progress note. 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
--- NOTE | 2017-09-03 23:23 | NUR ---
Behavior Intervention Response and Plan: BIRP Note: Behavior: Assumed Care of patient, patient located in Patient Room at shift change. Patient exhibited the following behavior Drowsy, Withdrawn, Sleeping Brief assessment on rounds of vital signs, medication needs, lab studies, and pain. Treatment plan problems Dementia with BD and Delusions, Fall Risk. Intervention: Patient assessed and the following interventions initiated safety checks 15 Minute Checks Cognitive Assessment , Head to toe Assessment , Medications. Response: After interactions and interventions patient responded in the following manner, Sleeping, Withdrawn ,Compliant. Continue to assess behaviors and condition will continue to monitor throughout the shift as needed. Patient educated on ADL's, and hand hygiene. 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 Continue to assess patient for changes in above assessment. Monitor for medication needs, pain, and safety concerns. Hourly rounding performed to ensure safe environment.
[2017-09-04] MEDS: QUEtiapine 25 MG TABLET. PO SCH ×2 (05:54→16:38)
[2017-09-04 05:58] VITALS: BP 140/64
--- NOTE | 2017-09-04 06:22 | NUR ---
Nursing Note: HS medication not administered last evening r/t Pt being in bed sleeping soundly all night long with inability to awaken for snack or medications. Pt awake the am for cares and shower, very angry, hostile and combative. Hitting, kicking, biting, scratching and name calling. After completion of shower pt placed in hallway r/t sever aggression. Pt began kicking the locked door x 4 then laid down on the floor and closed her eyes. Nurse and tech assisted pt to stand to take her back to her bed rather than have her remaining on the floor to sleep. Pt calling names, attempting to scratch and bite staff. upon entrance to her room, pt flopped herself into the bed and immediately closed her eyes.
[2017-09-04] MEDS: MEGESTROL 400 MG/10 ML ORAL.SUSP. PO SCH ×4 (07:30→16:35)
[2017-09-04] MEDS: POTASSIUM CHLORIDE 20 MEQ TABLET.ER. PO SCH ×3 (07:50→19:38)
[2017-09-04] MEDS: ACETAMINOPHEN 325 MG TABLET PO SCH ×3 (07:50→19:38)
[2017-09-04] MEDS: LACTOBACILLUS RHAMNOSUS GG 1 CAPSULE. PO SCH ×3 (07:50→19:38)
[2017-09-04] MEDS: CHOLECALCIFEROL (VITAMIN D3) 1,000 UNIT TABLET PO SCH ×2 (07:50→09:19)
[2017-09-04] MEDS: MULTIVITAMIN with MINERAL TABLET. PO SCH ×2 (07:51→09:00)
[2017-09-04] MEDS: DOCUSATE SODIUM 100 MG CAPSULE PO SCH ×3 (07:51→19:38)
[2017-09-04] MEDS: FERROUS SULFATE 325 MG TABLET. PO SCH ×2 (07:51→09:19)
[2017-09-04] MEDS ORDERED: DIVALPROEX 125 MG CAP.SPRINK PO SCH ×2 (09:00→17:00)
--- NOTE | 2017-09-04 09:00 | NUR ---
Patient very resistive with medications. Nurse received orders per Dr. Perez to change depakote sprinkles to the liquid depakene. Nurse observed patient enjoying cranberry juice and able to administer depakene hidden in the juice without any issues, will continue to monitor.
[2017-09-04] MEDS: VALPROATE ACID 250 MG/5 ML ORAL SOLUTION PO SCH ×2 (09:22→16:36)
--- NOTE | 2017-09-04 12:25 | NUR ---
Patient pleasant in the day room at approx. 1000, participated in group and danced to the music. At about 1200 right before going to the dining room for lunch, patient became agitated and started hitting at staff's hands while attempting to redirect. PRN zydis given for agitation, will continue to monitor.
--- NOTE | 2017-09-04 12:30 | NUR ---
Behavior Intervention Response and Plan: BIRP Note: Behavior: Assumed Care of patient, patient located in Day Room at shift change. Patient exhibited the following behavior Restless, Disorganized, Irritable. Brief assessment on rounds of vital signs, medication needs, lab studies, and pain. Treatment plan problems . Intervention: Patient assessed and the following interventions initiated safety checks 15 Minute Checks Cognitive Assessment , Head to toe Assessment , Medications. Response: After interactions and interventions patient responded in the following manner, Disorganized , Resistive ,Irritable. Continue to assess behaviors and condition will continue to monitor throughout the shift as needed. Patient educated on ADL's, and hand hygiene. 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 Continue to assess patient for changes in above assessment. Monitor for medication needs, pain, and safety concerns. Hourly rounding performed to ensure safe environment.
--- NOTE | 2017-09-04 15:00 | NUR ---
WEEKLY THERAPEUTIC RECREATION NOTE Date of Admission: 08/05/2017 Date of AT Assessment: 08/08/2017 Goal aimed: to increase socialization and leisure awareness Initial goal: Pt. will participate in at least three groups per week. Weekly progress towards goal: did not meet Group participation level: minimal Behaviors observed: often agitated, wanting to leave, danced and particiapted in music group this morning (Saturday), very sleepy throughout the week Plan: no changes to goal
[2017-09-04 16:02] VITALS: BP 139/69
[2017-09-04] MEDS: MIRTAZAPINE 15 MG TABLET PO SCH (19:38)
[2017-09-04] MEDS: traZODone 50 MG TABLET. PO SCH (19:38)
[2017-09-04] MEDS: MELATONIN 3 MG TABLET PO PRN (19:39)
[2017-09-04] MEDS: hydrOXYzine HCL 10 MG TABLET PO PRN (19:40)
--- NOTE | 2017-09-04 21:00 | NUR ---
Behavior Intervention Response and Plan: BIRP Note: Behavior: Assumed Care of patient, patient located in Day Room at shift change. Patient exhibited the following behavior Anxious, Wandering, Agitated. Brief assessment on rounds of vital signs, medication needs, lab studies, and pain. Treatment plan problems 1-3. Intervention: Patient assessed and the following interventions initiated safety checks 15 Minute Checks Head to toe Assessment , Medications , ADL's. Response: After interactions and interventions patient responded in the following manner, Wandering , Calm ,Cooperative. Continue to assess behaviors and condition will continue to monitor throughout the shift as needed. Patient educated on ADL's, and hand hygiene. 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 Continue to assess patient for changes in above assessment. Monitor for medication needs, pain, and safety concerns. Hourly rounding performed to ensure safe environment.
--- NOTE | 2017-09-04 21:03 | PDOC ---
Exam Note: Allen Note: Please also refer to the separate dictated note~for this date of service dictated separately.~Patient seen individually. Discussed the patient with Nursing staff reviewed the chart.~Reviewed interim history and current functioning. Reviewed vital signs,~Labs/ Radiology~and current medications noted below. Continue current treatment with the changes noted in the dictated addendum note Assessment: Vital Signs: Vital Signs Date Time Temp Pulse Resp B/P (MAP) Pulse Ox O2 Delivery O2 Flow Rate FiO2 09/04/17 16:02 98.0 87 18 139/69 (92) 96 09/02/17 15:25 Room Air I&O Intake and Output 09/04/17 07:00 Intake Total 480 ml Balance 480 ml Intake Oral 480 ml Current Medications: Meds: Current Medications Acetaminophen (Tylenol) 650 mg PRN Q6HRS PRN PO PAIN / TEMP; Start 08/15/17 at 17:15; Status Cancel Multi-Ingredient Ointment (Analgesic [place]) 1 ronni PRN QID PRN TP MUSCLE PAIN; Start 08/15/17 at 17:15 Al Hydroxide/Mg Hydroxide (Mylanta Plus Xs) 15 ml PRN AFTMEALHC PRN PO DYSPEPSIA; Start 08/15/17 at 17:15 Magnesium Hydroxide (Milk Of Magnesia) 2,400 mg PRN QHS PRN PO CONSTIPATION; Start 08/15/17 at 17:15; Status Cancel Acetaminophen (Tylenol) 650 mg BID PO Last administered on 09/04/17at 19:38; Start 08/15/17 at 21:00 Acetaminophen (Tylenol) 650 mg PRN Q6HRS PRN PO PAIN / TEMP; Start 08/15/17 at 18:15 Docusate Sodium (Colace) 100 mg BID PO Last administered on 09/04/17at 19:38; Start 08/15/17 at 21:00 Ferrous Sulfate (Feosol) 325 mg DAILY PO Last administered on 09/04/17at 09:19; Start 08/16/17 at 09:00 Fluticasone Propionate (Flonase) 2 spray DAILY NS Last administered on at 08:20; Start 08/16/17 at 09:00; Stop 08/24/17 at 16:52; Status DC Magnesium Hydroxide (Milk Of Magnesia) 2,400 mg PRN DAILY PRN PO CONSTIPATION Last administered on 09/02/17 09:05; Start 08/15/17 at 18:15 Non-Formulary Medication 1 tab BID PO ; Start 08/15/17 at 21:00; Status UNV Vitamin D (Vitamin D3) 500 unit DAILY PO Last administered on 09/04/17 09:19; Start 08/16/17 at 09:00 Ketorolac Tromethamine (Acular) 1 drop QID OS Last administered on 08/24/17 08 :20; Start 08/15/17 at 21:00; Stop 08/24/17 at 16:52; Status DC Lactobacillus Rhamnosus (Culturelle) 1 cap BID PO Last administered on 19:38; Start 08/15/17 at 21:00 Multivitamins/ Calcium (Thera-M Plus) 1 tab DAILY PO Last administered on 08:42; Start 08/16/17 at 09:00 Ondansetron HCl (Zofran Odt) 4 mg PRN Q4HRS PRN PO NAUSEA/VOMITING Last administered on 08/22/17 01:49; Start 08/15/17 at 18:45 Olanzapine (ZyPREXA ZYDIS) 2.5 mg PRN Q2HR PRN PO PSYCHOSIS Last administered on 09/04/17 12:15; Start 08/16/17 at 18:30 Quetiapine Fumarate (SEROquel) 12.5 mg 0900,1300 PO Last administered on 08:00; Start 08/17/17 at 09:00; Stop 08/17/17 at 22:38; Status DC Potassium Chloride (Klor-Con) 20 meq BID PO Last administered on 09/04/17 19: 38; Start 08/17/17 at 21:00 Quetiapine Fumarate (SEROquel) 12.5 mg 0700,1100,1400,1700 PO Last administered on 08/29/17 11:09; Start 08/18/17 at 07:00; Stop 08/29/17 at 11:34 ; Status DC Mirtazapine (Remeron) 7.5 mg QHS PO Last administered on 08/18/17 20:18; Start 08/17/17 at 23:00; Stop 08/19/17 at 18:10; Status DC Mirtazapine (Remeron) 15 mg QHS PO Last administered on 09/04/17at 19:38; Start 08/19/17 at 21:00 Trazodone HCl (Desyrel) 50 mg QHS PO Last administered on 09/04/17at 19:38; Start 08/19/17 at 21:00 Trazodone HCl (Desyrel) 50 mg PRN QHS PRN PO insomnia Last administered on 09/01 22:21; Start 08/19/17 at 18:15 Magnesium Citrate (Citroma) 148 ml PRN 1X PRN PO CONSTIPATION; Start 08/23/17 at 07:45 Fluticasone Propionate (Flonase) 2 spray PRN DAILY NS ; Start 08/25/17 at 09:00 Hydroxyzine HCl (Atarax) 10 mg PRN Q2HR PRN PO AGITATION Last administered on at 19:40; Start 08/25/17 at 10:45 Divalproex Sodium (Depakote Sprinkles) 125 mg BID@0900,1700 PO Last administered on 09/03/17at 17:03; Start 08/28/17 at 09:00; Stop 09/03/17 at 17:53 ; Status DC Quetiapine Fumarate (SEROquel) 25 mg BID@0700,1700 PO Last administered on 09/04at 16:38; Start 08/29/17 at 17:00 Melatonin 3 mg PRN QHS PRN PO INSOMNIA Last administered on 09/04/17at 19:39; Start 08/31/17 at 16:30 Megestrol Acetate (Megace) 200 mg TIDAC PO Last administered on 09/04/17at 16:35 ; Start 09/03/17 at 07:30 Divalproex Sodium (Depakote Sprinkles) 125 mg DAILY@1700 PO ; Start 09/04/17 at 17:00; Stop 09/04/17 at 17:00; Status DC Divalproex Sodium (Depakote Sprinkles) 250 mg DAILY PO ; Start 09/04/17 at 09:00 ; Stop 09/04/17 at 09:00; Status DC Valproic Acid (Depakene) 250 mg DAILY PO Last administered on 09/04/17at 09:22; Start 09/04/17 at 09:00 Valproic Acid (Depakene) 125 mg DAILY@1700 PO Last administered on 09/04/17at 16 :36; Start 09/04/17 at 17:00 Active Scripts Active Reported EXELON 4.6mg/24hr (Rivastigmine) 1 Each Patch.td24 1 Patch TD DAILY Zyvox (Linezolid) 600 Mg Tablet 600 Mg PO BID Lovenox (Enoxaparin Sodium) 30 Mg/0.3 Ml Disp.syrin 30 Mg SQ Q24H Thera-M (Multivits,Th W-Fe,Other Min) 1 Each Tablet 1 Tab PO DAILY Milk Of Magnesia (Magnesium Hydroxide) 400 Mg/5 Ml Oral.susp 2,400 Mg PO PRN DAILY PRN Culturelle (Lactobacillus Rhamnosus Gg) 1 Each Capsule 1 Cap PO BID Fluticasone Propionate Nasal [place] (Fluticasone Propionate) 16 Gm [place].susp 2 [place] NS DAILY Zofran (Ondansetron Hcl) 4 Mg Tablet 4 Mg PO PRN Q4HRS PRN Vitamin D-400 (Cholecalciferol (Vitamin D3)) 400 Unit Tablet 500 Unit PO DAILY Tylenol (Acetaminophen) 325 Mg Tablet 650 Mg PO BID Tylenol (Acetaminophen) 325 Mg Tablet 650 Mg PO PRN Q6HRS PRN Ketorolac Tromethamine 5 Ml Drops 1 Drop LEFTEYE QID Ferrous Sulfate 325 Mg Tablet 325 Mg PO DAILY Colace (Docusate Sodium) 100 Mg Capsule 100 Mg PO BID Nadeem Mag Zinc + D3 Tablet (Ca Carb/Vit D3/Mag Ox/Zn Oxide) 1 Each Tablet 1 Tab PO BID I have reviewed the current psychotropics carefully including drug interactions. Risk benefit ratio favors no change other than as noted in my dictated progress note. Diagnosis: Problems: (1) Dehydration (2) Nausea and vomiting (3) Dementia with behavioral disturbance (4) Anxiety disorder (5) Dementia in Alzheimer's disease with delusions (6) Dementia in Alzheimer's disease with depression (7) Dementia, vascular, with delusions (8) Dementia, vascular, with depression (9) Impulse control disorder LAUREN CASILLAS MD Sep 04, 2017 21:03
[2017-09-05] MEDS: QUEtiapine 25 MG TABLET. PO SCH ×2 (05:43→16:49)
[2017-09-05 06:01] VITALS: BP 133/57
[2017-09-05] MEDS: VALPROATE ACID 250 MG/5 ML ORAL SOLUTION PO SCH ×2 (10:54→16:50)
[2017-09-05] MEDS: MEGESTROL 400 MG/10 ML ORAL.SUSP. PO SCH ×3 (10:55→16:50)
[2017-09-05] MEDS: DOCUSATE SODIUM 100 MG CAPSULE PO SCH ×2 (10:56→19:35)
[2017-09-05] MEDS: LACTOBACILLUS RHAMNOSUS GG 1 CAPSULE. PO SCH ×2 (10:56→19:36)
[2017-09-05] MEDS: ACETAMINOPHEN 325 MG TABLET PO SCH ×2 (10:56→19:35)
[2017-09-05] MEDS: MULTIVITAMIN with MINERAL TABLET. PO SCH (10:56)
[2017-09-05] MEDS: POTASSIUM CHLORIDE 20 MEQ TABLET.ER. PO SCH ×2 (10:57→19:35)
[2017-09-05] MEDS: CHOLECALCIFEROL (VITAMIN D3) 1,000 UNIT TABLET PO SCH (10:57)
[2017-09-05] MEDS: FERROUS SULFATE 325 MG TABLET. PO SCH (11:00)
--- NOTE | 2017-09-05 16:00 | NUR ---
Behavior Intervention Response and Plan: BIRP Note: Behavior: Assumed Care of patient, patient located in Day Room at shift change. Patient exhibited the following behavior Sleeping, Disorganized, Drowsy. Brief assessment on rounds of vital signs, medication needs, lab studies, and pain. Treatment plan problems dementia w/ bd and fall risk. Intervention: Patient assessed and the following interventions initiated safety checks 15 Minute Checks Head to toe Assessment , Cognitive Assessment , Medications. Response: After interactions and interventions patient responded in the following manner, Disorganized , Compliant ,Drowsy. Continue to assess behaviors and condition will continue to monitor throughout the shift as needed. Patient educated on ADL's, and hand hygiene. Plan: Continue to monitor Master Treatment Plan for patient's progress toward short term goals of Decreased Agitation, Decreased Aggression, retirement goals to return to previous living setting vs placement. Continue to assess patient for changes in above assessment. Monitor for medication needs, pain, and safety concerns. Hourly rounding performed to ensure safe environment.
[2017-09-05 16:08] VITALS: BP 102/67
[2017-09-05] MEDS: traZODone 50 MG TABLET. PO SCH (19:36)
[2017-09-05] MEDS: MIRTAZAPINE 15 MG TABLET PO SCH (19:36)
--- NOTE | 2017-09-05 21:08 | PDOC ---
Exam Note: Allen Note: Please also refer to the separate dictated note~for this date of service dictated separately.~Patient seen individually. Discussed the patient with Nursing staff reviewed the chart.~Reviewed interim history and current functioning. Reviewed vital signs,~Labs/ Radiology~and current medications noted below. Continue current treatment with the changes noted in the dictated addendum note Assessment: Vital Signs: Vital Signs Date Time Temp Pulse Resp B/P (MAP) Pulse Ox O2 Delivery O2 Flow Rate FiO2 09/05/17 16:08 97.9 109 20 102/67 (79) 95 09/02/17 15:25 Room Air I&O Intake and Output 09/05/17 07:00 Intake Total 1320 ml Balance 1320 ml Intake Oral 1320 ml # Voids 1 Current Medications: Meds: Current Medications Acetaminophen (Tylenol) 650 mg PRN Q6HRS PRN PO PAIN / TEMP; Start 08/15/17 at 17:15; Status Cancel Multi-Ingredient Ointment (Analgesic [place]) 1 ronni PRN QID PRN TP MUSCLE PAIN; Start 08/15/17 at 17:15 Al Hydroxide/Mg Hydroxide (Mylanta Plus Xs) 15 ml PRN AFTMEALHC PRN PO DYSPEPSIA; Start 08/15/17 at 17:15 Magnesium Hydroxide (Milk Of Magnesia) 2,400 mg PRN QHS PRN PO CONSTIPATION; Start 08/15/17 at 17:15; Status Cancel Acetaminophen (Tylenol) 650 mg BID PO Last administered on 09/05/17at 19:35; Start 08/15/17 at 21:00 Acetaminophen (Tylenol) 650 mg PRN Q6HRS PRN PO PAIN / TEMP; Start 08/15/17 at 18:15 Docusate Sodium (Colace) 100 mg BID PO Last administered on 09/05/17at 19:35; Start 08/15/17 at 21:00 Ferrous Sulfate (Feosol) 325 mg DAILY PO Last administered on 09/05/17at 11:00; Start 08/16/17 at 09:00 Fluticasone Propionate (Flonase) 2 spray DAILY NS Last administered on at 08:20; Start 08/16/17 at 09:00; Stop 08/24/17 at 16:52; Status DC Magnesium Hydroxide (Milk Of Magnesia) 2,400 mg PRN DAILY PRN PO CONSTIPATION Last administered on 09/02/17 09:05; Start 08/15/17 at 18:15 Non-Formulary Medication 1 tab BID PO ; Start 08/15/17 at 21:00; Status UNV Vitamin D (Vitamin D3) 500 unit DAILY PO Last administered on 09/05/17 10:57; Start 08/16/17 at 09:00 Ketorolac Tromethamine (Acular) 1 drop QID OS Last administered on 08/24/17 08 :20; Start 08/15/17 at 21:00; Stop 08/24/17 at 16:52; Status DC Lactobacillus Rhamnosus (Culturelle) 1 cap BID PO Last administered on 19:36; Start 08/15/17 at 21:00 Multivitamins/ Calcium (Thera-M Plus) 1 tab DAILY PO Last administered on 10:56; Start 08/16/17 at 09:00 Ondansetron HCl (Zofran Odt) 4 mg PRN Q4HRS PRN PO NAUSEA/VOMITING Last administered on 08/22/17 01:49; Start 08/15/17 at 18:45 Olanzapine (ZyPREXA ZYDIS) 2.5 mg PRN Q2HR PRN PO PSYCHOSIS Last administered on 09/04/17 12:15; Start 08/16/17 at 18:30 Quetiapine Fumarate (SEROquel) 12.5 mg 0900,1300 PO Last administered on 08:00; Start 08/17/17 at 09:00; Stop 08/17/17 at 22:38; Status DC Potassium Chloride (Klor-Con) 20 meq BID PO Last administered on 09/05/17 19: 35; Start 08/17/17 at 21:00 Quetiapine Fumarate (SEROquel) 12.5 mg 0700,1100,1400,1700 PO Last administered on 08/29/17 11:09; Start 08/18/17 at 07:00; Stop 08/29/17 at 11:34 ; Status DC Mirtazapine (Remeron) 7.5 mg QHS PO Last administered on 08/18/17 20:18; Start 08/17/17 at 23:00; Stop 08/19/17 at 18:10; Status DC Mirtazapine (Remeron) 15 mg QHS PO Last administered on 09/05/17at 19:36; Start 08/19/17 at 21:00 Trazodone HCl (Desyrel) 50 mg QHS PO Last administered on 09/05/17at 19:36; Start 08/19/17 at 21:00 Trazodone HCl (Desyrel) 50 mg PRN QHS PRN PO insomnia Last administered on 09/01at 22:21; Start 08/19/17 at 18:15 Magnesium Citrate (Citroma) 148 ml PRN 1X PRN PO CONSTIPATION; Start 08/23/17 at 07:45 Fluticasone Propionate (Flonase) 2 spray PRN DAILY NS ; Start 08/25/17 at 09:00 Hydroxyzine HCl (Atarax) 10 mg PRN Q2HR PRN PO AGITATION Last administered on at 19:40; Start 08/25/17 at 10:45 Divalproex Sodium (Depakote Sprinkles) 125 mg BID@0900,1700 PO Last administered on 09/03/17at 17:03; Start 08/28/17 at 09:00; Stop 09/03/17 at 17:53 ; Status DC Quetiapine Fumarate (SEROquel) 25 mg BID@0700,1700 PO Last administered on 09/05at 16:49; Start 08/29/17 at 17:00 Melatonin 3 mg PRN QHS PRN PO INSOMNIA Last administered on 09/04/17at 19:39; Start 08/31/17 at 16:30 Megestrol Acetate (Megace) 200 mg TIDAC PO Last administered on 09/05/17at 16:50 ; Start 09/03/17 at 07:30 Divalproex Sodium (Depakote Sprinkles) 125 mg DAILY@1700 PO ; Start 09/04/17 at 17:00; Stop 09/04/17 at 17:00; Status DC Divalproex Sodium (Depakote Sprinkles) 250 mg DAILY PO ; Start 09/04/17 at 09:00 ; Stop 09/04/17 at 09:00; Status DC Valproic Acid (Depakene) 250 mg DAILY PO Last administered on 09/05/17at 10:54; Start 09/04/17 at 09:00 Valproic Acid (Depakene) 125 mg DAILY@1700 PO Last administered on 09/05/17at 16 :50; Start 09/04/17 at 17:00 Active Scripts Active Reported EXELON 4.6mg/24hr (Rivastigmine) 1 Each Patch.td24 1 Patch TD DAILY Zyvox (Linezolid) 600 Mg Tablet 600 Mg PO BID Lovenox (Enoxaparin Sodium) 30 Mg/0.3 Ml Disp.syrin 30 Mg SQ Q24H Thera-M (Multivits,Th W-Fe,Other Min) 1 Each Tablet 1 Tab PO DAILY Milk Of Magnesia (Magnesium Hydroxide) 400 Mg/5 Ml Oral.susp 2,400 Mg PO PRN DAILY PRN Culturelle (Lactobacillus Rhamnosus Gg) 1 Each Capsule 1 Cap PO BID Fluticasone Propionate Nasal [place] (Fluticasone Propionate) 16 Gm [place].susp 2 [place] NS DAILY Zofran (Ondansetron Hcl) 4 Mg Tablet 4 Mg PO PRN Q4HRS PRN Vitamin D-400 (Cholecalciferol (Vitamin D3)) 400 Unit Tablet 500 Unit PO DAILY Tylenol (Acetaminophen) 325 Mg Tablet 650 Mg PO BID Tylenol (Acetaminophen) 325 Mg Tablet 650 Mg PO PRN Q6HRS PRN Ketorolac Tromethamine 5 Ml Drops 1 Drop LEFTEYE QID Ferrous Sulfate 325 Mg Tablet 325 Mg PO DAILY Colace (Docusate Sodium) 100 Mg Capsule 100 Mg PO BID Nadeem Mag Zinc + D3 Tablet (Ca Carb/Vit D3/Mag Ox/Zn Oxide) 1 Each Tablet 1 Tab PO BID I have reviewed the current psychotropics carefully including drug interactions. Risk benefit ratio favors no change other than as noted in my dictated progress note. 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
--- NOTE | 2017-09-05 21:53 | NUR ---
Behavior Intervention Response and Plan: BIRP Note: Behavior: Assumed Care of patient, patient located in Patient Room at shift change. Patient exhibited the following behavior Calm, Compliant, Cooperative. Brief assessment on rounds of vital signs, medication needs, lab studies, and pain. Treatment plan problems Dementia with BD and Delusions, Fall Risk. Intervention: Patient assessed and the following interventions initiated safety checks 15 Minute Checks Cognitive Assessment , Head to toe Assessment , Medications. Response: After interactions and interventions patient responded in the following manner, Delusions , Sarcastic ,Compliant. Continue to assess behaviors and condition will continue to monitor throughout the shift as needed. Patient educated on ADL's, and hand hygiene. Plan: Continue to monitor Master Treatment Plan for patient's progress toward short term goals of Decreased Aggression, No harm To self/ others, long-term goals to return to previous living setting vs placement. Continue to assess patient for changes in above assessment. Monitor for medication needs, pain, and safety concerns. Hourly rounding performed to ensure safe environment.
[2017-09-06 05:59] VITALS: BP 161/72
[2017-09-06] MEDS: QUEtiapine 25 MG TABLET. PO SCH ×2 (06:03→17:37)
[2017-09-06] MEDS: MEGESTROL 400 MG/10 ML ORAL.SUSP. PO SCH ×4 (07:30→17:38)
[2017-09-06] MEDS: ACETAMINOPHEN 325 MG TABLET PO SCH ×2 (08:15→19:45)
[2017-09-06] MEDS: LACTOBACILLUS RHAMNOSUS GG 1 CAPSULE. PO SCH ×2 (08:15→19:45)
[2017-09-06] MEDS: DOCUSATE SODIUM 100 MG CAPSULE PO SCH ×2 (08:15→19:45)
[2017-09-06] MEDS: MULTIVITAMIN with MINERAL TABLET. PO SCH (08:15)
[2017-09-06] MEDS: VALPROATE ACID 250 MG/5 ML ORAL SOLUTION PO SCH ×2 (08:15→12:12)
[2017-09-06] MEDS: FERROUS SULFATE 325 MG TABLET. PO SCH (08:16)
[2017-09-06] MEDS: CHOLECALCIFEROL (VITAMIN D3) 1,000 UNIT TABLET PO SCH (08:16)
[2017-09-06] MEDS: POTASSIUM CHLORIDE 20 MEQ TABLET.ER. PO SCH ×2 (08:16→19:45)
--- NOTE | 2017-09-06 13:53 | NUR ---
Behavior Intervention Response and Plan: BIRP Note: Behavior: Assumed Care of patient, patient located in Patient Room at shift change. Patient exhibited the following behavior Disorganized, Compliant,withdrawn. Brief assessment on rounds of vital signs, medication needs, lab studies, and pain. Treatment plan problems . Intervention: Patient assessed and the following interventions initiated safety checks 15 Minute Checks Cognitive Assessment , Head to toe Assessment , Medications. Response: After interactions and interventions patient responded in the following manner, Wandering , Restless ,Disorganized. Continue to assess behaviors and condition will continue to monitor throughout the shift as needed. Patient educated on ADL's, and hand hygiene. 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 Continue to assess patient for changes in above assessment. Monitor for medication needs, pain, and safety concerns. Hourly rounding performed to ensure safe environment.
--- NOTE | 2017-09-06 13:58 | PN ---
DATE: 09/04/2017 PSYCHIATRIC PROGRESS NOTE This late entry 09/04/2017 covers elements not covered in my initial note of 09/04/2017. SUBJECTIVE: Met with the patient in the evening of 09/04/2017. The patient slept 8-1/2 hours previous evening, refused bedtime medications, had a good day. At 5:00 a.m., she had a shower, was combative, hitting, kicking staff, extremely disruptive. The patient does get agitated if she is woken up in the morning, biting at staff then did a little better. Appetite is a little better. REVIEW OF SYSTEMS: No CV, , pulmonary, eye, ENT system symptoms on review. MENTAL STATUS EXAM: Oriented to herself. Insight, judgment, recent and remote memory, attention, concentration, fund of knowledge is poor, consistent with her diagnoses mentioned in my initial note. PLAN: Continue current psychotropics. Valproic acid level is low at 8. Depakote is being adjusted. Megace has been initiated for appetite stimulation. Maintain Seroquel, trazodone, Atarax, Remeron. MAN Jc CASILLAS MD DR: MIGUEL A/nahed JOB#: [id number] / [id number]
--- NOTE | 2017-09-06 16:11 | NUR ---
pt refused am meal. out for lunch. meds taken in ice cream and boost. sitting quietly in [place] at this time.
[2017-09-06 16:17] VITALS: BP 111/60
--- NOTE | 2017-09-06 17:45 | PN ---
DATE: 09/05/2017 This is a late entry, 09/05/2017, covers the elements not covered in my initial note, 09/05/2017. SUBJECTIVE: I met with the patient evening of 09/05/2017. The patient was also staffed at treatment team meeting with the entire team morning of 09/05/2017. I reviewed the patient's history, progress, medications, and discharge plans at length. She slept 6 hours previous evening, sleeps in the morning, and that if she is awakened early gets extremely agitated, aggressive, angry. She received p.r.n. melatonin and Atarax. Valproic acid level less 24. REVIEW OF SYSTEMS: No CV, , pulmonary, eye, ENT system symptoms on review. Reliability poor. MENTAL STATUS EXAM: Oriented to herself. Insight, judgment, recent and remote memory, attention, concentration, fund of knowledge poor, consistent with her diagnosis as mentioned in my initial note. IMPRESSION: Major neurocognitive disorder, Alzheimer, vascular with depression, delusion, behavioral disturbance. Rest unchanged. PLAN: Continue current psychotropics as mentioned in my initial note, may need to increase Depakote if mood lability resurfaces since valproic acid level at this time is subtherapeutic. LAUREN CASILLAS MD DR: MIGUEL A/nahed JOB#: [id number] / [id number]
[2017-09-06] MEDS: MIRTAZAPINE 15 MG TABLET PO SCH (19:45)
[2017-09-06] MEDS: traZODone 50 MG TABLET. PO SCH (19:45)
--- NOTE | 2017-09-06 21:07 | PDOC ---
Exam Note: Allen Note: Please also refer to the separate dictated note~for this date of service dictated separately.~Patient seen individually. Discussed the patient with Nursing staff reviewed the chart.~Reviewed interim history and current functioning. Reviewed vital signs,~Labs/ Radiology~and current medications noted below. Continue current treatment with the changes noted in the dictated addendum note Assessment: Vital Signs: Vital Signs Date Time Temp Pulse Resp B/P (MAP) Pulse Ox O2 Delivery O2 Flow Rate FiO2 09/06/17 16:17 98.0 80 18 111/60 (77) 93 09/02/17 15:25 Room Air I&O Intake and Output 09/06/17 07:00 Intake Total 600 ml Balance 600 ml Intake Oral 600 ml Current Medications: Meds: Current Medications Acetaminophen (Tylenol) 650 mg PRN Q6HRS PRN PO PAIN / TEMP; Start 08/15/17 at 17:15; Status Cancel Multi-Ingredient Ointment (Analgesic [place]) 1 ronni PRN QID PRN TP MUSCLE PAIN; Start 08/15/17 at 17:15 Al Hydroxide/Mg Hydroxide (Mylanta Plus Xs) 15 ml PRN AFTMEALHC PRN PO DYSPEPSIA; Start 08/15/17 at 17:15 Magnesium Hydroxide (Milk Of Magnesia) 2,400 mg PRN QHS PRN PO CONSTIPATION; Start 08/15/17 at 17:15; Status Cancel Acetaminophen (Tylenol) 650 mg BID PO Last administered on 09/06/17at 19:45; Start 08/15/17 at 21:00 Acetaminophen (Tylenol) 650 mg PRN Q6HRS PRN PO PAIN / TEMP; Start 08/15/17 at 18:15 Docusate Sodium (Colace) 100 mg BID PO Last administered on 09/06/17at 19:45; Start 08/15/17 at 21:00 Ferrous Sulfate (Feosol) 325 mg DAILY PO Last administered on 09/06/17at 08:16; Start 08/16/17 at 09:00 Fluticasone Propionate (Flonase) 2 spray DAILY NS Last administered on at 08:20; Start 08/16/17 at 09:00; Stop 08/24/17 at 16:52; Status DC Magnesium Hydroxide (Milk Of Magnesia) 2,400 mg PRN DAILY PRN PO CONSTIPATION Last administered on 09/02/17 09:05; Start 08/15/17 at 18:15 Non-Formulary Medication 1 tab BID PO ; Start 08/15/17 at 21:00; Status UNV Vitamin D (Vitamin D3) 500 unit DAILY PO Last administered on 09/06/17 08:16; Start 08/16/17 at 09:00 Ketorolac Tromethamine (Acular) 1 drop QID OS Last administered on 08/24/17 08 :20; Start 08/15/17 at 21:00; Stop 08/24/17 at 16:52; Status DC Lactobacillus Rhamnosus (Culturelle) 1 cap BID PO Last administered on 19:45; Start 08/15/17 at 21:00 Multivitamins/ Calcium (Thera-M Plus) 1 tab DAILY PO Last administered on 08:15; Start 08/16/17 at 09:00 Ondansetron HCl (Zofran Odt) 4 mg PRN Q4HRS PRN PO NAUSEA/VOMITING Last administered on 08/22/17 01:49; Start 08/15/17 at 18:45 Olanzapine (ZyPREXA ZYDIS) 2.5 mg PRN Q2HR PRN PO PSYCHOSIS Last administered on 09/04/17 12:15; Start 08/16/17 at 18:30 Quetiapine Fumarate (SEROquel) 12.5 mg 0900,1300 PO Last administered on 08:00; Start 08/17/17 at 09:00; Stop 08/17/17 at 22:38; Status DC Potassium Chloride (Klor-Con) 20 meq BID PO Last administered on 09/06/17 19: 45; Start 08/17/17 at 21:00 Quetiapine Fumarate (SEROquel) 12.5 mg 0700,1100,1400,1700 PO Last administered on 08/29/17 11:09; Start 08/18/17 at 07:00; Stop 08/29/17 at 11:34 ; Status DC Mirtazapine (Remeron) 7.5 mg QHS PO Last administered on 08/18/17 20:18; Start 08/17/17 at 23:00; Stop 08/19/17 at 18:10; Status DC Mirtazapine (Remeron) 15 mg QHS PO Last administered on 09/06/17 19:45; Start 08/19/17 at 21:00 Trazodone HCl (Desyrel) 50 mg QHS PO Last administered on 09/06/17at 19:45; Start 08/19/17 at 21:00 Trazodone HCl (Desyrel) 50 mg PRN QHS PRN PO insomnia Last administered on 09/01 22:21; Start 08/19/17 at 18:15 Magnesium Citrate (Citroma) 148 ml PRN 1X PRN PO CONSTIPATION; Start 08/23/17 at 07:45 Fluticasone Propionate (Flonase) 2 spray PRN DAILY NS ; Start 08/25/17 at 09:00 Hydroxyzine HCl (Atarax) 10 mg PRN Q2HR PRN PO AGITATION Last administered on at 19:40; Start 08/25/17 at 10:45 Divalproex Sodium (Depakote Sprinkles) 125 mg BID@0900,1700 PO Last administered on 09/03/17at 17:03; Start 08/28/17 at 09:00; Stop 09/03/17 at 17:53 ; Status DC Quetiapine Fumarate (SEROquel) 25 mg BID@0700,1700 PO Last administered on 09/06at 17:37; Start 08/29/17 at 17:00 Melatonin 3 mg PRN QHS PRN PO INSOMNIA Last administered on 09/04/17at 19:39; Start 08/31/17 at 16:30 Megestrol Acetate (Megace) 200 mg TIDAC PO Last administered on 09/06/17at 17:38 ; Start 09/03/17 at 07:30 Divalproex Sodium (Depakote Sprinkles) 125 mg DAILY@1700 PO ; Start 09/04/17 at 17:00; Stop 09/04/17 at 17:00; Status DC Divalproex Sodium (Depakote Sprinkles) 250 mg DAILY PO ; Start 09/04/17 at 09:00 ; Stop 09/04/17 at 09:00; Status DC Valproic Acid (Depakene) 250 mg DAILY PO Last administered on 3/23/18at 08:15; Start 09/04/17 at 09:00 Valproic Acid (Depakene) 125 mg DAILY@1700 PO Last administered on 09/06/17at 12 :12; Start 09/04/17 at 17:00 Active Scripts Active Reported EXELON 4.6mg/24hr (Rivastigmine) 1 Each Patch.td24 1 Patch TD DAILY Zyvox (Linezolid) 600 Mg Tablet 600 Mg PO BID Lovenox (Enoxaparin Sodium) 30 Mg/0.3 Ml Disp.syrin 30 Mg SQ Q24H Thera-M (Multivits,Th W-Fe,Other Min) 1 Each Tablet 1 Tab PO DAILY Milk Of Magnesia (Magnesium Hydroxide) 400 Mg/5 Ml Oral.susp 2,400 Mg PO PRN DAILY PRN Culturelle (Lactobacillus Rhamnosus Gg) 1 Each Capsule 1 Cap PO BID Fluticasone Propionate Nasal [place] (Fluticasone Propionate) 16 Gm [place].susp 2 [place] NS DAILY Zofran (Ondansetron Hcl) 4 Mg Tablet 4 Mg PO PRN Q4HRS PRN Vitamin D-400 (Cholecalciferol (Vitamin D3)) 400 Unit Tablet 500 Unit PO DAILY Tylenol (Acetaminophen) 325 Mg Tablet 650 Mg PO BID Tylenol (Acetaminophen) 325 Mg Tablet 650 Mg PO PRN Q6HRS PRN Ketorolac Tromethamine 5 Ml Drops 1 Drop LEFTEYE QID Ferrous Sulfate 325 Mg Tablet 325 Mg PO DAILY Colace (Docusate Sodium) 100 Mg Capsule 100 Mg PO BID Nadeem Mag Zinc + D3 Tablet (Ca Carb/Vit D3/Mag Ox/Zn Oxide) 1 Each Tablet 1 Tab PO BID I have reviewed the current psychotropics carefully including drug interactions. Risk benefit ratio favors no change other than as noted in my dictated progress note. Diagnosis: Problems: (1) Dementia with behavioral disturbance (2) Anxiety disorder (3) Dementia in Alzheimer's disease with delusions (4) Dementia in Alzheimer's disease with depression (5) Dementia, vascular, with delusions (6) Dementia, vascular, with depression (7) Impulse control disorder LAUREN CASILLAS MD Sep 06, 2017 21:07
--- NOTE | 2017-09-06 23:06 | NUR ---
Behavior Intervention Response and Plan: BIRP Note: Behavior: Assumed Care of patient, patient located in Patient Room at shift change. Patient exhibited the following behavior Calm, Compliant, Cooperative. Brief assessment on rounds of vital signs, medication needs, lab studies, and pain. Treatment plan problems Dementia with BD and Delusions, Fall Risk. Intervention: Patient assessed and the following interventions initiated safety checks 15 Minute Checks Cognitive Assessment , Head to toe Assessment , Medications. Response: After interactions and interventions patient responded in the following manner, Delusions , Sarcastic ,Compliant. Continue to assess behaviors and condition will continue to monitor throughout the shift as needed. Patient educated on ADL's, and hand hygiene. Plan: Continue to monitor Master Treatment Plan for patient's progress toward short term goals of Decreased Aggression, No harm To self/ others, penitentiary goals to return to previous living setting vs placement. Continue to assess patient for changes in above assessment. Monitor for medication needs, pain, and safety concerns. Hourly rounding performed to ensure safe environment.
[2017-09-07 05:57] VITALS: BP 148/64
[2017-09-07] MEDS: MULTIVITAMIN with MINERAL TABLET. PO SCH (07:49)
[2017-09-07] MEDS: DOCUSATE SODIUM 100 MG CAPSULE PO SCH ×2 (07:49→18:31)
[2017-09-07] MEDS: MEGESTROL 400 MG/10 ML ORAL.SUSP. PO SCH ×3 (07:49→17:54)
[2017-09-07] MEDS: VALPROATE ACID 250 MG/5 ML ORAL SOLUTION PO SCH ×2 (07:49→17:54)
[2017-09-07] MEDS: FERROUS SULFATE 325 MG TABLET. PO SCH (07:50)
[2017-09-07] MEDS: CHOLECALCIFEROL (VITAMIN D3) 1,000 UNIT TABLET PO SCH (07:50)
[2017-09-07] MEDS: POTASSIUM CHLORIDE 20 MEQ TABLET.ER. PO SCH ×2 (07:50→18:30)
[2017-09-07] MEDS: ACETAMINOPHEN 325 MG TABLET PO SCH ×2 (07:50→18:30)
[2017-09-07] MEDS: LACTOBACILLUS RHAMNOSUS GG 1 CAPSULE. PO SCH ×2 (07:50→18:30)
[2017-09-07] MEDS: QUEtiapine 25 MG TABLET. PO SCH ×2 (07:51→17:54)
[2017-09-07 09:13] LABS: BASO # 0.1 x10^3/uL (0.0-0.2); BASO % 1 % (0-3); EOS # 0.2 x10^3/uL (0.0-0.7); EOS % 3 % (0-3); HEMATOCRIT 39.8 % (36.0-47.0); HEMOGLOBIN 13.1 g/dL (12.0-15.5); LYMPH # 2.4 x10^3/uL (1.0-4.8); LYMPH % 32 % (24-48); MEAN CORPUSCULAR HEMOGLOBIN 30 pg (25-35); MEAN CORPUSCULAR HGB CONC 33 g/dL (31-37); MEAN CORPUSCULAR VOLUME 92 fL (79-100); MONO # 0.7 x10^3/uL (0.0-1.1); MONO % 9 % (0-9); NEUT # 4.2 x10^3uL (1.8-7.7); NEUT % 55 % (31-73); PLATELET COUNT 154 x10^3/uL (140-400); RED BLOOD COUNT 4.31 x10^6/uL (3.50-5.40); WHITE BLOOD COUNT 7.5 x10^3/uL (4.0-11.0)
[2017-09-07 09:31] LABS: ALBUMIN 3.5 g/dL (3.4-5.0); ALBUMIN/GLOBULIN RATIO 0.9 (1.0-1.7); ALK PHOS 61 U/L (46-116); ALT (SGPT) 18 U/L (14-59); ANION GAP 9 (6-14); AST (SGOT) 16 U/L (15-37); BLOOD UREA NITROGEN 22 mg/dL (7-20); BUN/CREATININE RATIO 24 (6-20); CALCIUM 8.8 mg/dL (8.5-10.1); CARBON DIOXIDE 26 mmol/L (21-32); CHLORIDE 108 mmol/L (98-107); CREATININE 0.9 mg/dL (0.6-1.0); GFR 59.1; GLUCOSE 113 mg/dL (70-99); MAGNESIUM 2.1 mg/dL (1.8-2.4); POTASSIUM 4.2 mmol/L (3.5-5.1); SODIUM 143 mmol/L (136-145); TOTAL BILIRUBIN 0.2 mg/dL (0.2-1.0); TOTAL PROTEIN 7.3 g/dL (6.4-8.2)
[2017-09-07 09:44] LABS: VAL ACID 5 mcg/mL (50-100)
--- NOTE | 2017-09-07 10:06 | NUR ---
Behavior Intervention Response and Plan: BIRP Note: Behavior: Assumed Care of patient, patient located in Patient Room at shift change. Patient exhibited the following behavior Disorganized, Compliant,withdrawn. Brief assessment on rounds of vital signs, medication needs, lab studies, and pain. Treatment plan problems . Intervention: Patient assessed and the following interventions initiated safety checks 15 Minute Checks Cognitive Assessment , Head to toe Assessment , Medications. Response: After interactions and interventions patient responded in the following manner, Wandering , Restless ,Disorganized. Continue to assess behaviors and condition will continue to monitor throughout the shift as needed. Patient educated on ADL's, and hand hygiene. 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 Continue to assess patient for changes in above assessment. Monitor for medication needs, pain, and safety concerns. Hourly rounding performed to ensure safe environment.
[2017-09-07 16:07] VITALS: BP 126/68
--- NOTE | 2017-09-07 16:22 | NUR ---
pt got up mid morning. has meds in ice cream and cranberry juice. out to lunch. ate well. has been in pleasant spirits thus far.
--- NOTE | 2017-09-07 18:06 | PN ---
DATE: 09/06/2017 This is a late entry, 09/06/2017, covers the elements not covered in my initial note, 09/06/2017. SUBJECTIVE: I met with the patient evening of 09/06/2017. The patient has been somewhat labile, confused, laid herself on the floor, did not get up for breakfast, otherwise compliant after that, takes some meds in ice cream. MEDICATIONS: Megace and Depakote were given in cranberry juice, appetite little better. REVIEW OF SYSTEMS: No CV, , pulmonary, eye, ENT system symptoms on review. Reliability poor. MENTAL STATUS EXAM: Oriented to herself. Insight, judgment, recent and remote memory, attention, concentration, fund of knowledge poor, consistent with her diagnosis as mentioned in my initial note. PLAN: Continue current psychotropics. Adjust as clinically indicated. MAN Jc CASILLAS MD DR: MIGUEL A/nahed JOB#: [id number] / [id number]
[2017-09-07] MEDS: traZODone 50 MG TABLET. PO SCH (18:31)
[2017-09-07] MEDS: MIRTAZAPINE 15 MG TABLET PO SCH (18:33)
--- NOTE | 2017-09-07 20:33 | NUR ---
Behavior Intervention Response and Plan: BIRP Note: Behavior: Assumed Care of patient, patient located in Patient Room at shift change. Patient exhibited the following behavior Disorganized, Compliant,withdrawn. Brief assessment on rounds of vital signs, medication needs, lab studies, and pain. Treatment plan problems . Intervention: Patient assessed and the following interventions initiated safety checks 15 Minute Checks Cognitive Assessment , Head to toe Assessment , Medications. Response: After interactions and interventions patient responded in the following manner, Wandering , Restless ,Disorganized. Continue to assess behaviors and condition will continue to monitor throughout the shift as needed. Patient educated on ADL's, and hand hygiene. 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 Continue to assess patient for changes in above assessment. Monitor for medication needs, pain, and safety concerns. Hourly rounding performed to ensure safe environment.
--- NOTE | 2017-09-07 22:08 | PDOC ---
Exam Note: Allen Note: Please also refer to the separate dictated note~for this date of service dictated separately.~Patient seen individually. Discussed the patient with Nursing staff reviewed the chart.~Reviewed interim history and current functioning. Reviewed vital signs,~Labs/ Radiology~and current medications noted below. Continue current treatment with the changes noted in the dictated addendum note Assessment: Vital Signs: Vital Signs Date Time Temp Pulse Resp B/P (MAP) Pulse Ox O2 Delivery O2 Flow Rate FiO2 09/07/17 16:07 98.5 69 18 126/68 (87) 98 09/02/17 15:25 Room Air I&O Intake and Output 09/07/17 07:00 Intake Total 720 ml Balance 720 ml Intake Oral 720 ml Labs: Laboratory Tests Test 09/07/17 08:56 White Blood Count 7.5 x10^3/uL (4.0-11.0) Red Blood Count 4.31 x10^6/uL (3.50-5.40) Hemoglobin 13.1 g/dL (12.0-15.5) Hematocrit 39.8 % (36.0-47.0) Mean Corpuscular Volume 92 fL (79-100) Mean Corpuscular Hemoglobin 30 pg (25-35) Mean Corpuscular Hemoglobin Concent 33 g/dL (31-37) Red Cell Distribution Width 14.0 % (11.5-14.5) Platelet Count 154 x10^3/uL (140-400) Neutrophils (%) (Auto) 55 % (31-73) Lymphocytes (%) (Auto) 32 % (24-48) Monocytes (%) (Auto) 9 % (0-9) Eosinophils (%) (Auto) 3 % (0-3) Basophils (%) (Auto) 1 % (0-3) Neutrophils # (Auto) 4.2 x10^3uL (1.8-7.7) Lymphocytes # (Auto) 2.4 x10^3/uL (1.0-4.8) Monocytes # (Auto) 0.7 x10^3/uL (0.0-1.1) Eosinophils # (Auto) 0.2 x10^3/uL (0.0-0.7) Basophils # (Auto) 0.1 x10^3/uL (0.0-0.2) Sodium Level 143 mmol/L (136-145) Potassium Level 4.2 mmol/L (3.5-5.1) Chloride Level 108 mmol/L (98-107) H Carbon Dioxide Level 26 mmol/L (21-32) Anion Gap 9 (6-14) Blood Urea Nitrogen 22 mg/dL (7-20) H Creatinine 0.9 mg/dL (0.6-1.0) Estimated GFR (Cockcroft-Gault) 59.1 BUN/Creatinine Ratio 24 (6-20) H Glucose Level 113 mg/dL (70-99) H Calcium Level 8.8 mg/dL (8.5-10.1) Magnesium Level 2.1 mg/dL (1.8-2.4) Total Bilirubin 0.2 mg/dL (0.2-1.0) Aspartate Amino Transferase (AST) 16 U/L (15-37) Alanine Aminotransferase (ALT) 18 U/L (14-59) Alkaline Phosphatase 61 U/L (46-116) Total Protein 7.3 g/dL (6.4-8.2) Albumin 3.5 g/dL (3.4-5.0) Albumin/Globulin Ratio 0.9 (1.0-1.7) L Valproic Acid Level 5 mcg/mL (50-100) L Valproic Acid Last Dose Date 09/06/2017 Valproic Acid Last Dose Time 1700 Current Medications: Meds: Current Medications Acetaminophen (Tylenol) 650 mg PRN Q6HRS PRN PO PAIN / TEMP; Start 08/15/17 at 17:15; Status Cancel Multi-Ingredient Ointment (Analgesic [place]) 1 ronni PRN QID PRN TP MUSCLE PAIN; Start 08/15/17 at 17:15 Al Hydroxide/Mg Hydroxide (Mylanta Plus Xs) 15 ml PRN AFTMEALHC PRN PO DYSPEPSIA; Start 08/15/17 at 17:15 Magnesium Hydroxide (Milk Of Magnesia) 2,400 mg PRN QHS PRN PO CONSTIPATION; Start 08/15/17 at 17:15; Status Cancel Acetaminophen (Tylenol) 650 mg BID PO Last administered on 09/07/17at 18:30; Start 08/15/17 at 21:00 Acetaminophen (Tylenol) 650 mg PRN Q6HRS PRN PO PAIN / TEMP; Start 08/15/17 at 18:15 Docusate Sodium (Colace) 100 mg BID PO Last administered on 09/07/17 18:31; Start 08/15/17 at 21:00 Ferrous Sulfate (Feosol) 325 mg DAILY PO Last administered on 09/07/17at 07:50; Start 08/16/17 at 09:00 Fluticasone Propionate (Flonase) 2 spray DAILY NS Last administered on 08:20; Start 08/16/17 at 09:00; Stop 08/24/17 at 16:52; Status DC Magnesium Hydroxide (Milk Of Magnesia) 2,400 mg PRN DAILY PRN PO CONSTIPATION Last administered on 09/02/17 09:05; Start 08/15/17 at 18:15 Non-Formulary Medication 1 tab BID PO ; Start 08/15/17 at 21:00; Status UNV Vitamin D (Vitamin D3) 500 unit DAILY PO Last administered on 09/07/17 07:50; Start 08/16/17 at 09:00 Ketorolac Tromethamine (Acular) 1 drop QID OS Last administered on 08/24/17 08 :20; Start 08/15/17 at 21:00; Stop 08/24/17 at 16:52; Status DC Lactobacillus Rhamnosus (Culturelle) 1 cap BID PO Last administered on 18:30; Start 08/15/17 at 21:00 Multivitamins/ Calcium (Thera-M Plus) 1 tab DAILY PO Last administered on 07:49; Start 08/16/17 at 09:00 Ondansetron HCl (Zofran Odt) 4 mg PRN Q4HRS PRN PO NAUSEA/VOMITING Last administered on 08/22/17 01:49; Start 08/15/17 at 18:45 Olanzapine (ZyPREXA ZYDIS) 2.5 mg PRN Q2HR PRN PO PSYCHOSIS Last administered on 09/04/17at 12:15; Start 08/16/17 at 18:30 Quetiapine Fumarate (SEROquel) 12.5 mg 0900,1300 PO Last administered on 08:00; Start 08/17/17 at 09:00; Stop 08/17/17 at 22:38; Status DC Potassium Chloride (Klor-Con) 20 meq BID PO Last administered on 09/07/17 18: 30; Start 08/17/17 at 21:00 Quetiapine Fumarate (SEROquel) 12.5 mg 0700,1100,1400,1700 PO Last administered on 08/29/17at 11:09; Start 08/18/17 at 07:00; Stop 08/29/17 at 11:34 ; Status DC Mirtazapine (Remeron) 7.5 mg QHS PO Last administered on 08/18/17 20:18; Start 08/17/17 at 23:00; Stop 08/19/17 at 18:10; Status DC Mirtazapine (Remeron) 15 mg QHS PO Last administered on 09/07/17 18:33; Start 08/19/17 at 21:00 Trazodone HCl (Desyrel) 50 mg QHS PO Last administered on 09/07/17 18:31; Start 08/19/17 at 21:00 Trazodone HCl (Desyrel) 50 mg PRN QHS PRN PO insomnia Last administered on 09/01 22:21; Start 08/19/17 at 18:15 Magnesium Citrate (Citroma) 148 ml PRN 1X PRN PO CONSTIPATION; Start 08/23/17 at 07:45 Fluticasone Propionate (Flonase) 2 spray PRN DAILY NS ; Start 08/25/17 at 09:00 Hydroxyzine HCl (Atarax) 10 mg PRN Q2HR PRN PO AGITATION Last administered on at 19:40; Start 08/25/17 at 10:45 Divalproex Sodium (Depakote Sprinkles) 125 mg BID@0900,1700 PO Last administered on 09/03/17at 17:03; Start 08/28/17 at 09:00; Stop 09/03/17 at 17:53 ; Status DC Quetiapine Fumarate (SEROquel) 25 mg BID@0700,1700 PO Last administered on 09/07at 17:54; Start 08/29/17 at 17:00 Melatonin 3 mg PRN QHS PRN PO INSOMNIA Last administered on 09/04/17at 19:39; Start 08/31/17 at 16:30 Megestrol Acetate (Megace) 200 mg TIDAC PO Last administered on 09/07/17at 17:54 ; Start 09/03/17 at 07:30 Divalproex Sodium (Depakote Sprinkles) 125 mg DAILY@1700 PO ; Start 09/04/17 at 17:00; Stop 09/04/17 at 17:00; Status DC Divalproex Sodium (Depakote Sprinkles) 250 mg DAILY PO ; Start 09/04/17 at 09:00 ; Stop 09/04/17 at 09:00; Status DC Valproic Acid (Depakene) 250 mg DAILY PO Last administered on 09/07/17at 07:49; Start 09/04/17 at 09:00 Valproic Acid (Depakene) 125 mg DAILY@1700 PO Last administered on 09/06/17at 12 :12; Start 09/04/17 at 17:00; Stop 09/07/17 at 16:19; Status DC Valproic Acid (Depakene) 250 mg DAILY@1700 PO Last administered on 09/07/17at 17 :54; Start 09/07/17 at 17:00 Active Scripts Active Reported EXELON 4.6mg/24hr (Rivastigmine) 1 Each Patch.td24 1 Patch TD DAILY Zyvox (Linezolid) 600 Mg Tablet 600 Mg PO BID Lovenox (Enoxaparin Sodium) 30 Mg/0.3 Ml Disp.syrin 30 Mg SQ Q24H Thera-M (Multivits,Th W-Fe,Other Min) 1 Each Tablet 1 Tab PO DAILY Milk Of Magnesia (Magnesium Hydroxide) 400 Mg/5 Ml Oral.susp 2,400 Mg PO PRN DAILY PRN Culturelle (Lactobacillus Rhamnosus Gg) 1 Each Capsule 1 Cap PO BID Fluticasone Propionate Nasal [place] (Fluticasone Propionate) 16 Gm [place].susp 2 [place] NS DAILY Zofran (Ondansetron Hcl) 4 Mg Tablet 4 Mg PO PRN Q4HRS PRN Vitamin D-400 (Cholecalciferol (Vitamin D3)) 400 Unit Tablet 500 Unit PO DAILY Tylenol (Acetaminophen) 325 Mg Tablet 650 Mg PO BID Tylenol (Acetaminophen) 325 Mg Tablet 650 Mg PO PRN Q6HRS PRN Ketorolac Tromethamine 5 Ml Drops 1 Drop LEFTEYE QID Ferrous Sulfate 325 Mg Tablet 325 Mg PO DAILY Colace (Docusate Sodium) 100 Mg Capsule 100 Mg PO BID Nadeem Mag Zinc + D3 Tablet (Ca Carb/Vit D3/Mag Ox/Zn Oxide) 1 Each Tablet 1 Tab PO BID I have reviewed the current psychotropics carefully including drug interactions. Risk benefit ratio favors no change other than as noted in my dictated progress note. 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
[2017-09-08 06:00] VITALS: BP 152/64
[2017-09-08] MEDS: QUEtiapine 25 MG TABLET. PO SCH ×2 (06:04→17:07)
[2017-09-08] MEDS: MEGESTROL 400 MG/10 ML ORAL.SUSP. PO SCH ×3 (07:30→17:07)
--- NOTE | 2017-09-08 08:30 | NUR ---
Patient is in bed asleep. She had less than 5hrs sleep last night, will hold morning meds and allow her to sleep.
--- NOTE | 2017-09-08 10:00 | NUR ---
patient is still asleep. Will continue to hold meds.
[2017-09-08] MEDS: MULTIVITAMIN with MINERAL TABLET. PO SCH (11:34)
[2017-09-08] MEDS: VALPROATE ACID 250 MG/5 ML ORAL SOLUTION PO SCH ×2 (11:34→17:06)
[2017-09-08] MEDS: LACTOBACILLUS RHAMNOSUS GG 1 CAPSULE. PO SCH ×2 (11:34→19:47)
[2017-09-08] MEDS: FERROUS SULFATE 325 MG TABLET. PO SCH (11:34)
[2017-09-08] MEDS: DOCUSATE SODIUM 100 MG CAPSULE PO SCH ×2 (11:35→19:47)
[2017-09-08] MEDS: POTASSIUM CHLORIDE 20 MEQ TABLET.ER. PO SCH ×2 (11:35→19:46)
[2017-09-08] MEDS: CHOLECALCIFEROL (VITAMIN D3) 1,000 UNIT TABLET PO SCH (11:35)
[2017-09-08] MEDS: ACETAMINOPHEN 325 MG TABLET PO SCH ×2 (11:35→19:47)
--- NOTE | 2017-09-08 11:40 | NUR ---
Behavior Intervention Response and Plan: GIOVANY Note: Behavior: Assumed Care of patient, patient located in Patient Room at shift change. Patient exhibited the following behavior Disorganized, Resistive, Drowsy. Brief assessment on rounds of vital signs, medication needs, lab studies, and pain. Treatment plan problems 1 & 2. Intervention: Patient assessed and the following interventions initiated safety checks 15 Minute Checks Cognitive Assessment , Head to toe Assessment , Medications. Response: After interactions and interventions patient responded in the following manner, Calm , Appropriate ,Compliant. Continue to assess behaviors and condition will continue to monitor throughout the shift as needed. Patient educated on ADL's, and hand hygiene. Plan: Continue to monitor Master Treatment Plan for patient's progress toward short term goals of Decreased Agitation, No harm To self/ others, av specialist goals to return to previous living setting vs placement. Continue to assess patient for changes in above assessment. Monitor for medication needs, pain, and safety concerns. Hourly rounding performed to ensure safe environment. Addendum: 09/08/17 at 1310 by JOZEF WEST II, RN Amended: Links added.
--- NOTE | 2017-09-08 11:40 | NUR ---
Patient is very disorganized and drowsy. She is resistive to taking meds, will hide her meds in her lunch.
--- NOTE | 2017-09-08 13:00 | NUR ---
Patient consumed the drinks with her morning meds hidden in them. Will monitor for behaviours.
[2017-09-08 16:13] VITALS: BP 121/79
[2017-09-08] MEDS: traZODone 50 MG TABLET. PO SCH (19:46)
[2017-09-08] MEDS: MIRTAZAPINE 15 MG TABLET PO SCH (19:46)
--- NOTE | 2017-09-08 21:07 | PDOC ---
Exam Note: Allen Note: Please also refer to the separate dictated note~for this date of service dictated separately.~Patient seen individually. Discussed the patient with Nursing staff reviewed the chart.~Reviewed interim history and current functioning. Reviewed vital signs,~Labs/ Radiology~and current medications noted below. Continue current treatment with the changes noted in the dictated addendum note Assessment: Vital Signs: Vital Signs Date Time Temp Pulse Resp B/P (MAP) Pulse Ox O2 Delivery O2 Flow Rate FiO2 09/08/17 16:13 98.2 81 16 121/79 (93) 97 09/02/17 15:25 Room Air I&O Intake and Output 09/08/17 07:00 Intake Total 360 ml Balance 360 ml Intake Oral 360 ml # Voids 4 Current Medications: Meds: Current Medications Acetaminophen (Tylenol) 650 mg PRN Q6HRS PRN PO PAIN / TEMP; Start 08/15/17 at 17:15; Status Cancel Multi-Ingredient Ointment (Analgesic [place]) 1 ronni PRN QID PRN TP MUSCLE PAIN; Start 08/15/17 at 17:15 Al Hydroxide/Mg Hydroxide (Mylanta Plus Xs) 15 ml PRN AFTMEALHC PRN PO DYSPEPSIA; Start 08/15/17 at 17:15 Magnesium Hydroxide (Milk Of Magnesia) 2,400 mg PRN QHS PRN PO CONSTIPATION; Start 08/15/17 at 17:15; Status Cancel Acetaminophen (Tylenol) 650 mg BID PO Last administered on 09/08/17at 19:47; Start 08/15/17 at 21:00 Acetaminophen (Tylenol) 650 mg PRN Q6HRS PRN PO PAIN / TEMP; Start 08/15/17 at 18:15 Docusate Sodium (Colace) 100 mg BID PO Last administered on 09/08/17at 19:47; Start 08/15/17 at 21:00 Ferrous Sulfate (Feosol) 325 mg DAILY PO Last administered on 09/08/17at 11:34; Start 08/16/17 at 09:00 Fluticasone Propionate (Flonase) 2 spray DAILY NS Last administered on at 08:20; Start 08/16/17 at 09:00; Stop 08/24/17 at 16:52; Status DC Magnesium Hydroxide (Milk Of Magnesia) 2,400 mg PRN DAILY PRN PO CONSTIPATION Last administered on 09/02/17 09:05; Start 08/15/17 at 18:15 Non-Formulary Medication 1 tab BID PO ; Start 08/15/17 at 21:00; Status UNV Vitamin D (Vitamin D3) 500 unit DAILY PO Last administered on 09/08/17 11:35; Start 08/16/17 at 09:00 Ketorolac Tromethamine (Acular) 1 drop QID OS Last administered on 08/24/17 08 :20; Start 08/15/17 at 21:00; Stop 08/24/17 at 16:52; Status DC Lactobacillus Rhamnosus (Culturelle) 1 cap BID PO Last administered on 19:47; Start 08/15/17 at 21:00 Multivitamins/ Calcium (Thera-M Plus) 1 tab DAILY PO Last administered on 11:34; Start 08/16/17 at 09:00 Ondansetron HCl (Zofran Odt) 4 mg PRN Q4HRS PRN PO NAUSEA/VOMITING Last administered on 08/22/17 01:49; Start 08/15/17 at 18:45 Olanzapine (ZyPREXA ZYDIS) 2.5 mg PRN Q2HR PRN PO PSYCHOSIS Last administered on 09/04/17 12:15; Start 08/16/17 at 18:30 Quetiapine Fumarate (SEROquel) 12.5 mg 0900,1300 PO Last administered on 08:00; Start 08/17/17 at 09:00; Stop 08/17/17 at 22:38; Status DC Potassium Chloride (Klor-Con) 20 meq BID PO Last administered on 09/08/17 19: 46; Start 08/17/17 at 21:00 Quetiapine Fumarate (SEROquel) 12.5 mg 0700,1100,1400,1700 PO Last administered on 08/29/17 11:09; Start 08/18/17 at 07:00; Stop 08/29/17 at 11:34 ; Status DC Mirtazapine (Remeron) 7.5 mg QHS PO Last administered on 08/18/17 20:18; Start 08/17/17 at 23:00; Stop 08/19/17 at 18:10; Status DC Mirtazapine (Remeron) 15 mg QHS PO Last administered on 09/08/17 19:46; Start 08/19/17 at 21:00 Trazodone HCl (Desyrel) 50 mg QHS PO Last administered on 09/08/17 19:46; Start 08/19/17 at 21:00 Trazodone HCl (Desyrel) 50 mg PRN QHS PRN PO insomnia Last administered on 09/01at 22:21; Start 08/19/17 at 18:15 Magnesium Citrate (Citroma) 148 ml PRN 1X PRN PO CONSTIPATION; Start 08/23/17 at 07:45 Fluticasone Propionate (Flonase) 2 spray PRN DAILY NS ; Start 08/25/17 at 09:00 Hydroxyzine HCl (Atarax) 10 mg PRN Q2HR PRN PO AGITATION Last administered on at 19:40; Start 08/25/17 at 10:45 Divalproex Sodium (Depakote Sprinkles) 125 mg BID@0900,1700 PO Last administered on 09/03/17at 17:03; Start 08/28/17 at 09:00; Stop 09/03/17 at 17:53 ; Status DC Quetiapine Fumarate (SEROquel) 25 mg BID@0700,1700 PO Last administered on 09/08at 17:07; Start 08/29/17 at 17:00 Melatonin 3 mg PRN QHS PRN PO INSOMNIA Last administered on 09/04/17at 19:39; Start 08/31/17 at 16:30 Megestrol Acetate (Megace) 200 mg TIDAC PO Last administered on 09/08/17at 17:07 ; Start 09/03/17 at 07:30 Divalproex Sodium (Depakote Sprinkles) 125 mg DAILY@1700 PO ; Start 09/04/17 at 17:00; Stop 09/04/17 at 17:00; Status DC Divalproex Sodium (Depakote Sprinkles) 250 mg DAILY PO ; Start 09/04/17 at 09:00 ; Stop 09/04/17 at 09:00; Status DC Valproic Acid (Depakene) 250 mg DAILY PO Last administered on 09/08/17at 11:34; Start 09/04/17 at 09:00 Valproic Acid (Depakene) 125 mg DAILY@1700 PO Last administered on 09/06/17at 12 :12; Start 09/04/17 at 17:00; Stop 09/07/17 at 16:19; Status DC Valproic Acid (Depakene) 250 mg DAILY@1700 PO Last administered on 09/08/17at 17 :06; Start 09/07/17 at 17:00 Active Scripts Active Reported EXELON 4.6mg/24hr (Rivastigmine) 1 Each Patch.td24 1 Patch TD DAILY Zyvox (Linezolid) 600 Mg Tablet 600 Mg PO BID Lovenox (Enoxaparin Sodium) 30 Mg/0.3 Ml Disp.syrin 30 Mg SQ Q24H Thera-M (Multivits,Th W-Fe,Other Min) 1 Each Tablet 1 Tab PO DAILY Milk Of Magnesia (Magnesium Hydroxide) 400 Mg/5 Ml Oral.susp 2,400 Mg PO PRN DAILY PRN Culturelle (Lactobacillus Rhamnosus Gg) 1 Each Capsule 1 Cap PO BID Fluticasone Propionate Nasal [place] (Fluticasone Propionate) 16 Gm [place].susp 2 [place] NS DAILY Zofran (Ondansetron Hcl) 4 Mg Tablet 4 Mg PO PRN Q4HRS PRN Vitamin D-400 (Cholecalciferol (Vitamin D3)) 400 Unit Tablet 500 Unit PO DAILY Tylenol (Acetaminophen) 325 Mg Tablet 650 Mg PO BID Tylenol (Acetaminophen) 325 Mg Tablet 650 Mg PO PRN Q6HRS PRN Ketorolac Tromethamine 5 Ml Drops 1 Drop LEFTEYE QID Ferrous Sulfate 325 Mg Tablet 325 Mg PO DAILY Colace (Docusate Sodium) 100 Mg Capsule 100 Mg PO BID Nadeem Mag Zinc + D3 Tablet (Ca Carb/Vit D3/Mag Ox/Zn Oxide) 1 Each Tablet 1 Tab PO BID I have reviewed the current psychotropics carefully including drug interactions. Risk benefit ratio favors no change other than as noted in my dictated progress note. Diagnosis: Problems: (1) Dehydration (2) Nausea and vomiting (3) Dementia with behavioral disturbance (4) Anxiety disorder (5) Dementia in Alzheimer's disease with delusions (6) Dementia in Alzheimer's disease with depression (7) Dementia, vascular, with delusions (8) Dementia, vascular, with depression (9) Impulse control disorder LAUREN CASILLAS MD Sep 08, 2017 21:07
--- NOTE | 2017-09-08 22:42 | NUR ---
Behavior Intervention Response and Plan: BIRP Note: Behavior: Assumed Care of patient, patient located in Patient Room at shift change. Patient exhibited the following behavior Disorganized, Compliant,withdrawn. Brief assessment on rounds of vital signs, medication needs, lab studies, and pain. Treatment plan problems . Intervention: Patient assessed and the following interventions initiated safety checks 15 Minute Checks Cognitive Assessment , Head to toe Assessment , Medications. Response: After interactions and interventions patient responded in the following manner, Wandering , Restless ,Disorganized. Continue to assess behaviors and condition will continue to monitor throughout the shift as needed. Patient educated on ADL's, and hand hygiene. Plan: Continue to monitor Master Treatment Plan for patient's progress toward short term goals of Decreased Agitation, Decreased Aggression, ocean transportation intermediary goals to return to previous living setting vs placement. Continue to assess patient for changes in above assessment. Monitor for medication needs, pain, and safety concerns. Hourly rounding performed to ensure safe environment.
--- NOTE | 2017-09-09 04:31 | NUR ---
pt agitated and resistive at hs. meds taken with much resistance. combative with cares. up later in noc and was still agitated when redirected. refused PRN. returned to bed. resting quietly at this time.
[2017-09-09 06:07] VITALS: BP 121/59
[2017-09-09] MEDS: QUEtiapine 25 MG TABLET. PO SCH ×2 (06:28→17:14)
[2017-09-09] MEDS: FERROUS SULFATE 325 MG TABLET. PO SCH (09:00)
[2017-09-09] MEDS: MULTIVITAMIN with MINERAL TABLET. PO SCH (09:00)
[2017-09-09] MEDS: ACETAMINOPHEN 325 MG TABLET PO SCH ×2 (09:00→19:34)
[2017-09-09] MEDS: DOCUSATE SODIUM 100 MG CAPSULE PO SCH ×2 (09:00→19:34)
[2017-09-09] MEDS: CHOLECALCIFEROL (VITAMIN D3) 1,000 UNIT TABLET PO SCH (09:00)
[2017-09-09] MEDS: POTASSIUM CHLORIDE 20 MEQ TABLET.ER. PO SCH ×2 (09:00→19:34)
[2017-09-09] MEDS: LACTOBACILLUS RHAMNOSUS GG 1 CAPSULE. PO SCH ×2 (09:00→19:34)
--- NOTE | 2017-09-09 09:20 | NUR ---
TONY spoke with pt son, TONY answered his questions. Lasha states he will be providing transportation once pt is ready for discharge. TONY faxed updated notes to facility.
[2017-09-09] MEDS: MEGESTROL 400 MG/10 ML ORAL.SUSP. PO SCH ×3 (09:26→17:14)
[2017-09-09] MEDS: VALPROATE ACID 250 MG/5 ML ORAL SOLUTION PO SCH ×2 (09:26→17:14)
--- NOTE | 2017-09-09 10:49 | NUR ---
Behavior Intervention Response and Plan: BIRP Note: Behavior: Assumed Care of patient, patient located in Hallway at shift change. Patient exhibited the following behavior Wandering, Disorganized, Non Compliant with Meds. Brief assessment on rounds of vital signs, medication needs, lab studies, and pain. Treatment plan problems 1-2. Intervention: Patient assessed and the following interventions initiated safety checks 15 Minute Checks Cognitive Assessment , Head to toe Assessment , Medications. Response: After interactions and interventions patient responded in the following manner, Disorganized , Wandering ,Withdrawn. Continue to assess behaviors and condition will continue to monitor throughout the shift as needed. Patient educated on ADL's, and hand hygiene. Plan: Continue to monitor Master Treatment Plan for patient's progress toward short term goals of Decreased Anxiety, Medication Compliance, ferry terminal agent goals to return to previous living setting vs placement. Continue to assess patient for changes in above assessment. Monitor for medication needs, pain, and safety concerns. Hourly rounding performed to ensure safe environment.
[2017-09-09 14:53] LABS: BILIRUBIN,URINE NEG (NEG); CLARITY,URINE CLOUDY; COLOR,URINE YELLOW; GLUCOSE,URINE NEG (NEG)
[2017-09-09 14:54] LABS: BACTERIA,URINE MANY /HPF (0-FEW); NITRITE,URINE POS (NEG); RBC,URINE 0 /HPF (0-2); UROBILINOGEN,URINE 0.2 mg/dL (0.2 mg/dL); WBC,URINE 20-40 /HPF (0-4)
[2017-09-09 14:55] LABS: AMORPHOUS SEDIMENT,UR PRESENT /HPF
--- NOTE | 2017-09-09 15:41 | NUR ---
SWS and Pt. talked in the hallway. Pt. reflected on her past and those she cared about. Pt. and SWS walked down to the day room so Pt. could participate in the group activity.
[2017-09-09 16:12] VITALS: BP 134/62
[2017-09-09] MEDS: traZODone 50 MG TABLET. PO SCH (19:34)
[2017-09-09] MEDS: MIRTAZAPINE 15 MG TABLET PO SCH (19:34)
--- NOTE | 2017-09-09 21:03 | PDOC ---
Exam Note: Allen Note: Please also refer to the separate dictated note~for this date of service dictated separately.~Patient seen individually. Discussed the patient with Nursing staff reviewed the chart.~Reviewed interim history and current functioning. Reviewed vital signs,~Labs/ Radiology~and current medications noted below. Continue current treatment with the changes noted in the dictated addendum note Assessment: Vital Signs: Vital Signs Date Time Temp Pulse Resp B/P (MAP) Pulse Ox O2 Delivery O2 Flow Rate FiO2 09/09/17 16:12 98.2 79 16 134/62 (86) 100 I&O Intake and Output 09/09/17 07:00 Intake Total 360 ml Balance 360 ml Intake Oral 360 ml Labs: Laboratory Tests Test 09/09/17 14:25 Urine Collection Type U cath Urine Color Yellow Urine Clarity Cloudy Urine pH 5.5 Urine Specific [place] 1.020 Urine Protein 30 mg/dl (NEG-TRACE) Urine Glucose (UA) Neg mg/dL (NEG) Urine Ketones (Stick) Trace mg/dL (NEG) Urine Blood Trace (NEG) Urine Nitrite Pos (NEG) Urine Bilirubin Neg (NEG) Urine Urobilinogen Dipstick 0.2 mg/dL (0.2 mg/dL) Urine Leukocyte Esterase Small (NEG) Urine RBC 0 /HPF (0-2) Urine WBC 20-40 /HPF (0-4) Urine Squamous Epithelial Cells None /LPF Urine Amorphous Sediment Present /HPF Urine Bacteria Many /HPF (0-FEW) Urine Mucus Slight /LPF Current Medications: Meds: Current Medications Acetaminophen (Tylenol) 650 mg PRN Q6HRS PRN PO PAIN / TEMP; Start 08/15/17 at 17:15; Status Cancel Multi-Ingredient Ointment (Analgesic [place]) 1 ronni PRN QID PRN TP MUSCLE PAIN; Start 08/15/17 at 17:15 Al Hydroxide/Mg Hydroxide (Mylanta Plus Xs) 15 ml PRN AFTMEALHC PRN PO DYSPEPSIA; Start 08/15/17 at 17:15 Magnesium Hydroxide (Milk Of Magnesia) 2,400 mg PRN QHS PRN PO CONSTIPATION; Start 08/15/17 at 17:15; Status Cancel Acetaminophen (Tylenol) 650 mg BID PO Last administered on 09/09/17at 19:34; Start 08/15/17 at 21:00 Acetaminophen (Tylenol) 650 mg PRN Q6HRS PRN PO PAIN / TEMP; Start 08/15/17 at 18:15 Docusate Sodium (Colace) 100 mg BID PO Last administered on 09/09/17 19:34; Start 08/15/17 at 21:00 Ferrous Sulfate (Feosol) 325 mg DAILY PO Last administered on 09/08/17 11:34; Start 08/16/17 at 09:00 Fluticasone Propionate (Flonase) 2 spray DAILY NS Last administered on 08:20; Start 08/16/17 at 09:00; Stop 08/24/17 at 16:52; Status DC Magnesium Hydroxide (Milk Of Magnesia) 2,400 mg PRN DAILY PRN PO CONSTIPATION Last administered on 09/02/17at 09:05; Start 08/15/17 at 18:15 Non-Formulary Medication 1 tab BID PO ; Start 08/15/17 at 21:00; Status UNV Vitamin D (Vitamin D3) 500 unit DAILY PO Last administered on 09/08/17 11:35; Start 08/16/17 at 09:00 Ketorolac Tromethamine (Acular) 1 drop QID OS Last administered on 08/24/17 08 :20; Start 08/15/17 at 21:00; Stop 08/24/17 at 16:52; Status DC Lactobacillus Rhamnosus (Culturelle) 1 cap BID PO Last administered on 19:34; Start 08/15/17 at 21:00 Multivitamins/ Calcium (Thera-M Plus) 1 tab DAILY PO Last administered on 11:34; Start 08/16/17 at 09:00 Ondansetron HCl (Zofran Odt) 4 mg PRN Q4HRS PRN PO NAUSEA/VOMITING Last administered on 08/22/17 01:49; Start 08/15/17 at 18:45 Olanzapine (ZyPREXA ZYDIS) 2.5 mg PRN Q2HR PRN PO PSYCHOSIS Last administered on 09/04/17 12:15; Start 08/16/17 at 18:30 Quetiapine Fumarate (SEROquel) 12.5 mg 0900,1300 PO Last administered on at 08:00; Start 08/17/17 at 09:00; Stop 08/17/17 at 22:38; Status DC Potassium Chloride (Klor-Con) 20 meq BID PO Last administered on 09/09/17 19: 34; Start 08/17/17 at 21:00 Quetiapine Fumarate (SEROquel) 12.5 mg 0700,1100,1400,1700 PO Last administered on 08/29/17 11:09; Start 08/18/17 at 07:00; Stop 08/29/17 at 11:34 ; Status DC Mirtazapine (Remeron) 7.5 mg QHS PO Last administered on 08/18/17 20:18; Start 08/17/17 at 23:00; Stop 08/19/17 at 18:10; Status DC Mirtazapine (Remeron) 15 mg QHS PO Last administered on 09/09/17 19:34; Start 08/19/17 at 21:00 Trazodone HCl (Desyrel) 50 mg QHS PO Last administered on 09/09/17 19:34; Start 08/19/17 at 21:00 Trazodone HCl (Desyrel) 50 mg PRN QHS PRN PO insomnia Last administered on 09/01 22:21; Start 08/19/17 at 18:15 Magnesium Citrate (Citroma) 148 ml PRN 1X PRN PO CONSTIPATION; Start 08/23/17 at 07:45 Fluticasone Propionate (Flonase) 2 spray PRN DAILY NS ; Start 08/25/17 at 09:00 Hydroxyzine HCl (Atarax) 10 mg PRN Q2HR PRN PO AGITATION Last administered on at 19:40; Start 08/25/17 at 10:45 Divalproex Sodium (Depakote Sprinkles) 125 mg BID@0900,1700 PO Last administered on 09/03/17 17:03; Start 08/28/17 at 09:00; Stop 09/03/17 at 17:53 ; Status DC Quetiapine Fumarate (SEROquel) 25 mg BID@0700,1700 PO Last administered on 09/09 17:14; Start 08/29/17 at 17:00 Melatonin 3 mg PRN QHS PRN PO INSOMNIA Last administered on 3/21/18at 19:39; Start 08/31/17 at 16:30 Megestrol Acetate (Megace) 200 mg TIDAC PO Last administered on 09/09/17at 17:14 ; Start 09/03/17 at 07:30 Divalproex Sodium (Depakote Sprinkles) 125 mg DAILY@1700 PO ; Start 09/04/17 at 17:00; Stop 09/04/17 at 17:00; Status DC Divalproex Sodium (Depakote Sprinkles) 250 mg DAILY PO ; Start 09/04/17 at 09:00 ; Stop 09/04/17 at 09:00; Status DC Valproic Acid (Depakene) 250 mg DAILY PO Last administered on 09/09/17at 09:26; Start 09/04/17 at 09:00 Valproic Acid (Depakene) 125 mg DAILY@1700 PO Last administered on 09/06/17at 12 :12; Start 09/04/17 at 17:00; Stop 09/07/17 at 16:19; Status DC Valproic Acid (Depakene) 250 mg DAILY@1700 PO Last administered on 09/09/17at 17 :14; Start 09/07/17 at 17:00 Active Scripts Active Reported EXELON 4.6mg/24hr (Rivastigmine) 1 Each Patch.td24 1 Patch TD DAILY Zyvox (Linezolid) 600 Mg Tablet 600 Mg PO BID Lovenox (Enoxaparin Sodium) 30 Mg/0.3 Ml Disp.syrin 30 Mg SQ Q24H Thera-M (Multivits, W-Fe,Other Min) 1 Each Tablet 1 Tab PO DAILY Milk Of Magnesia (Magnesium Hydroxide) 400 Mg/5 Ml Oral.susp 2,400 Mg PO PRN DAILY PRN Culturelle (Lactobacillus Rhamnosus Gg) 1 Each Capsule 1 Cap PO BID Fluticasone Propionate Nasal [place] (Fluticasone Propionate) 16 Gm [place].susp 2 [place] NS DAILY Zofran (Ondansetron Hcl) 4 Mg Tablet 4 Mg PO PRN Q4HRS PRN Vitamin D-400 (Cholecalciferol (Vitamin D3)) 400 Unit Tablet 500 Unit PO DAILY Tylenol (Acetaminophen) 325 Mg Tablet 650 Mg PO BID Tylenol (Acetaminophen) 325 Mg Tablet 650 Mg PO PRN Q6HRS PRN Ketorolac Tromethamine 5 Ml Drops 1 Drop LEFTEYE QID Ferrous Sulfate 325 Mg Tablet 325 Mg PO DAILY Colace (Docusate Sodium) 100 Mg Capsule 100 Mg PO BID Nadeem Mag Zinc + D3 Tablet (Ca Carb/Vit D3/Mag Ox/Zn Oxide) 1 Each Tablet 1 Tab PO BID I have reviewed the current psychotropics carefully including drug interactions. Risk benefit ratio favors no change other than as noted in my dictated progress note. Diagnosis: Problems: (1) Dementia with behavioral disturbance (2) Anxiety disorder (3) Dementia in Alzheimer's disease with delusions (4) Dementia in Alzheimer's disease with depression (5) Dementia, vascular, with delusions (6) Dementia, vascular, with depression (7) Impulse control disorder LAUREN CASILLAS MD Sep 09, 2017 21:03
--- NOTE | 2017-09-09 22:56 | PN ---
DATE: 09/07/2017 This is a late entry for 09/07/2017 and covers the elements not covered in my initial note of 09/07/2017. SUBJECTIVE: I met with the patient in the evening of 09/07/2017. The patient continues to be quite confused, anxious, restless, slept 5-1/4 hours previous evening. REVIEW OF SYSTEMS: No CV, , pulmonary, eye, ENT system symptoms on review. Reliability poor. MENTAL STATUS EXAM: Oriented to herself. Insight, judgment, recent and remote memory, attention, concentration, fund of knowledge poor, consistent with her diagnosis mentioned in my initial note. IMPRESSION: Major neurocognitive disorder, Alzheimer, vascular with delusion, depression, behavioral disturbance. Rest unchanged. PLAN: Valproic acid level subtherapeutic at 8. We will increase Depakote from 250 a.m. and 125 in the p.m. to 250 mg twice a day. Check CBC, CMP, valproic acid level in 3 days. Continue Rest unchanged including Megace for appetite stimulation. MAN Jc CASILLAS MD DR: MIGUEL A/nahed JOB#: [id number] / [id number]
[2017-09-09] MEDS: traZODone 50 MG TABLET. PO PRN ×2 (23:10→23:30)
[2017-09-09] MEDS: MELATONIN 3 MG TABLET PO PRN ×2 (23:10→23:30)
--- NOTE | 2017-09-10 00:43 | NUR ---
Behavior Intervention Response and Plan: BIRP Note: Behavior: Assumed Care of patient, patient located in Patient Room at shift change. Patient exhibited the following behavior Disorganized, Compliant,withdrawn. Brief assessment on rounds of vital signs, medication needs, lab studies, and pain. Treatment plan problems 1-2. Intervention: Patient assessed and the following interventions initiated safety checks 15 Minute Checks Cognitive Assessment , Head to toe Assessment , Medications. Response: After interactions and interventions patient responded in the following manner, Wandering , Restless ,Disorganized. Continue to assess behaviors and condition will continue to monitor throughout the shift as needed. Patient educated on ADL's, and hand hygiene. Plan: Continue to monitor Master Treatment Plan for patient's progress toward short term goals of Decreased Agitation, Decreased Aggression, residential goals to return to previous living setting vs placement. Continue to assess patient for changes in above assessment. Monitor for medication needs, pain, and safety concerns. Hourly rounding performed to ensure safe environment.
--- NOTE | 2017-09-10 01:54 | PN ---
DATE: 09/08/2017 PSYCHIATRIC PROGRESS NOTE This is a late entry of 09/08/2017, covers elements not covered in my initial note of 09/08/2017. I met with the patient evening of 09/08/2017. SUBJECTIVE: The patient had a very challenging day on 09/08/2017. Nursing report indicates that she had a "bad day." She needed her medications syringed previous evening including the Zyprexa. She laid herself on the floor scratching at nursing staff through gloves, agitated and aggressive. REVIEW OF SYSTEMS: No CV, , pulmonary, eye, ENT system symptoms on review. Reliability poor. MENTAL STATUS EXAM: Oriented to herself. Insight, judgment, recent and remote memory, attention, concentration, fund of knowledge poor, consistent with her diagnosis mentioned in my initial note. IMPRESSION: Major neurocognitive disorder, Alzheimer, vascular with delusion, depression, behavioral disturbance. Rest unchanged. PLAN: Check UA in case UTI is worsening her agitation, mood lability. CBC, CMP, valproic acid level to be checked on 09/10/2017. Continue rest unchanged in the interim. MAN Jc CASILLAS MD DR: MIGUEL A/nahed JOB#: [id number] / [id number]
[2017-09-10] MEDS: QUEtiapine 25 MG TABLET. PO SCH ×3 (05:47→17:31)
[2017-09-10 06:13] VITALS: BP 112/67
[2017-09-10] MEDS: VALPROATE ACID 250 MG/5 ML ORAL SOLUTION PO SCH ×2 (07:41→17:31)
[2017-09-10] MEDS: ACETAMINOPHEN 325 MG TABLET PO SCH ×2 (07:41→19:50)
[2017-09-10] MEDS: MEGESTROL 400 MG/10 ML ORAL.SUSP. PO SCH ×3 (07:41→17:31)
[2017-09-10] MEDS: MULTIVITAMIN with MINERAL TABLET. PO SCH (07:42)
[2017-09-10] MEDS: FERROUS SULFATE 325 MG TABLET. PO SCH (07:42)
[2017-09-10] MEDS: POTASSIUM CHLORIDE 20 MEQ TABLET.ER. PO SCH ×2 (07:42→19:50)
[2017-09-10] MEDS: DOCUSATE SODIUM 100 MG CAPSULE PO SCH ×2 (07:42→19:50)
[2017-09-10] MEDS: LACTOBACILLUS RHAMNOSUS GG 1 CAPSULE. PO SCH ×2 (07:42→19:50)
[2017-09-10] MEDS: CHOLECALCIFEROL (VITAMIN D3) 1,000 UNIT TABLET PO SCH (07:42)
[2017-09-10 09:21] LABS: ALBUMIN 3.5 g/dL (3.4-5.0); ALBUMIN/GLOBULIN RATIO 0.9 (1.0-1.7); ALK PHOS 59 U/L (46-116); ALT (SGPT) 18 U/L (14-59); ANION GAP 12 (6-14); AST (SGOT) 15 U/L (15-37); BLOOD UREA NITROGEN 19 mg/dL (7-20); BUN/CREATININE RATIO 17 (6-20); CALCIUM 9.2 mg/dL (8.5-10.1); CARBON DIOXIDE 25 mmol/L (21-32); CHLORIDE 106 mmol/L (98-107); CREATININE 1.1 mg/dL (0.6-1.0); GFR 46.9; GLUCOSE 139 mg/dL (70-99); SODIUM 143 mmol/L (136-145); TOTAL BILIRUBIN 0.2 mg/dL (0.2-1.0); TOTAL PROTEIN 7.3 g/dL (6.4-8.2)
[2017-09-10 09:22] LABS: VAL ACID 35 mcg/mL (50-100)
[2017-09-10 09:23] LABS: BASO # 0.1 x10^3/uL (0.0-0.2); BASO % 1 % (0-3); EOS # 0.2 x10^3/uL (0.0-0.7); EOS % 2 % (0-3); HEMATOCRIT 41.8 % (36.0-47.0); HEMOGLOBIN 13.6 g/dL (12.0-15.5); LYMPH # 2.5 x10^3/uL (1.0-4.8); LYMPH % 32 % (24-48); MEAN CORPUSCULAR HEMOGLOBIN 30 pg (25-35); MEAN CORPUSCULAR HGB CONC 33 g/dL (31-37); MEAN CORPUSCULAR VOLUME 92 fL (79-100); MONO # 0.7 x10^3/uL (0.0-1.1); MONO % 9 % (0-9); NEUT # 4.4 x10^3uL (1.8-7.7); NEUT % 56 % (31-73); PLATELET COUNT 181 x10^3/uL (140-400); RED BLOOD COUNT 4.53 x10^6/uL (3.50-5.40); WHITE BLOOD COUNT 7.8 x10^3/uL (4.0-11.0)
--- NOTE | 2017-09-10 10:48 | NUR ---
Behavior Intervention Response and Plan: BIRP Note: Behavior: Assumed Care of patient, patient located in Dining Room at shift change. Patient exhibited the following behavior Calm, Disorganized, Withdrawn. Brief assessment on rounds of vital signs, medication needs, lab studies, and pain. Treatment plan problems 1-2. Intervention: Patient assessed and the following interventions initiated safety checks 15 Minute Checks Cognitive Assessment , Head to toe Assessment , Medications. Response: After interactions and interventions patient responded in the following manner, Disorganized , Wandering ,Calm. Continue to assess behaviors and condition will continue to monitor throughout the shift as needed. Patient educated on ADL's, and hand hygiene. 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 Continue to assess patient for changes in above assessment. Monitor for medication needs, pain, and safety concerns. Hourly rounding performed to ensure safe environment.
--- NOTE | 2017-09-10 12:39 | NUR ---
Pt became very agitated with staff when trying to take pt to dining room for lunch. Pt yelling and swinging at staff, attempting to bite. Pt escorted to secure [facility] where she proceeded to bang on windows/door and door check. PRN Zyprexa administered in cranberry juice. Will continue to monitor.
[2017-09-10 16:16] VITALS: BP 144/75
[2017-09-10] MEDS: MIRTAZAPINE 15 MG TABLET PO SCH (19:50)
[2017-09-10] MEDS: traZODone 50 MG TABLET. PO SCH (19:50)
--- NOTE | 2017-09-10 20:56 | PDOC ---
Exam Note: Allen Note: Please also refer to the separate dictated note~for this date of service dictated separately.~Patient seen individually. Discussed the patient with Nursing staff reviewed the chart.~Reviewed interim history and current functioning. Reviewed vital signs,~Labs/ Radiology~and current medications noted below. Continue current treatment with the changes noted in the dictated addendum note Assessment: Vital Signs: Vital Signs Date Time Temp Pulse Resp B/P (MAP) Pulse Ox O2 Delivery O2 Flow Rate FiO2 09/10/17 16:16 98.5 85 18 144/75 (98) 100 I&O Intake and Output 09/10/17 07:00 Intake Total 1080 ml Balance 1080 ml Intake Oral 1080 ml Labs: Laboratory Tests Test 09/10/17 09:02 White Blood Count 7.8 x10^3/uL (4.0-11.0) Red Blood Count 4.53 x10^6/uL (3.50-5.40) Hemoglobin 13.6 g/dL (12.0-15.5) Hematocrit 41.8 % (36.0-47.0) Mean Corpuscular Volume 92 fL (79-100) Mean Corpuscular Hemoglobin 30 pg (25-35) Mean Corpuscular Hemoglobin Concent 33 g/dL (31-37) Red Cell Distribution Width 14.0 % (11.5-14.5) Platelet Count 181 x10^3/uL (140-400) Neutrophils (%) (Auto) 56 % (31-73) Lymphocytes (%) (Auto) 32 % (24-48) Monocytes (%) (Auto) 9 % (0-9) Eosinophils (%) (Auto) 2 % (0-3) Basophils (%) (Auto) 1 % (0-3) Neutrophils # (Auto) 4.4 x10^3uL (1.8-7.7) Lymphocytes # (Auto) 2.5 x10^3/uL (1.0-4.8) Monocytes # (Auto) 0.7 x10^3/uL (0.0-1.1) Eosinophils # (Auto) 0.2 x10^3/uL (0.0-0.7) Basophils # (Auto) 0.1 x10^3/uL (0.0-0.2) Sodium Level 143 mmol/L (136-145) Potassium Level 4.0 mmol/L (3.5-5.1) Chloride Level 106 mmol/L (98-107) Carbon Dioxide Level 25 mmol/L (21-32) Anion Gap 12 (6-14) Blood Urea Nitrogen 19 mg/dL (7-20) Creatinine 1.1 mg/dL (0.6-1.0) H Estimated GFR (Cockcroft-Gault) 46.9 BUN/Creatinine Ratio 17 (6-20) Glucose Level 139 mg/dL (70-99) H Calcium Level 9.2 mg/dL (8.5-10.1) Total Bilirubin 0.2 mg/dL (0.2-1.0) Aspartate Amino Transferase (AST) 15 U/L (15-37) Alanine Aminotransferase (ALT) 18 U/L (14-59) Alkaline Phosphatase 59 U/L (46-116) Total Protein 7.3 g/dL (6.4-8.2) Albumin 3.5 g/dL (3.4-5.0) Albumin/Globulin Ratio 0.9 (1.0-1.7) L Valproic Acid Level 35 mcg/mL (50-100) L Valproic Acid Last Dose Date 09/09/17 Valproic Acid Last Dose Time 2100 Current Medications: Meds: Current Medications Acetaminophen (Tylenol) 650 mg PRN Q6HRS PRN PO PAIN / TEMP; Start 08/15/17 at 17:15; Status Cancel Multi-Ingredient Ointment (Analgesic [place]) 1 ronni PRN QID PRN TP MUSCLE PAIN; Start 08/15/17 at 17:15 Al Hydroxide/Mg Hydroxide (Mylanta Plus Xs) 15 ml PRN AFTMEALHC PRN PO DYSPEPSIA; Start 08/15/17 at 17:15 Magnesium Hydroxide (Milk Of Magnesia) 2,400 mg PRN QHS PRN PO CONSTIPATION; Start 08/15/17 at 17:15; Status Cancel Acetaminophen (Tylenol) 650 mg BID PO Last administered on 09/10/17at 19:50; Start 08/15/17 at 21:00 Acetaminophen (Tylenol) 650 mg PRN Q6HRS PRN PO PAIN / TEMP; Start 08/15/17 at 18:15 Docusate Sodium (Colace) 100 mg BID PO Last administered on 09/10/17at 19:50; Start 08/15/17 at 21:00 Ferrous Sulfate (Feosol) 325 mg DAILY PO Last administered on 09/10/17 07:42; Start 08/16/17 at 09:00 Fluticasone Propionate (Flonase) 2 spray DAILY NS Last administered on 08:20; Start 08/16/17 at 09:00; Stop 08/24/17 at 16:52; Status DC Magnesium Hydroxide (Milk Of Magnesia) 2,400 mg PRN DAILY PRN PO CONSTIPATION Last administered on 09/02/17 09:05; Start 08/15/17 at 18:15 Non-Formulary Medication 1 tab BID PO ; Start 08/15/17 at 21:00; Status UNV Vitamin D (Vitamin D3) 500 unit DAILY PO Last administered on 09/10/17 07:42; Start 08/16/17 at 09:00 Ketorolac Tromethamine (Acular) 1 drop QID OS Last administered on 08/24/17 08 :20; Start 08/15/17 at 21:00; Stop 08/24/17 at 16:52; Status DC Lactobacillus Rhamnosus (Culturelle) 1 cap BID PO Last administered on 19:50; Start 08/15/17 at 21:00 Multivitamins/ Calcium (Thera-M Plus) 1 tab DAILY PO Last administered on 07:42; Start 08/16/17 at 09:00 Ondansetron HCl (Zofran Odt) 4 mg PRN Q4HRS PRN PO NAUSEA/VOMITING Last administered on 08/22/17 01:49; Start 08/15/17 at 18:45 Olanzapine (ZyPREXA ZYDIS) 2.5 mg PRN Q2HR PRN PO PSYCHOSIS Last administered on 09/10/17 12:15; Start 08/16/17 at 18:30 Quetiapine Fumarate (SEROquel) 12.5 mg 0900,1300 PO Last administered on 08:00; Start 08/17/17 at 09:00; Stop 08/17/17 at 22:38; Status DC Potassium Chloride (Klor-Con) 20 meq BID PO Last administered on 09/10/17 19: 50; Start 08/17/17 at 21:00 Quetiapine Fumarate (SEROquel) 12.5 mg 0700,1100,1400,1700 PO Last administered on 08/29/17 11:09; Start 08/18/17 at 07:00; Stop 08/29/17 at 11:34 ; Status DC Mirtazapine (Remeron) 7.5 mg QHS PO Last administered on 08/18/17 20:18; Start 08/17/17 at 23:00; Stop 08/19/17 at 18:10; Status DC Mirtazapine (Remeron) 15 mg QHS PO Last administered on 09/10/17 19:50; Start 08/19/17 at 21:00 Trazodone HCl (Desyrel) 50 mg QHS PO Last administered on 09/10/17 19:50; Start 08/19/17 at 21:00 Trazodone HCl (Desyrel) 50 mg PRN QHS PRN PO insomnia Last administered on 09/09at 23:30; Start 08/19/17 at 18:15 Magnesium Citrate (Citroma) 148 ml PRN 1X PRN PO CONSTIPATION; Start 08/23/17 at 07:45 Fluticasone Propionate (Flonase) 2 spray PRN DAILY NS ; Start 08/25/17 at 09:00 Hydroxyzine HCl (Atarax) 10 mg PRN Q2HR PRN PO AGITATION Last administered on at 19:40; Start 08/25/17 at 10:45 Divalproex Sodium (Depakote Sprinkles) 125 mg BID@0900,1700 PO Last administered on 09/03/17at 17:03; Start 08/28/17 at 09:00; Stop 09/03/17 at 17:53 ; Status DC Quetiapine Fumarate (SEROquel) 25 mg BID@0700,1700 PO Last administered on 09/10at 17:31; Start 08/29/17 at 17:00 Melatonin 3 mg PRN QHS PRN PO INSOMNIA Last administered on 09/09/17 23:30; Start 08/31/17 at 16:30 Megestrol Acetate (Megace) 200 mg TIDAC PO Last administered on 09/10/17 17:31 ; Start 09/03/17 at 07:30 Divalproex Sodium (Depakote Sprinkles) 125 mg DAILY@1700 PO ; Start 09/04/17 at 17:00; Stop 09/04/17 at 17:00; Status DC Divalproex Sodium (Depakote Sprinkles) 250 mg DAILY PO ; Start 09/04/17 at 09:00 ; Stop 09/04/17 at 09:00; Status DC Valproic Acid (Depakene) 250 mg DAILY PO Last administered on 09/10/17at 07:41; Start 09/04/17 at 09:00; Stop 09/10/17 at 18:12; Status DC Valproic Acid (Depakene) 125 mg DAILY@1700 PO Last administered on 09/06/17at 12 :12; Start 09/04/17 at 17:00; Stop 09/07/17 at 16:19; Status DC Valproic Acid (Depakene) 250 mg DAILY@1700 PO Last administered on 09/10/17at 17 :31; Start 09/07/17 at 17:00; Stop 09/10/17 at 18:12; Status DC Valproic Acid (Depakene) 375 mg DAILY PO ; Start 09/11/17 at 09:00 Valproic Acid (Depakene) 375 mg DAILY@1700 PO ; Start 09/11/17 at 17:00 Active Scripts Active Reported EXELON 4.6mg/24hr (Rivastigmine) 1 Each Patch.td24 1 Patch TD DAILY Zyvox (Linezolid) 600 Mg Tablet 600 Mg PO BID Lovenox (Enoxaparin Sodium) 30 Mg/0.3 Ml Disp.syrin 30 Mg SQ Q24H Thera-M (Multivits, W-Fe,Other Min) 1 Each Tablet 1 Tab PO DAILY Milk Of Magnesia (Magnesium Hydroxide) 400 Mg/5 Ml Oral.susp 2,400 Mg PO PRN DAILY PRN Culturelle (Lactobacillus Rhamnosus Gg) 1 Each Capsule 1 Cap PO BID Fluticasone Propionate Nasal [place] (Fluticasone Propionate) 16 Gm [place].susp 2 [place] NS DAILY Zofran (Ondansetron Hcl) 4 Mg Tablet 4 Mg PO PRN Q4HRS PRN Vitamin D-400 (Cholecalciferol (Vitamin D3)) 400 Unit Tablet 500 Unit PO DAILY Tylenol (Acetaminophen) 325 Mg Tablet 650 Mg PO BID Tylenol (Acetaminophen) 325 Mg Tablet 650 Mg PO PRN Q6HRS PRN Ketorolac Tromethamine 5 Ml Drops 1 Drop LEFTEYE QID Ferrous Sulfate 325 Mg Tablet 325 Mg PO DAILY Colace (Docusate Sodium) 100 Mg Capsule 100 Mg PO BID Nadeem Mag Zinc + D3 Tablet (Ca Carb/Vit D3/Mag Ox/Zn Oxide) 1 Each Tablet 1 Tab PO BID I have reviewed the current psychotropics carefully including drug interactions. Risk benefit ratio favors no change other than as noted in my dictated progress note. Diagnosis: Problems: (1) Dementia with behavioral disturbance (2) Anxiety disorder (3) Dementia in Alzheimer's disease with delusions (4) Dementia in Alzheimer's disease with depression (5) Dementia, vascular, with delusions (6) Dementia, vascular, with depression (7) Impulse control disorder LAUREN CASILLAS MD Sep 10, 2017 20:56
--- NOTE | 2017-09-10 21:34 | NUR ---
Behavior Intervention Response and Plan: BIRP Note: Behavior: Assumed Care of patient, patient located in Patient Room at shift change. Patient exhibited the following behavior Calm, Compliant, Cooperative. Brief assessment on rounds of vital signs, medication needs, lab studies, and pain. Treatment plan problems Dementia with BD and Fall Risk. Intervention: Patient assessed and the following interventions initiated safety checks 15 Minute Checks Cognitive Assessment , Head to toe Assessment , Medications. Response: After interactions and interventions patient responded in the following manner, Calm , Disorganized ,Compliant. Continue to assess behaviors and condition will continue to monitor throughout the shift as needed. Patient educated on ADL's, and hand hygiene. Plan: Continue to monitor Master Treatment Plan for patient's progress toward short term goals of Decreased Aggression, No harm To self/ others, usp goals to return to previous living setting vs placement. Continue to assess patient for changes in above assessment. Monitor for medication needs, pain, and safety concerns. Hourly rounding performed to ensure safe environment.
--- NOTE | 2017-09-10 22:06 | PN ---
DATE: 09/09/2017 PSYCHIATRIC PROGRESS NOTE This is a late entry of 09/09/2017 covers elements not covered in my initial note of 09/09/2017. I met with the patient evening of 09/09/2017. The patient remains confused, takes her medications and cranberry juice. UA was completed and has ____ to culture and sensitivity. Previous evening, she had to be given her medications syringed. REVIEW OF SYSTEMS: No CV, , pulmonary, eye, ENT system symptoms on review. Reliability poor. MENTAL STATUS EXAM: Oriented to herself. Insight, judgment, recent and remote memory, attention, concentration, fund of knowledge poor, consistent with her diagnosis mentioned in my initial note. IMPRESSION: Major neurocognitive disorder, Alzheimer, vascular with depression, delusion, behavioral disturbance. Rest unchanged. PLAN: Continue current psychotropics. Valproic acid level is low consequent to intermittent noncompliance. We will persevere in helping with compliance. Adjust further as clinically indicated. LAUREN CASILLAS MD DR: MIGUEL A/nahed JOB#: [id number] / [id number]
[2017-09-11 06:09] VITALS: BP 176/70
[2017-09-11] MEDS: QUEtiapine 25 MG TABLET. PO SCH ×2 (06:10→16:55)
[2017-09-11] MEDS: VALPROATE ACID 250 MG/5 ML ORAL SOLUTION PO SCH ×2 (08:10→16:55)
[2017-09-11] MEDS: LACTOBACILLUS RHAMNOSUS GG 1 CAPSULE. PO SCH ×2 (08:22→19:47)
[2017-09-11] MEDS: DOCUSATE SODIUM 100 MG CAPSULE PO SCH ×2 (08:22→19:47)
[2017-09-11] MEDS: CHOLECALCIFEROL (VITAMIN D3) 1,000 UNIT TABLET PO SCH (08:22)
[2017-09-11] MEDS: MEGESTROL 400 MG/10 ML ORAL.SUSP. PO SCH ×3 (08:22→16:55)
[2017-09-11] MEDS: MULTIVITAMIN with MINERAL TABLET. PO SCH (08:22)
[2017-09-11] MEDS: ACETAMINOPHEN 325 MG TABLET PO SCH ×2 (08:22→19:47)
[2017-09-11] MEDS: POTASSIUM CHLORIDE 20 MEQ TABLET.ER. PO SCH ×2 (08:22→19:48)
[2017-09-11] MEDS: FERROUS SULFATE 325 MG TABLET. PO SCH (08:22)
--- NOTE | 2017-09-11 08:30 | NUR ---
Blood noted on patient's right sleeve. Patient has small skin tear on right FA, approx. 1.0cm X 0.2cm. Area cleansed, no steri strips on the unit at this time, covered with off-site, no s/s of infection at this time, will continue to monitor.
--- NOTE | 2017-09-11 09:29 | NUR ---
Behavior Intervention Response and Plan: BIRP Note: Behavior: Assumed Care of patient, patient located in Dining Room at shift change. Patient exhibited the following behavior Disorganized, Irritable, Non Compliant with Meds. Brief assessment on rounds of vital signs, medication needs, lab studies, and pain. Treatment plan problems . Intervention: Patient assessed and the following interventions initiated safety checks 15 Minute Checks Cognitive Assessment , Head to toe Assessment , Medications. Response: After interactions and interventions patient responded in the following manner, Disorganized , Resistive ,Irritable. Continue to assess behaviors and condition will continue to monitor throughout the shift as needed. Patient educated on ADL's, and hand hygiene. 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 Continue to assess patient for changes in above assessment. Monitor for medication needs, pain, and safety concerns. Hourly rounding performed to ensure safe environment.
--- NOTE | 2017-09-11 10:07 | NUR ---
Patient resistive and irritable this AM during breakfast and would not drink her juice with medication hidden. Nurse re-approached patient when she appeared to be in better mood (approx. 1.5 hours later), and she agreed to drink her juice with depakene and drink a chocolate shake with the remaining medications hidden, will continue to monitor.
--- NOTE | 2017-09-11 15:00 | NUR ---
WEEKLY THERAPEUTIC RECREATION NOTE Date of Admission: 08/05/2017 Date of AT Assessment: 08/08/2017 Goal aimed: to increase socialization and leisure awareness Initial goal: Pt. will participate in at least three groups per week. Weekly progress towards goal: did not meet Group participation level: minimal to zero Behaviors observed: few moments of dancing this week, sleeping often, angry at times Plan: no changes to goal
[2017-09-11 16:34] VITALS: BP 152/66
[2017-09-11] MEDS: traZODone 50 MG TABLET. PO SCH (19:47)
[2017-09-11] MEDS: MIRTAZAPINE 15 MG TABLET PO SCH (19:48)
[2017-09-11] MEDS: CEFPODOXIME PROXETIL 100 MG TABLET PO SCH (19:49)
[2017-09-11] MEDS: traZODone 50 MG TABLET. PO PRN (20:04)
[2017-09-11] MEDS: MELATONIN 3 MG TABLET PO PRN (20:04)
--- NOTE | 2017-09-11 20:04 | NUR ---
Patient is wandering and hallucinating picking things up off of the floor. Administered PRN melatonin and PRN trazodone.
--- NOTE | 2017-09-11 21:07 | PDOC ---
Exam Note: Allen Note: Please also refer to the separate dictated note~for this date of service dictated separately.~Patient seen individually. Discussed the patient with Nursing staff reviewed the chart.~Reviewed interim history and current functioning. Reviewed vital signs,~Labs/ Radiology~and current medications noted below. Continue current treatment with the changes noted in the dictated addendum note Assessment: Vital Signs: Vital Signs Date Time Temp Pulse Resp B/P (MAP) Pulse Ox O2 Delivery O2 Flow Rate FiO2 09/11/17 16:34 98.9 83 18 152/66 (94) 96 I&O Intake and Output 09/11/17 07:00 Intake Total 960 ml Balance 960 ml Intake Oral 960 ml Current Medications: Meds: Current Medications Acetaminophen (Tylenol) 650 mg PRN Q6HRS PRN PO PAIN / TEMP; Start 08/15/17 at 17:15; Status Cancel Multi-Ingredient Ointment (Analgesic [place]) 1 ronni PRN QID PRN TP MUSCLE PAIN; Start 08/15/17 at 17:15 Al Hydroxide/Mg Hydroxide (Mylanta Plus Xs) 15 ml PRN AFTMEALHC PRN PO DYSPEPSIA; Start 08/15/17 at 17:15 Magnesium Hydroxide (Milk Of Magnesia) 2,400 mg PRN QHS PRN PO CONSTIPATION; Start 08/15/17 at 17:15; Status Cancel Acetaminophen (Tylenol) 650 mg BID PO Last administered on 09/11/17at 19:47; Start 08/15/17 at 21:00 Acetaminophen (Tylenol) 650 mg PRN Q6HRS PRN PO PAIN / TEMP; Start 08/15/17 at 18:15 Docusate Sodium (Colace) 100 mg BID PO Last administered on 09/11/17at 19:47; Start 08/15/17 at 21:00 Ferrous Sulfate (Feosol) 325 mg DAILY PO Last administered on 09/11/17at 08:22; Start 08/16/17 at 09:00 Fluticasone Propionate (Flonase) 2 spray DAILY NS Last administered on at 08:20; Start 08/16/17 at 09:00; Stop 08/24/17 at 16:52; Status DC Magnesium Hydroxide (Milk Of Magnesia) 2,400 mg PRN DAILY PRN PO CONSTIPATION Last administered on 09/02/17 09:05; Start 08/15/17 at 18:15 Non-Formulary Medication 1 tab BID PO ; Start 08/15/17 at 21:00; Status UNV Vitamin D (Vitamin D3) 500 unit DAILY PO Last administered on 09/11/17 08:22; Start 08/16/17 at 09:00 Ketorolac Tromethamine (Acular) 1 drop QID OS Last administered on 08/24/17 08 :20; Start 08/15/17 at 21:00; Stop 08/24/17 at 16:52; Status DC Lactobacillus Rhamnosus (Culturelle) 1 cap BID PO Last administered on 19:47; Start 08/15/17 at 21:00 Multivitamins/ Calcium (Thera-M Plus) 1 tab DAILY PO Last administered on 08:22; Start 08/16/17 at 09:00 Ondansetron HCl (Zofran Odt) 4 mg PRN Q4HRS PRN PO NAUSEA/VOMITING Last administered on 08/22/17 01:49; Start 08/15/17 at 18:45 Olanzapine (ZyPREXA ZYDIS) 2.5 mg PRN Q2HR PRN PO PSYCHOSIS Last administered on 09/10/17 12:15; Start 08/16/17 at 18:30 Quetiapine Fumarate (SEROquel) 12.5 mg 0900,1300 PO Last administered on 08:00; Start 08/17/17 at 09:00; Stop 08/17/17 at 22:38; Status DC Potassium Chloride (Klor-Con) 20 meq BID PO Last administered on 09/11/17 19: 48; Start 08/17/17 at 21:00 Quetiapine Fumarate (SEROquel) 12.5 mg 0700,1100,1400,1700 PO Last administered on 08/29/17at 11:09; Start 08/18/17 at 07:00; Stop 08/29/17 at 11:34 ; Status DC Mirtazapine (Remeron) 7.5 mg QHS PO Last administered on 08/18/17 20:18; Start 08/17/17 at 23:00; Stop 08/19/17 at 18:10; Status DC Mirtazapine (Remeron) 15 mg QHS PO Last administered on 09/11/17 19:48; Start 08/19/17 at 21:00 Trazodone HCl (Desyrel) 50 mg QHS PO Last administered on 09/11/17 19:47; Start 08/19/17 at 21:00 Trazodone HCl (Desyrel) 50 mg PRN QHS PRN PO insomnia Last administered on 09/11 20:04; Start 08/19/17 at 18:15 Magnesium Citrate (Citroma) 148 ml PRN 1X PRN PO CONSTIPATION; Start 08/23/17 at 07:45 Fluticasone Propionate (Flonase) 2 spray PRN DAILY NS ; Start 08/25/17 at 09:00 Hydroxyzine HCl (Atarax) 10 mg PRN Q2HR PRN PO AGITATION Last administered on at 19:40; Start 08/25/17 at 10:45 Divalproex Sodium (Depakote Sprinkles) 125 mg BID@0900,1700 PO Last administered on 09/03/17at 17:03; Start 08/28/17 at 09:00; Stop 09/03/17 at 17:53 ; Status DC Quetiapine Fumarate (SEROquel) 25 mg BID@0700,1700 PO Last administered on 09/11at 16:55; Start 08/29/17 at 17:00 Melatonin 3 mg PRN QHS PRN PO INSOMNIA Last administered on 09/11/17 20:04; Start 08/31/17 at 16:30 Megestrol Acetate (Megace) 200 mg TIDAC PO Last administered on 09/11/17at 16:55 ; Start 09/03/17 at 07:30 Divalproex Sodium (Depakote Sprinkles) 125 mg DAILY@1700 PO ; Start 09/04/17 at 17:00; Stop 09/04/17 at 17:00; Status DC Divalproex Sodium (Depakote Sprinkles) 250 mg DAILY PO ; Start 09/04/17 at 09:00 ; Stop 09/04/17 at 09:00; Status DC Valproic Acid (Depakene) 250 mg DAILY PO Last administered on 09/10/17at 07:41; Start 09/04/17 at 09:00; Stop 09/10/17 at 18:12; Status DC Valproic Acid (Depakene) 125 mg DAILY@1700 PO Last administered on 09/06/17at 12 :12; Start 09/04/17 at 17:00; Stop 09/07/17 at 16:19; Status DC Valproic Acid (Depakene) 250 mg DAILY@1700 PO Last administered on 09/10/17at 17 :31; Start 09/07/17 at 17:00; Stop 09/10/17 at 18:12; Status DC Valproic Acid (Depakene) 375 mg DAILY PO Last administered on 09/11/17at 08:10; Start 09/11/17 at 09:00 Valproic Acid (Depakene) 375 mg DAILY@1700 PO Last administered on 09/11/17at 16 :55; Start 09/11/17 at 17:00 Cefpodoxime Proxetil (Vantin) 100 mg BID PO Last administered on 09/11/17at 19: 49; Start 09/11/17 at 21:00; Stop 09/18/17 at 20:59 Active Scripts Active Reported EXELON 4.6mg/24hr (Rivastigmine) 1 Each Patch.td24 1 Patch TD DAILY Zyvox (Linezolid) 600 Mg Tablet 600 Mg PO BID Lovenox (Enoxaparin Sodium) 30 Mg/0.3 Ml Disp.syrin 30 Mg SQ Q24H Thera-M (Multivits,Th W-Fe,Other Min) 1 Each Tablet 1 Tab PO DAILY Milk Of Magnesia (Magnesium Hydroxide) 400 Mg/5 Ml Oral.susp 2,400 Mg PO PRN DAILY PRN Culturelle (Lactobacillus Rhamnosus Gg) 1 Each Capsule 1 Cap PO BID Fluticasone Propionate Nasal [place] (Fluticasone Propionate) 16 Gm [place].susp 2 [place] NS DAILY Zofran (Ondansetron Hcl) 4 Mg Tablet 4 Mg PO PRN Q4HRS PRN Vitamin D-400 (Cholecalciferol (Vitamin D3)) 400 Unit Tablet 500 Unit PO DAILY Tylenol (Acetaminophen) 325 Mg Tablet 650 Mg PO BID Tylenol (Acetaminophen) 325 Mg Tablet 650 Mg PO PRN Q6HRS PRN Ketorolac Tromethamine 5 Ml Drops 1 Drop LEFTEYE QID Ferrous Sulfate 325 Mg Tablet 325 Mg PO DAILY Colace (Docusate Sodium) 100 Mg Capsule 100 Mg PO BID Nadeem Mag Zinc + D3 Tablet (Ca Carb/Vit D3/Mag Ox/Zn Oxide) 1 Each Tablet 1 Tab PO BID I have reviewed the current psychotropics carefully including drug interactions. Risk benefit ratio favors no change other than as noted in my dictated progress note. 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
--- NOTE | 2017-09-11 21:32 | NUR ---
Behavior Intervention Response and Plan: BIRP Note: Behavior: Assumed Care of patient, patient located in at shift change. Patient exhibited the following behavior Wandering, Calm, Disorganized. Brief assessment on rounds of vital signs, medication needs, lab studies, and pain. Treatment plan problems . Intervention: Patient assessed and the following interventions initiated safety checks 15 Minute Checks Cognitive Assessment , Head to toe Assessment , Medications. Response: After interactions and interventions patient responded in the following manner, Compliant , Cooperative ,Delusions. Continue to assess behaviors and condition will continue to monitor throughout the shift as needed. Patient educated on ADL's, and hand hygiene. 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 Continue to assess patient for changes in above assessment. Monitor for medication needs, pain, and safety concerns. Hourly rounding performed to ensure safe environment.
--- NOTE | 2017-09-11 21:54 | PN ---
DATE: 09/10/2017 PSYCHIATRIC PROGRESS NOTE This is a late entry of 09/10/2017 covers elements not covered in my initial note of 09/10/2017. I met with the patient in the evening of 09/10/2017. The patient slept 4-1/4 hours previous evening, received trazodone to help with this, takes her meds in cranberry juice. She did better in the morning and at lunchtime, she was extremely agitated, hitting, kicking and pinching staff and had to be placed in the ____ with lower stimuli. Then she was banging on the doors and on the windows, quite labile, disruptive. UA is greater than 100,000 gram-negative rods, but culture is awaited and I will defer to Dr. Ramirez to treat this. Valproic acid level is 35. REVIEW OF SYSTEMS: No CV, , pulmonary, eye, ENT system symptoms on review. Reliability poor. MENTAL STATUS EXAM: Oriented to herself. Insight, judgment, recent and remote memory, attention, concentration, fund of knowledge poor, consistent with her diagnosis. IMPRESSION: Major neurocognitive disorder, Alzheimer, vascular with delusion, depression, behavioral disturbance. PLAN: Valproic acid level subtherapeutic at 35. Increase Depakote from 250 mg liquid b.i.d. to 375 mg twice a day. Check CBC, CMP, valproic acid level in 3 days. Continue Zyprexa p.r.n.; Seroquel 25 mg b.i.d.; Remeron 15 mg at bedtime; trazodone 50 mg at bedtime, october repeat x 1; Atarax p.r.n.; Megace 200 mg t.i.d. with meals to stimulate appetite; melatonin 3 mg at bedtime p.r.n. LAUREN CASILLAS MD DR: MIGUEL A/nahed JOB#: [id number] / [id number]
[2017-09-12 05:50] VITALS: BP 154/72
[2017-09-12] MEDS: QUEtiapine 25 MG TABLET. PO SCH ×2 (06:21→17:33)
[2017-09-12] MEDS: MEGESTROL 400 MG/10 ML ORAL.SUSP. PO SCH ×4 (07:30→17:34)
--- NOTE | 2017-09-12 09:00 | NUR ---
Pt sleeping and refused to get up for breakfast. Multiple attempts made to get pt out of bed. Pt became increasingly agitated and yelling at staff. Pt left sleeping in bed. AM Monet lomax will get pt up for lunch. Will continue to monitor.
[2017-09-12] MEDS: CHOLECALCIFEROL (VITAMIN D3) 1,000 UNIT TABLET PO SCH (09:13)
[2017-09-12] MEDS: CEFPODOXIME PROXETIL 100 MG TABLET PO SCH ×2 (09:13→19:54)
[2017-09-12] MEDS: VALPROATE ACID 250 MG/5 ML ORAL SOLUTION PO SCH ×2 (09:13→17:34)
[2017-09-12] MEDS: POTASSIUM CHLORIDE 20 MEQ TABLET.ER. PO SCH ×2 (09:14→19:54)
[2017-09-12] MEDS: DOCUSATE SODIUM 100 MG CAPSULE PO SCH ×2 (09:14→19:54)
[2017-09-12] MEDS: LACTOBACILLUS RHAMNOSUS GG 1 CAPSULE. PO SCH ×2 (09:14→19:54)
[2017-09-12] MEDS: MULTIVITAMIN with MINERAL TABLET. PO SCH (09:14)
[2017-09-12] MEDS: ACETAMINOPHEN 325 MG TABLET PO SCH ×2 (09:14→19:54)
[2017-09-12] MEDS: FERROUS SULFATE 325 MG TABLET. PO SCH (09:14)
--- NOTE | 2017-09-12 10:56 | NUR ---
Faxed updates to facility.
--- NOTE | 2017-09-12 13:33 | NUR ---
SW called and spoke with pt son, as pt Daughter is out of town. SW provided updated information as Dr. Perez stated possible d/c end of next week. SW will contact family and facility beginning of next week.
--- NOTE | 2017-09-12 15:44 | NUR ---
Behavior Intervention Response and Plan: BIRP Note: Behavior: Assumed Care of patient, patient located in Patient Room at shift change. Patient exhibited the following behavior Drowsy, Withdrawn, Irritable. Brief assessment on rounds of vital signs, medication needs, lab studies, and pain. Treatment plan problems 1-2. Intervention: Patient assessed and the following interventions initiated safety checks 15 Minute Checks Cognitive Assessment , Cognitive Assessment , Head to toe Assessment. Response: After interactions and interventions patient responded in the following manner, Drowsy , Withdrawn ,Resistive. Continue to assess behaviors and condition will continue to monitor throughout the shift as needed. Patient educated on ADL's, and hand hygiene. 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 Continue to assess patient for changes in above assessment. Monitor for medication needs, pain, and safety concerns. Hourly rounding performed to ensure safe environment.
[2017-09-12 16:05] VITALS: BP 128/75
[2017-09-12] MEDS: MIRTAZAPINE 15 MG TABLET PO SCH (19:54)
[2017-09-12] MEDS: traZODone 50 MG TABLET. PO SCH (19:54)
--- NOTE | 2017-09-12 20:57 | PDOC ---
Exam Note: Allen Note: Please also refer to the separate dictated note~for this date of service dictated separately.~Patient seen individually. Discussed the patient with Nursing staff reviewed the chart.~Reviewed interim history and current functioning. Reviewed vital signs,~Labs/ Radiology~and current medications noted below. Continue current treatment with the changes noted in the dictated addendum note Assessment: Vital Signs: Vital Signs Date Time Temp Pulse Resp B/P (MAP) Pulse Ox O2 Delivery O2 Flow Rate FiO2 09/12/17 16:05 97.8 70 16 128/75 (92) 98 I&O Intake and Output 09/12/17 07:00 Intake Total 720 ml Balance 720 ml Intake Oral 720 ml Current Medications: Meds: Current Medications Acetaminophen (Tylenol) 650 mg PRN Q6HRS PRN PO PAIN / TEMP; Start 08/15/17 at 17:15; Status Cancel Multi-Ingredient Ointment (Analgesic [place]) 1 ronni PRN QID PRN TP MUSCLE PAIN; Start 08/15/17 at 17:15 Al Hydroxide/Mg Hydroxide (Mylanta Plus Xs) 15 ml PRN AFTMEALHC PRN PO DYSPEPSIA; Start 08/15/17 at 17:15 Magnesium Hydroxide (Milk Of Magnesia) 2,400 mg PRN QHS PRN PO CONSTIPATION; Start 08/15/17 at 17:15; Status Cancel Acetaminophen (Tylenol) 650 mg BID PO Last administered on 09/12/17at 19:54; Start 08/15/17 at 21:00 Acetaminophen (Tylenol) 650 mg PRN Q6HRS PRN PO PAIN / TEMP; Start 08/15/17 at 18:15 Docusate Sodium (Colace) 100 mg BID PO Last administered on 09/12/17at 19:54; Start 08/15/17 at 21:00 Ferrous Sulfate (Feosol) 325 mg DAILY PO Last administered on 09/12/17at 09:14; Start 08/16/17 at 09:00 Fluticasone Propionate (Flonase) 2 spray DAILY NS Last administered on at 08:20; Start 08/16/17 at 09:00; Stop 08/24/17 at 16:52; Status DC Magnesium Hydroxide (Milk Of Magnesia) 2,400 mg PRN DAILY PRN PO CONSTIPATION Last administered on 09/02/17 09:05; Start 08/15/17 at 18:15 Non-Formulary Medication 1 tab BID PO ; Start 08/15/17 at 21:00; Status UNV Vitamin D (Vitamin D3) 500 unit DAILY PO Last administered on 09/12/17 09:13; Start 08/16/17 at 09:00 Ketorolac Tromethamine (Acular) 1 drop QID OS Last administered on 08/24/17 08 :20; Start 08/15/17 at 21:00; Stop 08/24/17 at 16:52; Status DC Lactobacillus Rhamnosus (Culturelle) 1 cap BID PO Last administered on 19:54; Start 08/15/17 at 21:00 Multivitamins/ Calcium (Thera-M Plus) 1 tab DAILY PO Last administered on 09:14; Start 08/16/17 at 09:00 Ondansetron HCl (Zofran Odt) 4 mg PRN Q4HRS PRN PO NAUSEA/VOMITING Last administered on 08/22/17 01:49; Start 08/15/17 at 18:45 Olanzapine (ZyPREXA ZYDIS) 2.5 mg PRN Q2HR PRN PO PSYCHOSIS Last administered on 09/10/17 12:15; Start 08/16/17 at 18:30 Quetiapine Fumarate (SEROquel) 12.5 mg 0900,1300 PO Last administered on 08:00; Start 08/17/17 at 09:00; Stop 08/17/17 at 22:38; Status DC Potassium Chloride (Klor-Con) 20 meq BID PO Last administered on 09/12/17 19: 54; Start 08/17/17 at 21:00 Quetiapine Fumarate (SEROquel) 12.5 mg 0700,1100,1400,1700 PO Last administered on 08/29/17 11:09; Start 08/18/17 at 07:00; Stop 08/29/17 at 11:34 ; Status DC Mirtazapine (Remeron) 7.5 mg QHS PO Last administered on 08/18/17 20:18; Start 08/17/17 at 23:00; Stop 08/19/17 at 18:10; Status DC Mirtazapine (Remeron) 15 mg QHS PO Last administered on 09/12/17 19:54; Start 08/19/17 at 21:00 Trazodone HCl (Desyrel) 50 mg QHS PO Last administered on 09/12/17 19:54; Start 08/19/17 at 21:00 Trazodone HCl (Desyrel) 50 mg PRN QHS PRN PO insomnia Last administered on 09/11 20:04; Start 08/19/17 at 18:15 Magnesium Citrate (Citroma) 148 ml PRN 1X PRN PO CONSTIPATION; Start 08/23/17 at 07:45 Fluticasone Propionate (Flonase) 2 spray PRN DAILY NS ; Start 08/25/17 at 09:00 Hydroxyzine HCl (Atarax) 10 mg PRN Q2HR PRN PO AGITATION Last administered on at 19:40; Start 08/25/17 at 10:45 Divalproex Sodium (Depakote Sprinkles) 125 mg BID@0900,1700 PO Last administered on 09/03/17at 17:03; Start 08/28/17 at 09:00; Stop 09/03/17 at 17:53 ; Status DC Quetiapine Fumarate (SEROquel) 25 mg BID@0700,1700 PO Last administered on 09/12 17:33; Start 08/29/17 at 17:00 Melatonin 3 mg PRN QHS PRN PO INSOMNIA Last administered on 09/11/17at 20:04; Start 08/31/17 at 16:30 Megestrol Acetate (Megace) 200 mg TIDAC PO Last administered on 09/12/17at 17:34 ; Start 09/03/17 at 07:30 Divalproex Sodium (Depakote Sprinkles) 125 mg DAILY@1700 PO ; Start 09/04/17 at 17:00; Stop 09/04/17 at 17:00; Status DC Divalproex Sodium (Depakote Sprinkles) 250 mg DAILY PO ; Start 09/04/17 at 09:00 ; Stop 09/04/17 at 09:00; Status DC Valproic Acid (Depakene) 250 mg DAILY PO Last administered on 09/10/17at 07:41; Start 09/04/17 at 09:00; Stop 09/10/17 at 18:12; Status DC Valproic Acid (Depakene) 125 mg DAILY@1700 PO Last administered on 09/06/17at 12 :12; Start 09/04/17 at 17:00; Stop 09/07/17 at 16:19; Status DC Valproic Acid (Depakene) 250 mg DAILY@1700 PO Last administered on 09/10/17at 17 :31; Start 09/07/17 at 17:00; Stop 09/10/17 at 18:12; Status DC Valproic Acid (Depakene) 375 mg DAILY PO Last administered on 09/12/17at 09:13; Start 09/11/17 at 09:00 Valproic Acid (Depakene) 375 mg DAILY@1700 PO Last administered on 09/12/17at 17 :34; Start 09/11/17 at 17:00 Cefpodoxime Proxetil (Vantin) 100 mg BID PO Last administered on 09/12/17at 19: 54; Start 09/11/17 at 21:00; Stop 09/18/17 at 20:59 Active Scripts Active Reported EXELON 4.6mg/24hr (Rivastigmine) 1 Each Patch.td24 1 Patch TD DAILY Zyvox (Linezolid) 600 Mg Tablet 600 Mg PO BID Lovenox (Enoxaparin Sodium) 30 Mg/0.3 Ml Disp.syrin 30 Mg SQ Q24H Thera-M (Multivits,Th W-Fe,Other Min) 1 Each Tablet 1 Tab PO DAILY Milk Of Magnesia (Magnesium Hydroxide) 400 Mg/5 Ml Oral.susp 2,400 Mg PO PRN DAILY PRN Culturelle (Lactobacillus Rhamnosus Gg) 1 Each Capsule 1 Cap PO BID Fluticasone Propionate Nasal [place] (Fluticasone Propionate) 16 Gm [place].susp 2 [place] NS DAILY Zofran (Ondansetron Hcl) 4 Mg Tablet 4 Mg PO PRN Q4HRS PRN Vitamin D-400 (Cholecalciferol (Vitamin D3)) 400 Unit Tablet 500 Unit PO DAILY Tylenol (Acetaminophen) 325 Mg Tablet 650 Mg PO BID Tylenol (Acetaminophen) 325 Mg Tablet 650 Mg PO PRN Q6HRS PRN Ketorolac Tromethamine 5 Ml Drops 1 Drop LEFTEYE QID Ferrous Sulfate 325 Mg Tablet 325 Mg PO DAILY Colace (Docusate Sodium) 100 Mg Capsule 100 Mg PO BID Nadeem Mag Zinc + D3 Tablet (Ca Carb/Vit D3/Mag Ox/Zn Oxide) 1 Each Tablet 1 Tab PO BID I have reviewed the current psychotropics carefully including drug interactions. Risk benefit ratio favors no change other than as noted in my dictated progress note. 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
--- NOTE | 2017-09-13 00:37 | NUR ---
Behavior Intervention Response and Plan: BIRP Note: Behavior: Assumed Care of patient, patient located in Patient Room at shift change. Patient exhibited the following behaviorWitdrawn, Disorganized, Cooperative. Brief assessment on rounds of vital signs, medication needs, lab studies, and pain. Treatment plan problems Dementia with BD and Fall Risk. Intervention: Patient assessed and the following interventions initiated safety checks 15 Minute Checks Cognitive Assessment , Head to toe Assessment , Medications. Response: After interactions and interventions patient responded in the following manner, Calm , Disorganized ,Compliant. Continue to assess behaviors and condition will continue to monitor throughout the shift as needed. Patient educated on ADL's, and hand hygiene. Plan: Continue to monitor Master Treatment Plan for patient's progress toward short term goals of Decreased Aggression, No harm To self/ others, half-way goals to return to previous living setting vs placement. Continue to assess patient for changes in above assessment. Monitor for medication needs, pain, and safety concerns. Hourly rounding performed to ensure safe environment.
[2017-09-13 06:17] VITALS: BP 160/80
[2017-09-13] MEDS: VALPROATE ACID 250 MG/5 ML ORAL SOLUTION PO SCH ×2 (07:57→18:04)
[2017-09-13] MEDS: ACETAMINOPHEN 325 MG TABLET PO SCH ×2 (07:57→19:46)
[2017-09-13] MEDS: MEGESTROL 400 MG/10 ML ORAL.SUSP. PO SCH ×3 (07:57→18:04)
[2017-09-13] MEDS: CHOLECALCIFEROL (VITAMIN D3) 1,000 UNIT TABLET PO SCH (07:58)
[2017-09-13] MEDS: MULTIVITAMIN with MINERAL TABLET. PO SCH (07:58)
[2017-09-13] MEDS: LACTOBACILLUS RHAMNOSUS GG 1 CAPSULE. PO SCH ×2 (07:58→19:46)
[2017-09-13] MEDS: POTASSIUM CHLORIDE 20 MEQ TABLET.ER. PO SCH ×2 (07:58→19:46)
[2017-09-13] MEDS: DOCUSATE SODIUM 100 MG CAPSULE PO SCH ×2 (07:58→19:46)
[2017-09-13] MEDS: CEFPODOXIME PROXETIL 100 MG TABLET PO SCH ×2 (07:58→19:46)
[2017-09-13] MEDS: FERROUS SULFATE 325 MG TABLET. PO SCH (07:58)
[2017-09-13] MEDS: QUEtiapine 25 MG TABLET. PO SCH ×2 (07:58→18:04)
--- NOTE | 2017-09-13 13:32 | NUR ---
Behavior Intervention Response and Plan: BIRP Note: Behavior: Assumed Care of patient, patient located in Patient Room at shift change. Patient exhibited the following behavior Disorganized, Compliant,withdrawn. Brief assessment on rounds of vital signs, medication needs, lab studies, and pain. Treatment plan problems . Intervention: Patient assessed and the following interventions initiated safety checks 15 Minute Checks Cognitive Assessment , Head to toe Assessment , Medications. Response: After interactions and interventions patient responded in the following manner, Wandering , Restless ,Disorganized. Continue to assess behaviors and condition will continue to monitor throughout the shift as needed. Patient educated on ADL's, and hand hygiene. 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 Continue to assess patient for changes in above assessment. Monitor for medication needs, pain, and safety concerns. Hourly rounding performed to ensure safe environment.
[2017-09-13 16:25] VITALS: BP 153/74
--- NOTE | 2017-09-13 17:45 | NUR ---
pt slept thru breakfast. irritable at lunch. took meds hidden in juice and rest later in ice cream. ate very little lunch. combative with vitals. attempting to scratch and bite staff.
[2017-09-13] MEDS: MELATONIN 3 MG TABLET PO PRN (19:46)
[2017-09-13] MEDS: MIRTAZAPINE 15 MG TABLET PO SCH (19:46)
[2017-09-13] MEDS: traZODone 50 MG TABLET. PO SCH (19:46)
--- NOTE | 2017-09-13 21:02 | PDOC ---
Exam Note: Allen Note: Please also refer to the separate dictated note~for this date of service dictated separately.~Patient seen individually. Discussed the patient with Nursing staff reviewed the chart.~Reviewed interim history and current functioning. Reviewed vital signs,~Labs/ Radiology~and current medications noted below. Continue current treatment with the changes noted in the dictated addendum note Assessment: Vital Signs: Vital Signs Date Time Temp Pulse Resp B/P (MAP) Pulse Ox O2 Delivery O2 Flow Rate FiO2 09/13/17 16:25 98.8 73 22 153/74 (100) 96 I&O Intake and Output 09/13/17 07:00 Intake Total 120 ml Balance 120 ml Intake Oral 120 ml # Bowel Movements 2 Current Medications: Meds: Current Medications Acetaminophen (Tylenol) 650 mg PRN Q6HRS PRN PO PAIN / TEMP; Start 08/15/17 at 17:15; Status Cancel Multi-Ingredient Ointment (Analgesic [place]) 1 ronni PRN QID PRN TP MUSCLE PAIN; Start 08/15/17 at 17:15 Al Hydroxide/Mg Hydroxide (Mylanta Plus Xs) 15 ml PRN AFTMEALHC PRN PO DYSPEPSIA; Start 08/15/17 at 17:15 Magnesium Hydroxide (Milk Of Magnesia) 2,400 mg PRN QHS PRN PO CONSTIPATION; Start 08/15/17 at 17:15; Status Cancel Acetaminophen (Tylenol) 650 mg BID PO Last administered on 09/13/17at 19:46; Start 08/15/17 at 21:00 Acetaminophen (Tylenol) 650 mg PRN Q6HRS PRN PO PAIN / TEMP; Start 08/15/17 at 18:15 Docusate Sodium (Colace) 100 mg BID PO Last administered on 09/13/17at 19:46; Start 08/15/17 at 21:00 Ferrous Sulfate (Feosol) 325 mg DAILY PO Last administered on 09/13/17at 07:58; Start 08/16/17 at 09:00 Fluticasone Propionate (Flonase) 2 spray DAILY NS Last administered on at 08:20; Start 08/16/17 at 09:00; Stop 08/24/17 at 16:52; Status DC Magnesium Hydroxide (Milk Of Magnesia) 2,400 mg PRN DAILY PRN PO CONSTIPATION Last administered on 09/02/17 09:05; Start 08/15/17 at 18:15 Non-Formulary Medication 1 tab BID PO ; Start 08/15/17 at 21:00; Status UNV Vitamin D (Vitamin D3) 500 unit DAILY PO Last administered on 09/13/17 07:58; Start 08/16/17 at 09:00 Ketorolac Tromethamine (Acular) 1 drop QID OS Last administered on 08/24/17 08 :20; Start 08/15/17 at 21:00; Stop 08/24/17 at 16:52; Status DC Lactobacillus Rhamnosus (Culturelle) 1 cap BID PO Last administered on 19:46; Start 08/15/17 at 21:00 Multivitamins/ Calcium (Thera-M Plus) 1 tab DAILY PO Last administered on 07:58; Start 08/16/17 at 09:00 Ondansetron HCl (Zofran Odt) 4 mg PRN Q4HRS PRN PO NAUSEA/VOMITING Last administered on 08/22/17 01:49; Start 08/15/17 at 18:45 Olanzapine (ZyPREXA ZYDIS) 2.5 mg PRN Q2HR PRN PO PSYCHOSIS Last administered on 09/10/17 12:15; Start 08/16/17 at 18:30 Quetiapine Fumarate (SEROquel) 12.5 mg 0900,1300 PO Last administered on 08:00; Start 08/17/17 at 09:00; Stop 08/17/17 at 22:38; Status DC Potassium Chloride (Klor-Con) 20 meq BID PO Last administered on 09/13/17 19: 46; Start 08/17/17 at 21:00 Quetiapine Fumarate (SEROquel) 12.5 mg 0700,1100,1400,1700 PO Last administered on 08/29/17at 11:09; Start 08/18/17 at 07:00; Stop 08/29/17 at 11:34 ; Status DC Mirtazapine (Remeron) 7.5 mg QHS PO Last administered on 08/18/17 20:18; Start 08/17/17 at 23:00; Stop 08/19/17 at 18:10; Status DC Mirtazapine (Remeron) 15 mg QHS PO Last administered on 09/13/17 19:46; Start 08/19/17 at 21:00 Trazodone HCl (Desyrel) 50 mg QHS PO Last administered on 09/13/17 19:46; Start 08/19/17 at 21:00 Trazodone HCl (Desyrel) 50 mg PRN QHS PRN PO insomnia Last administered on 09/11 20:04; Start 08/19/17 at 18:15 Magnesium Citrate (Citroma) 148 ml PRN 1X PRN PO CONSTIPATION; Start 08/23/17 at 07:45 Fluticasone Propionate (Flonase) 2 spray PRN DAILY NS ; Start 08/25/17 at 09:00 Hydroxyzine HCl (Atarax) 10 mg PRN Q2HR PRN PO AGITATION Last administered on at 19:40; Start 08/25/17 at 10:45 Divalproex Sodium (Depakote Sprinkles) 125 mg BID@0900,1700 PO Last administered on 09/03/17at 17:03; Start 08/28/17 at 09:00; Stop 09/03/17 at 17:53 ; Status DC Quetiapine Fumarate (SEROquel) 25 mg BID@0700,1700 PO Last administered on 09/13 18:04; Start 08/29/17 at 17:00 Melatonin 3 mg PRN QHS PRN PO INSOMNIA Last administered on 09/13/17 19:46; Start 08/31/17 at 16:30 Megestrol Acetate (Megace) 200 mg TIDAC PO Last administered on 09/13/17 18:04 ; Start 09/03/17 at 07:30 Divalproex Sodium (Depakote Sprinkles) 125 mg DAILY@1700 PO ; Start 09/04/17 at 17:00; Stop 09/04/17 at 17:00; Status DC Divalproex Sodium (Depakote Sprinkles) 250 mg DAILY PO ; Start 09/04/17 at 09:00 ; Stop 09/04/17 at 09:00; Status DC Valproic Acid (Depakene) 250 mg DAILY PO Last administered on 09/10/17at 07:41; Start 09/04/17 at 09:00; Stop 09/10/17 at 18:12; Status DC Valproic Acid (Depakene) 125 mg DAILY@1700 PO Last administered on 09/06/17at 12 :12; Start 09/04/17 at 17:00; Stop 09/07/17 at 16:19; Status DC Valproic Acid (Depakene) 250 mg DAILY@1700 PO Last administered on 09/10/17at 17 :31; Start 09/07/17 at 17:00; Stop 09/10/17 at 18:12; Status DC Valproic Acid (Depakene) 375 mg DAILY PO Last administered on 09/13/17at 07:57; Start 09/11/17 at 09:00 Valproic Acid (Depakene) 375 mg DAILY@1700 PO Last administered on 09/13/17at 18 :04; Start 09/11/17 at 17:00 Cefpodoxime Proxetil (Vantin) 100 mg BID PO Last administered on 09/13/17at 19: 46; Start 09/11/17 at 21:00; Stop 09/18/17 at 20:59 Active Scripts Active Reported EXELON 4.6mg/24hr (Rivastigmine) 1 Each Patch.td24 1 Patch TD DAILY Zyvox (Linezolid) 600 Mg Tablet 600 Mg PO BID Lovenox (Enoxaparin Sodium) 30 Mg/0.3 Ml Disp.syrin 30 Mg SQ Q24H Thera-M (Multivits,Th W-Fe,Other Min) 1 Each Tablet 1 Tab PO DAILY Milk Of Magnesia (Magnesium Hydroxide) 400 Mg/5 Ml Oral.susp 2,400 Mg PO PRN DAILY PRN Culturelle (Lactobacillus Rhamnosus Gg) 1 Each Capsule 1 Cap PO BID Fluticasone Propionate Nasal [place] (Fluticasone Propionate) 16 Gm [place].susp 2 [place] NS DAILY Zofran (Ondansetron Hcl) 4 Mg Tablet 4 Mg PO PRN Q4HRS PRN Vitamin D-400 (Cholecalciferol (Vitamin D3)) 400 Unit Tablet 500 Unit PO DAILY Tylenol (Acetaminophen) 325 Mg Tablet 650 Mg PO BID Tylenol (Acetaminophen) 325 Mg Tablet 650 Mg PO PRN Q6HRS PRN Ketorolac Tromethamine 5 Ml Drops 1 Drop LEFTEYE QID Ferrous Sulfate 325 Mg Tablet 325 Mg PO DAILY Colace (Docusate Sodium) 100 Mg Capsule 100 Mg PO BID Nadeem Mag Zinc + D3 Tablet (Ca Carb/Vit D3/Mag Ox/Zn Oxide) 1 Each Tablet 1 Tab PO BID I have reviewed the current psychotropics carefully including drug interactions. Risk benefit ratio favors no change other than as noted in my dictated progress note. 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
--- NOTE | 2017-09-13 23:34 | NUR ---
Behavior Intervention Response and Plan: BIRP Note: Behavior: Assumed Care of patient, patient located in Patient Room at shift change. Patient exhibited the following behaviorWitdrawn, Disorganized, Cooperative. Brief assessment on rounds of vital signs, medication needs, lab studies, and pain. Treatment plan problems Dementia with BD and Fall Risk. Intervention: Patient assessed and the following interventions initiated safety checks 15 Minute Checks Cognitive Assessment , Head to toe Assessment , Medications. Response: After interactions and interventions patient responded in the following manner, Calm , Disorganized ,Compliant. Continue to assess behaviors and condition will continue to monitor throughout the shift as needed. Patient educated on ADL's, and hand hygiene. Plan: Continue to monitor Master Treatment Plan for patient's progress toward short term goals of Decreased Aggression, No harm To self/ others, shelter goals to return to previous living setting vs placement. Continue to assess patient for changes in above assessment. Monitor for medication needs, pain, and safety concerns. Hourly rounding performed to ensure safe environment.
--- NOTE | 2017-09-14 | PN ---
DATE: 09/11/2017 This is a late entry for 09/11/2017 covers elements not covered in my initial note of 09/11/2017. SUBJECTIVE: I met with the patient evening of 09/11/2017. The patient remains confused, had a better day, resistive, combative in the morning, received 10:00 a.m. meds and juice then did better. She does have a UTI, which could explain some of her increased agitation and is on Vantin for this. REVIEW OF SYSTEMS: No CV, , pulmonary, eye, ENT system symptoms on review. Reliability poor. MENTAL STATUS EXAM: Oriented to herself. Insight, judgment, recent and remote memory, attention, concentration, fund of knowledge poor, consistent with her diagnosis mentioned in my initial note. IMPRESSION: Major neurocognitive disorder, Alzheimer, vascular with depression, delusion, behavioral disturbance. Rest unchanged. PLAN: Continue psychotropics mentioned in my initial note. Adjust further as clinically indicated. LAUREN CASILLAS MD DR: MIGUEL A/nahed JOB#: [id number] / [id number]
--- NOTE | 2017-09-14 02:29 | PN ---
DATE: 09/12/2017 This late entry 09/12/2017 covers elements not covered in my initial note 09/12/2017. Met with the patient individually in the evening, staffed at a treatment team meeting with the entire team in the morning. The patient is confused, disorganized. Appetite 40%, sleeping average 5-1/4 hours, slept 6-1/2 hours previous evening, takes her meds hidden in food, not attending groups. REVIEW OF SYSTEMS: No CV, , pulmonary, eye, ENT system symptoms on review. Reliability poor. MENTAL STATUS EXAM: Oriented to herself. Insight, judgment, recent and remote memory, attention, concentration, fund of knowledge poor, consistent with her diagnosis mentioned in my initial note. IMPRESSION: Major neurocognitive disorder, Alzheimer, vascular with depression, delusion, behavioral disturbance. Rest unchanged. PLAN: Continue current psychotropics. Encourage compliance. I feel the dosage of psychotropics is adequate for her. The problem is noncompliance. Nursing are making diligent efforts to get around this. I like to avoid intramuscular psychotropics given risks/benefit ratio. Rest unchanged per initial note. MAN Jc CASILLAS MD DR: MIGUEL A/nahed JOB#: [id number] / [id number]
[2017-09-14 06:00] VITALS: BP 154/59
[2017-09-14 07:14] LABS: BASO # 0.1 x10^3/uL (0.0-0.2); BASO % 1 % (0-3); EOS # 0.3 x10^3/uL (0.0-0.7); EOS % 3 % (0-3); HEMATOCRIT 39.3 % (36.0-47.0); HEMOGLOBIN 13.2 g/dL (12.0-15.5); LYMPH # 2.6 x10^3/uL (1.0-4.8); LYMPH % 28 % (24-48); MEAN CORPUSCULAR HEMOGLOBIN 31 pg (25-35); MEAN CORPUSCULAR HGB CONC 34 g/dL (31-37); MEAN CORPUSCULAR VOLUME 91 fL (79-100); MONO # 0.9 x10^3/uL (0.0-1.1); MONO % 9 % (0-9); NEUT # 5.3 x10^3uL (1.8-7.7); NEUT % 58 % (31-73); PLATELET COUNT 173 x10^3/uL (140-400); RED BLOOD COUNT 4.33 x10^6/uL (3.50-5.40); RED CELL DISTRIBUTION WIDTH 14.2 % (11.5-14.5); WHITE BLOOD COUNT 9.1 x10^3/uL (4.0-11.0)
[2017-09-14 07:25] LABS: ALBUMIN 3.3 g/dL (3.4-5.0); ALBUMIN/GLOBULIN RATIO 0.9 (1.0-1.7); ALK PHOS 49 U/L (46-116); ALT (SGPT) 17 U/L (14-59); ANION GAP 10 (6-14); AST (SGOT) 15 U/L (15-37); BLOOD UREA NITROGEN 21 mg/dL (7-20); BUN/CREATININE RATIO 21 (6-20); CALCIUM 9.2 mg/dL (8.5-10.1); CARBON DIOXIDE 25 mmol/L (21-32); CHLORIDE 109 mmol/L (98-107); GFR 52.3; GLUCOSE 100 mg/dL (70-99); POTASSIUM 5.7 mmol/L (3.5-5.1); SODIUM 144 mmol/L (136-145); TOTAL BILIRUBIN 0.2 mg/dL (0.2-1.0); TOTAL PROTEIN 6.9 g/dL (6.4-8.2)
[2017-09-14 07:27] LABS: VAL ACID 35 mcg/mL (50-100)
[2017-09-14] MEDS: POTASSIUM CHLORIDE 20 MEQ TABLET.ER. PO SCH ×2 (07:41→07:42)
[2017-09-14] MEDS: DOCUSATE SODIUM 100 MG CAPSULE PO SCH ×2 (08:11→20:18)
[2017-09-14] MEDS: MEGESTROL 400 MG/10 ML ORAL.SUSP. PO SCH ×3 (08:12→16:30)
[2017-09-14] MEDS: VALPROATE ACID 250 MG/5 ML ORAL SOLUTION PO SCH ×2 (08:12→17:00)
[2017-09-14] MEDS: ACETAMINOPHEN 325 MG TABLET PO SCH ×2 (08:12→20:18)
[2017-09-14] MEDS: LACTOBACILLUS RHAMNOSUS GG 1 CAPSULE. PO SCH ×2 (08:12→20:18)
[2017-09-14] MEDS: FERROUS SULFATE 325 MG TABLET. PO SCH (08:13)
[2017-09-14] MEDS: MULTIVITAMIN with MINERAL TABLET. PO SCH (08:13)
[2017-09-14] MEDS: QUEtiapine 25 MG TABLET. PO SCH ×2 (08:13→17:00)
[2017-09-14] MEDS: CEFPODOXIME PROXETIL 100 MG TABLET PO SCH ×2 (08:13→20:18)
[2017-09-14] MEDS: CHOLECALCIFEROL (VITAMIN D3) 1,000 UNIT TABLET PO SCH (08:13)
--- NOTE | 2017-09-14 10:09 | NUR ---
Behavior Intervention Response and Plan: BIRP Note: Behavior: Assumed Care of patient, patient located in Patient Room at shift change. Patient exhibited the following behavior Disorganized, Compliant,withdrawn. Brief assessment on rounds of vital signs, medication needs, lab studies, and pain. Treatment plan problems . Intervention: Patient assessed and the following interventions initiated safety checks 15 Minute Checks Cognitive Assessment , Head to toe Assessment , Medications. Response: After interactions and interventions patient responded in the following manner, Wandering , Restless ,Disorganized. Continue to assess behaviors and condition will continue to monitor throughout the shift as needed. Patient educated on ADL's, and hand hygiene. Plan: Continue to monitor Master Treatment Plan for patient's progress toward short term goals of Decreased Agitation, Decreased Aggression, buttermaker goals to return to previous living setting vs placement. Continue to assess patient for changes in above assessment. Monitor for medication needs, pain, and safety concerns. Hourly rounding performed to ensure safe environment.
[2017-09-14 15:50] VITALS: BP 111/51
--- NOTE | 2017-09-14 17:36 | NUR ---
pt up mid morning. out to lunch and supper. appetite fair. took meds in juice and ice cream. has been compliant with cares thus far.
[2017-09-14] MEDS: MIRTAZAPINE 15 MG TABLET PO SCH (20:17)
[2017-09-14] MEDS: traZODone 50 MG TABLET. PO SCH (20:18)
--- NOTE | 2017-09-14 22:53 | PDOC ---
Exam Note: [place] Note: Please also refer to the separate dictated note~for this date of service dictated separately.~Patient seen individually. Discussed the patient with Nursing staff reviewed the chart.~Reviewed interim history and current functioning. Reviewed vital signs,~Labs/ Radiology~and current medications noted below. Continue current treatment with the changes noted in the dictated addendum note Assessment: Vital Signs: Vital Signs Date Time Temp Pulse Resp B/P (MAP) Pulse Ox O2 Delivery O2 Flow Rate FiO2 09/14/17 15:50 97.6 77 16 111/51 (71) 92 I&O Intake and Output 09/14/17 07:00 Intake Total 480 ml Balance 480 ml Intake Oral 480 ml Labs: Laboratory Tests Test 09/14/17 06:57 White Blood Count 9.1 x10^3/uL (4.0-11.0) Red Blood Count 4.33 x10^6/uL (3.50-5.40) Hemoglobin 13.2 g/dL (12.0-15.5) Hematocrit 39.3 % (36.0-47.0) Mean Corpuscular Volume 91 fL (79-100) Mean Corpuscular Hemoglobin 31 pg (25-35) Mean Corpuscular Hemoglobin Concent 34 g/dL (31-37) Red Cell Distribution Width 14.2 % (11.5-14.5) Platelet Count 173 x10^3/uL (140-400) Neutrophils (%) (Auto) 58 % (31-73) Lymphocytes (%) (Auto) 28 % (24-48) Monocytes (%) (Auto) 9 % (0-9) Eosinophils (%) (Auto) 3 % (0-3) Basophils (%) (Auto) 1 % (0-3) Neutrophils # (Auto) 5.3 x10^3uL (1.8-7.7) Lymphocytes # (Auto) 2.6 x10^3/uL (1.0-4.8) Monocytes # (Auto) 0.9 x10^3/uL (0.0-1.1) Eosinophils # (Auto) 0.3 x10^3/uL (0.0-0.7) Basophils # (Auto) 0.1 x10^3/uL (0.0-0.2) Sodium Level 144 mmol/L (136-145) Potassium Level 5.7 mmol/L (3.5-5.1) H Chloride Level 109 mmol/L (98-107) H Carbon Dioxide Level 25 mmol/L (21-32) Anion Gap 10 (6-14) Blood Urea Nitrogen 21 mg/dL (7-20) H Creatinine 1.0 mg/dL (0.6-1.0) Estimated GFR (Cockcroft-Gault) 52.3 BUN/Creatinine Ratio 21 (6-20) H Glucose Level 100 mg/dL (70-99) H Calcium Level 9.2 mg/dL (8.5-10.1) Total Bilirubin 0.2 mg/dL (0.2-1.0) Aspartate Amino Transferase (AST) 15 U/L (15-37) Alanine Aminotransferase (ALT) 17 U/L (14-59) Alkaline Phosphatase 49 U/L (46-116) Total Protein 6.9 g/dL (6.4-8.2) Albumin 3.3 g/dL (3.4-5.0) L Albumin/Globulin Ratio 0.9 (1.0-1.7) L Valproic Acid Level 35 mcg/mL (50-100) L Valproic Acid Last Dose Date 09/13/17 Valproic Acid Last Dose Time 2100 Current Medications: Meds: Current Medications Acetaminophen (Tylenol) 650 mg PRN Q6HRS PRN PO PAIN / TEMP; Start 08/15/17 at 17:15; Status Cancel Multi-Ingredient Ointment (Analgesic [place]) 1 ronni PRN QID PRN TP MUSCLE PAIN; Start 08/15/17 at 17:15 Al Hydroxide/Mg Hydroxide (Mylanta Plus Xs) 15 ml PRN AFTMEALHC PRN PO DYSPEPSIA; Start 08/15/17 at 17:15 Magnesium Hydroxide (Milk Of Magnesia) 2,400 mg PRN QHS PRN PO CONSTIPATION; Start 08/15/17 at 17:15; Status Cancel Acetaminophen (Tylenol) 650 mg BID PO Last administered on 09/14/17at 20:18; Start 08/15/17 at 21:00 Acetaminophen (Tylenol) 650 mg PRN Q6HRS PRN PO PAIN / TEMP; Start 08/15/17 at 18:15 Docusate Sodium (Colace) 100 mg BID PO Last administered on 09/14/17 20:18; Start 08/15/17 at 21:00 Ferrous Sulfate (Feosol) 325 mg DAILY PO Last administered on 09/14/17 08:13; Start 08/16/17 at 09:00 Fluticasone Propionate (Flonase) 2 spray DAILY NS Last administered on 08:20; Start 08/16/17 at 09:00; Stop 08/24/17 at 16:52; Status DC Magnesium Hydroxide (Milk Of Magnesia) 2,400 mg PRN DAILY PRN PO CONSTIPATION Last administered on 09/02/17 09:05; Start 08/15/17 at 18:15 Non-Formulary Medication 1 tab BID PO ; Start 08/15/17 at 21:00; Status UNV Vitamin D (Vitamin D3) 500 unit DAILY PO Last administered on 09/14/17 08:13; Start 08/16/17 at 09:00 Ketorolac Tromethamine (Acular) 1 drop QID OS Last administered on 08/24/17 08 :20; Start 08/15/17 at 21:00; Stop 08/24/17 at 16:52; Status DC Lactobacillus Rhamnosus (Culturelle) 1 cap BID PO Last administered on 20:18; Start 08/15/17 at 21:00 Multivitamins/ Calcium (Thera-M Plus) 1 tab DAILY PO Last administered on 08:13; Start 08/16/17 at 09:00 Ondansetron HCl (Zofran Odt) 4 mg PRN Q4HRS PRN PO NAUSEA/VOMITING Last administered on 08/22/17 01:49; Start 08/15/17 at 18:45 Olanzapine (ZyPREXA ZYDIS) 2.5 mg PRN Q2HR PRN PO PSYCHOSIS Last administered on 09/10/17 12:15; Start 08/16/17 at 18:30 Quetiapine Fumarate (SEROquel) 12.5 mg 0900,1300 PO Last administered on 08:00; Start 08/17/17 at 09:00; Stop 08/17/17 at 22:38; Status DC Potassium Chloride (Klor-Con) 20 meq BID PO Last administered on 09/13/17 19: 46; Start 08/17/17 at 21:00 Quetiapine Fumarate (SEROquel) 12.5 mg 0700,1100,1400,1700 PO Last administered on 08/29/17 11:09; Start 08/18/17 at 07:00; Stop 08/29/17 at 11:34 ; Status DC Mirtazapine (Remeron) 7.5 mg QHS PO Last administered on 08/18/17 20:18; Start 08/17/17 at 23:00; Stop 08/19/17 at 18:10; Status DC Mirtazapine (Remeron) 15 mg QHS PO Last administered on 09/14/17 20:17; Start 08/19/17 at 21:00 Trazodone HCl (Desyrel) 50 mg QHS PO Last administered on 09/14/17 20:18; Start 08/19/17 at 21:00 Trazodone HCl (Desyrel) 50 mg PRN QHS PRN PO insomnia Last administered on 09/11 20:04; Start 08/19/17 at 18:15 Magnesium Citrate (Citroma) 148 ml PRN 1X PRN PO CONSTIPATION; Start 08/23/17 at 07:45 Fluticasone Propionate (Flonase) 2 spray PRN DAILY NS ; Start 08/25/17 at 09:00 Hydroxyzine HCl (Atarax) 10 mg PRN Q2HR PRN PO AGITATION Last administered on at 19:40; Start 08/25/17 at 10:45 Divalproex Sodium (Depakote Sprinkles) 125 mg BID@0900,1700 PO Last administered on 09/03/17 17:03; Start 08/28/17 at 09:00; Stop 09/03/17 at 17:53 ; Status DC Quetiapine Fumarate (SEROquel) 25 mg BID@0700,1700 PO Last administered on 09/14 17:00; Start 08/29/17 at 17:00 Melatonin 3 mg PRN QHS PRN PO INSOMNIA Last administered on 09/13/17 19:46; Start 08/31/17 at 16:30 Megestrol Acetate (Megace) 200 mg TIDAC PO Last administered on 3/31/18at 16:30 ; Start 09/03/17 at 07:30 Divalproex Sodium (Depakote Sprinkles) 125 mg DAILY@1700 PO ; Start 09/04/17 at 17:00; Stop 09/04/17 at 17:00; Status DC Divalproex Sodium (Depakote Sprinkles) 250 mg DAILY PO ; Start 09/04/17 at 09:00 ; Stop 09/04/17 at 09:00; Status DC Valproic Acid (Depakene) 250 mg DAILY PO Last administered on 09/10/17at 07:41; Start 09/04/17 at 09:00; Stop 09/10/17 at 18:12; Status DC Valproic Acid (Depakene) 125 mg DAILY@1700 PO Last administered on 09/06/17at 12 :12; Start 09/04/17 at 17:00; Stop 09/07/17 at 16:19; Status DC Valproic Acid (Depakene) 250 mg DAILY@1700 PO Last administered on 09/10/17at 17 :31; Start 09/07/17 at 17:00; Stop 09/10/17 at 18:12; Status DC Valproic Acid (Depakene) 375 mg DAILY PO Last administered on 09/14/17at 08:12; Start 09/11/17 at 09:00 Valproic Acid (Depakene) 375 mg DAILY@1700 PO Last administered on 09/14/17at 17 :00; Start 09/11/17 at 17:00 Cefpodoxime Proxetil (Vantin) 100 mg BID PO Last administered on 09/14/17at 20: 18; Start 09/11/17 at 21:00; Stop 09/18/17 at 20:59 Active Scripts Active Reported EXELON 4.6mg/24hr (Rivastigmine) 1 Each Patch.td24 1 Patch TD DAILY Zyvox (Linezolid) 600 Mg Tablet 600 Mg PO BID Lovenox (Enoxaparin Sodium) 30 Mg/0.3 Ml Disp.syrin 30 Mg SQ Q24H Thera-M (Multivits,Th W-Fe,Other Min) 1 Each Tablet 1 Tab PO DAILY Milk Of Magnesia (Magnesium Hydroxide) 400 Mg/5 Ml Oral.susp 2,400 Mg PO PRN DAILY PRN Culturelle (Lactobacillus Rhamnosus Gg) 1 Each Capsule 1 Cap PO BID Fluticasone Propionate Nasal [place] (Fluticasone Propionate) 16 Gm [place].susp 2 [place] NS DAILY Zofran (Ondansetron Hcl) 4 Mg Tablet 4 Mg PO PRN Q4HRS PRN Vitamin D-400 (Cholecalciferol (Vitamin D3)) 400 Unit Tablet 500 Unit PO DAILY Tylenol (Acetaminophen) 325 Mg Tablet 650 Mg PO BID Tylenol (Acetaminophen) 325 Mg Tablet 650 Mg PO PRN Q6HRS PRN Ketorolac Tromethamine 5 Ml Drops 1 Drop LEFTEYE QID Ferrous Sulfate 325 Mg Tablet 325 Mg PO DAILY Colace (Docusate Sodium) 100 Mg Capsule 100 Mg PO BID Nadeem Mag Zinc + D3 Tablet (Ca Carb/Vit D3/Mag Ox/Zn Oxide) 1 Each Tablet 1 Tab PO BID I have reviewed the current psychotropics carefully including drug interactions. Risk benefit ratio favors no change other than as noted in my dictated progress note. Diagnosis: Problems: (1) Dementia with behavioral disturbance (2) Anxiety disorder (3) Dementia in Alzheimer's disease with delusions (4) Dementia in Alzheimer's disease with depression (5) Dementia, vascular, with delusions (6) Dementia, vascular, with depression (7) Impulse control disorder LAUREN CASILLAS MD Sep 14, 2017 22:53
--- NOTE | 2017-09-14 23:08 | NUR ---
Behavior Intervention Response and Plan: BIRP Note: Behavior: Assumed Care of patient, patient located in Patient Room at shift change. Patient exhibited the following behaviorWitdrawn, Disorganized, Cooperative. Brief assessment on rounds of vital signs, medication needs, lab studies, and pain. Treatment plan problems Dementia with BD and Fall Risk. Intervention: Patient assessed and the following interventions initiated safety checks 15 Minute Checks Cognitive Assessment , Head to toe Assessment , Medications. Response: After interactions and interventions patient responded in the following manner, Calm , Disorganized ,Compliant. Continue to assess behaviors and condition will continue to monitor throughout the shift as needed. Patient educated on ADL's, and hand hygiene. Plan: Continue to monitor Master Treatment Plan for patient's progress toward short term goals of Decreased Aggression, No harm To self/ others, care home goals to return to previous living setting vs placement. Continue to assess patient for changes in above assessment. Monitor for medication needs, pain, and safety concerns. Hourly rounding performed to ensure safe environment.
[2017-09-15 06:02] VITALS: BP 102/58
[2017-09-15] MEDS: QUEtiapine 25 MG TABLET. PO SCH ×2 (06:08→17:13)
[2017-09-15] MEDS: MEGESTROL 400 MG/10 ML ORAL.SUSP. PO SCH ×4 (07:30→17:14)
[2017-09-15 08:06] LABS: CALCIUM 8.6 mg/dL (8.5-10.1); GFR 52.3; POTASSIUM 4.3 mmol/L (3.5-5.1)
--- NOTE | 2017-09-15 08:30 | NUR ---
Patient is in bed, refusing to come out for breakfast or take her meds. Will hold her meds until later.
[2017-09-15] MEDS: POTASSIUM CHLORIDE 20 MEQ TABLET.ER. PO SCH (09:00)
--- NOTE | 2017-09-15 10:00 | NUR ---
Patient continues to refuse to get up or take medications. Will continue to hold am meds.
--- NOTE | 2017-09-15 11:30 | NUR ---
Attempted to get patient out of bed. She became irritable and combative, then laid back down. Will continue to monitor.
--- NOTE | 2017-09-15 11:45 | NUR ---
Made second attempt to get patient out of bed. She again became irritable and combative when she responded. Will hold 11:30 meds and continue to monitor.
--- NOTE | 2017-09-15 12:00 | NUR ---
Third attempt to get patient out of bed. When I told her it was noon, she said 'Good, now leave me alone.' Patient responded to lightly tapping on her shoulder with more agitation and yelling. Patient states 'i'll get up when I'm damn well ready.' Left patient in bed, will continue to hold meds and monitor for behaviours.
[2017-09-15] MEDS: CHOLECALCIFEROL (VITAMIN D3) 1,000 UNIT TABLET PO SCH ×2 (12:34→13:30)
[2017-09-15] MEDS: ACETAMINOPHEN 325 MG TABLET PO SCH ×3 (12:35→19:47)
[2017-09-15] MEDS: FERROUS SULFATE 325 MG TABLET. PO SCH ×2 (12:35→13:30)
[2017-09-15] MEDS: LACTOBACILLUS RHAMNOSUS GG 1 CAPSULE. PO SCH ×3 (12:35→19:48)
[2017-09-15] MEDS: DOCUSATE SODIUM 100 MG CAPSULE PO SCH ×3 (12:35→19:48)
[2017-09-15] MEDS: CEFPODOXIME PROXETIL 100 MG TABLET PO SCH ×3 (12:35→19:48)
[2017-09-15] MEDS: MULTIVITAMIN with MINERAL TABLET. PO SCH ×2 (12:35→13:30)
[2017-09-15] MEDS: VALPROATE ACID 250 MG/5 ML ORAL SOLUTION PO SCH ×3 (12:36→17:14)
--- NOTE | 2017-09-15 13:45 | NUR ---
Patient has denied multiple attempts to provide her morning medicines. She refused to take the medications in any forms. Patient is lying down on the couch in the day room, when she is disturbed, she tells everyone to get out of her house and then lays back down. Will continue to monitor behaviours.
[2017-09-15 15:31] VITALS: BP 91/71
[2017-09-15] MEDS: MAGNESIUM HYDROXIDE 2,400 MG/30 ML ORAL.SUSP. PO PRN (17:14)
[2017-09-15 17:31] VITALS: BP 145/83
--- NOTE | 2017-09-15 17:40 | PN ---
DATE: 09/13/2017 This late entry 09/13/2017 covers elements not covered in my initial note 09/13/2017. SUBJECTIVE: I met with the patient evening of 09/13/2017. The patient ate no breakfast, was in a bad mood at lunch to Depakene in juice. Rest of the meds were taken later in ice cream. She was kicking, hitting, biting nursing staff and vitals were being checked. We will be checking a CBC, CMP in the morning. REVIEW OF SYSTEMS: No CV, , pulmonary, eye, ENT system symptoms on review. Reliability poor. MENTAL STATUS EXAM: Oriented to herself. Insight, judgment, recent and remote memory, attention, concentration, fund of knowledge poor, consistent with her diagnosis mentioned in my initial note. IMPRESSION: Major neurocognitive disorder, Alzheimer, vascular with delusion, depression, behavioral disturbance; urinary tract infection. Rest unchanged. PLAN: Continue psychotropics. Maintain Vantin for UTI. Adjust as clinically indicated. LAUREN CASILLAS MD DR: MIGUEL A/nahed JOB#: [id number] / [id number]
[2017-09-15] MEDS: traZODone 50 MG TABLET. PO SCH (19:48)
[2017-09-15] MEDS: MIRTAZAPINE 15 MG TABLET PO SCH (19:49)
--- NOTE | 2017-09-15 21:25 | NUR ---
Behavior Intervention Response and Plan: BIRP Note: Behavior: Assumed Care of patient, patient located in Day Room at shift change. Patient exhibited the following behavior Angry, Hostile, combative with any cares provided. Calm and cooperative when sleeping Brief assessment on rounds of vital signs, medication needs, lab studies, and pain. Treatment plan problems Dementia with BD and Fall Risk. Intervention: Patient assessed and the following interventions initiated safety checks 15 Minute Checks Cognitive Assessment , Head to toe Assessment , Medications. Response: After interactions and interventions patient responded in the following manner, Calm , Disorganized ,Compliant. Continue to assess behaviors and condition will continue to monitor throughout the shift as needed. Patient educated on ADL's, and hand hygiene. 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 Continue to assess patient for changes in above assessment. Monitor for medication needs, pain, and safety concerns. Hourly rounding performed to ensure safe environment.
--- NOTE | 2017-09-15 22:03 | PDOC ---
Exam Note: Allen Note: Please also refer to the separate dictated note~for this date of service dictated separately.~Patient seen individually. Discussed the patient with Nursing staff reviewed the chart.~Reviewed interim history and current functioning. Reviewed vital signs,~Labs/ Radiology~and current medications noted below. Continue current treatment with the changes noted in the dictated addendum note Assessment: Vital Signs: Vital Signs Date Time Temp Pulse Resp B/P (MAP) Pulse Ox O2 Delivery O2 Flow Rate FiO2 09/15/17 17:31 145/83 (103) 09/15/17 15:31 97.5 75 16 96 I&O Intake and Output 09/15/17 07:00 Intake Total 480 ml Balance 480 ml Intake Oral 480 ml Labs: Laboratory Tests Test 09/15/17 07:44 Sodium Level 142 mmol/L (136-145) Potassium Level 4.3 mmol/L (3.5-5.1) Chloride Level 108 mmol/L (98-107) H Carbon Dioxide Level 24 mmol/L (21-32) Anion Gap 10 (6-14) Blood Urea Nitrogen 23 mg/dL (7-20) H Creatinine 1.0 mg/dL (0.6-1.0) Estimated GFR (Cockcroft-Gault) 52.3 Glucose Level 99 mg/dL (70-99) Calcium Level 8.6 mg/dL (8.5-10.1) Current Medications: Meds: Current Medications Acetaminophen (Tylenol) 650 mg PRN Q6HRS PRN PO PAIN / TEMP; Start 08/15/17 at 17:15; Status Cancel Multi-Ingredient Ointment (Analgesic [place]) 1 ronni PRN QID PRN TP MUSCLE PAIN; Start 08/15/17 at 17:15 Al Hydroxide/Mg Hydroxide (Mylanta Plus Xs) 15 ml PRN AFTMEALHC PRN PO DYSPEPSIA; Start 08/15/17 at 17:15 Magnesium Hydroxide (Milk Of Magnesia) 2,400 mg PRN QHS PRN PO CONSTIPATION; Start 08/15/17 at 17:15; Status Cancel Acetaminophen (Tylenol) 650 mg BID PO Last administered on 09/15/17at 19:47; Start 08/15/17 at 21:00 Acetaminophen (Tylenol) 650 mg PRN Q6HRS PRN PO PAIN / TEMP; Start 08/15/17 at 18:15 Docusate Sodium (Colace) 100 mg BID PO Last administered on 09/15/17 19:48; Start 08/15/17 at 21:00 Ferrous Sulfate (Feosol) 325 mg DAILY PO Last administered on 09/14/17 08:13; Start 08/16/17 at 09:00 Fluticasone Propionate (Flonase) 2 spray DAILY NS Last administered on 08:20; Start 08/16/17 at 09:00; Stop 08/24/17 at 16:52; Status DC Magnesium Hydroxide (Milk Of Magnesia) 2,400 mg PRN DAILY PRN PO CONSTIPATION Last administered on 09/15/17 17:14; Start 08/15/17 at 18:15 Non-Formulary Medication 1 tab BID PO ; Start 08/15/17 at 21:00; Status UNV Vitamin D (Vitamin D3) 500 unit DAILY PO Last administered on 09/14/17 08:13; Start 08/16/17 at 09:00 Ketorolac Tromethamine (Acular) 1 drop QID OS Last administered on 08/24/17 08 :20; Start 08/15/17 at 21:00; Stop 08/24/17 at 16:52; Status DC Lactobacillus Rhamnosus (Culturelle) 1 cap BID PO Last administered on 19:48; Start 08/15/17 at 21:00 Multivitamins/ Calcium (Thera-M Plus) 1 tab DAILY PO Last administered on 08:13; Start 08/16/17 at 09:00 Ondansetron HCl (Zofran Odt) 4 mg PRN Q4HRS PRN PO NAUSEA/VOMITING Last administered on 08/22/17 01:49; Start 08/15/17 at 18:45 Olanzapine (ZyPREXA ZYDIS) 2.5 mg PRN Q2HR PRN PO PSYCHOSIS Last administered on 09/10/17 12:15; Start 08/16/17 at 18:30 Quetiapine Fumarate (SEROquel) 12.5 mg 0900,1300 PO Last administered on 08:00; Start 08/17/17 at 09:00; Stop 08/17/17 at 22:38; Status DC Potassium Chloride (Klor-Con) 20 meq BID PO Last administered on 09/13/17 19: 46; Start 08/17/17 at 21:00; Stop 09/15/17 at 14:22; Status DC Quetiapine Fumarate (SEROquel) 12.5 mg 0700,1100,1400,1700 PO Last administered on 08/29/17 11:09; Start 08/18/17 at 07:00; Stop 08/29/17 at 11:34 ; Status DC Mirtazapine (Remeron) 7.5 mg QHS PO Last administered on 08/18/17 20:18; Start 08/17/17 at 23:00; Stop 08/19/17 at 18:10; Status DC Mirtazapine (Remeron) 15 mg QHS PO Last administered on 09/15/17 19:49; Start 08/19/17 at 21:00 Trazodone HCl (Desyrel) 50 mg QHS PO Last administered on 09/15/17 19:48; Start 08/19/17 at 21:00 Trazodone HCl (Desyrel) 50 mg PRN QHS PRN PO insomnia Last administered on 09/11at 20:04; Start 08/19/17 at 18:15 Magnesium Citrate (Citroma) 148 ml PRN 1X PRN PO CONSTIPATION; Start 08/23/17 at 07:45 Fluticasone Propionate (Flonase) 2 spray PRN DAILY NS ; Start 08/25/17 at 09:00 Hydroxyzine HCl (Atarax) 10 mg PRN Q2HR PRN PO AGITATION Last administered on at 19:40; Start 08/25/17 at 10:45 Divalproex Sodium (Depakote Sprinkles) 125 mg BID@0900,1700 PO Last administered on 09/03/17 17:03; Start 08/28/17 at 09:00; Stop 09/03/17 at 17:53 ; Status DC Quetiapine Fumarate (SEROquel) 25 mg BID@0700,1700 PO Last administered on 17:13; Start 08/29/17 at 17:00 Melatonin 3 mg PRN QHS PRN PO INSOMNIA Last administered on 3/30/18at 19:46; Start 08/31/17 at 16:30 Megestrol Acetate (Megace) 200 mg TIDAC PO Last administered on 09/15/17at 17:14 ; Start 09/03/17 at 07:30 Divalproex Sodium (Depakote Sprinkles) 125 mg DAILY@1700 PO ; Start 09/04/17 at 17:00; Stop 09/04/17 at 17:00; Status DC Divalproex Sodium (Depakote Sprinkles) 250 mg DAILY PO ; Start 09/04/17 at 09:00 ; Stop 09/04/17 at 09:00; Status DC Valproic Acid (Depakene) 250 mg DAILY PO Last administered on 09/10/17at 07:41; Start 09/04/17 at 09:00; Stop 09/10/17 at 18:12; Status DC Valproic Acid (Depakene) 125 mg DAILY@1700 PO Last administered on 09/06/17at 12 :12; Start 09/04/17 at 17:00; Stop 09/07/17 at 16:19; Status DC Valproic Acid (Depakene) 250 mg DAILY@1700 PO Last administered on 09/10/17at 17 :31; Start 09/07/17 at 17:00; Stop 09/10/17 at 18:12; Status DC Valproic Acid (Depakene) 375 mg DAILY PO Last administered on 09/14/17at 08:12; Start 09/11/17 at 09:00 Valproic Acid (Depakene) 375 mg DAILY@1700 PO Last administered on 09/15/17at 17: 14; Start 09/11/17 at 17:00 Cefpodoxime Proxetil (Vantin) 100 mg BID PO Last administered on 09/15/17at 19:48 ; Start 09/11/17 at 21:00; Stop 09/18/17 at 20:59 Active Scripts Active Reported EXELON 4.6mg/24hr (Rivastigmine) 1 Each Patch.td24 1 Patch TD DAILY Zyvox (Linezolid) 600 Mg Tablet 600 Mg PO BID Lovenox (Enoxaparin Sodium) 30 Mg/0.3 Ml Disp.syrin 30 Mg SQ Q24H Thera-M (Multivits, W-Fe,Other Min) 1 Each Tablet 1 Tab PO DAILY Milk Of Magnesia (Magnesium Hydroxide) 400 Mg/5 Ml Oral.susp 2,400 Mg PO PRN DAILY PRN Culturelle (Lactobacillus Rhamnosus Gg) 1 Each Capsule 1 Cap PO BID Fluticasone Propionate Nasal [place] (Fluticasone Propionate) 16 Gm [place].susp 2 [place] NS DAILY Zofran (Ondansetron Hcl) 4 Mg Tablet 4 Mg PO PRN Q4HRS PRN Vitamin D-400 (Cholecalciferol (Vitamin D3)) 400 Unit Tablet 500 Unit PO DAILY Tylenol (Acetaminophen) 325 Mg Tablet 650 Mg PO BID Tylenol (Acetaminophen) 325 Mg Tablet 650 Mg PO PRN Q6HRS PRN Ketorolac Tromethamine 5 Ml Drops 1 Drop LEFTEYE QID Ferrous Sulfate 325 Mg Tablet 325 Mg PO DAILY Colace (Docusate Sodium) 100 Mg Capsule 100 Mg PO BID Nadeem Mag Zinc + D3 Tablet (Ca Carb/Vit D3/Mag Ox/Zn Oxide) 1 Each Tablet 1 Tab PO BID I have reviewed the current psychotropics carefully including drug interactions. Risk benefit ratio favors no change other than as noted in my dictated progress note. Diagnosis: Problems: (1) Dementia with behavioral disturbance (2) Anxiety disorder (3) Dementia in Alzheimer's disease with delusions (4) Dementia in Alzheimer's disease with depression (5) Dementia, vascular, with delusions (6) Dementia, vascular, with depression (7) Impulse control disorder LAUREN CASILLAS MD Sep 15, 2017 22:03
[2017-09-16 06:22] VITALS: BP 152/83
[2017-09-16] MEDS: VALPROATE ACID 250 MG/5 ML ORAL SOLUTION PO SCH ×2 (09:48→17:08)
[2017-09-16] MEDS: MEGESTROL 400 MG/10 ML ORAL.SUSP. PO SCH ×3 (09:48→17:08)
[2017-09-16] MEDS: LACTOBACILLUS RHAMNOSUS GG 1 CAPSULE. PO SCH ×2 (09:49→19:39)
[2017-09-16] MEDS: CHOLECALCIFEROL (VITAMIN D3) 1,000 UNIT TABLET PO SCH (09:49)
[2017-09-16] MEDS: FERROUS SULFATE 325 MG TABLET. PO SCH (09:49)
[2017-09-16] MEDS: MULTIVITAMIN with MINERAL TABLET. PO SCH (09:49)
[2017-09-16] MEDS: DOCUSATE SODIUM 100 MG CAPSULE PO SCH ×2 (09:49→19:39)
[2017-09-16] MEDS: CEFPODOXIME PROXETIL 100 MG TABLET PO SCH ×2 (09:49→19:32)
[2017-09-16] MEDS: ACETAMINOPHEN 325 MG TABLET PO SCH ×2 (09:49→19:39)
[2017-09-16] MEDS: QUEtiapine 25 MG TABLET. PO SCH ×2 (09:51→17:09)
--- NOTE | 2017-09-16 10:05 | NUR ---
Behavior Intervention Response and Plan: BIRP Note: Behavior: Assumed Care of patient, patient located in Day Room at shift change. Patient exhibited the following behavior Disorganized, Resistive, Compulsive. Brief assessment on rounds of vital signs, medication needs, lab studies, and pain. Treatment plan problems 1 & 2. Intervention: Patient assessed and the following interventions initiated safety checks 15 Minute Checks Cognitive Assessment , Head to toe Assessment , Medications. Response: After interactions and interventions patient responded in the following manner, Calm , Appropriate ,Compliant. Continue to assess behaviors and condition will continue to monitor throughout the shift as needed. Patient educated on ADL's, and hand hygiene. 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 Continue to assess patient for changes in above assessment. Monitor for medication needs, pain, and safety concerns. Hourly rounding performed to ensure safe environment.
--- NOTE | 2017-09-16 10:05 | NUR ---
patient was compliant with meds hidden in a cranberry juice, but was not compliant with meds hidden an ice cream cup. will hold these meds and provide at lunch.
--- NOTE | 2017-09-16 12:37 | NUR ---
Pt son called and checked in with this SW, possible discharge later this week. Pt son states he will be picking pt up at 10:00 am on day of discharge.
--- NOTE | 2017-09-16 12:40 | NUR ---
Patient was compliant with liquid meds in cranberry juice. Ice cream cup from before placed on pateint's tray, she ate the majority of the cup, receiving the majority of her morning medications. Will continue to monitor for behaviours.
[2017-09-16 15:58] VITALS: BP 122/75
[2017-09-16] MEDS: traZODone 50 MG TABLET. PO SCH (19:31)
[2017-09-16] MEDS: MIRTAZAPINE 15 MG TABLET PO SCH (19:32)
--- NOTE | 2017-09-16 21:03 | PDOC ---
Exam Note: Allen Note: Please also refer to the separate dictated note~for this date of service dictated separately.~Patient seen individually. Discussed the patient with Nursing staff reviewed the chart.~Reviewed interim history and current functioning. Reviewed vital signs,~Labs/ Radiology~and current medications noted below. Continue current treatment with the changes noted in the dictated addendum note Assessment: Vital Signs: Vital Signs Date Time Temp Pulse Resp B/P (MAP) Pulse Ox O2 Delivery O2 Flow Rate FiO2 09/16/17 15:58 98.5 74 16 122/75 (91) 99 Room Air I&O Intake and Output 09/16/17 07:00 Intake Total 120 ml Balance 120 ml Intake Oral 120 ml Current Medications: Meds: Current Medications Acetaminophen (Tylenol) 650 mg PRN Q6HRS PRN PO PAIN / TEMP; Start 08/15/17 at 17:15; Status Cancel Multi-Ingredient Ointment (Analgesic [place]) 1 ronni PRN QID PRN TP MUSCLE PAIN; Start 08/15/17 at 17:15 Al Hydroxide/Mg Hydroxide (Mylanta Plus Xs) 15 ml PRN AFTMEALHC PRN PO DYSPEPSIA; Start 08/15/17 at 17:15 Magnesium Hydroxide (Milk Of Magnesia) 2,400 mg PRN QHS PRN PO CONSTIPATION; Start 08/15/17 at 17:15; Status Cancel Acetaminophen (Tylenol) 650 mg BID PO Last administered on 09/16/17at 19:39; Start 08/15/17 at 21:00 Acetaminophen (Tylenol) 650 mg PRN Q6HRS PRN PO PAIN / TEMP; Start 08/15/17 at 18:15 Docusate Sodium (Colace) 100 mg BID PO Last administered on 09/16/17at 19:39; Start 08/15/17 at 21:00 Ferrous Sulfate (Feosol) 325 mg DAILY PO Last administered on 09/16/17at 09:49; Start 08/16/17 at 09:00 Fluticasone Propionate (Flonase) 2 spray DAILY NS Last administered on at 08:20; Start 08/16/17 at 09:00; Stop 08/24/17 at 16:52; Status DC Magnesium Hydroxide (Milk Of Magnesia) 2,400 mg PRN DAILY PRN PO CONSTIPATION Last administered on 09/15/17 17:14; Start 08/15/17 at 18:15 Non-Formulary Medication 1 tab BID PO ; Start 08/15/17 at 21:00; Status UNV Vitamin D (Vitamin D3) 500 unit DAILY PO Last administered on 09/16/17 09:49; Start 08/16/17 at 09:00 Ketorolac Tromethamine (Acular) 1 drop QID OS Last administered on 08/24/17 08 :20; Start 08/15/17 at 21:00; Stop 08/24/17 at 16:52; Status DC Lactobacillus Rhamnosus (Culturelle) 1 cap BID PO Last administered on 19:39; Start 08/15/17 at 21:00 Multivitamins/ Calcium (Thera-M Plus) 1 tab DAILY PO Last administered on 09:49; Start 08/16/17 at 09:00 Ondansetron HCl (Zofran Odt) 4 mg PRN Q4HRS PRN PO NAUSEA/VOMITING Last administered on 08/22/17 01:49; Start 08/15/17 at 18:45 Olanzapine (ZyPREXA ZYDIS) 2.5 mg PRN Q2HR PRN PO PSYCHOSIS Last administered on 09/10/17 12:15; Start 08/16/17 at 18:30 Quetiapine Fumarate (SEROquel) 12.5 mg 0900,1300 PO Last administered on 08:00; Start 08/17/17 at 09:00; Stop 08/17/17 at 22:38; Status DC Potassium Chloride (Klor-Con) 20 meq BID PO Last administered on 09/13/17 19: 46; Start 08/17/17 at 21:00; Stop 09/15/17 at 14:22; Status DC Quetiapine Fumarate (SEROquel) 12.5 mg 0700,1100,1400,1700 PO Last administered on 08/29/17 11:09; Start 08/18/17 at 07:00; Stop 08/29/17 at 11:34 ; Status DC Mirtazapine (Remeron) 7.5 mg QHS PO Last administered on 08/18/17 20:18; Start 08/17/17 at 23:00; Stop 08/19/17 at 18:10; Status DC Mirtazapine (Remeron) 15 mg QHS PO Last administered on 09/16/17 19:32; Start 08/19/17 at 21:00 Trazodone HCl (Desyrel) 50 mg QHS PO Last administered on 09/16/17 19:31; Start 08/19/17 at 21:00 Trazodone HCl (Desyrel) 50 mg PRN QHS PRN PO insomnia Last administered on 09/11 20:04; Start 08/19/17 at 18:15 Magnesium Citrate (Citroma) 148 ml PRN 1X PRN PO CONSTIPATION; Start 08/23/17 at 07:45 Fluticasone Propionate (Flonase) 2 spray PRN DAILY NS ; Start 08/25/17 at 09:00 Hydroxyzine HCl (Atarax) 10 mg PRN Q2HR PRN PO AGITATION Last administered on at 19:40; Start 08/25/17 at 10:45 Divalproex Sodium (Depakote Sprinkles) 125 mg BID@0900,1700 PO Last administered on 09/03/17at 17:03; Start 08/28/17 at 09:00; Stop 09/03/17 at 17:53 ; Status DC Quetiapine Fumarate (SEROquel) 25 mg BID@0700,1700 PO Last administered on 17:09; Start 08/29/17 at 17:00; Stop 09/16/17 at 18:45; Status DC Melatonin 3 mg PRN QHS PRN PO INSOMNIA Last administered on 09/13/17at 19:46; Start 08/31/17 at 16:30 Megestrol Acetate (Megace) 200 mg TIDAC PO Last administered on 09/16/17 17:08 ; Start 09/03/17 at 07:30 Divalproex Sodium (Depakote Sprinkles) 125 mg DAILY@1700 PO ; Start 09/04/17 at 17:00; Stop 09/04/17 at 17:00; Status DC Divalproex Sodium (Depakote Sprinkles) 250 mg DAILY PO ; Start 09/04/17 at 09:00 ; Stop 09/04/17 at 09:00; Status DC Valproic Acid (Depakene) 250 mg DAILY PO Last administered on 09/10/17at 07:41; Start 09/04/17 at 09:00; Stop 09/10/17 at 18:12; Status DC Valproic Acid (Depakene) 125 mg DAILY@1700 PO Last administered on 09/06/17at 12 :12; Start 09/04/17 at 17:00; Stop 09/07/17 at 16:19; Status DC Valproic Acid (Depakene) 250 mg DAILY@1700 PO Last administered on 09/10/17at 17 :31; Start 09/07/17 at 17:00; Stop 09/10/17 at 18:12; Status DC Valproic Acid (Depakene) 375 mg DAILY PO Last administered on 09/16/17at 09:48; Start 09/11/17 at 09:00 Valproic Acid (Depakene) 375 mg DAILY@1700 PO Last administered on 09/16/17at 17: 08; Start 09/11/17 at 17:00 Cefpodoxime Proxetil (Vantin) 100 mg BID PO Last administered on 09/16/17at 19:32 ; Start 09/11/17 at 21:00; Stop 09/18/17 at 20:59 Quetiapine Fumarate (SEROquel) 25 mg DAILY@1700 PO ; Start 09/17/17 at 17:00 Quetiapine Fumarate (SEROquel) 12.5 mg DAILY PO ; Start 09/17/17 at 09:00 Active Scripts Active Reported EXELON 4.6mg/24hr (Rivastigmine) 1 Each Patch.td24 1 Patch TD DAILY Zyvox (Linezolid) 600 Mg Tablet 600 Mg PO BID Lovenox (Enoxaparin Sodium) 30 Mg/0.3 Ml Disp.syrin 30 Mg SQ Q24H Thera-M (Multivits, W-Fe,Other Min) 1 Each Tablet 1 Tab PO DAILY Milk Of Magnesia (Magnesium Hydroxide) 400 Mg/5 Ml Oral.susp 2,400 Mg PO PRN DAILY PRN Culturelle (Lactobacillus Rhamnosus Gg) 1 Each Capsule 1 Cap PO BID Fluticasone Propionate Nasal [place] (Fluticasone Propionate) 16 Gm [place].susp 2 [place] NS DAILY Zofran (Ondansetron Hcl) 4 Mg Tablet 4 Mg PO PRN Q4HRS PRN Vitamin D-400 (Cholecalciferol (Vitamin D3)) 400 Unit Tablet 500 Unit PO DAILY Tylenol (Acetaminophen) 325 Mg Tablet 650 Mg PO BID Tylenol (Acetaminophen) 325 Mg Tablet 650 Mg PO PRN Q6HRS PRN Ketorolac Tromethamine 5 Ml Drops 1 Drop LEFTEYE QID Ferrous Sulfate 325 Mg Tablet 325 Mg PO DAILY Colace (Docusate Sodium) 100 Mg Capsule 100 Mg PO BID Nadeem Mag Zinc + D3 Tablet (Ca Carb/Vit D3/Mag Ox/Zn Oxide) 1 Each Tablet 1 Tab PO BID I have reviewed the current psychotropics carefully including drug interactions. Risk benefit ratio favors no change other than as noted in my dictated progress note. Diagnosis: Problems: (1) Dementia with behavioral disturbance (2) Anxiety disorder (3) Dementia in Alzheimer's disease with delusions (4) Dementia in Alzheimer's disease with depression (5) Dementia, vascular, with delusions (6) Dementia, vascular, with depression (7) Impulse control disorder LAUREN CASILLAS MD Sep 16, 2017 21:03
--- NOTE | 2017-09-16 22:49 | NUR ---
Behavior Intervention Response and Plan: BIRP Note: Behavior: Assumed Care of patient, patient located in Day Room at shift change. Patient exhibited the following behavior Disorganized, Wandering, Drowsy. Brief assessment on rounds of vital signs, medication needs, lab studies, and pain. Treatment plan problems 1-2. Intervention: Patient assessed and the following interventions initiated safety checks 15 Minute Checks Cognitive Assessment , Head to toe Assessment , Medications. Response: After interactions and interventions patient responded in the following manner, Disorganized , Wandering ,Restless. Continue to assess behaviors and condition will continue to monitor throughout the shift as needed. Patient educated on ADL's, and hand hygiene. 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 Continue to assess patient for changes in above assessment. Monitor for medication needs, pain, and safety concerns. Hourly rounding performed to ensure safe environment.
--- NOTE | 2017-09-17 02:51 | PN ---
DATE: 09/14/2017 PSYCHIATRIC PROGRESS NOTE This is a late entry for 09/14/2017, covers elements not covered in my initial note of 09/14/2017. SUBJECTIVE: I met with the patient the evening of 09/14/2017. The patient slept 7-1/4 hours previous evening, ate no breakfast, ate some lunch and supper. Valproic acid level is 35. Either she is sedated or when awake, she gets somewhat impulsive, aggressive. REVIEW OF SYSTEMS: No CV, , pulmonary, eye, ENT system symptoms on review. Reliability poor. MENTAL STATUS EXAM: Oriented to herself. Insight, judgment, recent and remote memory, attention, concentration, fund of knowledge poor, consistent with her diagnosis mentioned in my initial note. IMPRESSION: Major neurocognitive disorder, Alzheimer, vascular with depression, delusion, behavioral disturbance. Rest unchanged. PLAN: Continue psychotropics mentioned in my initial note. May need to increase Depakote. We will see how she does over the next day or so. LAUREN CASILLAS MD DR: MIGUEL A/nahed JOB#: [id number] / [id number]
--- NOTE | 2017-09-17 03:33 | PN ---
DATE: 09/15/2017 This is a late entry for 09/15/2017 covers elements not covered in my initial note of 09/15/2017. SUBJECTIVE: I met with the patient in the evening of 09/15/2017. The patient remains somewhat labile, either withdrawn or gets aggressive when awake. REVIEW OF SYSTEMS: No CV, , pulmonary, eye, ENT system symptoms on review. Reliability poor. MENTAL STATUS EXAM: Oriented to herself. Insight, judgment, recent and remote memory, attention, concentration, fund of knowledge poor, consistent with her diagnosis mentioned in my initial note. She has been sleeping a little better and slightly less aggressive. IMPRESSION: Major neurocognitive disorder, Alzheimer vascular with delusion, depression, behavioral disturbance. Rest unchanged. PLAN: Continue psychotropics mentioned in my initial note. MAN Jc CASILLAS MD DR: MIGUEL A/nahed JOB#: [id number] / [id number]
[2017-09-17 06:07] VITALS: BP 135/63
[2017-09-17] MEDS: VALPROATE ACID 250 MG/5 ML ORAL SOLUTION PO SCH ×2 (07:55→16:32)
[2017-09-17] MEDS: FERROUS SULFATE 325 MG TABLET. PO SCH (07:55)
[2017-09-17] MEDS: CEFPODOXIME PROXETIL 100 MG TABLET PO SCH ×2 (07:55→20:01)
[2017-09-17] MEDS: DOCUSATE SODIUM 100 MG CAPSULE PO SCH ×2 (07:55→20:01)
[2017-09-17] MEDS: MEGESTROL 400 MG/10 ML ORAL.SUSP. PO SCH ×4 (07:55→16:33)
[2017-09-17] MEDS: ACETAMINOPHEN 325 MG TABLET PO SCH ×2 (07:56→20:01)
[2017-09-17] MEDS: LACTOBACILLUS RHAMNOSUS GG 1 CAPSULE. PO SCH ×2 (07:56→20:01)
[2017-09-17] MEDS: CHOLECALCIFEROL (VITAMIN D3) 1,000 UNIT TABLET PO SCH (07:56)
[2017-09-17] MEDS: MULTIVITAMIN with MINERAL TABLET. PO SCH (07:56)
[2017-09-17] MEDS: QUEtiapine 25 MG TABLET. PO SCH ×2 (07:57→16:32)
--- NOTE | 2017-09-17 08:30 | NUR ---
Patient has left the dining room, refusing meds and breakfast. Will hold meds at this time.
--- NOTE | 2017-09-17 09:40 | NUR ---
patient is lying on a couch in the day room. Offered her meds in cranberry juice, she drank all the juice. Will continue to monitor for behaviours.
--- NOTE | 2017-09-17 12:10 | NUR ---
Patient wandered into room 200 where she was found lying on the bed, asleep, easily aroused. patient states she is not hungry, is refusing to get up, and is refusing afternoon Megace. Will non-admin the med and continue to monitor behaviours.
[2017-09-17 15:42] VITALS: BP 160/71
[2017-09-17] MEDS: MIRTAZAPINE 15 MG TABLET PO SCH (20:01)
[2017-09-17] MEDS: traZODone 50 MG TABLET. PO SCH (20:01)
--- NOTE | 2017-09-17 21:01 | PDOC ---
Exam Note: Allen Note: Please also refer to the separate dictated note~for this date of service dictated separately.~Patient seen individually. Discussed the patient with Nursing staff reviewed the chart.~Reviewed interim history and current functioning. Reviewed vital signs,~Labs/ Radiology~and current medications noted below. Continue current treatment with the changes noted in the dictated addendum note Assessment: Vital Signs: Vital Signs Date Time Temp Pulse Resp B/P (MAP) Pulse Ox O2 Delivery O2 Flow Rate FiO2 09/17/17 15:42 98.6 70 17 160/71 (100) 98 09/16/17 15:58 Room Air I&O Intake and Output 09/17/17 07:00 Intake Total 840 ml Balance 840 ml Intake Oral 840 ml # Bowel Movements 1 Current Medications: Meds: Current Medications Acetaminophen (Tylenol) 650 mg PRN Q6HRS PRN PO PAIN / TEMP; Start 08/15/17 at 17:15; Status Cancel Multi-Ingredient Ointment (Analgesic [place]) 1 ronni PRN QID PRN TP MUSCLE PAIN; Start 08/15/17 at 17:15 Al Hydroxide/Mg Hydroxide (Mylanta Plus Xs) 15 ml PRN AFTMEALHC PRN PO DYSPEPSIA; Start 08/15/17 at 17:15 Magnesium Hydroxide (Milk Of Magnesia) 2,400 mg PRN QHS PRN PO CONSTIPATION; Start 08/15/17 at 17:15; Status Cancel Acetaminophen (Tylenol) 650 mg BID PO Last administered on 09/17/17at 20:01; Start 08/15/17 at 21:00 Acetaminophen (Tylenol) 650 mg PRN Q6HRS PRN PO PAIN / TEMP; Start 08/15/17 at 18:15 Docusate Sodium (Colace) 100 mg BID PO Last administered on 09/17/17at 20:01; Start 08/15/17 at 21:00 Ferrous Sulfate (Feosol) 325 mg DAILY PO Last administered on 09/17/17at 07:55; Start 08/16/17 at 09:00 Fluticasone Propionate (Flonase) 2 spray DAILY NS Last administered on at 08:20; Start 08/16/17 at 09:00; Stop 08/24/17 at 16:52; Status DC Magnesium Hydroxide (Milk Of Magnesia) 2,400 mg PRN DAILY PRN PO CONSTIPATION Last administered on 09/15/17 17:14; Start 08/15/17 at 18:15 Non-Formulary Medication 1 tab BID PO ; Start 08/15/17 at 21:00; Status UNV Vitamin D (Vitamin D3) 500 unit DAILY PO Last administered on 09/17/17 07:56; Start 08/16/17 at 09:00 Ketorolac Tromethamine (Acular) 1 drop QID OS Last administered on 08/24/17 08 :20; Start 08/15/17 at 21:00; Stop 08/24/17 at 16:52; Status DC Lactobacillus Rhamnosus (Culturelle) 1 cap BID PO Last administered on 20:01; Start 08/15/17 at 21:00 Multivitamins/ Calcium (Thera-M Plus) 1 tab DAILY PO Last administered on 07:56; Start 08/16/17 at 09:00 Ondansetron HCl (Zofran Odt) 4 mg PRN Q4HRS PRN PO NAUSEA/VOMITING Last administered on 08/22/17 01:49; Start 08/15/17 at 18:45 Olanzapine (ZyPREXA ZYDIS) 2.5 mg PRN Q2HR PRN PO PSYCHOSIS Last administered on 09/10/17 12:15; Start 08/16/17 at 18:30 Quetiapine Fumarate (SEROquel) 12.5 mg 0900,1300 PO Last administered on 08:00; Start 08/17/17 at 09:00; Stop 08/17/17 at 22:38; Status DC Potassium Chloride (Klor-Con) 20 meq BID PO Last administered on 09/13/17 19: 46; Start 08/17/17 at 21:00; Stop 09/15/17 at 14:22; Status DC Quetiapine Fumarate (SEROquel) 12.5 mg 0700,1100,1400,1700 PO Last administered on 08/29/17 11:09; Start 08/18/17 at 07:00; Stop 08/29/17 at 11:34 ; Status DC Mirtazapine (Remeron) 7.5 mg QHS PO Last administered on 08/18/17 20:18; Start 08/17/17 at 23:00; Stop 08/19/17 at 18:10; Status DC Mirtazapine (Remeron) 15 mg QHS PO Last administered on 09/17/17 20:01; Start 08/19/17 at 21:00 Trazodone HCl (Desyrel) 50 mg QHS PO Last administered on 09/17/17 20:01; Start 08/19/17 at 21:00 Trazodone HCl (Desyrel) 50 mg PRN QHS PRN PO insomnia Last administered on 09/11 20:04; Start 08/19/17 at 18:15 Magnesium Citrate (Citroma) 148 ml PRN 1X PRN PO CONSTIPATION; Start 08/23/17 at 07:45 Fluticasone Propionate (Flonase) 2 spray PRN DAILY NS ; Start 08/25/17 at 09:00 Hydroxyzine HCl (Atarax) 10 mg PRN Q2HR PRN PO AGITATION Last administered on at 19:40; Start 08/25/17 at 10:45 Divalproex Sodium (Depakote Sprinkles) 125 mg BID@0900,1700 PO Last administered on 09/03/17 17:03; Start 08/28/17 at 09:00; Stop 09/03/17 at 17:53 ; Status DC Quetiapine Fumarate (SEROquel) 25 mg BID@0700,1700 PO Last administered on 17:09; Start 08/29/17 at 17:00; Stop 09/16/17 at 18:45; Status DC Melatonin 3 mg PRN QHS PRN PO INSOMNIA Last administered on 09/13/17 19:46; Start 08/31/17 at 16:30 Megestrol Acetate (Megace) 200 mg TIDAC PO Last administered on 09/17/17 16:33 ; Start 09/03/17 at 07:30 Divalproex Sodium (Depakote Sprinkles) 125 mg DAILY@1700 PO ; Start 09/04/17 at 17:00; Stop 09/04/17 at 17:00; Status DC Divalproex Sodium (Depakote Sprinkles) 250 mg DAILY PO ; Start 09/04/17 at 09:00 ; Stop 09/04/17 at 09:00; Status DC Valproic Acid (Depakene) 250 mg DAILY PO Last administered on 09/10/17at 07:41; Start 09/04/17 at 09:00; Stop 09/10/17 at 18:12; Status DC Valproic Acid (Depakene) 125 mg DAILY@1700 PO Last administered on 09/06/17at 12 :12; Start 09/04/17 at 17:00; Stop 09/07/17 at 16:19; Status DC Valproic Acid (Depakene) 250 mg DAILY@1700 PO Last administered on 09/10/17at 17 :31; Start 09/07/17 at 17:00; Stop 09/10/17 at 18:12; Status DC Valproic Acid (Depakene) 375 mg DAILY PO Last administered on 09/17/17at 07:55; Start 09/11/17 at 09:00 Valproic Acid (Depakene) 375 mg DAILY@1700 PO Last administered on 09/17/17at 16: 32; Start 09/11/17 at 17:00 Cefpodoxime Proxetil (Vantin) 100 mg BID PO Last administered on 09/17/17at 20:01 ; Start 09/11/17 at 21:00; Stop 09/18/17 at 20:59 Quetiapine Fumarate (SEROquel) 25 mg DAILY@1700 PO Last administered on at 16:32; Start 09/17/17 at 17:00 Quetiapine Fumarate (SEROquel) 12.5 mg DAILY PO Last administered on 09/17/17at 07:57; Start 09/17/17 at 09:00 Active Scripts Active Reported EXELON 4.6mg/24hr (Rivastigmine) 1 Each Patch.td24 1 Patch TD DAILY Zyvox (Linezolid) 600 Mg Tablet 600 Mg PO BID Lovenox (Enoxaparin Sodium) 30 Mg/0.3 Ml Disp.syrin 30 Mg SQ Q24H Thera-M (Multivits,Th W-Fe,Other Min) 1 Each Tablet 1 Tab PO DAILY Milk Of Magnesia (Magnesium Hydroxide) 400 Mg/5 Ml Oral.susp 2,400 Mg PO PRN DAILY PRN Culturelle (Lactobacillus Rhamnosus Gg) 1 Each Capsule 1 Cap PO BID Fluticasone Propionate Nasal [place] (Fluticasone Propionate) 16 Gm [place].susp 2 [place] NS DAILY Zofran (Ondansetron Hcl) 4 Mg Tablet 4 Mg PO PRN Q4HRS PRN Vitamin D-400 (Cholecalciferol (Vitamin D3)) 400 Unit Tablet 500 Unit PO DAILY Tylenol (Acetaminophen) 325 Mg Tablet 650 Mg PO BID Tylenol (Acetaminophen) 325 Mg Tablet 650 Mg PO PRN Q6HRS PRN Ketorolac Tromethamine 5 Ml Drops 1 Drop LEFTEYE QID Ferrous Sulfate 325 Mg Tablet 325 Mg PO DAILY Colace (Docusate Sodium) 100 Mg Capsule 100 Mg PO BID Nadeem Mag Zinc + D3 Tablet (Ca Carb/Vit D3/Mag Ox/Zn Oxide) 1 Each Tablet 1 Tab PO BID I have reviewed the current psychotropics carefully including drug interactions. Risk benefit ratio favors no change other than as noted in my dictated progress note. Diagnosis: Problems: (1) Dementia with behavioral disturbance (2) Anxiety disorder (3) Dementia in Alzheimer's disease with delusions (4) Dementia in Alzheimer's disease with depression (5) Dementia, vascular, with delusions (6) Dementia, vascular, with depression (7) Impulse control disorder LAUREN CASILLAS MD Sep 17, 2017 21:01
--- NOTE | 2017-09-18 03:12 | PN ---
DATE: 09/16/2017 This late entry 09/16/2017 covers elements not covered in my initial note 09/16/2017. Met with the patient evening of 09/16/2017. The patient was quite angry, hostile, combative the previous night, slept in the day room, sleeping a lot during the day. When she is awake, she is agitated, ate nothing for breakfast. Appetite for lunch was better. REVIEW OF SYSTEMS: No CV, , pulmonary, eye, ENT system symptoms on review. Reliability poor. MENTAL STATUS EXAM: Oriented to herself. Insight, judgment, recent and remote memory, attention, concentration, fund of knowledge poor, consistent with her diagnosis mentioned in my initial note. IMPRESSION: Major neurocognitive disorder, Alzheimer, vascular with delusion, depression, behavioral disturbance. Rest unchanged. PLAN: Reduce the Seroquel daytime from 25 mg b.i.d. 0700 and 1700 down to 12.5 mg for the morning dosage to be given at 9:00 a.m. Continue the evening dosage unchanged. LAUREN CASILLAS MD DR: MIGUEL A/nahed JOB#: [id number] / [id number]
[2017-09-18 06:07] VITALS: BP 163/72
[2017-09-18] MEDS: MEGESTROL 400 MG/10 ML ORAL.SUSP. PO SCH ×3 (07:56→16:50)
[2017-09-18] MEDS: VALPROATE ACID 250 MG/5 ML ORAL SOLUTION PO SCH ×2 (07:56→16:51)
[2017-09-18] MEDS: MULTIVITAMIN with MINERAL TABLET. PO SCH (07:57)
[2017-09-18] MEDS: DOCUSATE SODIUM 100 MG CAPSULE PO SCH ×2 (07:57→19:43)
[2017-09-18] MEDS: QUEtiapine 25 MG TABLET. PO SCH ×2 (07:57→16:51)
[2017-09-18] MEDS: CHOLECALCIFEROL (VITAMIN D3) 1,000 UNIT TABLET PO SCH (07:57)
[2017-09-18] MEDS: LACTOBACILLUS RHAMNOSUS GG 1 CAPSULE. PO SCH ×2 (07:57→19:43)
[2017-09-18] MEDS: ACETAMINOPHEN 325 MG TABLET PO SCH ×2 (07:57→19:43)
[2017-09-18] MEDS: CEFPODOXIME PROXETIL 100 MG TABLET PO SCH (07:57)
[2017-09-18] MEDS: FERROUS SULFATE 325 MG TABLET. PO SCH (07:57)
--- NOTE | 2017-09-18 09:50 | NUR ---
Behavior Intervention Response and Plan: BIRP Note: Behavior: Assumed Care of patient, patient located in Hallway at shift change. Patient exhibited the following behavior Disorganized, Compulsive, Drowsy. Brief assessment on rounds of vital signs, medication needs, lab studies, and pain. Treatment plan problems 1 & 2. Intervention: Patient assessed and the following interventions initiated safety checks 15 Minute Checks Cognitive Assessment , Head to toe Assessment , Medications. Response: After interactions and interventions patient responded in the following manner, Calm , Appropriate ,Compliant. Continue to assess behaviors and condition will continue to monitor throughout the shift as needed. Patient educated on ADL's, and hand hygiene. Plan: Continue to monitor Master Treatment Plan for patient's progress toward short term goals of Decreased Agitation, Decreased Aggression, supervisor intermediates goals to return to previous living setting vs placement. Continue to assess patient for changes in above assessment. Monitor for medication needs, pain, and safety concerns. Hourly rounding performed to ensure safe environment.
--- NOTE | 2017-09-18 11:00 | NUR ---
SW called and spoke pt son, he states he can be at the hospital to pickler helper his mother at 10:00 am. TONY answered his questions regarding pt items as well.
--- NOTE | 2017-09-18 12:37 | NUR ---
SW spoke with Dr. Perez, pt is ready for discharge.
--- NOTE | 2017-09-18 12:37 | NUR ---
SW called and spoke with pt facility, faxed information, pt son will be picking pt up at 10:00 am
--- NOTE | 2017-09-18 12:39 | NUR ---
[facility] Social Work Discharge Planning Form Patient Name FANTA SIN Admit Date: 08/15/17 DISCHARGE PLAN Discharge Destination: [facility] Transportation: Son will shredder picker at 10:00 am Special Instructions/Notes: DISCHARGE TO FACILITY Facility: [facility] Fax: [address]: [address] [address] Contact Name: Helena PCP: at facility Primary Care Follow Up at facility 7-10 days
--- NOTE | 2017-09-18 15:00 | NUR ---
WEEKLY THERAPEUTIC RECREATION NOTE Date of Admission: 08/05/2017 Date of AT Assessment: 08/08/2017 Goal aimed: to increase socialization and leisure awareness Initial goal: Pt. will participate in at least three groups per week. Weekly progress towards goal: did not meet Group participation level: zero Behaviors observed: sleeping often, does not like to be woken up, no interest in groups or socializing Plan: change goal to: Pt. will participate fully in at least one group before discharge
[2017-09-18 16:09] VITALS: BP 140/74
[2017-09-18] MEDS: traZODone 50 MG TABLET. PO SCH (19:43)
[2017-09-18] MEDS: MIRTAZAPINE 15 MG TABLET PO SCH (19:43)
--- NOTE | 2017-09-18 21:03 | PDOC ---
Exam Note: Allen Note: Please also refer to the separate dictated note~for this date of service dictated separately.~Patient seen individually. Discussed the patient with Nursing staff reviewed the chart.~Reviewed interim history and current functioning. Reviewed vital signs,~Labs/ Radiology~and current medications noted below. Continue current treatment with the changes noted in the dictated addendum note Assessment: Vital Signs: Vital Signs Date Time Temp Pulse Resp B/P (MAP) Pulse Ox O2 Delivery O2 Flow Rate FiO2 09/18/17 16:09 98.8 71 18 140/74 (96) 93 Room Air I&O Intake and Output 09/18/17 07:00 Intake Total 720 ml Balance 720 ml Intake Oral 720 ml # Voids 1 Current Medications: Meds: Current Medications Acetaminophen (Tylenol) 650 mg PRN Q6HRS PRN PO PAIN / TEMP; Start 08/15/17 at 17:15; Status Cancel Multi-Ingredient Ointment (Analgesic [place]) 1 ronni PRN QID PRN TP MUSCLE PAIN; Start 08/15/17 at 17:15 Al Hydroxide/Mg Hydroxide (Mylanta Plus Xs) 15 ml PRN AFTMEALHC PRN PO DYSPEPSIA; Start 08/15/17 at 17:15 Magnesium Hydroxide (Milk Of Magnesia) 2,400 mg PRN QHS PRN PO CONSTIPATION; Start 08/15/17 at 17:15; Status Cancel Acetaminophen (Tylenol) 650 mg BID PO Last administered on 09/18/17at 19:43; Start 08/15/17 at 21:00 Acetaminophen (Tylenol) 650 mg PRN Q6HRS PRN PO PAIN / TEMP; Start 08/15/17 at 18:15 Docusate Sodium (Colace) 100 mg BID PO Last administered on 09/18/17at 19:43; Start 08/15/17 at 21:00 Ferrous Sulfate (Feosol) 325 mg DAILY PO Last administered on 09/18/17at 07:57; Start 08/16/17 at 09:00 Fluticasone Propionate (Flonase) 2 spray DAILY NS Last administered on at 08:20; Start 08/16/17 at 09:00; Stop 08/24/17 at 16:52; Status DC Magnesium Hydroxide (Milk Of Magnesia) 2,400 mg PRN DAILY PRN PO CONSTIPATION Last administered on 09/15/17 17:14; Start 08/15/17 at 18:15 Non-Formulary Medication 1 tab BID PO ; Start 08/15/17 at 21:00; Status UNV Vitamin D (Vitamin D3) 500 unit DAILY PO Last administered on 09/18/17 07:57; Start 08/16/17 at 09:00 Ketorolac Tromethamine (Acular) 1 drop QID OS Last administered on 08/24/17 08 :20; Start 08/15/17 at 21:00; Stop 08/24/17 at 16:52; Status DC Lactobacillus Rhamnosus (Culturelle) 1 cap BID PO Last administered on 19:43; Start 08/15/17 at 21:00 Multivitamins/ Calcium (Thera-M Plus) 1 tab DAILY PO Last administered on 07:57; Start 08/16/17 at 09:00 Ondansetron HCl (Zofran Odt) 4 mg PRN Q4HRS PRN PO NAUSEA/VOMITING Last administered on 08/22/17 01:49; Start 08/15/17 at 18:45 Olanzapine (ZyPREXA ZYDIS) 2.5 mg PRN Q2HR PRN PO PSYCHOSIS Last administered on 09/10/17 12:15; Start 08/16/17 at 18:30 Quetiapine Fumarate (SEROquel) 12.5 mg 0900,1300 PO Last administered on 08:00; Start 08/17/17 at 09:00; Stop 08/17/17 at 22:38; Status DC Potassium Chloride (Klor-Con) 20 meq BID PO Last administered on 09/13/17 19: 46; Start 08/17/17 at 21:00; Stop 09/15/17 at 14:22; Status DC Quetiapine Fumarate (SEROquel) 12.5 mg 0700,1100,1400,1700 PO Last administered on 08/29/17 11:09; Start 08/18/17 at 07:00; Stop 08/29/17 at 11:34 ; Status DC Mirtazapine (Remeron) 7.5 mg QHS PO Last administered on 08/18/17 20:18; Start 08/17/17 at 23:00; Stop 08/19/17 at 18:10; Status DC Mirtazapine (Remeron) 15 mg QHS PO Last administered on 09/18/17 19:43; Start 08/19/17 at 21:00 Trazodone HCl (Desyrel) 50 mg QHS PO Last administered on 09/18/17 19:43; Start 08/19/17 at 21:00 Trazodone HCl (Desyrel) 50 mg PRN QHS PRN PO insomnia Last administered on 09/11at 20:04; Start 08/19/17 at 18:15 Magnesium Citrate (Citroma) 148 ml PRN 1X PRN PO CONSTIPATION; Start 08/23/17 at 07:45 Fluticasone Propionate (Flonase) 2 spray PRN DAILY NS ; Start 08/25/17 at 09:00 Hydroxyzine HCl (Atarax) 10 mg PRN Q2HR PRN PO AGITATION Last administered on at 19:40; Start 08/25/17 at 10:45 Divalproex Sodium (Depakote Sprinkles) 125 mg BID@0900,1700 PO Last administered on 09/03/17 17:03; Start 08/28/17 at 09:00; Stop 09/03/17 at 17:53 ; Status DC Quetiapine Fumarate (SEROquel) 25 mg BID@0700,1700 PO Last administered on 17:09; Start 08/29/17 at 17:00; Stop 09/16/17 at 18:45; Status DC Melatonin 3 mg PRN QHS PRN PO INSOMNIA Last administered on 09/13/17 19:46; Start 08/31/17 at 16:30 Megestrol Acetate (Megace) 200 mg TIDAC PO Last administered on 09/18/17 16:50 ; Start 09/03/17 at 07:30 Divalproex Sodium (Depakote Sprinkles) 125 mg DAILY@1700 PO ; Start 09/04/17 at 17:00; Stop 09/04/17 at 17:00; Status DC Divalproex Sodium (Depakote Sprinkles) 250 mg DAILY PO ; Start 09/04/17 at 09:00 ; Stop 09/04/17 at 09:00; Status DC Valproic Acid (Depakene) 250 mg DAILY PO Last administered on 09/10/17at 07:41; Start 09/04/17 at 09:00; Stop 09/10/17 at 18:12; Status DC Valproic Acid (Depakene) 125 mg DAILY@1700 PO Last administered on 09/06/17at 12 :12; Start 09/04/17 at 17:00; Stop 09/07/17 at 16:19; Status DC Valproic Acid (Depakene) 250 mg DAILY@1700 PO Last administered on 09/10/17at 17 :31; Start 09/07/17 at 17:00; Stop 09/10/17 at 18:12; Status DC Valproic Acid (Depakene) 375 mg DAILY PO Last administered on 09/18/17 07:56; Start 09/11/17 at 09:00 Valproic Acid (Depakene) 375 mg DAILY@1700 PO Last administered on 09/18/17 16: 51; Start 09/11/17 at 17:00 Cefpodoxime Proxetil (Vantin) 100 mg BID PO Last administered on 09/18/17 07:57 ; Start 09/11/17 at 21:00; Stop 09/18/17 at 20:59; Status DC Quetiapine Fumarate (SEROquel) 25 mg DAILY@1700 PO Last administered on 16:51; Start 09/17/17 at 17:00 Quetiapine Fumarate (SEROquel) 12.5 mg DAILY PO Last administered on 09/18/17 07:57; Start 09/17/17 at 09:00 Active Scripts Active Reported EXELON 4.6mg/24hr (Rivastigmine) 1 Each Patch.td24 1 Patch TD DAILY Zyvox (Linezolid) 600 Mg Tablet 600 Mg PO BID Lovenox (Enoxaparin Sodium) 30 Mg/0.3 Ml Disp.syrin 30 Mg SQ Q24H Thera-M (Multivits, W-Fe,Other Min) 1 Each Tablet 1 Tab PO DAILY Milk Of Magnesia (Magnesium Hydroxide) 400 Mg/5 Ml Oral.susp 2,400 Mg PO PRN DAILY PRN Culturelle (Lactobacillus Rhamnosus Gg) 1 Each Capsule 1 Cap PO BID Fluticasone Propionate Nasal [place] (Fluticasone Propionate) 16 Gm [place].susp 2 [place] NS DAILY Zofran (Ondansetron Hcl) 4 Mg Tablet 4 Mg PO PRN Q4HRS PRN Vitamin D-400 (Cholecalciferol (Vitamin D3)) 400 Unit Tablet 500 Unit PO DAILY Tylenol (Acetaminophen) 325 Mg Tablet 650 Mg PO BID Tylenol (Acetaminophen) 325 Mg Tablet 650 Mg PO PRN Q6HRS PRN Ketorolac Tromethamine 5 Ml Drops 1 Drop LEFTEYE QID Ferrous Sulfate 325 Mg Tablet 325 Mg PO DAILY Colace (Docusate Sodium) 100 Mg Capsule 100 Mg PO BID Nadeem Mag Zinc + D3 Tablet (Ca Carb/Vit D3/Mag Ox/Zn Oxide) 1 Each Tablet 1 Tab PO BID I have reviewed the current psychotropics carefully including drug interactions. Risk benefit ratio favors no change other than as noted in my dictated progress note. Diagnosis: Problems: (1) Dementia with behavioral disturbance (2) Anxiety disorder (3) Dementia in Alzheimer's disease with delusions (4) Dementia in Alzheimer's disease with depression (5) Dementia, vascular, with delusions (6) Dementia, vascular, with depression (7) Impulse control disorder LAUREN CASILLAS MD Sep 18, 2017 21:03
--- NOTE | 2017-09-18 21:16 | PN ---
DATE: 09/17/2017 This is a late entry for 09/17/2017 and covers elements not covered in my initial note of 09/17/2017. I met with the patient evening of 09/17/2017. The patient slept for 8-1/4 hours previous evening. She slept in the day room previous night, refused breakfast and meds, drank cranberry juice, takes her medications in juice, ate 50% dinner. Remains confused, less agitated as I met with her individually evening of 09/17/2017. REVIEW OF SYSTEMS: No CV, , pulmonary, eye, ENT system symptoms on review. Reliability poor. MENTAL STATUS EXAM: Oriented to herself. Insight, judgment, recent and remote memory, attention, concentration, fund of knowledge poor, consistent with her diagnosis. I met with her after she had finished her supper, tried to question her what she had for supper, but she certainly did not remember it, but smart enough to ask a staff member standing close by on what she had for supper, not getting agitated like she did in the past. IMPRESSION: Major neurocognitive disorder, Alzheimer, vascular with delusion, depression, behavioral disturbance. PLAN: Continue current psychotropics as mentioned in my initial note. Transition to a lower level of care at the end of the week. LAUREN CASILLAS MD DR: MIGUEL A/nahed JOB#: [id number] / [id number]
--- NOTE | 2017-09-19 01:13 | NUR ---
Behavior Intervention Response and Plan: BIRP Note: Behavior: Assumed Care of patient, patient located in Patient Room at shift change. Patient exhibited the following behavior Calm, Drowsy, Withdrawn. Brief assessment on rounds of vital signs, medication needs, lab studies, and pain. Treatment plan problems Dementia with BD and Fall Risk. Intervention: Patient assessed and the following interventions initiated safety checks 15 Minute Checks Cognitive Assessment , Medications , Oral Hydration. Response: After interactions and interventions patient responded in the following manner, Calm , Compliant ,Drowsy. Continue to assess behaviors and condition will continue to monitor throughout the shift as needed. Patient educated on ADL's, and hand hygiene. Plan: Continue to monitor Master Treatment Plan for patient's progress toward short term goals of Decreased Agitation, Decreased Anxiety, superintendent terminal goals to return to previous living setting vs placement. Continue to assess patient for changes in above assessment. Monitor for medication needs, pain, and safety concerns. Hourly rounding performed to ensure safe environment.
[2017-09-19] MEDS ORDERED: MAG30ORA2 PO (01:32)
[2017-09-19] MEDS ORDERED: MAGN296S9 PO (01:33)
[2017-09-19] MEDS ORDERED: MEGE400O2 PO (01:52)
[2017-09-19] MEDS ORDERED: MELA3TAB2 PO (01:53)
[2017-09-19] MEDS ORDERED: METH29OI TP (01:53)
[2017-09-19] MEDS ORDERED: MIRT15TA3 PO (01:54)
[2017-09-19] MEDS ORDERED: OLAN5TAB5 PO (01:55)
[2017-09-19] MEDS ORDERED: QUET25TA5 PO ×2 (01:56→01:57)
[2017-09-19] MEDS ORDERED: VALP250S PO ×2 (01:57→01:58)
[2017-09-19] MEDS ORDERED: HYDR10TA2 PO (02:00)
[2017-09-19] MEDS ORDERED: TRAZ50TA15 PO ×2 (02:01)
[2017-09-19 05:41] VITALS: BP 135/66
[2017-09-19] MEDS: MEGESTROL 400 MG/10 ML ORAL.SUSP. PO SCH (07:33)
[2017-09-19] MEDS: DOCUSATE SODIUM 100 MG CAPSULE PO SCH (07:34)
[2017-09-19] MEDS: QUEtiapine 25 MG TABLET. PO SCH (07:35)
[2017-09-19] MEDS: VALPROATE ACID 250 MG/5 ML ORAL SOLUTION PO SCH (07:37)
[2017-09-19] MEDS: CHOLECALCIFEROL (VITAMIN D3) 1,000 UNIT TABLET PO SCH (07:40)
[2017-09-19] MEDS: MULTIVITAMIN with MINERAL TABLET. PO SCH (07:40)
[2017-09-19] MEDS: FERROUS SULFATE 325 MG TABLET. PO SCH (07:40)
[2017-09-19] MEDS: LACTOBACILLUS RHAMNOSUS GG 1 CAPSULE. PO SCH (07:40)
[2017-09-19] MEDS: ACETAMINOPHEN 325 MG TABLET PO SCH (07:40)
--- NOTE | 2017-09-19 09:30 | NUR ---
Behavior Intervention Response and Plan: BIRP Note: Behavior: Assumed Care of patient, patient located in Dining Room at shift change. Patient exhibited the following behavior Disorganized, Drowsy, Withdrawn. Brief assessment on rounds of vital signs, medication needs, lab studies, and pain. Treatment plan problems dementia w/ bd and fall risk. Intervention: Patient assessed and the following interventions initiated safety checks 15 Minute Checks Cognitive Assessment , Cognitive Assessment , Head to toe Assessment. Response: After interactions and interventions patient responded in the following manner, Disorganized , Withdrawn ,Drowsy. Continue to assess behaviors and condition will continue to monitor throughout the shift as needed. Patient educated on ADL's, and hand hygiene. Plan: Continue to monitor Master Treatment Plan for patient's progress toward short term goals of Decreased Agitation, Decreased Aggression, alf goals to return to previous living setting vs placement. Continue to assess patient for changes in above assessment. Monitor for medication needs, pain, and safety concerns. Hourly rounding performed to ensure safe environment.
--- NOTE | 2017-09-19 10:25 | NUR ---
Transition Record was faxed to follow-up provider with the following elements: Reason for admission, procedures, tests, principal diagnosis, pending studies, patient instructions, 07/01 contact information for unit, phone number to obtain pending test results, plan for follow-up care, physician follow-up, advanced directive information, and medication list with dose, duration and instructions. This information was included in the following documents: History and physical, lab results, study results, progress notes, social work planning form, DC instruction form, patient visit summary, and medication reconciliation form. Date & time record faxed:09/19/17 [id number] Record faxed to: Robert davis [place] [phone] Record discussed with/ report given to: Kacie Land
--- NOTE | 2017-09-19 22:22 | PDOC ---
Exam Note: Allen Note: Please also refer to the separate dictated note~for this date of service dictated separately.~Patient seen individually. Discussed the patient with Nursing staff reviewed the chart.~Reviewed interim history and current functioning. Reviewed vital signs,~Labs/ Radiology~and current medications noted below. Continue current treatment with the changes noted in the dictated addendum note Assessment: Vital Signs: Vital Signs Date Time Temp Pulse Resp B/P (MAP) Pulse Ox O2 Delivery O2 Flow Rate FiO2 09/19/17 05:41 97.9 69 18 135/66 (89) 98 09/18/17 16:09 Room Air I&O Intake and Output 09/19/17 07:00 Intake Total 480 ml Balance 480 ml Intake Oral 480 ml # Voids 1 Current Medications: Meds: Current Medications Acetaminophen (Tylenol) 650 mg PRN Q6HRS PRN PO PAIN / TEMP; Start 08/15/17 at 17:15; Status Cancel Multi-Ingredient Ointment (Analgesic Lancaster) 1 vicky PRN QID PRN TP MUSCLE PAIN; Start 08/15/17 at 17:15; Stop 09/19/17 at 11:09; Status DC Al Hydroxide/Mg Hydroxide (Mylanta Plus Xs) 15 ml PRN AFTMEALHC PRN PO DYSPEPSIA; Start 08/15/17 at 17:15; Stop 09/19/17 at 11:09; Status DC Magnesium Hydroxide (Milk Of Magnesia) 2,400 mg PRN QHS PRN PO CONSTIPATION; Start 08/15/17 at 17:15; Status Cancel Acetaminophen (Tylenol) 650 mg BID PO Last administered on 09/19/17at 07:40; Start 08/15/17 at 21:00; Stop 09/19/17 at 11:09; Status DC Acetaminophen (Tylenol) 650 mg PRN Q6HRS PRN PO PAIN / TEMP; Start 08/15/17 at 18:15; Stop 09/19/17 at 11:09; Status DC Docusate Sodium (Colace) 100 mg BID PO Last administered on 09/19/17at 07:34; Start 08/15/17 at 21:00; Stop 09/19/17 at 11:09; Status DC Ferrous Sulfate (Feosol) 325 mg DAILY PO Last administered on 09/19/17at 07:40; Start 08/16/17 at 09:00; Stop 09/19/17 at 11:09; Status DC Fluticasone Propionate (Flonase) 2 spray DAILY NS Last administered on 08:20; Start 08/16/17 at 09:00; Stop 08/24/17 at 16:52; Status DC Magnesium Hydroxide (Milk Of Magnesia) 2,400 mg PRN DAILY PRN PO CONSTIPATION Last administered on 09/15/17 17:14; Start 08/15/17 at 18:15; Stop 09/19/17 at 11: 09; Status DC Non-Formulary Medication 1 tab BID PO ; Start 08/15/17 at 21:00; Status UNV Vitamin D (Vitamin D3) 500 unit DAILY PO Last administered on 09/19/17 07:40; Start 08/16/17 at 09:00; Stop 09/19/17 at 11:09; Status DC Ketorolac Tromethamine (Acular) 1 drop QID OS Last administered on 08/24/17 08 :20; Start 08/15/17 at 21:00; Stop 08/24/17 at 16:52; Status DC Lactobacillus Rhamnosus (Culturelle) 1 cap BID PO Last administered on 07:40; Start 08/15/17 at 21:00; Stop 09/19/17 at 11:09; Status DC Multivitamins/ Calcium (Thera-M Plus) 1 tab DAILY PO Last administered on 07:40; Start 08/16/17 at 09:00; Stop 09/19/17 at 11:09; Status DC Ondansetron HCl (Zofran Odt) 4 mg PRN Q4HRS PRN PO NAUSEA/VOMITING Last administered on 08/22/17 01:49; Start 08/15/17 at 18:45; Stop 09/19/17 at 11:09; Status DC Olanzapine (ZyPREXA ZYDIS) 2.5 mg PRN Q2HR PRN PO PSYCHOSIS Last administered on 09/10/17 12:15; Start 08/16/17 at 18:30; Stop 09/19/17 at 11:09; Status DC Quetiapine Fumarate (SEROquel) 12.5 mg 0900,1300 PO Last administered on 08:00; Start 08/17/17 at 09:00; Stop 08/17/17 at 22:38; Status DC Potassium Chloride (Klor-Con) 20 meq BID PO Last administered on 09/13/17 19: 46; Start 08/17/17 at 21:00; Stop 09/15/17 at 14:22; Status DC Quetiapine Fumarate (SEROquel) 12.5 mg 0700,1100,1400,1700 PO Last administered on 08/29/17 11:09; Start 08/18/17 at 07:00; Stop 08/29/17 at 11:34 ; Status DC Mirtazapine (Remeron) 7.5 mg QHS PO Last administered on 08/18/17 20:18; Start 08/17/17 at 23:00; Stop 08/19/17 at 18:10; Status DC Mirtazapine (Remeron) 15 mg QHS PO Last administered on 09/18/17 19:43; Start 08/19/17 at 21:00; Stop 09/19/17 at 11:09; Status DC Trazodone HCl (Desyrel) 50 mg QHS PO Last administered on 09/18/17 19:43; Start 08/19/17 at 21:00; Stop 09/19/17 at 11:09; Status DC Trazodone HCl (Desyrel) 50 mg PRN QHS PRN PO insomnia Last administered on 09/11at 20:04; Start 08/19/17 at 18:15; Stop 09/19/17 at 11:09; Status DC Magnesium Citrate (Citroma) 148 ml PRN 1X PRN PO CONSTIPATION; Start 08/23/17 at 07:45; Stop 09/19/17 at 11:09; Status DC Fluticasone Propionate (Flonase) 2 spray PRN DAILY NS ; Start 08/25/17 at 09:00 ; Stop 09/19/17 at 11:09; Status DC Hydroxyzine HCl (Atarax) 10 mg PRN Q2HR PRN PO AGITATION Last administered on at 19:40; Start 08/25/17 at 10:45; Stop 09/19/17 at 11:09; Status DC Divalproex Sodium (Depakote Sprinkles) 125 mg BID@0900,1700 PO Last administered on 09/03/17at 17:03; Start 08/28/17 at 09:00; Stop 09/03/17 at 17:53 ; Status DC Quetiapine Fumarate (SEROquel) 25 mg BID@0700,1700 PO Last administered on at 17:09; Start 08/29/17 at 17:00; Stop 09/16/17 at 18:45; Status DC Melatonin 3 mg PRN QHS PRN PO INSOMNIA Last administered on 09/13/17at 19:46; Start 08/31/17 at 16:30; Stop 09/19/17 at 11:09; Status DC Megestrol Acetate (Megace) 200 mg TIDAC PO Last administered on 09/19/17at 07:33 ; Start 09/03/17 at 07:30; Stop 09/19/17 at 11:09; Status DC Divalproex Sodium (Depakote Sprinkles) 125 mg DAILY@1700 PO ; Start 09/04/17 at 17:00; Stop 09/04/17 at 17:00; Status DC Divalproex Sodium (Depakote Sprinkles) 250 mg DAILY PO ; Start 09/04/17 at 09:00 ; Stop 09/04/17 at 09:00; Status DC Valproic Acid (Depakene) 250 mg DAILY PO Last administered on 09/10/17at 07:41; Start 09/04/17 at 09:00; Stop 09/10/17 at 18:12; Status DC Valproic Acid (Depakene) 125 mg DAILY@1700 PO Last administered on 09/06/17at 12 :12; Start 09/04/17 at 17:00; Stop 09/07/17 at 16:19; Status DC Valproic Acid (Depakene) 250 mg DAILY@1700 PO Last administered on 09/10/17at 17 :31; Start 09/07/17 at 17:00; Stop 09/10/17 at 18:12; Status DC Valproic Acid (Depakene) 375 mg DAILY PO Last administered on 09/19/17at 07:37; Start 09/11/17 at 09:00; Stop 09/19/17 at 11:09; Status DC Valproic Acid (Depakene) 375 mg DAILY@1700 PO Last administered on 09/18/17at 16: 51; Start 09/11/17 at 17:00; Stop 09/19/17 at 11:09; Status DC Cefpodoxime Proxetil (Vantin) 100 mg BID PO Last administered on 09/18/17at 07:57 ; Start 09/11/17 at 21:00; Stop 09/18/17 at 20:59; Status DC Quetiapine Fumarate (SEROquel) 25 mg DAILY@1700 PO Last administered on at 16:51; Start 09/17/17 at 17:00; Stop 09/19/17 at 11:09; Status DC Quetiapine Fumarate (SEROquel) 12.5 mg DAILY PO Last administered on 09/19/17at 07:35; Start 09/17/17 at 09:00; Stop 09/19/17 at 11:09; Status DC Active Scripts Active Reported Trazodone Hcl 50 Mg Tablet 50 Mg PO PRN QHS PRN Trazodone Hcl 50 Mg Tablet 50 Mg PO QHS Hydroxyzine Hcl 10 Mg Tablet 10 Mg PO PRN Q2HR PRN Depakene (Valproate Sodium) 250 Mg/5 Ml Solution 375 Mg PO DAILY@1700 Depakene (Valproate Sodium) 250 Mg/5 Ml Solution 375 Mg PO DAILY Seroquel (Quetiapine Fumarate) 25 Mg Tablet 12.5 Mg PO DAILY Seroquel (Quetiapine Fumarate) 25 Mg Tablet 25 Mg PO DAILY@1700 Zyprexa Zydis (Olanzapine) 5 Mg Tab.rapdis 2.5 Mg PO PRN Q2HR PRN Mirtazapine 15 Mg Tablet 15 Mg PO QHS Analgesic [place] (Methyl Salicylate/Menthol) 28 Gm Oint...g. 1 Vicky TP PRN QID PRN Melatonin 3 Mg Tablet 3 Mg PO PRN QHS PRN Megestrol Acetate 400 Mg/10 Ml Oral.susp 200 Mg PO TIDAC Magnesium Citrate 296 Ml Solution 148 Ml PO PRN 1X PRN Mag-Al Plus Xs Suspension (Mag Hydrox/Al Hydrox/Simeth) 30 Ml Oral.susp 15 Ml PO PRN AFTMEALHC PRN Thera-M (Multivits, W-Fe,Other Min) 1 Each Tablet 1 Tab PO DAILY Milk Of Magnesia (Magnesium Hydroxide) 400 Mg/5 Ml Oral.susp 2,400 Mg PO PRN DAILY PRN Culturelle (Lactobacillus Rhamnosus Gg) 1 Each Capsule 1 Cap PO BID Fluticasone Propionate Nasal Barrett (Fluticasone Propionate) 16 Gm Barrett.susp 2 Barrett NS DAILY Zofran (Ondansetron Hcl) 4 Mg Tablet 4 Mg PO PRN Q4HRS PRN Vitamin D-400 (Cholecalciferol (Vitamin D3)) 400 Unit Tablet 500 Unit PO DAILY Tylenol (Acetaminophen) 325 Mg Tablet 650 Mg PO BID Tylenol (Acetaminophen) 325 Mg Tablet 650 Mg PO PRN Q6HRS PRN Ferrous Sulfate 325 Mg Tablet 325 Mg PO DAILY Colace (Docusate Sodium) 100 Mg Capsule 100 Mg PO BID I have reviewed the current psychotropics carefully including drug interactions. Risk benefit ratio favors no change other than as noted in my dictated progress note. Diagnosis: Problems: (1) Impulse control disorder (2) Dementia, vascular, with depression (3) Dementia, vascular, with delusions (4) Dementia in Alzheimer's disease with depression (5) Dementia in Alzheimer's disease with delusions (6) Anxiety disorder (7) Dementia with behavioral disturbance LAUREN CASILLAS MD Sep 19, 2017 22:22
--- NOTE | 2017-09-20 19:11 | DS ---
DATE OF DISCHARGE: 09/19/2017 This is a late entry, 09/19/2017, covers the elements not covered in my initial note, 09/19/2017. REASON FOR ADMISSION: Please refer to the admission history for details. Briefly, the patient is an 87-year-old female referred to us from [facility] by her primary care physician on an account of worsening confusion, agitation, mood lability, throwing herself on the floor, banging on the doors, difficult to redirect, angry at her children, crawling on the floors. She is admitted to our unit originally on 08/05/2017, then transferred to [address] [place] [address] then readmitted 08/15/2017, after she is medically stabilized. She remained extremely confused, agitated, delusional, and requiring the readmission. SIGNIFICANT FINDINGS AND CLINICAL COURSE: Following admission, the patient was seen individually by myself from a psychiatric standpoint and medical followup per Dr. Raphael/Dr. Ramirez. She was extremely labile, aggressive, disruptive, paranoid within the context of marked confusion. Adjustments were made in her psychotropic, she seemed to do better with her appetite on Megace 200 mg t.i.d., Seroquel was 12.5 mg 0900, 25 mg 1700; Remeron 15 mg at bedtime, Zyprexa p.r.n., trazodone 50 mg at bedtime, may repeat x 1 insomnia, Atarax p.r.n., Depakene 375 mg b.i.d., valproic acid level 35 even though it is subtherapeutic clinically adequate, melatonin 3 mg at bedtime p.r.n. Adjustments were made in her psychotropics until she seemed to be stabilized even though she was still confused. She was much more manageable, prior to discharge on 09/19/2017. REVIEW OF SYSTEMS: No CV, , pulmonary, eye, ENT system symptoms on review. Reliability poor. MENTAL STATUS EXAM: Oriented to herself. Insight, judgment, recent and remote memory, attention, concentration, fund of knowledge poor, consistent with her diagnosis as mentioned in my initial note. CONDITION AT DISCHARGE: Improved. FINAL DIAGNOSES: Major neurocognitive disorder, Alzheimer, vascular with depression, delusion, behavioral disturbance; anxiety disorder, unspecified; impulse control disorder, unspecified. Rest unchanged from admission. DISCHARGE MEDICATIONS: Please refer to the MRAD. DISCHARGE INSTRUCTIONS: Outpatient psychiatric and medical followup at the custodial. LAUREN CASILLAS MD DR: MIGUEL A/nahed JOB#: [id number] / [id number]
--- NOTE | 2017-09-20 22:50 | PN ---
DATE: 09/18/2017 PSYCHIATRIC PROGRESS NOTE This late entry 09/18/2017 covers elements not covered in my initial note of 09/18/2017. SUBJECTIVE: Met with the patient in the evening of 09/18/2017. The patient slept 8-1/4 hours and slept in bed all night, which is quite an improvement for her. She is a little drowsy on 09/18/2017, napped in her chair, cooperative with medications, appetite is better, cooperative at showers. REVIEW OF SYSTEMS: No CV, , pulmonary, eye, ENT system symptoms on review. Reliability is poor. MENTAL STATUS EXAM: Oriented to herself. Insight, judgment, recent and remote memory, attention, concentration, fund of knowledge is poor, consistent with her diagnoses mentioned in my initial note. PLAN: Continue current psychotropics, transition to senior care on 09/19/2017. MAN Jc CASILLAS MD DR: MIGUEL A/nahed JOB#: [id number] / [id number]
== END 2017-09-19 10:30 | disposition home or self-care (01) | DRG 884 ==
LOC: GEROPSY 16:22
PROVIDERS: ADMIT Psychiatry & Neurology Psychiatry; ATTEND Psychiatry & Neurology Psychiatry
DX: F01.51 Vascular dementia, unspecified severity, with behavioral disturbance (principal); I95.9 Hypotension, unspecified; G30.9 Alzheimer's disease, unspecified; E86.0 Dehydration; N39.0 Urinary tract infection, site not specified; F02.81 Dementia in other diseases classified elsewhere, unspecified severity, with behavioral disturbance; E87.6 Hypokalemia; F32.9 Major depressive disorder, single episode, unspecified; Z88.8 Allergy status to other drugs, medicaments and biological substances; F41.9 Anxiety disorder, unspecified; F63.9 Impulse disorder, unspecified; G47.00 Insomnia, unspecified; I10 Essential (primary) hypertension; K57.90 Diverticulosis of intestine, part unspecified, without perforation or abscess without bleeding; F29 Unspecified psychosis not due to a substance or known physiological condition; G89.29 Other chronic pain; K59.09 Other constipation; M81.0 Age-related osteoporosis without current pathological fracture; Z66 Do not resuscitate; Z91.14 Patient's other noncompliance with medication regimen; Z91.19 Patient's noncompliance with other medical treatment and regimen
CPT/HCPCS: 36415; 74018; 80048; 80053; 80164; 81001; 83735; 84443; 85025; 85027; 87086; 87186; Q0162